=== PATIENT | female | born 2000 | race Caucasian/White ===

== ENCOUNTER 2023-02-18 09:30 | Emergency (ER) | payer OTHER, SELFPAY ==
[2023-02-18 09:38] VITALS: BP 107/83; PULSE 109; RESP 18; TEMP 36.4; O2SAT 96; BMI 28.4
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
== END 2023-02-18 10:59 | disposition home or self-care (01) ==
PROVIDERS: Emergency Provider Emergency Medicine
DX: S09.90XA Unspecified injury of head, initial encounter (principal); S05.12XA Contusion of eyeball and orbital tissues, left eye, initial encounter; Y04.2XXA Assault by strike against or bumped into by another person, initial encounter; Z79.899 Other long term (current) drug therapy; Z79.890 Hormone replacement therapy
CPT/HCPCS: 70450; 70486; 99284

== ENCOUNTER 2023-07-14 16:55 | Emergency (ER) | payer OTHER, SELFPAY ==
[2023-07-14] VITALS (19 sets, daily range): BP systolic 105–117; BP diastolic 68–79; PULSE 73–91; RESP 12–24; TEMP 36.8; O2SAT 90–100; BMI 28.4
[2023-07-14 17:17] LABS: Glucometer 113 mg/dL (74-106)
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
--- NOTE | 2023-07-14 18:03 | XR_ITS ---
The [address] [address] Patient Name: INDIA MOLINA MRN: [id number] date: 2000 Sex: F Assigned Patient Location: ER Current Patient Location: ED.MAIN Accession/Order Number: [id number] Exam Date: 07/14/2023 18:45 Report Date: 07/14/2023 19:20 At the request of: NERIS JUNG Procedure: XR chest 1V EXAMINATION: XR chest 1V HISTORY: Dizziness COMPARISON: None. TECHNIQUE: Portable chest FINDINGS: The lung parenchyma is free of consolidation or infiltrate. Right mid hemithorax calcified pulmonary granuloma. No pneumothorax or pleural effusion. The cardiac, mediastinal and hilar contours are normal. The visualized osseous structures exhibit no gross abnormality. XR/XR chest 1V IMPRESSION: No acute cardiopulmonary abnormality. Electronically authenticated by: SARTHAK COOK Date: 07/14/2023 19:20
--- NOTE | 2023-07-14 18:03 | ECG_ITS ---
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
[2023-07-14 18:09] LABS: Basophils Absolute Auto 0.1 10^3/uL (0.0-0.1); Basophils Percent Auto 0.8 % (0.2-2.0); Eosinophils Absolute Auto 0.1 10^3/uL (0.0-0.7); Eosinophils Percent Auto 1.2 % (0.9-7.0); Hematocrit 38.7 % (36.0-48.0); Hemoglobin 11.9 g/dL (12.0-16.0); Immature Granulocytes Abs Auto 0.01 10^3/uL (0.00-0.03); Immature Granulocytes Pct Auto 0.2 % (0.0-0.5); Lymphocytes Absolute Auto 2.4 10^3/uL (1.2-3.8); Lymphocytes Percent Auto 37.4 % (20.5-60.0); Mean Corpuscular HGB Conc 30.7 g/dL (29.9-35.2); Mean Corpuscular Hemoglobin 25.9 pg (26.7-34.0); Mean Corpuscular Volume 84.1 fL (81.0-99.0); Mean Platelet Volume 12.8 fL (9.5-13.5); Monocytes Absolute Auto 0.4 10^3/uL (0.3-0.8); Monocytes Percent Auto 5.9 % (1.7-12.0); Neutrophils Absolute Auto 3.5 10^3/uL (1.4-6.5); Neutrophils Percent Auto 54.5 % (43.0-75.0); Platelet Count 207 10^3/uL (150-450); Red Cell Distribution Width 14.6 % (11.0-15.0); White Blood Count 6.4 10^3/uL (4.0-11.0)
[2023-07-14 18:11] LABS: Bilirubin Urine NEGATIVE (NEGATIVE); Blood Urine LARGE (NEGATIVE); Clarity Urine CLEAR (CLEAR); Color Urine LT. YELLOW (YELLOW); Glucose Urine UA NEGATIVE (NEGATIVE); Ketones Urine NEGATIVE (NEGATIVE); Leukocyte Esterase Urine NEGATIVE (NEGATIVE); Nitrite Urine NEGATIVE (NEGATIVE); Protein Urine NEGATIVE (NEG/TRACE); Specific Gravity Urine 1.025 (1.005-1.025); Urobilinogen Urine 0.2 EU/dL (0.2-1.0)
[2023-07-14 18:12] LABS: Urine Microscopic Indicated YES
[2023-07-14 18:18] LABS: Alanine Aminotransferase 16 U/L (14-59); Albumin Globulin Ratio 1.1; Albumin Level 3.9 g/dL (3.4-5.0); Alkaline Phosphatase 68 U/L (46-116); Anion Gap 11.8; Aspartate Amino Transferase 13 U/L (15-37); BUN Creatinine Ratio 10.3; Bilirubin Total 0.2 mg/dL (0.2-1.0); Calcium 8.9 mg/dL (8.5-10.1); Carbon Dioxide 26.6 mmol/L (21.0-32.0); Chloride 104 mmol/L (98-107); Estimated GFR (African America >60 (>=60); Estimated GFR (Non-African Ame >60 (>=60); Globulin 3.7 g/dL; Glucose 114 mg/dL (74-106); Potassium 3.4 mmol/L (3.5-5.1); Sodium 139 mmol/L (136-145); Total Protein 7.6 g/dL (6.4-8.2)
[2023-07-14 18:20] LABS: Amphetamine Screen Urine NEGATIVE (NEGATIVE); Barbiturates Screen Urine NEGATIVE (NEGATIVE); Benzodiazepines Screen Urine NEGATIVE (NEGATIVE); Buprenorphine Screen Urine NEGATIVE (NEGATIVE); Cannabinoid Screen Urine NEGATIVE (NEGATIVE); Cocaine Screen Urine NEGATIVE (NEGATIVE); Methadone Screen Urine NEGATIVE (NEGATIVE); Methamphetamines Screen Urine NEGATIVE (NEGATIVE); Opiate Screen Urine NEGATIVE (NEGATIVE); Oxycodone Screen Urine NEGATIVE (NEGATIVE); Phencyclidine Screen Urine NEGATIVE (NEGATIVE); Tricyclic Antidepressant Urine NEGATIVE (NEGATIVE)
[2023-07-14 18:21] LABS: Lactate/Lactic Acid 0.9 mmol/L (0.4-2.0)
[2023-07-14 18:29] LABS: PCO2 VBG 21.6 mmHg (40.0-52.0); pH VBG 7.568 (7.330-7.430)
[2023-07-14 18:31] LABS: Bacteria Urine TRACE #/HPF (NONE SEEN); Crystals Seen? None Seen #/HPF (None Seen); Mucus Urine NONE SEEN (NONE SEEN); Squamous Epithelial Cell Urine FEW #/LPF (NONE/RARE); WBC Urine 0-2 #/HPF (NONE SEEN)
[2023-07-14 18:32] LABS: Cast Seen? NONE SEEN #/LPF (NONE SEEN); Urine Culture Indicated NO
[2023-07-14] MEDS: 0.9 % SODIUM CHLORIDE 1,000 ML 999 ML IV (18:49)
== END 2023-07-14 19:43 | disposition home or self-care (01) ==
PROVIDERS: Emergency Provider Emergency Medicine Emergency Medical Services; PCP Family Medicine
DX: R41.82 Altered mental status, unspecified (principal); Z79.890 Hormone replacement therapy; Z79.899 Other long term (current) drug therapy
CPT/HCPCS: 36415; 71045; 80053; 80307; 81001; 82800; 83605; 85025; 87040; 93005; 99285

== ENCOUNTER 2024-01-31 11:52 | Emergency (ER) | payer OTHER, SELFPAY ==
[2024-01-31 12:04] VITALS: BP 120/71; PULSE 80; TEMP 36.9; O2SAT 97; BMI 26.6
--- OUTSIDE RECORDS SUMMARY | 2024-01-31 12:17 | XMS_ITS | CCD ---
Author Organization [facility] Care Team Providers Care [employer] Supervisor Name Role Phone Mable García Primary Care Provi skyler FLORO ., JACOBO Admitting Unavailable FLORO ., JACOBO Attending Unavailable REQUEST, DR NONE LISTED Primary Care Unavaila ble ABHAY ., DR THORPE Consulting Unavailable GABRIEL SUERO Consulting Unavailable FLORENCIO II, GABRIELLA Consulting Unavailable OPAL PERRY Consulting Unavailable FLORO ., JACOBO Consulting Unavailable KARINE SAVAGE Admitting Unavailable KARINE SAVAGE Attending Unavailable KARINE SAVAGE Consulting Unavailable KARASIK ., DR DIAZ Admitting Unavailabl e KARASIK ., DR DIAZ Attending Unavailabl e KARASIK ., DR DIAZ Consulting Unavailabl e ABHAY ., DR THORPE Admitting Unavailable ABHAY ., DR THORPE Attending Unavailable ABHAY ., DR THORPE Consulting Unavailable ZIEBER, DR SHIN Schrader Consulting Unavailable KARASIK ., DR DIAZ Admitting Unavailabl e KARASIK ., DR DIAZ Attending Unavailabl e KARASIK ., DR DIAZ Consulting Unavailabl e ZIEBER, DR SHIN Schrader Consulting Unavailable FLORO, LATANYA Consulting Unavailable MABLE GARCÍA Primary Care Un available MABLE GARCÍA Primary Care Un available OG LARIOS Admitting UnavailOG Roman Attending Unavailabl e FLOROLATANYA Admitting Unavailable FLORLATANYA Madison Attending Unavailable MABLE GARCÍA Primary Care Un available MABLE GARCÍA Primary Care Un available COY BILLS Attending Unavailable LATANYA MAX Attending Unavailable MABLE JOE Attending Unavailable Medications Current Medications Medication Drug Class(es) Dates Sig (Normalized) Sig (Original) acetaminophen 325 mg / HYDROcodone bitartrate 5 mg oral tablet (5 sources) Opioid Agonist Start: 03-06-2015 End: 01-08-2020 take 1-2 tablets by mouth every four to six hours as needed for pain HYDROcodone-aceta minophen (NORCO) 5-325 MG TABS 1-2 tabs po every 4-6 hours as needed for pain 60 tablet 0 03/06/2015 Active amoxicillin 500 mg oral capsule (2 sources) Penicillin-class Antibacterial Start: 01-08-2020 End: 01-18-2020 take 1 capsule by mouth three times daily amoxicillin (AMOXIL) 500 MG capsule Take 1 capsule by mouth 3 times daily for 10 days 30 capsule 0 01/08/2020 01/18/2020 Active azelastine hydrochloride 0.137 mg/actuat metered dose nasal spray (3 sources) Histamine-1 Receptor Antagonist Start: 05-23-2021 take 2 spray(s) nasal route twice daily azelastine (ASTELIN) 0.1 % nasal spray 2 sprays by Nasal route 2 times daily Use in each nostril as directed 60 mL 0 05/23/2021 Active benzocaine 200 mg/ml / menthol 5 mg/ml topical spray (1 source) Standardized Chemical Allergen Start: 09-25-2019 benzocaine-mentho l (DERMOPLAST) 20-0.5 % spray benzonatate 200 mg oral capsule (1 source) Non-narcotic Antitussive Start: 05-23-2021 End: 06-02-2021 take 1 capsule by mouth three times daily as needed for cough benzonatate (TESSALON) 200 MG capsule Take 1 capsule by mouth 3 times daily as needed for Cough 30 capsule 0 05/23/2021 06/02/2021 Active 2 ml butorphanol tartrate 2 mg/ml injection (1 source) Opioid Agonist/Antagonist Start: 09-25-2019 butorphanol (STADOL) injection 1 mg calcium chloride 0.0014 meq/ml / potassium chloride 0.004 meq/ml / sodium chloride 0.103 meq/ml / sodium lactate 0.028 meq/ml injectable solution (3 sources) Start: 11-07-2022 End: 11-07-2022 lactated ringers IV soln infusion Start: 09-25-2019 lactated ringe rs infusion 1 ml carboprost 0.25 mg/ml injection (1 source) Prostaglandin Analog Start: 09-25-2019 carbopros t (HEMABATE) injection 250 mcg citalopram 10 mg oral tablet (1 source) Serotonin Reuptake Inhibitor take 1 tablet by mouth once daily citalopram (CELEXA) 10 MG tablet Take 10 mg by mouth daily 0 Active ketorolac tromethamine 10 mg oral tablet (15 sources) Nonsteroidal Anti-inflammatory Drug, Cyclooxygenase Inhibitor Start: 01-13-2020 take 1 tablet by mouth every eight hours as needed for pain ketorolac (TORADOL) 10 MG tablet Take 1 tablet by mouth every 8 hours as needed for Pain 15 tablet 0 01/13/2020 Active Start: 01-08-2020 ketorolac (TOR ADOL) injection 30 mg Start: 03-06-2015 take 1 tablet by kenton th three times daily, then take 1 tablet by mouth three times daily ketorolac (TORADOL) 10 MG tablet Take 1 tablet by mouth 3 times daily for 5 days 1 tab by mouth 3 times daily 15 tablet 0 03/06/2015 Active levothyroxine sodium 0.025 m g oral tablet (6 sources) l-Thyroxine levothyroxine (S YNTHROID) 25 MCG tablet Take 80 mcg by mouth Daily 0 Active take 1 tablet by mouth once jaycee y levothyroxine (SYNTHROID) 25 MCG tablet Take 25 mcg by mouth Daily. 0 Active 10 ml lidocaine hydrochloride 10 mg/ml injection (1 source) Antiarrhythmic, Amide Local Anesthetic Start: 09-25-2019 lidocaine PF 1 % injection 30 mL Magic Mouthwash (MIRACLE MOUTHWASH) (1 source) Start: 01-13-2020 Magic Mouthwash (MIRACLE MOUTHWASH) Swish and spit 5 mLs 4 times daily as needed for Irritation 240 mL 0 01/13/2020 Active 1 ml methylergonovine maleate 0.2 mg/ml injection (1 source) Ergot Derivative Start: 09-25-2019 methylergonovine (METHERGINE) injection 200 mcg Misc. Devices (ADULT PUSH BUTTON ALUM CRUTCH) MISC (3 sources) Start: 07-24-2013 Misc. Devices (ADULT PUSH BUTTON ALUM CRUTCH) MISC by Does not apply route. Please dispense one pair and adjust for height. 1 each 0 07/24/2013 Active miSOPROStol 0.1 mg oral tablet (1 source) Prostaglandin E1 Analog Start: 09-25-2019 misoprostol (CYTOTEC) tablet 900 mcg 2 ml ondansetron 2 mg/ml injection (1 source) Serotonin-3 Receptor Antagonist Start: 09-25-2019 ondansetron (ZOFRAN) injection 4 mg oxytocin (PITOCIN) 30 Units in sodium chloride 0.9 % 500 mL infusion (1 source) Start: 09-26-2019 oxytocin (PITOCIN) 30 Units in sodium chloride 0.9 % 500 mL infusion predniSONE 20 mg oral tablet (1 source) Start: 05-23-2021 End: 05-30-2021 take 2 tablets by mouth once daily predniSONE (DELTASONE) 20 MG tablet Take 2 tablets by mouth daily for 7 days 14 tablet 0 05/23/2021 05/30/2021 Active Vit-DSS-Fe Cbn-FA ( AD PO) (1 source) Vit-DSS -Fe Cbn-FA ( AD PO) Take by mouth 0 Active Vit-Fe Fumarate-FA ( COMPLETE PO) (2 sources) Vit-Fe Fumarate-FA ( COMPLETE PO) Take by mouth 0 Active witch radha 500 mg/ml medicated pad (1 source) Start: 09-25-2019 witch radha-glycerin (TUCKS) pad Completed/Discontinued Medications Medication Drug Class(es) Dates Sig (Normalized) Sig (Original) acetaminophen 500 mg oral tablet (2 sources) Start: 11-04-2022 End: 11-04-2022 acetaminophen (TYLENOL) tablet 1,000 mg Start: 09-25-2019 acetaminophen (TYLENOL) tablet 650 mg dinoprostone 10 mg drug implant (1 source) Prostaglandin Analog Start: 09-25-2019 End: 09-25-2019 dinoprostone (CERVIDIL) vaginal insert 10 mg NIFEdipine 10 mg oral capsule (1 source) Dihydropyridine Calcium Channel Jared Start: 11-07-2022 End: 11-07-2022 NIFEdipine (PROCARDIA) capsule 10 mg Start: 11-07-2022 End: 11-07-2022 NIFEdipine (PROCARDIA) capsu le 10 mg 50 ml sodium chloride 9 mg/m l injection (3 sources) Start: 01-08-2020 End: 01-08-2020 0.9 % sodium chloride bolus Start: 09-25-2019 sodium chlorid e flush 0.9 % injection 10 mL zolpidem tartrate 5 mg oral tablet (1 source) gamma-Aminobutyric Acid-ergic Agonist Start: 09-25-2019 End: 09-25-2019 zolpidem (AMBIEN) tablet 5 mg Problems Active Problems Problem Classification Problem Date Documented Date Episodic/Chronic Hemorrhage during ; abruptio placenta; placenta previa (8 sources) Low lying placenta NOS or without hemorrhage, third trimester; Translations: [Antepartum hemorrhage, unspecified, second trimester] Onset: 05-28-2022 Episodic Menopausal disorders (1 source) Hormone replacement therapy; Translations: [HORMONE REPLACEMENT THERAPY] Onset: 10-19-2022 Episodic Other complications of (1 source) Endocrine, nutritional and metabolic diseases complicating , third trimester; Translations: [ENDOCRN NUTR MET DZ COMP PG 3RD TRI] Onset: 11-02-2022 Episodic Other complications of (4 sources) Other specified related conditions, third trimester; Translations: [OTH SPEC PREG RELATED COND 3RD TRI] Onset: 10-17-2022 Episodic Other complications of (1 source) Other infections with a predominantly sexual mode of transmission complicating , third trimester; Translations: [OTH INF SEXL TRNSMS COMP PG 3RD TRI] Onset: 10-19-2022 Episodic Other infections; including parasitic (1 source) Trichomoniasis, unspecified; Translations: [TRICHOMONIASIS UNSPECIFIED] Onset: 10-19-2022 Episodic Other upper respiratory infections (3 sources) Acute pharyngitis; Translations: [Streptococcal pharyngitis] Onset: 07-27-2023 Episodic Otitis media and related conditions (1 source) Otitis media of left ear; Translations: [Left otitis media, unspecified otitis media type] Residual codes; unclassified (1 source) 36 weeks gestation of ; Translations: [36 WEEKS GESTATION OF ] Onset: 11-02-2022 Episodic Residual codes; unclassified (1 source) 34 weeks gestation of ; Translations: [34 WEEKS GESTATION OF ] Onset: 10-19-2022 Episodic Thyroid disorders (1 source) Hypothyroidism, unspecified; Translations: [HYPOTHYROIDISM UNSPECIFIED] Onset: 07-25-2022 Chronic Thyroid disorders (1 source) Disorder of thyroid, unspecified; Translations: [DISORDER OF THYROID UNSPECIFIED] Onset: 11-02-2022 Episodic Urinary tract infections (1 source) Acute cystitis with hematuria; Translations: [Acute cystitis with hematuria] Onset: 07-03-2023 Episodic Viral infection (1 source) Viral disease; Translations: [Viral infection, unspecified] Episodic Past or Other Problems Problem Classification Problem Date Documented Da te Episodic/Chronic Abdominal pain (3 sources) Right lower quadrant pain; Translations: [Abdominal pain] Onset: 10-19-2022 Episodic Early or threatened labor (10 sources) Uterine contractions present; Translations: [False labor, unspecified] Onset: 10-29-2022 Episodic Other aftercare (1 source) Other mcc (current) drug therapy; Translations: [OTH SENIOR CARE CURRENT DRUG THERAPY] Onset: 07-25-2022 Episodic Other complications of (1 source) Other placental disorders, second trimester; Translations: [OTH PLACENTAL DISORDER SECOND TRI] Onset: 07-25-2022 Episodic Other complications of (1 source) Endocrine, nutritional and metabolic diseases complicating , second trimester; Translations: [ENDOCRN NUTR MET DZ COMP PG 2ND TRI] Onset: 07-25-2022 Episodic Other and delivery including normal (7 sources) Term ; Translations: [Encounter for supervision of normal , unspecified, unspecified trimester] Onset: 09-26-2019 09-26-2019 Episodic Residual codes; unclassified (1 source) 23 weeks gestation of ; Translations: [23 WEEKS GESTATION OF ] Onset: 07-25-2022 Episodic Residual codes; unclassified (1 source) 13 weeks gestation of ; Translations: [13 WEEKS GESTATION OF ] Onset: 05-30-2022 Episodic Results Test Name Value Interpretation Reference Range Facility Flu A/B Ag Detectionon 07-27 Flu A Ag Detection Negative Normal NEG [facility] Comment on above: Result Comment: for Influenza A Antigen Performed By: #### F ROSANNE #### [facility] [address] [place] [address] K 12 Principal: Phil Keller MD Flu B Ag Detection Negative Normal NEG [facility] Comment on above: Result Comment: for Influenza B Antigen. Performed By: #### F ROSANNE #### [facility] [address] [place] [address] K 12 Principal: Phil Keller MD [id number] 07-27-2023 SARS-CoV-2 (COVID-19) RNA AMY+probe Ql (Unsp spec) Not detected Normal NOTDET [facility] Comment on above: Result Comment: Rapid NAAT: The specimen is NEGATIVE for SARS-CoV-2, the novel coronavirus associated with COVID-19. The ID NOW COVID-19 assay is designed to detect the virus that causes COVID-19 in patients with signs and symptoms of infection who are suspected of COVID-19. An individual without symptoms of COVID-19 and who is not shedding SARS-CoV-2 virus would expect to have a negative (not detected) result in this assay. Negative results should be treated as presumptive and, if inconsistent with clinical signs and symptoms or necessary for patient management, should be tested with an alternative molecular assay. Negative results do not preclude SARS-CoV-2 infection and should not be used as the sole basis for patient management decisions. Fact sheet for Healthcare Providers: https://www.fda.gov/media/573819/download Fact sheet for Patients: https://www.fda.gov/media/981782/download Methodology: Isothermal Nucleic Acid Amplification Performed By: #### C OVRB #### [address] [place] [address] K 12 Principal: Phil Keller MD Strep Group A, Rapidon 07-27 Strep A, Molecular Positive Abnormal NEG [facility] Comment on above: Performed By: #### R SAB #### [facility] [address] [place] [address] K 12 Principal: Phil Keller MD Source .THROAT SWAB Normal [facility] Comment on above: Performed By: #### R SAB #### [facility] [address] [place] [address] K 12 Principal: Phil Keller MD HCG, ,Urineon 07-03 Beta HCG ( test) Ql (U) Negative Normal NEG [facility] Comment on above: Result Comment: Spec imens with hCG levels near the threshold of the test (25 mIU/mL) may give a negative or indeterminate result. In such cases, another test should be performed with a new specimen in 48-72 hours. If early is suspected clinically in this setting, correlation with quantitative serum b-hCG level is suggested. [facility] has confirmed the use of plasma for this test. This has not been cleared or approved by the U.S. Food and Drug Administration. The FDA has determined that such clearance is not necessary. Performed By: #### U HCG, UAMIC #### [facility] [address] [place] [address] K 12 Principal: Phil Keller MD Urinalysis w/ Microon Bacteria 2+ Abnormal NONE [facility] Comment on above: Performed By: #### U HCG, UAMIC #### [facility] [address] [place] [address] K 12 Principal: Phil Keller MD Bilirubin, SemiQt,Ur Negative Normal NEG [facility] Comment on above: Performed By: #### U HCG, UAMIC #### [facility] [address] [place] [address] K 12 Principal: Phil Keller MD Blood, Urine 3+ Abnormal NEG [facility] Comment on above: Performed By: #### U HCG, UAMIC #### [facility] [address] [place] [address] K 12 Principal: Phil Keller MD Clarity (U) Turbid Abnormal CLEAR [facility] Comment on above: Performed By: #### U HCG, UAMIC #### [facility] [address] [place] [address] K 12 Principal: Phil Keller MD Color (U) Dark Yellow Abnormal YEL [facility] Comment on above: Performed By: #### U HCG, UAMIC #### [facility] [address] [place] [address] Dr. [place], [place] [id number] K 12 Principal: Phil Keller MD Epithelial cells LM Ql (Urine sed) 5 TO 10 Normal 0-25 [facility] Comment on above: Performed By: #### U HCG, UAMIC #### [facility] [address] [place], [place] [id number] K 12 Principal: Phil Keller MD Glucose Ql (U) Negative Normal [facility]G [facility] Comment on above: Performed By: #### U HCG, UAMIC #### [address] [place], [place] [id number] K 12 Principal: Phil Keller MD Ketones Ql (U) Negative Normal NEG [facility] in Hospital Comment on above: Performed By: #### U HCG, UAMIC #### [facility] [address] [place] [address] Dr. [place], [place] [id number] K 12 Principal: Phil Keller MD Leukocyte esterase Test strip Ql (U) MODERATE Abnormal NEG [facility] Comment on above: Performed By: #### U HCG, UAMIC #### [address] [place], [place] [id number] K 12 Principal: Phil Keller MD Nitrite,Ur Positive Abnormal NEG [facility] Comment on above: Performed By: #### U HCG, UAMIC #### [facility] [address] [place] [address] Dr. [place], [place] [id number] K 12 Principal: Phil Keller MD PH,Ur 6.5 Normal 5.0-9.0 [facility] Comment on above: Performed By: #### U HCG, UAMIC #### [facility] [address] [place] [address] Dr. [place], [place] [id number] K 12 Principal: Phil Keller MD Protein Ql (U) 2+ mg/dL Abnormal NEG [facility] Comment on above: Performed By: #### U HCG, UAMIC #### [facility] [address] [place] [address] K 12 Principal: Phil Keller MD Spec. [place],Ur 1.025 High 1.010-1.020 [facility] Comment on above: Performed By: #### U HCG, UAMIC #### [facility] [address] [place], [place] [id number] K 12 Principal: Phil Keller MD Urine RBC's 10 TO 20 Normal 0-2 [facility] Comment on above: Performed By: #### U HCG, UAMIC #### [facility] [address] [place], [place] [id number] K 12 Principal: Phil Keller MD Urine WBC's 20 TO 50 Normal 0-5 [facility] Comment on above: Performed By: #### U HCG, UAMIC #### [facility] [address] [place], [place] [id number] K 12 Principal: Phil Keller MD Urobilinogen,Ur Normal Normal 0.0-1.0 [facility] Comment on above: Performed By: #### U HCG, UAMIC #### [facility] [address] [place] [address] K 12 Principal: Phil Keller MD PRBC LEUKOREDUCEDon 11-27-19 23 ABO and Rh group Nom (Bld) Cross Match Result Compatible Unit Blood Type O Neg Unit Number [id number] Status Information Transfused Product ID Red Blood Cells Product Code [id number] Cross Match Result Compatible Unit Blood Type O Neg Unit Number [id number] Status Information Released Specimen Exp Date [id number] Product ID Red Blood Cells Product Code [id number] Normal [facility] Comment on above: Performed By: #### CELY FENTON #### [facility] [address] [place] [address] Dr. Nilo Gibbons CBC AUTO DIFFon 11-24-2022 BASO # 0.0 103/ul Normal 0.0-0.1 [facility] Comment on above: Performed By: #### Jose WALDRON UMICRO #### [facility] [address] [place] [address] Dr. Nilo Gibbons Basophils/100 WBC (Bld) 0.2 % Normal 0.2-2.0 [facility] Comment on above: Performed By: #### Jose WALDRON, UMICRO #### [facility] [address] [place] [address] Dr. Nilo Gibbons EO # 0.0 103/ul Normal 0.0-0.7 [facility] Comment on above: Performed By: #### Jose WALDRON UMICRO #### [facility] [address] [place] [address] Dr. Nilo Gibbons Eosinophils/100 WBC (Bld) 0.2 % Critically low 0.9-7.0 [facility] Comment on above: Performed By: #### Jose WALDRON UMICRO #### [facility] [address] [place] [address] Dr. Nilo Gibbons Erythrocyte distribution width (RBC) [Ratio] 15.1 % Critically high 11.0-15.0 [facility] Comment on above: Performed By: #### Jose WALDRON, UMICRO #### [facility] [address] [place] [address] Dr. Nilo Gibbons Hematocrit (Bld) [Volume fraction] 23.1 % Critically low 36.0-48.0 [facility] Comment on above: Performed By: #### Jose WALDRON, UMICRO #### [facility] [address] [place] [address] Dr. Nilo Gibbons Hemoglobin (Bld) [Mass/Vol] 7.4 g/dL Critically low 12.0-16.0 [facility] Comment on above: Performed By: #### Jose WALDRON, UMICRO #### [facility] [address] [place] [address] Dr. Nilo Gibbons IG # 0.05 10e3/ul Critically high 0.00-0.03 [facility] Comment on above: Performed By: #### LISSETH FENTONRO #### [facility] [address] [place] [address] Dr. Nilo Gibbons IG % 0.4 % Normal 0.0-0.5 [facility] Comment on above: Performed By: #### LISSETH FENTONRO #### [facility] [address] [place] [address] Dr. Nilo Gibbons LYMPH # 1.6 103/ul Normal 1.2-3.8 [facility] Comment on above: Performed By: #### LISSETH FENTONRO #### [facility] [address] [place] [address] Dr. Nilo Gibbons Lymphocytes/100 WBC (Bld) 12.6 % Critically low 20.5-60.0 [facility] Comment on above: Performed By: #### LISSETH FENTONRO #### [facility] [address] [place] [address] Dr. Nilo Gibbons MANUAL DIFF REQ NO Normal [facility] Comment on above: Performed By: #### LISSETH FENTONRO #### [facility] [address] [place] [address] Dr. Nilo Gibbons MCH (RBC) [Entitic mass] 26.8 pg Normal 26.7-34.0 [facility] Comment on above: Performed By: #### LISSETH FENTONRO #### [facility] [address] [place] [address] Dr. Nilo Gibbons MCHC (RBC) [Mass/Vol] 32.0 g/dL Normal 29.9-35.2 [facility] Comment on above: Performed By: #### LISSETH FENTONRO #### [facility] [address] [place] [address] Dr. Nilo Gibbons MCV (RBC) [Entitic vol] 83.7 fL Normal 81.0-99.0 [facility] Comment on above: Performed By: #### LISSETH FENTONRO #### [facility] [address] [address] [address] Nilo Gibbons MONO # 0.7 103/ul Normal 0.3-0.8 [facility] Comment on above: Performed By: #### BRENDA FENTONICRO #### [facility] [address] [place] [address] Dr. Nilo Gibbons Monocytes/100 WBC (Bld) 5.8 % Normal 1.7-12.0 [facility] Comment on above: Performed By: #### Jose WALDRON UMICRO #### [facility] [address] [place] [address] Dr. Nilo Gibbons NEUT # 10.0 103/ul Critically high 1.4-6.5 [facility] Comment on above: Performed By: #### Jose WALDRON UMICRO #### [facility] [address] [place] [address] Dr. Nilo Gibbons Neutrophils/100 WBC (Bld) 80.8 % Critically high 43.0-75.0 [facility] Comment on above: Performed By: #### Jose WALDRON UMICRO #### [facility] [address] [place] [address] Dr. Nilo Gibbons Platelet mean volume (Bld) [Entitic vol] 12.4 fL Normal 9.5-13.5 [facility] Comment on above: Performed By: #### Jose WALDRON UMICRO #### [facility] [address] [place] [address] Dr. Nilo Gibbons PLT 126 103/ul Critically low 150-[address] [facility] Comment on above: Performed By: #### Jose WALDRON UMICRO #### [facility] [address] [place] [address] Dr. Nilo Gibbons RBC 2.76 106/ul Critically low 4.20-5.40 [facility] Comment on above: Performed By: #### Jose WALDRON UMICRO #### [facility] [address] [place] [address] Dr. Nilo Gibbons WBC 12.3 103/ul Critically high 4.0-11.0 [facility] Comment on above: Performed By: #### E RUMacrina ICRO #### [facility] [address] [place] [address] Dr. Nilo Gibbons CBC AUTO DIFFon 11-23-2022 BASO # 0.0 103/ul Normal 0.0-0.1 [facility] Comment on above: Performed By: #### U SAIRA UMICRO #### [facility] [address] [place] [address] Dr. Nilo Gibbons Basophils/100 WBC (Bld) 0.2 % Normal 0.2-2.0 [facility] Comment on above: Performed By: #### U SAIRA ICRO #### [facility] [address] [place] [address] Dr. Nilo Gibbons EO # 0.0 103/ul Normal 0.0-0.7 [facility] Comment on above: Performed By: #### Ekaterina CHÁVEZ ICRO #### [facility] [address] [place] [address] Dr. Nilo Gibbons Eosinophils/100 WBC (Bld) 0.2 % Critically low 0.9-7.0 [facility] Comment on above: Performed By: #### CELY CARROLL #### [facility] [address] [place] [address] Dr. Nilo Gibbons Erythrocyte distribution width (RBC) [Ratio] 15.6 % Critically high 11.0-15.0 [facility] Comment on above: Performed By: #### LISSETH CARROLLRO #### [facility] [address] [place] [address] Dr. Nilo Gibbons Hematocrit (Bld) [Volume fraction] 29.5 % Critically low 36.0-48.0 [facility] Comment on above: Performed By: #### U LISSETH CHÁVEZRO #### [facility] [address] [place] [address] Dr. Nilo Gibbons Hemoglobin (Bld) [Mass/Vol] 9.2 g/dL Critically low 12.0-16.0 [facility] Comment on above: Performed By: #### LISSETH CARROLLRO #### [facility] [address] [address] [address] Nilo Gibbons IG # 0.05 10e3/ul Critically high 0.00-0.03 [facility] Comment on above: Performed By: #### U ACSIND, UMICRO #### [facility] [address] [address] [address] Nilo Gibbons IG % 0.3 % Normal 0.0-0.5 [facility] Comment on above: Performed By: #### U ACSIND, UMICRO #### [facility] [address] [address] [address] Nilo Gibbons LYMPH # 2.8 103/ul Normal 1.2-3.8 [facility] Comment on above: Performed By: #### U ACSIND, UMICRO #### [facility] [address] [address] [address] Nilo Gibbons Lymphocytes/100 WBC (Bld) 18.4 % Critically low 20.5-60.0 [facility] Comment on above: Performed By: #### U ACSIND, UMICRO #### [facility] [address] [address] [address] Nilo Gibbons MANUAL DIFF REQ NO Normal [facility] Comment on above: Performed By: #### U ACSIND, UMICRO #### [facility] [address] [address] [address] Nilo Gibbons MCH (RBC) [Entitic mass] 26.4 pg Critically low 26.7-34.0 [facility] Comment on above: Performed By: #### U ACSIND, UMICRO #### [facility] [address] [address] [address] Nilo Gibbons MCHC (RBC) [Mass/Vol] 31.2 g/dL Normal 29.9-35.2 [facility] Comment on above: Performed By: #### U ACSIND, UMICRO #### [facility] [address] [address] [address] Nilo Gibbons MCV (RBC) [Entitic vol] 84.8 fL Normal 81.0-99.0 [facility] Comment on above: Performed By: #### U BRENDA CHÁVEZICRO #### [facility] [address] [place] [address] Dr. Nilo Gibbons MONO # 1.2 103/ul Critically high 0.3-0.8 [facility] Comment on above: Performed By: #### Ekaterina CHÁVEZ UMICRO #### [facility] [address] [place] [address] Dr. Nilo Gibbons Monocytes/100 WBC (Bld) 7.7 % Normal 1.7-12.0 [facility] Comment on above: Performed By: #### Ekaterina CHÁVEZ UMICRO #### [facility] [address] [place] [address] Dr. Nilo Gibbons NEUT # 11.1 103/ul Critically high 1.4-6.5 [facility] Comment on above: Performed By: #### Ekaterina CHÁVEZ ICRO #### [facility] [address] [place] [address] Dr. Nilo Gibbons Neutrophils/100 WBC (Bld) 73.2 % Normal 43.0-75.0 [facility] Comment on above: Performed By: #### Ekaterina CHÁVEZ ICRO #### [facility] [address] [place] [address] Dr. Nilo Gibbons Platelet mean volume (Bld) [Entitic vol] 11.8 fL Normal 9.5-13.5 [facility] Comment on above: Performed By: #### Ekaterina CHÁVEZ ICRO #### [facility] [address] [place] [address] Dr. Nilo Gibbons PLT 100 103/ul Critically low 150-[address] [facility] Comment on above: Performed By: #### U SAIRA UMICRO #### [facility] [address] [place] [address] Dr. Nilo Gibbons RBC 3.48 106/ul Critically low 4.20-5.40 [facility] Comment on above: Performed By: #### Ekaterina CHÁVEZ UMICRO #### [facility] [address] [place] [address] Dr. Nilo Gibbons WBC 15.1 103/ul Critically high 4.0-11.0 [facility] Comment on above: Performed By: #### U ACSIND, UMICRO #### [facility] [address] [place] [address] Dr. Nilo Gibbons BASO # 0.0 103/ul Normal 0.0-0.1 [facility] Comment on above: Performed By: #### E RUR, UMICRO #### [facility] [address] [place] [address] Dr. Nilo Gibbons Basophils/100 WBC (Bld) 0.3 % Normal 0.2-2.0 [facility] Comment on above: Performed By: #### E RUR, UMICRO #### [facility] [address] [place] [address] Dr. Nilo Gibbons EO # 0.0 103/ul Normal 0.0-0.7 [facility] Comment on above: Performed By: #### E RUR, UMICRO #### [facility] [address] [place] [address] Dr. Nilo Gibbons Eosinophils/100 WBC (Bld) 0.5 % Critically low 0.9-7.0 [facility] Comment on above: Performed By: #### E RUMacrina, UMICRO #### [facility] [address] [place] [address] Dr. Nilo Gibbons Erythrocyte distribution width (RBC) [Ratio] 15.7 % Critically high 11.0-15.0 [facility] Comment on above: Performed By: #### E RUR, UMICRO #### [facility] [address] [place] [address] Dr. Nilo Gibbons Hematocrit (Bld) [Volume fraction] 31.5 % Critically low 36.0-48.0 [facility] Comment on above: Performed By: #### E RUR, UMICRO #### [facility] [address] [place] [address] Dr. Nilo Gibbons Hemoglobin (Bld) [Mass/Vol] 10.2 g/dL Critically low 12.0-16.0 [facility] Comment on above: Performed By: #### CELY FENTON #### [facility] [address] [place] [address] Dr. Nilo Gibbons IG # 0.03 10e3/ul Normal 0.00-0.03 [facility] Comment on above: Performed By: #### CELY FENTON #### [facility] [address] [place] [address] Dr. Nilo Gibbons IG % 0.4 % Normal 0.0-0.5 [facility] Comment on above: Performed By: #### CELY FENTON #### [facility] [address] [place] [address] Dr. Nilo Gibbons LYMPH # 2.1 103/ul Normal 1.2-3.8 [facility] Comment on above: Performed By: #### CELY FENTON #### [facility] [address] [place] [address] Dr. Nilo Gibbons Lymphocytes/100 WBC (Bld) 26.9 % Normal 20.5-60.0 [facility] Comment on above: Performed By: #### CELY FENTON #### [facility] [address] [place] [address] Dr. Nilo Gibbons MANUAL DIFF REQ NO Normal [facility] Comment on above: Performed By: #### CELY FENTON #### [facility] [address] [place] [address] Dr. Nilo Gibbons MCH (RBC) [Entitic mass] 26.5 pg Critically low 26.7-34.0 [facility] Comment on above: Performed By: #### LISSETH FENTONRO #### [facility] [address] [place] [address] Dr. Nilo Gibbons MCHC (RBC) [Mass/Vol] 32.4 g/dL Normal 29.9-35.2 [facility] Comment on above: Performed By: #### LISSETH FENTONRO #### [facility] [address] [place] [address] Dr. Nilo Gibbons MCV (RBC) [Entitic vol] 81.8 fL Normal 81.0-99.0 [facility] Comment on above: Performed By: #### Jose WALDRON UMICRO #### [facility] [address] [place] [address] Dr. Nilo Gibbons MONO # 0.6 103/ul Normal 0.3-0.8 [facility] Comment on above: Performed By: #### Jose WALDRON, UMICRO #### [facility] [address] [place] [address] Dr. Nilo Gibbnos Monocytes/100 WBC (Bld) 7.3 % Normal 1.7-12.0 [facility] Comment on above: Performed By: #### Jose WALDRON UMICRO #### [facility] [address] [place] [address] Dr. Nilo Gibbons NEUT # 4.9 103/ul Normal 1.4-6.5 [facility] Comment on above: Performed By: #### Jose WALDRON UMICRO #### [facility] [address] [place] [address] Dr. Nilo Gibbons Neutrophils/100 WBC (Bld) 64.6 % Normal 43.0-75.0 [facility] Comment on above: Performed By: #### Jose WALDRON, UMICRO #### [facility] [address] [place] [address] Dr. Nilo Gibbons Platelet mean volume (Bld) [Entitic vol] 12.0 fL Normal 9.5-13.5 [facility] Comment on above: Performed By: #### Jose WALDRON UMICRO #### [facility] [address] [place] [address] Dr. Nilo Gibbons PLT 180 103/ul Normal 150-450 [facility] Comment on above: Performed By: #### Jose WALDRON, UMICRO #### [facility] [address] [place] [address] Dr. Nilo Gibbons RBC 3.85 106/ul Critically low 4.20-5.40 [facility] Comment on above: Performed By: #### E RUR, UMICRO #### [facility] [address] [address] [address] Nilo Gibbons WBC 7.6 103/ul Normal 4.0-11.0 [facility] Comment on above: Performed By: #### E RUR, UMICRO #### [facility] [address] [address] [address] Nilo Gibbons DRUG SCREEN RAPID (URINE)on 11-23-2022 AMP Negative Normal NEGATIVE [facility] Comment on above: Performed By: #### U ACSIND, UMICRO #### [facility] [address] [address] [address] Nilo Gibbons BAR Negative Normal NEGATIVE [facility] Comment on above: Performed By: #### U ACSIND, UMICRO #### [facility] [address] [place] [address] Dr. Nilo Gibbons BUP Negative Normal NEGATIVE [facility] Comment on above: Performed By: #### U ACSIND, UMICRO #### [facility] [address] [address] [address] Nilo Gibbons BZO Negative Normal NEGATIVE [facility] Comment on above: Performed By: #### U ACSIND, UMICRO #### [facility] [address] [place] [address] Dr. Nilo Gibbons SARAH Negative Normal NEGATIVE [facility] Comment on above: Performed By: #### U ACSIND, UMICRO #### [facility] [address] [place] [address] Dr. Nilo Gibbons CUT-OFFS SEE BELOW Normal [facility] Comment on above: Result Comment: AMP (Amphetamine): 500ng/mL, BAR (Barbituates): 200 ng/mL, BZO (Benzodiazepines): 150 ng/mL, BUP (Buprenorphine): 10 ng/mL, SARAH (Cocaine): 150 ng/mL, mAMP (Methamphetamine): 500 ng/mL, MTD (Methadone): 200 ng/mL, OPI (Opiates): 100 ng/mL, OXY (Oxycodone): 100 ng/mL, PCP (Phencyclidine): 25 ng/mL, PPX (Propoxyphene): 300 ng/mL, THC (Cannabinoids): 50 ng/mL, TCA (Trycyclic Antidepressants): 300 ng/mL Performed By: #### U ACSIND, UMICRO #### [facility] [address] [address] [address] Nilo Gibbons DRUG CUT HEADER DRUG CLASS TEST SYSTEM CUT-OFF CONCENTRATIONS ARE FOLLOWS: Normal [facility] Comment on above: Performed By: #### U ACSIND, UMICRO #### [facility] [address] [address] [address] Nilo Gibbons mAMP Negative Normal NEGATIVE [facility] Comment on above: Performed By: #### U ACSIND, UMICRO #### [facility] [address] [address] [address] Nilo Gibbons MTD Negative Normal NEGATIVE [facility] Comment on above: Performed By: #### U ACSIND, UMICRO #### [facility] [address] [address] [address] Nilo Gibbons OPI Negative Normal NEGATIVE [facility] Comment on above: Performed By: #### U ACSNAOMI, UMICRO #### [facility] [address] [address] [address] Nilo Gibbons OXY Negative Normal NEGATIVE [facility] Comment on above: Performed By: #### U ACSNAOMI, UMICRO #### [facility] [address] [address] [address] Nilo Gibbons PCP Negative Normal NEGATIVE [facility] Comment on above: Performed By: #### U ACSIND, UMICRO #### [facility] [address] [address] [address] Nilo Gibbons PPX Negative Normal NEGATIVE [facility] Comment on above: Performed By: #### U ACSIND, UMICRO #### [facility] [address] [address] [address] Nilo Gibbons TCA Negative Normal NEGATIVE [facility] Comment on above: Performed By: #### U ACSIND, UMICRO #### [facility] [address] [place], [place] [address] Dr. Nilo Gibbons THC Negative Normal NEGATIVE [facility] Comment on above: Performed By: #### U CELY CHÁVEZ #### [facility] [address] [place], [place] [address] Dr. Nilo Gibbons TYPE AND SCREENon 11-23-2022 TYPE AND SCREEN Negative Normal [facility] Comment on above: Performed By: #### E RURLISSETHRO #### [facility] [address] [place], [place] [address] Dr. Nilo Gibbons Urinalysison 11-07-2022 Bilirubin Urine Negative NEGATIVE [facility] Color, UA Yellow Yellow [facility] Glucose Auto test strip (U) [Mass/Vol] Negative NEGATIVE [facility] Ketones (U) [Mass/Vol] Negative NEGATIVE [facility] Leukocyte esterase Auto test strip Ql (U) Negative NEGATIVE [facility] Nitrite Auto test strip Ql (U) Negative NEGATIVE [facility] Protein (U) [Mass/Vol] 7.0 mg/dL 5.0 - 9.0 [facility] Protein (U) [Mass/Vol] Negative NEGATIVE [facility] Specific [place], UA 1.020 1.010 - 1.020 B ON [facility] Turbidity UA Clear Clear [facility] Urine Hgb Negative NEGATIVE [facility] Urobilinogen, Urine Normal Normal [facility] Urinalysis, Routineon 2022 Bilirubin, SemiQt,Ur Negative Normal NEG [facility] Comment on above: Performed By: #### U A #### [facility] [address] [place] [address] K 12 Principal: Phil Keller MD Blood, Urine Negative Normal NEG [facility] Comment on above: Performed By: #### U A #### [facility] [address] [place] [address] K 12 Principal: Phil Keller MD Clarity (U) Clear Normal CLEAR [facility] Comment on above: Performed By: #### U A #### [facility] [address] [place] [address] K 12 Principal: Phil Keller MD Color (U) Yellow Normal YEL [facility] Comment on above: Performed By: #### U A #### [facility] [address] [place] [address] K 12 Principal: Phil Keller MD Glucose Ql (U) Negative Normal NEG [facility] Comment on above: Performed By: #### U A #### [facility] [address] [place] [address] Dr. [place], [place] [id number] K 12 Principal: Phil Keller MD Ketones Ql (U) Negative Normal NEG [facility] Comment on above: Performed By: #### U A #### [facility] [address] [place] [address] Dr. [place], [place] [id number] K 12 Principal: Phil Keller MD Leukocyte esterase Test strip Ql (U) Negative Normal NEG [facility] Comment on above: Performed By: #### U A #### [facility] [address] [place] [address] [place] [address] K 12 Principal: Phil Keller MD Nitrite,Ur Negative Normal NEG [facility] Comment on above: Performed By: #### U A #### [facility] [address] [place] [address] Dr. [place], [place] [id number] K 12 Principal: Phil Keller MD PH,Ur 7.0 Normal 5.0-9.0 [facility] Comment on above: Performed By: #### U A #### [facility] [address] [place] [address] [place] [address] K 12 Principal: Phil Keller MD Protein Ql (U) Negative Normal NEG [facility] Comment on above: Performed By: #### U A #### [facility] [address] [place] [address] K 12 Principal: Phil Keller MD Spec. [place],Ur 1.020 Normal 1.010-1.020 [facility] Comment on above: Performed By: #### U A #### [facility] [address] [place] [address] K 12 Principal: Phil Keller MD Urobilinogen,Ur Normal Normal NORM [facility] Comment on above: Performed By: #### U A #### [facility] [address] [place] [address] K 12 Principal: Phil Keller MD Cult,Urineon 11-05-2022 Cult,Urine Specimen Description .CLEAN CATCH URINE Culture NO SIGNIFICANT GROWTH Report Status FINAL 11/05/2022 Normal [facility] Comment on above: Performed By: #### U RC #### [facility] [address] [place] [address] K 12 Principal: Axel Mahoney MD [facility] [address] [place] [address] K 12 Principal: Phil Keller MD Microscopic Urinalysison Bacteria, UA 2+ Abnormal None [facility] Epithelial Cells UA 5 TO 10 [facility] Interpretation and review of laboratory results Abnormal [facility] Mucus, UA TRACE Abnormal None [facility] RBC clumps Auto (Urine sed) [#/Area] 5 TO 10 [facility] WBC, UA 2 TO 5 [facility] Urinalysison 11-04-2022 Bilirubin Urine Negative NEGATIVE [facility] Color, UA Yellow Yellow [facility] Glucose Auto test strip (U) [Mass/Vol] Negative NEGATIVE [facility] Interpretation and review of laboratory results Abnormal [facility] Ketones (U) [Mass/Vol] Negative NEGATIVE [facility] Leukocyte esterase Auto test strip Ql (U) TRACE Abnormal NEGATIVE [facility] Nitrite Auto test strip Ql (U) Negative NEGATIVE [facility] Protein (U) [Mass/Vol] 6.5 mg/dL 5.0 - 9.0 [facility] Protein (U) [Mass/Vol] Negative NEGATIVE [facility] Specific [place], UA 1.020 1.010 - 1.020 B ON [facility] Turbidity UA SLIGHTLY CLOUDY Abnormal Clear [facility] Urine Hgb TRACE Abnormal NEGATIVE [facility] Urobilinogen, Urine Normal Normal [facility] Urinalysis, Routineon 2022 Bilirubin, SemiQt,Ur Negative Normal NEG [facility] Comment on above: Performed By: #### U MICAO, UA #### [facility] [address] [place] [address] [place] [address] K 12 Principal: Phil Keller MD Blood, Urine TRACE Abnormal NEG [facility] Comment on above: Performed By: #### U MICAO, UA #### [facility] [address] [place] [address] Dr. [place], [facility]83 K 12 Principal: Phil Keller MD Clarity (U) SLIGHTLY CLOUDY Abnormal CLEAR [facility] Comment on above: Performed By: #### U MICAO, UA #### [address] [place], [facility]83 K 12 Principal: Phil Keller MD Color (U) Yellow Normal YEL [facility] Comment on above: Performed By: #### U MICAO, UA #### [facility] [address] [place] [address] Dr. [place], [facility]83 K 12 Principal: Phil Keller MD Glucose Ql (U) Negative Normal NEG [facility] Comment on above: Performed By: #### U MICAO, UA #### [facility] [address] [place] [address] [place] [address] K 12 Principal: Phil Keller MD Ketones Ql (U) Negative Normal NEG [facility] Comment on above: Performed By: #### U MICAO, UA #### [facility] [address] [place], [place] [id number] K 12 Principal: Phil Keller MD Leukocyte esterase Test strip Ql (U) TRACE Abnormal NEG [facility] Comment on above: Performed By: #### U MICAO, UA #### [facility] [address] [place], [place] [id number] K 12 Principal: Phil Keller MD Nitrite,Ur Negative Normal NEG [facility] Comment on above: Performed By: #### U MICAO, UA #### [facility] [address] [place], [place] [id number] K 12 Principal: Phil Keller MD PH,Ur 6.5 Normal 5.0-9.0 [facility] Comment on above: Performed By: #### U MICAO, UA #### [facility] [address] [place] [address] [place] [address] K 12 Principal: Phil Keller MD Protein Ql (U) Negative Normal NEG [facility] Comment on above: Performed By: #### U MICAO, UA #### [address] [place], [place] [id number] K 12 Principal: Phil Kleler MD Spec. [place],Ur 1.020 Normal 1.010-1.020 [facility] Comment on above: Performed By: #### U MICAO, UA #### [facility] [address] [place], [facility]83 K 12 Principal: Phil Keller MD Urobilinogen,Ur Normal Normal NORM [facility] Comment on above: Performed By: #### U MICAO, UA #### [facility] [address] [place], [place] [id number] K 12 Principal: Phil Keller MD Urinalysis,Microon 3 Bacteria 2+ Abnormal NONE [facility] Comment on above: Performed By: #### U MICAO, UA #### [facility] [address] [place], [place] [id number] K 12 Principal: Phil Keller MD Epithelial cells LM Ql (Urine sed) 5 TO 10 Normal 0-25 [facility] Comment on above: Performed By: #### U MICAO, UA #### [facility] [address] [place], [place] [id number] K 12 Principal: Phil Keller MD Mucus Strands TRACE Abnormal NONE [facility] Comment on above: Performed By: #### U ESEQUIELO, UA #### [facility] [address] [place], [facility]83 K 12 Principal: Phil eKller MD Urine RBC's 5 TO 10 Normal 0-2 [facility] Comment on above: Performed By: #### U ESEQUIELO, UA #### [facility] [address] [place], [facility]83 K 12 Principal: Phil Keller MD Urine WBC's 2 TO 5 Normal 0-5 [facility] Comment on above: Performed By: #### U TUSHAR UA #### [facility] [address] 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 Nilo Gibbons Clarity (U) CLEAR Normal CLEAR [facility] Comment on above: Performed By: #### U ACSNAOMI UMICRO #### [facility] [address] [place] [address] Dr. Nilo Gibbons Color (U) LT. YELLOW Normal YELLOW [facility] Comment on above: Performed By: #### U ACSNAOMI UMICRO #### [facility] [address] [place] [address] Dr. Nilo Gibbons Glucose Ql (U) Negative Normal NEGATIVE [facility] Comment on above: Performed By: #### U ACSIND, UMICRO #### [facility] [address] [address] [address] Nilo Gibbons Hemoglobin Ql (U) TRACE-INTACT Abnormal NEGATIVE [facility] Comment on above: Performed By: #### U ACSIND, UMICRO #### [facility] [address] [address] [address] Nilo Gibbons Ketones Ql (U) Negative Normal NEGATIVE [facility] Comment on above: Performed By: #### U ACSIND, UMICRO #### [facility] [address] [address] [address] Nilo Gibbons LEUKOCYTES Negative Normal NEGATIVE [facility] Comment on above: Performed By: #### U ACSIND, UMICRO #### [facility] [address] [address] [address] Nilo Gibbons Nitrite Ql (U) Negative Normal NEGATIVE [facility] Comment on above: Performed By: #### U ACSIND, UMICRO #### [facility] [address] [address] [address] Nilo Gibbons pH (U) 6.5 [pH] Normal 5-9 [facility] Comment on above: Performed By: #### U ACSIND, UMICRO #### [facility] [address] [address] [address] Nilo Gibbons SPEC GRAVITY 1.015 Normal 1.005-<=1.025 [facility] Comment on above: Performed By: #### U ACSIND, UMICRO #### [facility] [address] [address] [address] Nilo Gibbons UA PROTEIN Negative Normal NEGATIVE/ TRACE [facility] Comment on above: Performed By: #### U ACSIND, UMICRO #### [facility] [address] [address] [address] Nilo Gibbons UR MICRO IND INDICATED Normal [facility] Comment on above: Performed By: #### U ACSIND, UMICRO #### [facility] [address] [address] [address] Nilo Gibbons Urobilinogen Qn (U) 0.2 {You'U}/dL Normal 0.2 - 1. 0 [facility] Comment on above: Performed By: #### U ACSIND, UMICRO #### [facility] [address] [address] [address] Nilo Gibbons URINE MICROSCOPIC ONLYon BACTERIA TRACE Abnormal NONE SEEN [facility] Comment on above: Performed By: #### U ACSIND, UMICRO #### [facility] [address] [address] [address] Nilo Gibbons Bacteria identified Cx Nom (U) NOT INDICATED Normal [facility] Comment on above: Performed By: #### U ACSIND, UMICRO #### [facility] [address] [place] [address] Dr. Nilo Gibbons CAST NONE SEEN Normal NONE SEEN [facility] Comment on above: Performed By: #### U ACSIND, UMICRO #### [facility] [address] [place] [address] Dr. Nilo Gibbons Crystals LM Nom (Urine sed) NONE SEEN Normal NONE SEEN [facility] Comment on above: Performed By: #### U ACSIND, UMICRO #### [facility] [address] [place] [address] Dr. Nilo Gibbons Epithelial cells LM Ql (Urine sed) FEW Abnormal NONE SEEN /RARE [facility] Comment on above: Performed By: #### U ACSIND, UMICRO #### [facility] [address] [place] [address] Dr. Nilo Gibbons MUCOUS NONE SEEN Normal NONE SEEN [facility] Comment on above: Performed By: #### U ACSIND, UMICRO #### [facility] [address] [place] [address] Dr. Nilo Gibbons RBC 0-2 Normal 0-2 [facility] Comment on above: Performed By: #### U ACSIND, UMICRO #### [facility] [address] [place] [address] Dr. Nilo Gibbons WBC 0-2 Abnormal NONE SEEN [facility] Comment on above: Performed By: #### U BRENDA CHÁVEZICRO #### [facility] [address] [address] [address] Nilo Gibbons GBS, External Resulton 10-27 GBS, External Result Negative [employer] Work Phone: [employer] Phone: AMYLASEon 10-17-2022 Amylase [Catalytic activity/Vol] 32 U/L Normal 25-115 [facility] Comment on above: Performed By: #### U BRENDA CHÁVEZICRO #### [facility] [address] [place] [address] Dr. Nilo Gibbons BUNon 10-17-2022 Urea nitrogen [Mass/Vol] 4.0 mg/dL Critically low 7.0-18.0 [facility] Comment on above: Performed By: #### U BRENDA CHÁVEZICRO #### [facility] [address] [place] [address] Dr. Nilo Gibbons CBC AUTO DIFFon 10-17-2022 BASO # 0.0 103/ul Normal 0.0-0.1 [facility] Comment on above: Performed By: #### U SAIRA UMICRO #### [facility] [address] [address] [address] Nilo Gibbons Basophils/100 WBC (Bld) 0.3 % Normal 0.2-2.0 [facility] Comment on above: Performed By: #### U ACSNAOMI UMICRO #### [facility] [address] [place] [address] Dr. Nilo Gibbons EO # 0.0 103/ul Normal 0.0-0.7 [facility] Comment on above: Performed By: #### U SAIRA UMICRO #### [facility] [address] [place] [address] Dr. Nilo Gibbons Eosinophils/100 WBC (Bld) 0.3 % Critically low 0.9-7.0 [facility] Comment on above: Performed By: #### LISSETH CARROLLRO #### [facility] [address] [place] [address] Dr. Nilo Gibbons Erythrocyte distribution width (RBC) [Ratio] 13.6 % Normal 11.0-15.0 [facility] Comment on above: Performed By: #### LISSETH CARROLLRO #### [facility] [address] [place] [address] Dr. Nilo Gibbons Hematocrit (Bld) [Volume fraction] 30.7 % Critically low 36.0-48.0 [facility] Comment on above: Performed By: #### LISSETH CARROLLRO #### [facility] [address] [place] [address] Dr. Nilo Gibbons Hemoglobin (Bld) [Mass/Vol] 10.1 g/dL Critically low 12.0-16.0 [facility] Comment on above: Performed By: #### LISSETH CARROLLRO #### [facility] [address] [place] [address] Dr. Nilo Gibbons IG # 0.04 10e3/ul Critically high 0.00-0.03 [facility] Comment on above: Performed By: #### LISSETH CARROLLRO #### [facility] [address] [place] [address] Dr. Nilo Gibbons IG % 0.4 % Normal 0.0-0.5 [facility] Comment on above: Performed By: #### LISSETH CARROLLRO #### [facility] [address] [place] [address] Dr. Nilo Gibbons LYMPH # 2.4 103/ul Normal 1.2-3.8 [facility] Comment on above: Performed By: #### LISSETH CARROLLRO #### [facility] [address] [place] [address] Dr. Nilo Gibbons Lymphocytes/100 WBC (Bld) 25.3 % Normal 20.5-60.0 [facility] Comment on above: Performed By: #### LISSETH CARROLLRO #### [facility] [address] [address] [address] Nilo Gibbons MANUAL DIFF REQ NO Normal [facility] Comment on above: Performed By: #### U ACSNAOMI UMICRO #### [facility] [address] [address] [address] Nilo Gibbons MCH (RBC) [Entitic mass] 27.3 pg Normal 26.7-34.0 [facility] Comment on above: Performed By: #### U ACSNAOMI, UMICRO #### [facility] [address] [place] [address] Dr. Nilo Gibbons MCHC (RBC) [Mass/Vol] 32.9 g/dL Normal 29.9-35.2 [facility] Comment on above: Performed By: #### U ACSNAOMI UMICRO #### [facility] [address] [place] [address] Dr. Nilo Gibbons MCV (RBC) [Entitic vol] 83.0 fL Normal 81.0-99.0 [facility] Comment on above: Performed By: #### U ACSNAOMI ICRO #### [facility] [address] [place] [address] Dr. Nilo Gibbons MONO # 0.7 103/ul Normal 0.3-0.8 [facility] Comment on above: Performed By: #### U ACSNAOMI, UMICRO #### [facility] [address] [place] [address] Dr. Nilo Gibbons Monocytes/100 WBC (Bld) 7.3 % Normal 1.7-12.0 [facility] Comment on above: Performed By: #### U ACSNAOMI, UMICRO #### [facility] [address] [place] [address] Dr. Nilo Gibbons NEUT # 6.3 103/ul Normal 1.4-6.5 [facility] Comment on above: Performed By: #### U ACSNAOMI, UMICRO #### [facility] [address] [place] [address] Dr. Nilo Gibbons Neutrophils/100 WBC (Bld) 66.4 % Normal 43.0-75.0 [facility] Comment on above: Performed By: #### U SAIRA UMICRO #### [facility] [address] [address] [address] Nilo Gibbons Platelet mean volume (Bld) [Entitic vol] 11.5 fL Normal 9.5-13.5 [facility] Comment on above: Performed By: #### U SAIRA UMICRO #### [facility] [address] [place] [address] Dr. Nilo Gibbons PLT 174 103/ul Normal 150-450 [facility] Comment on above: Performed By: #### U SAIRA UMICRO #### [facility] [address] [place] [address] Dr. Nilo Gibbons RBC 3.70 106/ul Critically low 4.20-5.40 [facility] Comment on above: Performed By: #### LISSETH CARROLLRO #### [facility] [address] [place] [address] Dr. Nilo Gibbons WBC 9.4 103/ul Normal 4.0-11.0 [facility] Comment on above: Performed By: #### BRENDA CARROLLICRO #### [facility] [address] [place] [address] Dr. Nilo Gibbons CREATININEon 10-17-2022 Creatinine [Mass/Vol] 0.45 mg/dL Critically low 0.55-1.02 [facility] Comment on above: Performed By: #### LISSETH FENTONRO #### [facility] [address] [place] [address] Dr. Nilo Gibbons EGFR-AF COLOMBIAN >60 Normal >=60 [facility] Comment on above: Result Comment: Prev iously reported as: (blank) On 10/17/2022 03:10 By JAW Performed By: #### LISSETH FENTONRO #### [facility] [address] [place] [address] Dr. Nilo Gibbons EGFR-NON AF COLOMBIAN >60 Normal >=60 [facility] Comment on above: Result Comment: Prev iously reported as: (blank) On 10/17/2022 03:10 By JAW Performed By: #### Jose WALDRON UMICRO #### [facility] [address] [place] [address] Dr. Nilo Gibbons CULTURE URINEon 10-17-2022 CULTURE URINE Culture Observations: HEAVY GROWTH OF MIXED GENITAL LESLIE. NO POTENTIAL PATHOGENS SEEN. Normal [facility] Comment on above: Performed By: #### U RCX #### [facility] [address] [place] [address] Dr. Nilo Gibbons LIPASEon 10-17-2022 Lipase [Catalytic activity/Vol] 66.0 U/L Critically low 73.0-393.0 [facility] Comment on above: Performed By: #### LISSETH FENTONRO #### [facility] [address] [place] [address] Dr. Nilo Gibbons SGOTon 10-17-2022 AST [Catalytic activity/Vol] 24 U/L Normal 15-37 [facility] Comment on above: Performed By: #### LISSETH FENTONRO #### [facility] [address] [place] [address] Dr. Nilo Gibbons SGPTon 10-17-2022 ALT [Catalytic activity/Vol] 15 U/L Normal 14-59 [facility] Comment on above: Performed By: #### Jose WALDRON UMICRO #### [facility] [address] [place] [address] Dr. 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 Nilo Gibbons Clarity (U) CLEAR Normal CLEAR [facility] Comment on above: Performed By: #### Jose WALDRON UMICRO #### [facility] [address] [place] [address] Dr. Nilo Gibbons Color (U) LT. YELLOW Normal YELLOW [facility] Comment on above: Performed By: #### E RUR, UMICRO #### [facility] [address] [place] [address] Dr. Nilo Gibbons Glucose Ql (U) Negative Normal NEGATIVE [facility] Comment on above: Performed By: #### LISSETH FENTONRO #### [facility] [address] [place] [address] Dr. Nilo Gibbons Hemoglobin Ql (U) TRACE-INTACT Abnormal NEGATIVE [facility] Comment on above: Performed By: #### LISSETH FENTONRO #### [facility] [address] [place] [address] Dr. Nilo Gibbons Ketones Ql (U) Negative Normal NEGATIVE [facility] Comment on above: Performed By: #### LISSETH FENTONRO #### [facility] [address] [place] [address] Dr. Nilo Gibbons LEUKOCYTES LARGE Abnormal NEGATIVE [facility] Comment on above: Performed By: #### LISSETH FENTONRO #### [facility] [address] [place] [address] Dr. Nilo Gibbons Nitrite Ql (U) Negative Normal NEGATIVE [facility] Comment on above: Performed By: #### LISSETH FENTONRO #### [facility] [address] [place] [address] Dr. Nilo Gibbons pH (U) 6.5 [pH] Normal 5-9 [facility] Comment on above: Performed By: #### LISSETH FENTONRO #### [facility] [address] [place] [address] Dr. Nilo Gibbons SPEC GRAVITY 1.015 Normal 1.005-<=1.025 [facility] Comment on above: Performed By: #### LISSETH FENTONRO #### [facility] [address] [place] [address] Dr. Nilo Gibbons UA PROTEIN Negative Normal NEGATIVE/ TRACE [facility] Comment on above: Performed By: #### LISSETH FENTONRO #### [facility] [address] [place] [address] Dr. Niol Gibbons UR MICRO IND INDICATED Normal [facility] Comment on above: Performed By: #### E DIONTER UMICRO #### [facility] [address] [place] [address] Dr. Nilo Gibbons Urobilinogen Qn (U) 0.2 {You'U}/dL Normal 0.2 - 1. 0 [facility] Comment on above: Performed By: #### E RUMacrina UMICRO #### [facility] [address] [place] [address] Dr. Nilo Gibbons URINE MICROSCOPIC ONLYon BACTERIA SMALL Abnormal NONE SEEN [facility] Comment on above: Performed By: #### E VANITA UMICRO #### [facility] [address] [place] [address] Dr. Nilo Gibbons Bacteria identified Cx Nom (U) INDICATED Normal [facility] Comment on above: Performed By: #### Jose WALDRON UMICRO #### [facility] [address] [place] [address] Dr. Nilo Gibbons CAST NONE SEEN Normal NONE SEEN [facility] Comment on above: Performed By: #### Jose WALDRON UMICRO #### [facility] [address] [place] [address] Dr. Nilo Gibbons Crystals LM Nom (Urine sed) NONE SEEN Normal NONE SEEN [facility] Comment on above: Performed By: #### Jose WALDRON UMICRO #### [facility] [address] [place] [address] Dr. Nilo Gibbons Epithelial cells LM Ql (Urine sed) MANY Abnormal NONE SEEN /RARE [facility] Comment on above: Performed By: #### Jose RUR UMICRO #### [facility] [address] [place] [address] Dr. Nilo Gibbons MUCOUS NONE SEEN Normal NONE SEEN [facility] Comment on above: Performed By: #### E RUR, UMICRO #### [facility] [address] [place] [address] Dr. Nilo Gibbons RBC 5-10 Abnormal 0-2 [facility] Comment on above: Performed By: #### E RUR, UMICRO #### [facility] [address] [address] [address] Nilo Gibbons WBC 50-75 Abnormal NONE SEEN [facility] Comment on above: Performed By: #### CELY FENTON #### [facility] [address] [id number] Nilo Gibbons US APPENDIXon 10-17-2022 US APPENDIX EXAM: US APPENDIX HISTORY: Right flank pain COMPARISON: None. TECHNIQUE: Transabdominal ultrasound of right lower quadrant FINDINGS: No identifiable appendix. No free fluid or enlarged lymph nodes. IMPRESSION: 1. The appendix could not be identified. No secondary findings to suggest appendicitis. Electronically authenticated by: SHIN MEYER Date: 2022-10-17 08:05 Normal [facility] US KIDNEYSon 10-17-2022 US KIDNEYS EXAMINATION: US KIDNEYS HISTORY: Backache ; lower back pain for one day; 33 weeks COMPARISON: No relevant comparison available. TECHNIQUE: Ultrasound examination was performed of the kidneys and urinary bladder. FINDINGS: RIGHT KIDNEY: No evidence of pelvocaliectasis, mass, or calculi. Normal renal cortical parenchymal echogenicity. Color Doppler demonstrates blood flow within the kidney. Kidney: 10.4 x 5.7 x 5.6 cm LEFT KIDNEY: No evidence of pelvocaliectasis, mass, or calculi. Normal renal cortical parenchymal echogenicity. Color Doppler demonstrates blood flow within the kidney. Kidney: 10.9 x 5.4 x 5.1 cm BLADDER: No visible wall thickening, mass, or calculi. URETERAL JETS: Seen on left. IMPRESSION: 1. Unremarkable kidneys. 2. A right ureteral jet was not seen during the time course of the study; incidental versus ureteral obstruction. No dilation of the upper renal collecting system to correspond to ureteral obstruction. Electronically authenticated by: SHIN MEYER Date: 2022-10-17 08:12 Normal [facility] US PREG PLACENTAon US PREG PLACENTA EXAMINATION: US PREG PLACENTA HISTORY: pain COMPARISON: Ultrasound anatomy 07/20/2022 FINDINGS: PLACENTA: Posterior with lower margin 2.8 cm from os. CERVIX LENGTH: 5.5 cm, closed. HEART RATE: 139 bpm OTHER: None. GA: 33 weeks 3 days : 12/02/2022 IMPRESSION: 1. Single live intrauterine . 2. Posterior low-lying placenta with distal margin 2.8 cm from os. 3. Limited evaluation of the posterior placenta due to advanced gestational age and posterior position; no appreciable abnormality. Electronically authenticated by: SHIN MEYER Date: 2022-10-17 10:37 Normal [facility] US OB Limitedon 07-26-2022 US OB Limited FINDINGS: Comparison made with prior examination of July 18, 2022 delivery at that time was A single, viable intrauterine , normal cardiac (134 beats per minute) and activity and amniotic fluid volume. Decreased size fluid collection neighboring the inferior margin of the posterior placenta inferior extent closely neighboring, possibly overlying the closed internal cervical os (4.2 cm cervical length). No fluid is seen within the endocervical canal. IMPRESSION: 1. Single, viable intrauterine . 2. Decreased hematoma inferior margin of the posterior placenta neighboring possibly overlying the closed internal cervical os. This can serve as a baseline for follow up examinations. Report reported and signed by Jono Wiggins on 07/26/2022 1051 Normal [facility] [employer] CBC AUTO DIFFon 07-19-2022 BASO # 0.0 103/ul Normal 0.0-0.1 [facility] Comment on above: Performed By: #### C BC #### [facility] [address] [place] [address] Dr. Nilo Gibbons Basophils/100 WBC (Bld) 0.4 % Normal 0.2-2.0 [facility] Comment on above: Performed By: #### C BC #### [facility] [address] [place] [address] Dr. Nilo Gibbons EO # 0.0 103/ul Normal 0.0-0.7 [facility] Comment on above: Performed By: #### C BC #### [facility] [address] [address] [address] Nilo Gibbons Eosinophils/100 WBC (Bld) 0.5 % Critically low 0.9-7.0 [facility] Comment on above: Performed By: #### C BC #### [facility] [address] [place] [address] Dr. Nilo Gibbons Erythrocyte distribution width (RBC) [Ratio] 13.7 % Normal 11.0-15.0 [facility] Comment on above: Performed By: #### C BC #### [facility] [address] [place] [address] Dr. Nilo Gibbons Hematocrit (Bld) [Volume fraction] 34.0 % Critically low 36.0-48.0 [facility] Comment on above: Performed By: #### C BC #### [facility] [address] [place] [address] Dr. Nilo Gibbons Hemoglobin (Bld) [Mass/Vol] 11.5 g/dL Critically low 12.0-16.0 [facility] Comment on above: Performed By: #### C BC #### [facility] [address] [place] [address] Dr. Nilo Gibbons IG # 0.03 10e3/ul Normal 0.00-0.03 [facility] Comment on above: Performed By: #### C BC #### [facility] [address] [place] [address] Dr. Nilo Gibbons IG % 0.4 % Normal 0.0-0.5 [facility] Comment on above: Performed By: #### C BC #### [facility] [address] [place] [address] Dr. Nilo Gibbons LYMPH # 1.7 103/ul Normal 1.2-3.8 [facility] Comment on above: Performed By: #### C BC #### [facility] [address] [place] [address] Dr. Nilo Gibbons Lymphocytes/100 WBC (Bld) 20.6 % Normal 20.5-60.0 [facility] Comment on above: Performed By: #### C BC #### [facility] [address] [place] [address] Dr. Nilo Gibbons MANUAL DIFF REQ NO Normal [facility] Comment on above: Performed By: #### C BC #### [facility] [address] [place] [address] Dr. Nilo Gibbons MCH (RBC) [Entitic mass] 29.3 pg Normal 26.7-34.0 [facility] Comment on above: Performed By: #### C BC #### [facility] [address] [address] [address] Nilo Gibbons MCHC (RBC) [Mass/Vol] 33.8 g/dL Normal 29.9-35.2 [facility] Comment on above: Performed By: #### C BC #### [facility] [address] [address] [address] Nilo Gibbons MCV (RBC) [Entitic vol] 86.5 fL Normal 81.0-99.0 [facility] Comment on above: Performed By: #### C BC #### [facility] [address] [place] [address] Dr. Nilo Gibbons MONO # 0.5 103/ul Normal 0.3-0.8 [facility] Comment on above: Performed By: #### C BC #### [facility] [address] [place] [address] Dr. Nilo Gibbons Monocytes/100 WBC (Bld) 6.0 % Normal 1.7-12.0 [facility] Comment on above: Performed By: #### C BC #### [facility] [address] [place] [address] Dr. Nilo Gibbons NEUT # 6.0 103/ul Normal 1.4-6.5 [facility] Comment on above: Performed By: #### C BC #### [facility] [address] [place] [address] Dr. Nilo Gibbons Neutrophils/100 WBC (Bld) 72.1 % Normal 43.0-75.0 [facility] Comment on above: Performed By: #### C BC #### [facility] [address] [place] [address] Dr. Nilo Gibbons Platelet mean volume (Bld) [Entitic vol] 11.2 fL Normal 9.5-13.5 [facility] Comment on above: Performed By: #### C BC #### [facility] [address] [address] [address] Nilo Gibbons PLT 215 103/ul Normal 150-450 [facility] Comment on above: Performed By: #### C BC #### [facility] [address] [place] [address] Dr. Nilo Gibbons RBC 3.93 106/ul Critically low 4.20-5.40 [facility] Comment on above: Performed By: #### C BC #### [facility] [address] [place] [address] Dr. Nilo Gibbons WBC 8.3 103/ul Normal 4.0-11.0 [facility] Comment on above: Performed By: #### C BC #### [facility] [address] [place] [address] Dr. Nilo Gibbons CULTURE URINEon 07-19-2022 CULTURE URINE Culture Observations: LIGHT GROWTH OF MIXED GENITAL LESLIE. NO POTENTIAL PATHOGENS SEEN. Normal [facility] Comment on above: Performed By: #### E RUMacrina UMICRO #### [facility] [address] [place] [address] Dr. Nilo Gibbons TYPE AND SCREENon 07-19-2022 TYPE AND SCREEN Negative Normal [facility] Comment on above: Performed By: #### E RUMacrina UMICRO #### [facility] [address] [place] [address] Dr. 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 Nilo Gibbons Clarity (U) SL CLOUDY Abnormal CLEAR [facility] Comment on above: Performed By: #### U ACSNAOMI UMICRO #### [facility] [address] [place] [address] Dr. Nilo Gibbons Color (U) LT. YELLOW Normal YELLOW [facility] Comment on above: Performed By: #### U ACSNAOMI, UMICRO #### [facility] [address] [place] [address] Dr. Nilo Gibbons Glucose Ql (U) Negative Normal NEGATIVE [facility] Comment on above: Performed By: #### U ACSIND, UMICRO #### [facility] [address] [address] [address] Nilo Gibbons Hemoglobin Ql (U) Negative Normal NEGATIVE [facility] Comment on above: Performed By: #### U ACSIND, UMICRO #### [facility] [address] [address] [address] Nilo Gibbons Ketones Ql (U) Negative Normal NEGATIVE [facility] Comment on above: Performed By: #### U ACSIND, UMICRO #### [facility] [address] [address] [address] Nilo Gibbons LEUKOCYTES TRACE Abnormal NEGATIVE [facility] Comment on above: Performed By: #### U ACSIND, UMICRO #### [facility] [address] [place] [address] Dr. Nilo Gibbons Nitrite Ql (U) Negative Normal NEGATIVE [facility] Comment on above: Performed By: #### U ACSIND, ICRO #### [facility] [address] [place] [address] Dr. Nilo Gibbons pH (U) 8.0 [pH] Normal 5-9 [facility] Comment on above: Performed By: #### U ACSNAOMI, ICRO #### [facility] [address] [place] [address] Dr. Nilo Gibbons SPEC GRAVITY 1.015 Normal 1.005-<=1.025 [facility] Comment on above: Performed By: #### U ACSIND, ICRO #### [facility] [address] [place] [address] Dr. Nilo Gibbons UA PROTEIN Negative Normal NEGATIVE/ TRACE [facility] Comment on above: Performed By: #### U ACSIND, UMICRO #### [facility] [address] [place] [address] Dr. Nilo Gibbons UR MICRO IND INDICATED Normal [facility] Comment on above: Performed By: #### U ACSIND, UMICRO #### [facility] [address] [address] [address] Nilo Gibbons Urobilinogen Qn (U) 1.0 {You'U}/dL Normal 0.2 - 1. 0 [facility] Comment on above: Performed By: #### U ACSIND, UMICRO #### [facility] [address] [address] [address] Nilo Gibbons URINE MICROSCOPIC ONLYon AMORPHOUS CRYSTALS MODERATE Normal [facility] Comment on above: Performed By: #### U ACSIND, UMICRO #### [facility] [address] [address] [address] Nilo Gibbons BACTERIA SMALL Abnormal NONE SEEN [facility] Comment on above: Performed By: #### U ACSIND, UMICRO #### [facility] [address] [address] [address] Nilo Gibbons Bacteria identified Cx Nom (U) INDICATED Normal [facility] Comment on above: Performed By: #### U ACSIND, UMICRO #### [facility] [address] [address] [address] Nilo Gibbons CAST NONE SEEN Normal NONE SEEN [facility] Comment on above: Performed By: #### U ACSIND, UMICRO #### [facility] [address] [place] [address] Dr. Nilo Gibbons Crystals LM Nom (Urine sed) SEEN Abnormal NONE SEEN [facility] Comment on above: Performed By: #### U ACSIND, UMICRO #### [facility] [address] [address] [address] Nilo Gibbons Epithelial cells LM Ql (Urine sed) FEW Abnormal NONE SEEN /RARE [facility] Comment on above: Performed By: #### U ACSIND, UMICRO #### [facility] [address] [address] [address] Nilo Gibbons MUCOUS NONE SEEN Normal NONE SEEN [facility] Comment on above: Performed By: #### U ACSIND, UMICRO #### [facility] [address] [address] [address] Nilo Gibbons RBC NONE SEEN Abnormal 0-2 [facility] Comment on above: Performed By: #### U ACSIND, UMICRO #### [facility] [address] [place], [place] [address] Dr. Nilo Gibbons WBC 2-5 Abnormal NONE SEEN [facility] Comment on above: Performed By: #### U CELY CHÁVEZ #### [facility] [address] [place], [place] [address] Dr. Nilo Gibbons US PREG CERVICAL LENGTHon US PREG CERVICAL LENGTH EXAMINATION: US PREG CERVICAL LENGTH HISTORY: Abnormal vaginal bleeding COMPARISON: Ultrasound placenta 07/19/2022 TECHNIQUE: Transabdominal and transvaginal sonographic examination for cervical length. FINDINGS: CERVIX LENGTH: 4.6 cm in length, closed. HEART RATE: Not recorded. OTHER: Lower margin of posterior placenta is 1.1 cm from os. Heterogeneous, hypoechoic 5.5 x 1.4 x 5.3 cm area inferior to the placenta adjacent to and overlying the cervix with color Doppler demonstrating small amount of internal blood flow. Age by EDC: 20 weeks, 3 days by EDC: 12/03/2022 IMPRESSION: 1. Endovaginal imaging better defines a heterogeneous fluid collection at inferior margin of placenta overlying the cervix consistent with a subchorionic hematoma. Color Doppler and grayscale movement within this area suggests continued slow but active bleeding. 2. Findings are being called to ordering provider. Electronically authenticated by: SHIN MEYER Date: 2022-07-19 13:55 Normal [facility] US PREG PLACENTAon 2 US PREG PLACENTA EXAMINATION: US PREG PLACENTA HISTORY: Abnormal vaginal bleeding COMPARISON: No relevant comparison available. FINDINGS: PLACENTA: Posterior low-lying placenta with 4.5 x 3.8 x 1.4 cm hypoechoic area at distal margin which demonstrates slow, slightly pulsatile flow. Similar-appearing 3.4 x 2.8 x 2.1 cm hypoechoic area within the placenta near the cord insertion demonstrating slow, slightly pulsatile flow. Both areas are suspected represent venous lakes. CERVIX LENGTH: 3.6 cm in length; closed. HEART RATE: 155 bpm OTHER: None. GA: 20 weeks 3 days : 12/03/2022 IMPRESSION: 1. Single live intrauterine . 2. Evaluation of lower placenta is slightly limited due to its posterior location position of uterus. 3. Large venous michelle versus subchorionic hematoma at distal margin of placenta; venous michelle is favored. Close follow-up recommended. Electronically authenticated by: SHIN MEYER Date: 2022-07-19 12:41 Normal [facility] US OB Limitedon 07-18-2022 US OB Limited FINDINGS: Single viable intrauterine with adequate cardiac (139 beats per minute) and activity. Normal amniotic fluid volume, approximately 11 cm. Posterior placenta remains with a new fluid collection (approximately 2 x 2 cm) along the inferior margin of the placenta, closely neighboring, contiguous with the internal cervical os. No fluid identified within the endocervical canal. Closed cervix, normal length. IMPRESSION: 1. Viable intrauterine 2. New fluid collection inferior margin of the posterior placenta, inferior extent closely neighboring, possibly involving, the internal cervical os, venous michelle vs hematoma Report reported and signed by Jono Wiggins on 07/18/2022 1248 Normal [facility] US Renal/Bladderon US Renal/Bladder HISTORY: Back pain FINDINGS: Right Yhluvt71.8 x 5.0 x 6.2 cm Left Dibfrq90.0 x 4.7 x 4.9 cm Normal renal size, cortical volume and echotexture is present for this age. No collecting system dilatation or echogenic foci with posterior shadowing are noted. No bladder stones. Both ureteral jets visualized. IMPRESSION: Normal renal and bladder ultrasound evaluation. Report reported and signed by Jono Wiggins on 07/18/2022 1248 Normal [facility] US OB 2nd/3rd Trimesteron US OB 2nd/3rd Trimester FINDINGS: Comparison made with prior examination of April 19, 2022 delivery at that time was December 02, 2022. A single, live intrauterine is present with normal cardiac rate of 141 beats per minute. Normal activity and amniotic fluid volume. Amniotic fluid index is 9.0 cm. Morphology is grossly normal. The cervix is long and closed, 4.5 cm. The placenta is posterior Grade 1, not associated with the cervical os. The current sonographic age is 19 weeks and 3 days, based on the following measurements: BPD 4.4 cm (19 weeks, 3 days) Head Circumference 17.0 cm (19 weeks, 4 days) Abdominal Circumference 14.1 cm ( 19 weeks, 3 days) Femur Length 3.1cm (19 weeks, 3 days) Presentation Breech Placenta Posterior /Grade 1 Weight by percentile 11.7% These measurements result in an estimated date of delivery of December 02, 2022 The current estimated weight is 295 grams +/- grams ( pound, 10 ounces). IMPRESSION: Single, live intrauterine , current sonographic age of 19 weeks and 3 days, with an estimated date of delivery of December 02, 2022. Report reported and signed by Jono Wiggins on 07/11/2022 1249 Normal [facility] CBC AUTO DIFFon 05-28-2022 BASO # 0.0 103/ul Normal 0.0-0.1 [facility] Comment on above: Performed By: #### C BC #### [facility] [address] [address] [address] Nilo Gibbons Basophils/100 WBC (Bld) 0.2 % Normal 0.2-2.0 [facility] Comment on above: Performed By: #### C BC #### [facility] [address] [address] [address] Nilo Gibbons EO # 0.0 103/ul Normal 0.0-0.7 [facility] Comment on above: Performed By: #### C BC #### [facility] [address] [address] [address] Nilo Gibbons Eosinophils/100 WBC (Bld) 0.4 % Critically low 0.9-7.0 [facility] Comment on above: Performed By: #### C BC #### [facility] [address] [address] [address] Nilo Gibbons Erythrocyte distribution width (RBC) [Ratio] 12.7 % Normal 11.0-15.0 [facility] Comment on above: Performed By: #### C BC #### [facility] [address] [address] [address] Nilo Gibbons Hematocrit (Bld) [Volume fraction] 34.6 % Critically low 36.0-48.0 [facility] Comment on above: Performed By: #### C BC #### [facility] [address] [address] [address] Nilo Gibbons Hemoglobin (Bld) [Mass/Vol] 11.8 g/dL Critically low 12.0-16.0 [facility] Comment on above: Performed By: #### C BC #### [facility] [address] [place] [address] Dr. Nilo Gibbons IG # 0.02 10e3/ul Normal 0.00-0.03 [facility] Comment on above: Performed By: #### C BC #### [facility] [address] [place] [address] Dr. Nilo Gibbons IG % 0.2 % Normal 0.0-0.5 [facility] Comment on above: Performed By: #### C BC #### [facility] [address] [place] [address] Dr. Nilo Gibbons LYMPH # 2.0 103/ul Normal 1.2-3.8 [facility] Comment on above: Performed By: #### C BC #### [facility] [address] [place] [address] Dr. Nilo Gibbons Lymphocytes/100 WBC (Bld) 24.1 % Normal 20.5-60.0 [facility] Comment on above: Performed By: #### C BC #### [facility] [address] [place] [address] Dr. Nilo Gibbons MANUAL DIFF REQ NO Normal [facility] Comment on above: Performed By: #### C BC #### [facility] [address] [place] [address] Dr. Nilo Gibbons MCH (RBC) [Entitic mass] 29.7 pg Normal 26.7-34.0 [facility] Comment on above: Performed By: #### C BC #### [facility] [address] [place] [address] Dr. Nilo Gibbons MCHC (RBC) [Mass/Vol] 34.1 g/dL Normal 29.9-35.2 [facility] Comment on above: Performed By: #### C BC #### [facility] [address] [place] [address] Dr. Niol Gibbons MCV (RBC) [Entitic vol] 87.2 fL Normal 81.0-99.0 [facility] Comment on above: Performed By: #### C BC #### [facility] [address] [address] [address] Nilo Gibbons MONO # 0.5 103/ul Normal 0.3-0.8 [facility] Comment on above: Performed By: #### C BC #### [facility] [address] [address] [address] Nilo Gibbons Monocytes/100 WBC (Bld) 6.4 % Normal 1.7-12.0 [facility] Comment on above: Performed By: #### C BC #### [facility] [address] [address] [address] Nilo Gibbons NEUT # 5.7 103/ul Normal 1.4-6.5 [facility] Comment on above: Performed By: #### C BC #### [facility] [address] [place] [address] Dr. Nilo Gibbons Neutrophils/100 WBC (Bld) 68.7 % Normal 43.0-75.0 [facility] Comment on above: Performed By: #### C BC #### [facility] [address] [address] [address] Nilo Gibbons Platelet mean volume (Bld) [Entitic vol] 11.4 fL Normal 9.5-13.5 [facility] Comment on above: Performed By: #### C BC #### [facility] [address] [place] [address] Dr. Nilo Gibbons PLT 193 103/ul Normal 150-450 [facility] Comment on above: Performed By: #### C BC #### [facility] [address] [address] [address] Nilo Gibbons RBC 3.97 106/ul Critically low 4.20-5.40 [facility] Comment on above: Performed By: #### C BC #### [facility] [address] [address] [address] Nilo Gibbons WBC 8.3 103/ul Normal 4.0-11.0 [facility] Comment on above: Performed By: #### C BC #### [facility] [address] [place] [address] Dr. Nilo Gibbons ER URINE PROFILEon 2 Bilirubin Ql (U) Negative Normal NEGATIVE [facility] Comment on above: Performed By: #### Jose WALDRON UMICRO #### [facility] [address] [place] [address] Dr. Nilo Gibbons Clarity (U) CLEAR Normal CLEAR [facility] Comment on above: Performed By: #### Jose WALDRON UMICRO #### [facility] [address] [place] [address] Dr. Nilo Gibbons Color (U) LT. YELLOW Normal YELLOW [facility] Comment on above: Performed By: #### BRENDA FENTONICRO #### [facility] [address] [place] [address] Dr. Nilo KUMARI A micrscopic examination will be performed if indicated. Normal [facility] Comment on above: Performed By: #### BRENDA FENTONICRO #### [facility] [address] [place] [address] Dr. Nilo Gibbons Glucose Ql (U) Negative Normal NEGATIVE [facility] Comment on above: Performed By: #### Jose WALDRON UMICRO #### [facility] [address] [place] [address] Dr. Nilo Gibbons Hemoglobin Ql (U) Negative Normal NEGATIVE [facility] Comment on above: Performed By: #### Jose WALDRON UMICRO #### [facility] [address] [place] [address] Dr. Nilo Gibbons Ketones Ql (U) Negative Normal NEGATIVE [facility] Comment on above: Performed By: #### Jose WALDRON UMICRO #### [facility] [address] [place] [address] Dr. Nilo Gibbons LEUKOCYTES TRACE Abnormal NEGATIVE [facility] Comment on above: Performed By: #### Jose WALDRON UMICRO #### [facility] [address] [place] [address] Dr. Nilo Gibbons Nitrite Ql (U) Negative Normal NEGATIVE [facility] Comment on above: Performed By: #### Jose WALDRON, UMICRO #### [facility] [address] [address] [address] Nilo Gibbons pH (U) 6.0 [pH] Normal 5-9 [facility] Comment on above: Performed By: #### Jose WALDRON, UMICRO #### [facility] [address] [address] [address] Nilo Gibbons SPEC GRAVITY 1.015 Normal 1.005-<=1.025 [facility] Comment on above: Performed By: #### Jose WALDRON, UMICRO #### [facility] [address] [address] [address] Nilo Gibbons UA PROTEIN Negative Normal NEGATIVE/ TRACE [facility] Comment on above: Performed By: #### Jose WALDRON UMICRO #### [facility] [address] [place] [address] Dr. Nilo Gibbons UR MICRO IND INDICATED Normal [facility] Comment on above: Performed By: #### Jose WALDRON ICRO #### [facility] [address] [address] [address] Nilo Gibbons Urobilinogen Qn (U) 0.2 {You'U}/dL Normal 0.2 - 1. 0 [facility] Comment on above: Performed By: #### Jose WALDRON, UMICRO #### [facility] [address] [place] [address] Dr. Nilo Gibbons PREG QUANT HCGon 05-28-2022 HCG QUANT 68721 mIU/mL Normal [facility] Comment on above: Performed By: #### P REGQNT #### [facility] [address] [place] [address] Dr. Nilo Gibbons HCG RANGE SEE BELOW Normal [facility] Comment on above: Result Comment: 5-50 0.2-1 WEEK 50-500 1-2 WEEKS 100-5,000 2-3 WEEKS 500-10,000 3-4 WEEKS 1,000-50,000 4-5 WEEKS 10,000-100,000 5-6 WEEKS 15,000-200,000 6-8 WEEKS 10,000-100,000 2-3 MONTHS Performed By: #### P REGQNT #### [facility] [address] [place] [address] Dr. Nilo Gibbons PROF CHEM 8 (BAS METB)on Anion gap [Moles/Vol] 10.6 mmol/L Normal [facility] Comment on above: Performed By: #### CELY FENTON #### [facility] [address] [place] [address] Dr. Nilo Gibbons Calcium [Mass/Vol] 8.8 mg/dL Normal 8.5-10.1 [facility] Comment on above: Performed By: #### CELY FENTON #### [facility] [address] [place] [address] Dr. Nilo Gibbons Chloride [Moles/Vol] 102 mmol/L Normal 98-107 [facility] Comment on above: Performed By: #### CELY FENTON #### [facility] [address] [place] [address] Dr. Nilo Gibbons CO2 [Moles/Vol] 24.2 mmol/L Normal 21.0-32.0 [facility] Comment on above: Performed By: #### CELY FENTON #### [facility] [address] [place] [address] Dr. Nilo Gibbons Creatinine [Mass/Vol] 0.55 mg/dL Normal 0.55-1.02 [facility] Comment on above: Performed By: #### CELY FENTON #### [facility] [address] [place] [address] Dr. Nilo Gibbons EGFR-AF COLOMBIAN >60 Normal >=60 [facility] Comment on above: Performed By: #### CELY FENTON #### [facility] [address] [place] [address] Dr. Nilo Gibbons EGFR-NON AF COLOMBIAN >60 Normal >=60 [facility] Comment on above: Performed By: #### CELY FENTON #### [facility] [address] [place] [address] Dr. Nilo Gibbons Glucose [Mass/Vol] 101 mg/dL Normal 74-106 [facility] Comment on above: Performed By: #### LISSETH FENTONRO #### [facility] [address] [place] [address] Dr. Nilo Gibbons Potassium [Moles/Vol] 3.8 mmol/L Normal 3.5-5.1 [facility] Comment on above: Performed By: #### LISSETH FENTONRO #### [facility] [address] [place] [address] Dr. Nilo Gibbons Sodium [Moles/Vol] 133 mmol/L Critically low 136-145 [facility] Comment on above: Performed By: #### LISSETH FENTONRO #### [facility] [address] [place] [address] Dr. Nilo Gibbons Urea nitrogen [Mass/Vol] 10.0 mg/dL Normal 7.0-18.0 [facility] Comment on above: Performed By: #### LISSETH FENTONRO #### [facility] [address] [place] [address] Dr. Nilo Gibbons Urea nitrogen/Creatinine [Mass ratio] 18.2 mg/mg Normal [facility] Comment on above: Performed By: #### BRENDA FENTONICRO #### [facility] [address] [place] [address] Dr. Nilo Gibbons URINE MICROSCOPIC ONLYon BACTERIA TRACE Abnormal NONE SEEN [facility] Comment on above: Performed By: #### LISSETH FENTONRO #### [facility] [address] [place] [address] Dr. Nilo Gibbons Bacteria identified Cx Nom (U) NOT INDICATED Normal [facility] Comment on above: Performed By: #### BRENDA FENTONICRO #### [facility] [address] [place] [address] Dr. Nilo Gibbons CAST NONE SEEN Normal NONE SEEN [facility] Comment on above: Performed By: #### LISSETH FENTONRO #### [facility] [address] [address] [address] Nilo Gibbons Crystals LM Nom (Urine sed) NONE SEEN Normal NONE SEEN [facility] Comment on above: Performed By: #### E RUR, UMICRO #### [facility] [address] [place] [address] Dr. Nilo Gibbons Epithelial cells LM Ql (Urine sed) FEW Abnormal NONE SEEN /RARE [facility] Comment on above: Performed By: #### E RUR, UMICRO #### [facility] [address] [place] [address] Dr. Nilo Gibbons MUCOUS NONE SEEN Normal NONE SEEN [facility] Comment on above: Performed By: #### E RUR, UMICRO #### [facility] [address] [place] [address] Dr. Nilo Gibbons RBC NONE SEEN Abnormal 0-2 [facility] Comment on above: Performed By: #### E RUR, UMICRO #### [facility] [address] [place] [address] Dr. Nilo Gibbons WBC 0-2 Abnormal NONE SEEN [facility] Comment on above: Performed By: #### E RUR, UMICRO #### [facility] [address] [place] [address] Dr. Nilo Gibbons ABO, External Resulton 05-16 ABO, External Result [employer] Work Phone: C. Trachomatis, External Res [facility] 05-16-2022 C. Trachomatis, External Result Negative [employer] Work Phone: HIV, External Resulton 05-16 HIV, External Result Non-Reactive JAQUI N [employer] Work Phone: Hepatitis B, External Result on 05-16-2022 Hep B, External Result Non-Reactive [employer] Work Phone: N. Gonorrhoeae, External Res [facility] 05-16-2022 N. Gonorrhoeae, External Result Negative [employer] Work Phone: No Panel Informationon 05-16 [employer] Phone: [employer] Work Phone: RPR, External Labon 05-16-20 22 RPR, External Result Non-Reactive JAQUI [employer] Phone: Rh Factor, External Resulton 05-16-2022 Rh Factor, External Result Positive [employer] Phone: Rubella Titer, External Resu lton 05-16-2022 [employer], External Result IMMUNE [employer] Phone: US OB 1ST Trimesteron 2021 US OB 1ST Trimester FINDINGS: A single intrauterine gestational sac is present. No subchorionic hemorrhage. A single pole is present. Normal heart rate at 151 beats per minute. Yolk sac also is seen. Current sonographic age is 7 weeks and 4 days based on the crown-rump length measurement of 1.3 cm. Based on this age, current estimated date of delivery is December 02, 2022. No pelvic fluid or adnexal mass present. Cervical length is 3.2 cm. IMPRESSION: Findings consistent with a live intrauterine gestation, current sonographic age of 7 weeks and 4 days resulting in an estimated date of delivery of December 02, 2022 Report reported and signed by Jono Wiggins on 04/19/2022 1009 Normal [facility] XR Abdomen 2 Viewson 022 XR Abdomen 2 Views CLINICAL HISTORY: Upper abdominal pain for one week, fatigue, dizziness, nausea, and diarrhea. COMPARISON: None available. TECHNIQUE: Upright and recumbent radiographs of the abdomen and pelvis were obtained. FINDINGS: There is no evidence of obstruction, significant constipation, abnormal bowel dilatation, pneumoperitoneum, or pathologic calcifications identified. The visualized lung bases are clear. IMPRESSION: UNREMARKABLE ABDOMEN SERIES. Report reported and signed by Shin Hopson on 01/17/2022 0856 Normal [facility] Q - CULTURE,URINE,ROUTINEon 01-10-2022 CULTURE, URINE, ROUTINE SEE NOTE Normal [facility] Comment on above: Order Comment: Oony Testing performed at: [facility], [address], [address] [place] [address], [phone], Senior Java Developer: Diaz Florian MD [facility] Collection Date/Time: [id number] [facility] Results Received Date/Time: [id number] [facility] Reported Date/Time: [id number] Result Comment: CULT URE, URINE, ROUTINE Micro Number: [id number] Test Status: Final Specimen Source: Urine Specimen Quality: Adequate Result: Mixed genital leslie isolated. These superficial bacteria are not indicative of a urinary tract infection. No further organism identification is warranted on this specimen. If clinically indicated, recollect clean-catch, mid-stream urine and transfer immediately to Urine Culture Transport Tube. Performed By: #### 6 [id number] #### [facility] [address] [place] [address] Q - HCG TOTAL QNon 2 HCG, TOTAL, QN <3 Normal [facility] Comment on above: Order Comment: [facility] Testing performed at: [facility], [address] , [address] [place] [address], [address] [place] [address], Senior Java Developer: Diaz Florian MD [facility] Collection Date/Time: [id number] [facility] Results Received Date/Time: [facility] Reported Date/Time: FASTING: NO Result Comment: Refe rence Range Non or premenopausal <5 Postmenopausal <10 Values from different assay methods may vary. The use of this assay to monitor or to diagnose patients with cancer or any condition unrelated to has not been cleared or approved by the FDA or the retail assistant store manager of the assay. Performed By: #### 2 [id number] #### [facility] [address] [place] [address] TSHon 10-12-2021 TSH 4.300 uIU/mL Normal 0.400-4.500 [facility] Comment on above: Performed By: #### T SH #### [facility] [address] [place], [place] [id number] Dipstick and Microscopicon 0 02-15-2021 Appearance (U) Clear Normal Clear [facility] Comment on above: Order Comment: Name Collection Type:: Clean-Voided Midstream Performed By: #### A DDONUAPLUS, CUU, UHCG #### [facility] [address] [place] [address] [place] Bacteria,Urine 1+ High None Seen [facility] Comment on above: Order Comment: Name Collection Type:: Clean-Voided Midstream Performed By: #### A DDONUAPLUS, CUU, UHCG #### [facility] [address] [place] [address] [place] Bilirubin,Urine Negative Normal Negative [facility] Comment on above: Order Comment: Name Collection Type:: Clean-Voided Midstream Performed By: #### A DDONUAPLUS, CUU, UHCG #### [facility] [address] [place] [address] [place] Color (U) Yellow Normal Yellow [facility] Comment on above: Order Comment: Name Collection Type:: Clean-Voided Midstream Performed By: #### A DDONUAPLUS, CUU, UHCG #### [facility] [address] [place] [address] Glucose Ql (U) Normal Normal Normal [facility] Comment on above: Order Comment: Name Collection Type:: Clean-Voided Midstream Performed By: #### A DDONUAPLUS, CUU, UHCG #### [facility] [address] [place] [address] [place] Hyaline Casts,Urine 0-8 Normal 0-8 [facility] Comment on above: Order Comment: Name Collection Type:: Clean-Voided Midstream Performed By: #### A DDONUAPLUS, CUU, UHCG #### [facility] [address] [place] [address] [place] Ketones Ql (U) Negative Normal Negative [facility] Comment on above: Order Comment: Name Collection Type:: Clean-Voided Midstream Performed By: #### A DDONUAPLUS, CUU, UHCG #### [facility] [address] [place] [address] [place] Leukocyte esterase Test strip Ql (U) 2+ High Negative [facility] Comment on above: Order Comment: Name Collection Type:: Clean-Voided Midstream Performed By: #### A DDONUAPLUS, CUU, UHCG #### [facility] [address] [place] [address] [place] Nitrite,Urine Negative Normal Negative [facility] Comment on above: Order Comment: Name Collection Type:: Clean-Voided Midstream Performed By: #### A DDONUAPLUS, CUU, UHCG #### [place] [address] [place] Occult Blood,Urine Negative Normal Negative [facility] Comment on above: Order Comment: Name Collection Type:: Clean-Voided Midstream Performed By: #### A DDONUAPLUS, CUU, UHCG #### [address] pH (U) 6.5 [pH] Normal 5.0-9.0 [facility] Comment on above: Order Comment: Name Collection Type:: Clean-Voided Midstream Performed By: #### A DDONUAPLUS, CUU, UHCG #### [place] [address] [place] Protein,Urine Negative Normal Negative [facility] Comment on above: Order Comment: Name Collection Type:: Clean-Voided Midstream Performed By: #### A DDONUAPLUS, CUU, UHCG #### [address] RBC,Urine 1-2 Normal 0-4 [facility] Comment on above: Order Comment: Name Collection Type:: Clean-Voided Midstream Performed By: #### A DDONUAPLUS, CUU, UHCG #### [facility] [address] [place] [address] [place] Specificy [place],Urine 1.026 Normal 1.001-1.030 [facility] Comment on above: Order Comment: Name Collection Type:: Clean-Voided Midstream Performed By: #### A DDONUAPLUS, CUU, UHCG #### [place] [address] [place] Squamous Epithelial Cell,Urine 5-9 High 0-2 [facility] Comment on above: Order Comment: Name Collection Type:: Clean-Voided Midstream Performed By: #### A DDONUAPLUS, CUU, UHCG #### [address] Urobilinogen,Urine Normal Normal Normal [facility] Comment on above: Order Comment: Name Collection Type:: Clean-Voided Midstream Performed By: #### A DDONUAPLUS, CUU, UHCG #### [address] WBC,Urine 5-9 High 0-4 [facility] Comment on above: Order Comment: Name Collection Type:: Clean-Voided Midstream Performed By: #### A DDONUAPLUS, CUU, UHCG #### [address] HCG,Urineon 02-15-2021 Beta HCG ( test) Ql (U) Negative Normal [facility] Comment on above: Order Comment: Name Collection Type:: Clean-Voided Midstream Result Comment: PERF ORMED BY: [place] [address] PATHOLOGIST MEAL TEMPERER ANA PAULA GILMORE M.D. Performed By: #### A DDONUAPLUS, CUU, UHCG #### [address] US transvaginalon 02-15-2021 US transvaginal [facility] [address] Ultrasound Report Signed Patient: Tho Molina MR#: [id number] : 2000 Acct:[id number] Age/Sex: 20 / F ADM Date: 02/15/21 Loc: ER Room: Type: [facility] ER Attending Dr: Ordering Provider: ROSALIA Hunter Date of Service: 02/15/21 US/US pelvic complete: r/o ovarian cyst, check IUD ([id number]) US/US transvaginal: CHECK IUD Copies to: ROSALIA Hunter PELVIC ULTRASOUND (transabdominal and transvaginal) CLINICAL DATA: Pelvic pressure. History of IUD. COMPARISON: None Real-time ultrasound evaluation pelvis was performed utilizing both a transabdominal and transvaginal approach. TRANSABDOMINAL: Estimated uterine size is approximately 8.8 x 2.2 x 5.4 cm. No focal myometrial abnormalities are seen. The endometrial lining is not thickened measuring 4 mm. There is an echogenic structure within the endometrial canal compatible with patient's IUD. Both ovaries are identified and there are small follicles. Cursory evaluation of the kidneys shows minor pelviectasis on the right. TRANSVAGINAL: Transvaginal scans were performed to better evaluate the uterus and adnexa. By this approach, no focal myometrial abnormalities are seen. The endometrial lining is not thickened and the IUD is in appropriate position. The right ovary measures 3.9 x 1.7 x 2.9 cm. The left ovary measures 3.5 x 1.3 x 2.8 cm. There are multiple small follicles measuring up to 13 mm in size. There are no dominant adnexal cysts. There is documentation of ovarian blood flow. There is a trace amount free fluid at the posterior cul-de-sac that is probably physiologic. US/US pelvic complete IMPRESSION: APPROPRIATE POSITION OF IUD. NO DOMINANT ADNEXAL CYSTS. MINOR RIGHT RENAL PELVIECTASIS OF UNCERTAIN SIGNIFICANCE. Impression dictated by: Hetal Chris M.D.02/15/2021 3:45 PM Dictation Location: [place] [address] Tech: Tova Fisher Transcribed By: SHANELL 02/15/21 1545 Dictated By: Hetal Chris MD 02/15/21 1539 Signed By: 02/15/21 1545 [facility] Urine Cultureon 02-15-2021 Bacteria identified Cx Nom (U) >100,000 colonies/ml mixed bacterial skin contaminants 2 Days PERFORMED BY: [facility] [address] [place] [address] PATHOLOGIST MEAL TEMPERER ANA PAULA GILMORE M.D. [facility] Comment on above: Performed By: #### A SEJAL HARVEY UHCG #### [facility] [address] [place] [id number] [facility] C Strep Screenon 07-22-2020 Strep Screen Microbiology PROCEDURE: Strep Screen Culture [R1] SOURCE: Swab BODY SITE: COLLECTED DATE/TIME: 07/20/2020 08:43 EST RECEIVED DATE/TIME: 07/20/2020 11:21 EST START DATE/TIME: 07/20/2020 11:21 EST FREE TEXT SOURCE: Caleb Jensen PA-C, PA-C, Caleb FINAL REPORTS Final Report [] Verified Date/Time: 07/22/2020 12:08 EST No Pathogenic Streptococcus Isolated Performing Locations R1: This test was performed at: [facility], [address] [place] [address], [facility]- , , [facility] Comment on above: Performed By: #### 2 [id number], [id number], [id number] #### [facility] [place] [facility] [address] [place] [address] Coding Summary.on 07-21-2020 Coding Summary. CODING DATE: 07/21/2020 FINAL [facility] DSC STATUS: Home (Routine DC) PAYOR: Government ADMIT DX: REASON FOR VISIT DX: J02.9 Acute pharyngitis, unspecified R09.81 Nasal congestion H92.03 Otalgia, bilateral FINAL DX: PRINCIPAL: J02.9 Acute pharyngitis, unspecified SECONDARY: Z20.828 Contact with and (suspected) exposure to other viral communicable diseases PYMT PROC APC STAT DESCRIPTION DOCTOR NAME DATE NOTE: The code number assigned matches the documented diagnosis and / or procedure in the patient's chart. However, the narrative phrase printed from the coding software may appear abbreviated, or result in slightly different terminology. Coded By: Asha Ceron Date Saved: 07/21/2020 08:[address] [facility] Consent for Treatmenton 06-23 Consent for Treatment [id number] #1.00CD:[address] [facility] Discharge Instructionson Discharge Instructions [id number]#1.00CD:127 Normal [facility] [place] [facility] ED Clinical Summaryon 2019 ED Clinical Summary [address] [address] ED Clinical Summary Person Information Name: THO MOLINA/New_Albert Age: 20 Years : 2000 Sex: Female Language: Zimbabwean PCP: MABLE JOE MD Marital Status: Single Phone: [phone] Visit Id: Visit Reason: Ear pain; Throat pain - Adult; SORE THROAT-EAR PAIN Speciality: Acuity: 4 Enc Type: Emergency Med Service: Emergency Arrival: 07/20/2020 08:25:28 Discharge: 07/20/2020 10:30:02 LOS: 000 02:05 Checkin: 07/20/2020 08:25:28 Checkout: 07/20/2020 10:30:02 Dispo Type: Home (Routine DC) EVENTS: Event Name Event Status Request Date/Time Start Date/Time Complete Date/Time Arrive Complete 07/20/2020 08:25:28 07/20/2020 08:25:28 07/20/2020 08:25:28 Document Home Meds Request 07/20/2020 08:25:28 Triage Complete 07/20/2020 08:25:28 07/20/2020 08:48:16 07/20/2020 08:48:16 Bed Assign Complete 07/20/2020 08:34:19 07/20/2020 08:34:19 07/20/2020 08:34:19 Dr Exam Complete 07/20/2020 08:34:19 07/20/2020 08:37:01 07/20/2020 08:37:01 RN Exam Complete 07/20/2020 08:34:19 07/20/2020 08:49:32 07/20/2020 08:49:32 Registration Complete 07/20/2020 08:37:01 07/20/2020 08:54:46 07/20/2020 08:54:46 Dr Exam Complete 07/20/2020 08:37:42 07/20/2020 08:37:42 07/20/2020 08:37:42 Pending Labs Complete 07/20/2020 08:41:40 07/20/2020 09:50:58 Lab Complete 07/20/2020 08:41:40 07/20/2020 09:50:58 Reg Complete Request 07/20/2020 08:54:46 Reg Bed Request Complete 07/20/2020 08:54:47 07/20/2020 08:54:47 07/20/2020 08:54:47 Pending Labs Collected 07/20/2020 09:19:05 07/20/2020 09:19:05 Lab Collected 07/20/2020 09:19:05 07/20/2020 09:19:05 Meds Admin Complete 07/20/2020 09:43:17 07/20/2020 10:06:49 Meds Admin Complete 07/20/2020 09:56:50 07/20/2020 10:06:49 Discharge Complete 07/20/2020 09:58:39 07/20/2020 10:30:10 07/20/2020 10:30:10 Transfer Complete 07/20/2020 10:30:10 07/20/2020 10:30:10 07/20/2020 10:30:10 ADDRESS: [address] [place] [id number] PHYS DOC NOTES: MEDICAL INFORMATION: Prescriptions Given: New Medications Printed Prescriptions naproxen (Naprosyn 500 mg Tab) 1 Tablets By Mouth 2 times a day as needed for pain. Refills: 0. Medications to Continue with No Changes Other Medications budesonide-formotero l (Symbicort) Inhalation 2 times a day. dicyclomine (dicyclomine 20 mg Tab) 1 Tablets By Mouth 4 times a day. Refills: 0. ibuprofen (ibuprofen 200 mg oral capsule) 2 Capsules By Mouth every 4 hours as needed as needed for pain. ibuprofen (ibuprofen 400 mg Tab) 1 Tablets By Mouth every 8 hours. Refills: 0. levothyroxine (Synthroid) By Mouth every day. multivitamin, ( Multivitamins) 1 Tablets By Mouth every day. ondansetron (Zofran ODT 4 mg Tab-Dis) 1 Tablets By Mouth every 8 hours. Refills: 0. PATIENT EDUCATION INFORMATION: Instructions: Pharyngitis Follow up: With: Address: When: MABLE JOE [address] [place] [phone] Business (1) In 3 days 07/23/2020 DIAGNOSIS: Pharyngitis Normal [facility] [place] [facility] ED Note-Physicianon 07-20-20 ED Note-Physician Basic Information Time Seen: Mikey NEALCaleb 07/20/2020 08:37 Chief Complaint Patient presents with complaints of sore throa and lsoe of voive for three days and bialteral ear pain History of Present Illness 20-year-old female comes into the ED for evaluation of a sore throat. She presents with 3-day history of sore throat. Pain is significant with talking and swallowing. She has had associated sinus congestion ear pain. No fever, chills, nausea, vomiting. No chest pain or shortness of breath. Mild cough. No concern for . No prior treatments. No known sick contacts. Review of Systems A 10 point review of systems is negative except as noted above. Medical and Surgical History: Reviewed and noted Social history: Lives at home Tobacco: Denies Physical Exam Vitals & Measurements T: 36.8 ?C (Oral) HR: 106(Peripheral) RR: 18 BP: 108/73 SpO2: 97% HT: 160.0 cm HT: 160 cm WT: 73.0 kg WT: 73 kg BMI: 28.52 Nurses notes and vital signs reviewed and patient is not hypoxic. General: The patient appears well, resting comfortably. Skin: Warm, dry. Head: Atraumatic. Neck: No JVD. Eye: Normal conjunctiva. Ears, Nose, Mouth, and Throat: Moist mucous membranes. Mild pharyngeal erythema. No tonsillar hypertrophy or exudate. Uvula is midline. No stridor, trismus or drooling. Anterior cervical lymphadenopathy. Loss of voice. Cardiovascular: Strong distal pulses. Chest wall: Respiratory: Respirations are nonlabored. Back: Normal range of motion. Musculoskeletal: Normal ROM with no gross deformity. Gastrointestinal: Urological: Neurological: Awake and alert. No focal deficits. Follows commands. Psychiatric: Cooperative. Medical Decision Making Patient is overall nontoxic examination. Her rapid strep and Covid testing is negative. Strep culture is obtained. She is treated with Decadron and anti-inflammatories. She is discharged with PCP follow-up. Patient was encouraged to return to the ED if symptoms worsen or change. Assessment/Plan Pharyngitis (J02.9: Acute pharyngitis, unspecified) Orders: acetaminophen-hydroc odone, 10 mL, Soln-Oral, Oral, Once, Stop date 07/20/20 9:42:00 EST, STAT, Start date 07/20/20 9:42:00 EST dexamethasone, 10 mg = 2.5 mL, Injection, Oral, Once, Stop date 07/20/20 9:55:00 EST, STAT, Start date 07/20/20 9:55:00 EST naproxen, 500 mg = 1 tab(s), Oral, BID, PRN for pain, # 20 tab(s), Refills(s) 0 Rapid COVID Antigen ([facility]) Rapid Strep w/rfx Strep Screen Culture Medications Administered Given acetaminophen-hydroc odone 325 mg-7.5 mg/15 mL oral solution, 10 mL, Oral dexamethasone 4 mg/mL Inj 1 mL, 10 mg, Oral Disposition Plan Patient Discharge Condition Disposition: Discharged home Condition: Improved and stable Counseled: Patient and/or family were counseled to workup, results, treatment plan and follow-up recommendations Discharge Prescription List Prescriptions Naprosyn 500 mg Tab, 500 mg= 1 tab(s), Oral, BID, PRN Follow-up With When Contact Information MABLE JOE In 3 days 07/23/[address] [address] Business (1) Additional Instructions: Patient Education Pharyngitis Attestation Patient seen and evaluated by the physician promotional advertising assistant. Attending physician was present in the emergency department and supervised care. This report was transcribed using voice recognition software. Every effort was made to ensure accuracy, however, inadvertently computerized mining professionals mistakes may be present. Appropriate healthcare PPE was used in evaluating this patient. The patient was placed in a mask. The healthcare provider was wearing mask, gloves, googles and utilizing proper hand hygiene. All equipment was properly cleansed. Problem List/Past Medical History Ongoing Historical No qualifying data Medications Inpatient No active inpatient medications Home dicyclomine 20 mg Tab, 20 mg= 1 tab(s), Oral, QID, Not taking ibuprofen 200 mg oral capsule, 400 mg= 2 cap(s), Oral, q4hr, PRN, Not taking ibuprofen 400 mg Tab, 400 mg= 1 tab(s), Oral, q8hr Naprosyn 500 mg Tab, 500 mg= 1 tab(s), Oral, BID, PRN Multivitamins, 1 tab(s), Oral, Daily Symbicort, Inhalation, BID, Not taking Synthroid, Oral, Daily Zofran ODT 4 mg Tab-Dis, 4 mg= 1 tab(s), Oral, q8hr, Not taking Allergies No Known Allergies Social History Alcohol - Denies Alcohol Use, 05/04/2019 Employment/School - Medium Risk, 05/04/2019 full time, Student, Work/School description: 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 Activity level: Occasional physical work., 05/04/2019 Home/Environment - Low Risk, 05/04/2019 Lives with Father. Living situation: Home/Independent. Family/Friends available for support: Yes., 05/04/2019 Nutrition/Health - No Risk, 05/04/2019 Regular, 05/04/2019 Substance Abuse - Denies Substance Abuse, 05/04/2019 Tobacco - Denies Tobacco Use, 05/04/2019 Lab Results Rapid Strep: NEGATIVE1 (07/20/20 08:43:00) Rapid COVID Ag: Not Detected (07/20/20 08:43:00) Rapid COV Int NEG Ctl: Pass (07/20/20 08:43:00) Rapid COV Int POS Ctl: Pass (07/20/20 08:43:00) First Test: Unknown (07/20/20 08:43:00) Employed in Healthcare: NO (07/20/20 08:43:00) Symptomatic as defined by CDC: YES (07/20/20 08:43:00) Hospitalized?: NO (07/20/20 08:43:00) ICU: NO (07/20/20 08:43:00) Resides in a Congregate Care Setting: NO (07/20/20 08:43:00) ?: NO (07/20/20 08:43:00) Diagnostic Results No qualifying data available. [facility] Comment on above: Result Comment: Elec tronically Signed By: Mikey NEAL, Caleb\.br\Date and Time Signed: 07/20/20 10:34 EST\.br\Electronically Co-Signed By: Alec Roman DO\.betzaida\Date and Time Co-Signed: 07/20/20 17:30 EST ED Patient Education Noteon 07-20-2020 ED Patient Education Note Family Medicine Pharyngitis Pharyngitis is redness, pain, and swelling (inflammation) of your pharynx. CAUSES Pharyngitis is usually caused by infection. Most of the time, these infections are from viruses (viral) and are part of a cold. However, sometimes pharyngitis is caused by bacteria (bacterial). Pharyngitis can also be caused by allergies. Viral pharyngitis may be spread from person to person by coughing, sneezing, and personal items or utensils (cups, forks, spoons, toothbrushes). Bacterial pharyngitis may be spread from person to person by more intimate contact, such as kissing. SIGNS AND SYMPTOMS Symptoms of pharyngitis include: ? ? Sore throat. ? ? Tiredness (fatigue). ? ? Low-grade fever. ? ? Headache. ? Joint pain and muscle aches. ? Skin rashes. ? Swollen lymph nodes. ? Plaque-like film on throat or tonsils (often seen with bacterial pharyngitis). DIAGNOSIS Your health care provider will ask you questions about your illness and your symptoms. Your medical history, along with a physical exam, is often all that is needed to diagnose pharyngitis. Sometimes, a rapid strep test is done. Other lab tests may also be done, depending on the suspected cause. TREATMENT Viral pharyngitis will usually get better in 3?4 days without the use of medicine. Bacterial pharyngitis is treated with medicines that kill germs (antibiotics). HOME CARE INSTRUCTIONS ? Drink enough water and fluids to keep your urine clear or pale yellow. ? ? Only take mzvp-ntk-mquyknh or prescription medicines as directed by your health care provider: ? ? If you are prescribed antibiotics, make sure you finish them even if you start to feel better. ? ? Do not take aspirin. ? ? Get lots of rest. ? ? Gargle with 8 oz of salt water (? tsp of salt per 1 qt of water) as often as every 1?2 hours to soothe your throat. ? ? Throat lozenges (if you are not at risk for choking) or sprays may be used to soothe your throat. SEEK MEDICAL CARE IF: ? You have large, tender lumps in your neck. ? You have a rash. ? You cough up green, yellow-brown, or bloody spit. SEEK IMMEDIATE MEDICAL CARE IF: ? Your neck becomes stiff. ? You drool or are unable to swallow liquids. ? You vomit or are unable to keep medicines or liquids down. ? You have severe pain that does not go away with the use of recommended medicines. ? You have trouble breathing (not caused by a stuffy nose). MAKE SURE YOU: ? Understand these instructions. ? Will watch your condition. ? Will get help right away if you are not doing well or get worse. Document Released: 08/07/2006 Document Revised: 05/28/2014 Document Reviewed: 04/14/2014 ExitCare? Patient Information ?2015 [email or web address]. This information is not intended to replace advice given to you by your health care provider. Make sure you discuss any questions you have with your health care provider. Normal [facility] ED Patient Summaryon 020 ED Patient Summary [place] [id number] Patient Discharge Instructions Person Information Name: THO MOLINA Age: 20 Years Arrival Date: 07/20/2020 08:25:28 Discharge Diagnosis: Pharyngitis Primary Care Physician: MABLE JOE MD Provider Information Primary Provider: Alec Roman DO Advanced Practice Director:Caleb Jensen PA-C The exam and treatment you received in the Emergency Department were for an urgent problem and are not intended as complete care. It is important that you follow up with a doctor, nurse practitioner, or physician?s promotional advertising assistant for ongoing care. If your symptoms become worse or you do not improve as expected and you are unable to reach your usual health care provider, you should return to the Emergency Department. We are available 24 hours a day. THO MOLINA has been given the following list of patient education materials, prescriptions and follow-up instructions: Follow-up Instructions: With: Address: When: MABLE JOE [address] [place] [address] [phone] Business (1) In 3 days 07/23/2020 In the event that this physician does not participate in your insurance network, please consult with your insurance company to find a nearby participating provider. Patient Education Materials: Pharyngitis A MESSAGE TO ALL PATIENTS REGARDING OPIOIDS PRESCRIPTION OPIOIDS: WHAT YOU NEED TO KNOW Prescription opioids can be used to help relieve bsayhexu-oh-pmcjdg pain and are often prescribed following a surgery or injury, or for certain health conditions. These medications can be an important part of the treatment but also come with serious risks. It is important to work with your healthcare provider to make sure you are getting the safest, most effective care. WHAT ARE THE RISKS AND SIDE EFFECTS OF OPIOID USE? Prescription opioids carry serious risks of addiction and overdose, especially with prolonged use. An opioid overdose, often marked by slowed breathing, can cause sudden . The use of prescription opioids can have a number of side effects as well, even when taken as directed: ? Tolerance?meaning you might need to take more of the medication for the same pain relief ? Physical dependence?meaning you have symptoms of withdrawal when a medication is stopped ? Increased sensitivity to pain ? Constipation ? Nausea, vomiting, and dry mouth ? Sleepiness and dizziness ? Confusion ? Depression ? Low levels of testosterone that can result in lower sex drive, energy, and strength ? Itching and sweating RISKS ARE GREATER WITH: ? History of drug misuse, substance use disorder, or overdose ? Mental health conditions (such as depression or anxiety) ? Sleep apnea ? Older age (65 years and older) ? Avoid alcohol while taking prescription opioids. Also, unless specifically advised by your health care provider, medications to avoid include: ? Benzodiazepines (such as Xanax or Valium) ? Muscle relaxants (such as Soma or Flexeril) ? Hypnotics (such as Ambien or Lunesta) ? Other prescription opioids KNOW YOUR OPTIONS Talk to your health care provider about ways to manage your pain that don?t involve prescription opioids. Some of these options may actually work better and have fewer risks and side effects. Options may include: ? Pain relievers such as acetaminophen, ibuprofen, and naproxen ? Some medication that are also used for depression or seizures ? Physical therapy and exercise ? Cognitive behavioral therapy, a psychological, goal-directed approach, in which patients learn how to modify physical, behavioral, and emotional triggers of pain and stress. IF YOU ARE PRESCRIBED OPIOIDS FOR PAIN: ? Never take opioids in greater amounts or more often than prescribed. ? Follow up with your primary health care provider. o Work together to create a plan on how to manage your pain. o Talk about ways to help manage your pain that don?t involve prescription opioids. o Talk about any and all concerns and side effects. ? Help prevent misuse and abuse o Never sell or share prescription opioids. o Never use another person?s prescription opioids. ? Store prescription opioids in a secure place and out of reach of others (this may include visitors, children, friends, and family). ? Safely dispose of unused prescription opioids: Find your community drug take-back program or your pharmacy mail-back program, or flush them down the toilet, following guidance from the Food and Drug Administration (www.fda.gov/Drugs/R esourcesForYou). ? Visit www.cdc.gov/drugover dose to learn about the risks of opioids abuse and overdose. ? If you believe you may be struggling with addiction, tell your health workforce investment act career manager and ask for guidance or call [facility]S National Helpline at 3-777-725-LALA. z Source: US Department of Health and Human Services/Center for Disease Control & Prevention [facility] Medications Given: Medication Dose Route acetaminophen-hydroc odone 10.00 mL Oral dexamethasone 10.00 mg Oral Medication Information: New Medications Printed Prescriptions naproxen (Naprosyn 500 mg Tab) 1 Tablets By Mouth 2 times a day as needed for pain. Refills: 0. Medications to Continue with No Changes Other Medications budesonide-formotero l (Symbicort) Inhalation 2 times a day. dicyclomine (dicyclomine 20 mg Tab) 1 Tablets By Mouth 4 times a day. Refills: 0. ibuprofen (ibuprofen 200 mg oral capsule) 2 Capsules By Mouth every 4 hours as needed as needed for pain. ibuprofen (ibuprofen 400 mg Tab) 1 Tablets By Mouth every 8 hours. Refills: 0. levothyroxine (Synthroid) By Mouth every day. multivitamin, ( Multivitamins) 1 Tablets By Mouth every day. ondansetron (Zofran ODT 4 mg Tab-Dis) 1 Tablets By Mouth every 8 hours. Refills: 0. Comment: Pharmacy Information: Thank you for choosing [facility] Patient Education Materials: Pharyngitis Pharyngitis is redness, pain, and swelling (inflammation) of your pharynx. CAUSES Pharyngitis is usually caused by infection. Most of the time, these infections are from viruses (viral) and are part of a cold. However, sometimes pharyngitis is caused by bacteria (bacterial). Pharyngitis can also be caused by allergies. Viral pharyngitis may be spread from person to person by coughing, sneezing, and personal items or utensils (cups, forks, spoons, toothbrushes). Bacterial pharyngitis may be spread from person to person by more intimate contact, such as kissing. SIGNS AND SYMPTOMS Symptoms of pharyngitis include: ? ? Sore throat. ? ? Tiredness (fatigue). ? ? Low-grade fever. ? ? Headache. ? Joint pain and muscle aches. ? Skin rashes. ? Swollen lymph nodes. ? Plaque-like film on throat or tonsils (often seen with bacterial pharyngitis). DIAGNOSIS Your health care provider will ask you questions about your illness and your symptoms. Your medical history, along with a physical exam, is often all that is needed to diagnose pharyngitis. Sometimes, a rapid strep test is done. Other lab tests may also be done, depending on the suspected cause. TREATMENT Viral pharyngitis will usually get better in 3?4 days without the use of medicine. Bacterial pharyngitis is treated with medicines that kill germs (antibiotics). HOME CARE INSTRUCTIONS ? Drink enough water and fluids to keep your urine clear or pale yellow. ? ? Only take aqqs-mgm-tujrzrq or prescription medicines as directed by your health care provider: ? ? If you are prescribed antibiotics, make sure you finish them even if you start to feel better. ? ? Do not take aspirin. ? ? Get lots of rest. ? ? Gargle with 8 oz of salt water (? tsp of salt per 1 qt of water) as often as every 1?2 hours to soothe your throat. ? ? Throat lozenges (if you are not at risk for choking) or sprays may be used to soothe your throat. SEEK MEDICAL CARE IF: ? You have large, tender lumps in your neck. ? You have a rash. ? You cough up green, yellow-brown, or bloody spit. SEEK IMMEDIATE MEDICAL CARE IF: ? Your neck becomes stiff. ? You drool or are unable to swallow liquids. ? You vomit or are unable to keep medicines or liquids down. ? You have severe pain that does not go away with the use of recommended medicines. ? You have trouble breathing (not caused by a stuffy nose). MAKE SURE YOU: ? Understand these instructions. ? Will watch your condition. ? Will get help right away if you are not doing well or get worse. Document Released: 08/07/2006 Document Revised: 05/28/2014 Document Reviewed: 04/14/2014 ExitCare? Patient Information ?2015 [email or web address]. This information is not intended to replace advice given to you by your health care provider. Make sure you discuss any questions you have with your health care provider. JESSE Urbina JESSE , have received the following patient education materials/instructio ns and have verbalized understanding: Patient Education Materials: Pharyngitis Follow-up Instructions: With: Address: When: MABLE JOE [address] [place] [address] [phone] Business (1) In 3 days 07/23/2020 Patient Signature Date Clinician/Nurse Signature Date 07/20/2020 10:30:13 Normal [facility] Prescriptions/Work Noteson 1 09-19-2019 Prescriptions/Work Notes [id number] [id number]:127 Normal [facility] Rapid COVID Antigen (MC)on 07-20-2020 Rapid COV Int NEG Ctl Pass Normal [facility] Comment on above: Performed By: #### 2 [id number] #### [facility] [address] [place] [address] Rapid COV Int POS Ctl Pass Normal [facility] Comment on above: Performed By: #### 2 [id number] #### [facility] [address] [place] [address] Rapid COVID Ag Not Detected Normal Not Detected [facility] Comment on above: Result Comment: The built.io System for Rapid Detection of SARS-CoV-2 is a chromatographic digital immunoassay intended for the direct and qualitative detection of SARS-CoV-2 nucleocapsid antigens in nasal swabs from individuals who are suspected of COVID-19 by their healthcare provider within the first five days of the onset of symptoms. Negative results should be treated as presumptive, do not rule out SARS-CoV-2 infection and should not be used as the sole basis for treatment or patient management decisions, including infection control decisions. Negative results should be considered in the context of a patient?s recent exposures, history and the presence of clinical signs and symptoms consistent with COVID-19, and confirmed with a molecular assay, if necessary, for patient management. For in vitro diagnostic use. In the [place], only for use under an Emergency Use Authorization. In the [place], this test has not been FDA cleared or approved; this test has been authorized by FDA under an EUA for use by authorized laboratories; use by laboratories certified under the CLIA, 42 U.S.C. ?263a, that meet requirements to perform moderate, high, or waived complexity tests and at the Point of Care (POC), i.e., in patient care settings operating under a CLIA Certificate of Waiver, Certificate of Compliance, or Certificate of Accreditation. This test has been authorized only for the detection of proteins from SARS-CoV-2, not for any other viruses or pathogens; and, in the [place], this test is only authorized for the duration of the declaration that circumstances exist justifying the authorization of emergency use of in vitro diagnostics for detection and/or diagnosis of the virus that causes COVID-19 under Section 564(b)(1) of the Act, 21 U.S.C. ? 360bbb-3(b)(1), unless the authorization is terminated or revoked sooner. Performed By: #### 2 [id number], [id number] #### [facility] [address] [place] [address] Employed in Healthcare NO [facility] Comment on above: Performed By: #### 2 [id number], [id number], [id number] #### [facility] [address] [place] [address] First Test Unknown [facility] Comment on above: Performed By: #### 2 [id number], [id number], [id number] #### [facility] [address] [place] [address] Hospitalized? NO Normal [facility] Comment on above: Performed By: #### 2 [id number], [id number], [id number] #### [facility] [address] [place] [address] [facility] Comment on above: Performed By: #### 2 [id number], [id number], [id number] #### [facility] [address] [place] [address] ? NO Normal [facility] Comment on above: Performed By: #### 2 [id number], [id number], [id number] #### [facility] [address] [place] [address] Resides in a Congregate Care Setting NO [facility] Comment on above: Performed By: #### 2 [id number], [id number], [id number] #### [facility] [address] [place] [address] Symptomatic as defined by CDC YES Normal [facility] Comment on above: Performed By: #### 2 [id number], [id number], [id number] #### [facility] [address] [place] [address] Rapid Strep w/rfxon 07-20-20 20 S. pyogenes Ag IA Ql (Unsp spec) Negative Normal Negative [facility] Comment on above: Performed By: #### 2 [id number], [id number], [id number] #### [facility] [address] [place] [address] [place]enton 04-17-2020 Consent [id number] 3#1.00CD:127 Normal [facility] Registrationon 04-17-2020 Registration [id number] 0#1.00CD:127 Normal [facility] Basic Metabolic Panel w/ Ref shawn to MGon 01-08-2020 Anion gap [Moles/Vol] 14 mmol/L 9 - 17 mmol/L [place] Bun/Cre Ratio 16 [place] Calcium [Mass/Vol] 9.0 mg/dL 8.6 - 10. 4 mg/dL [place] Chloride [Moles/Vol] 100 mmol/L 98 - 10 7 mmol/L [place] CO2 [Moles/Vol] 24 mmol/L 20 - 31 mmol/L [place] Creatinine [Mass/Vol] 0.62 mg/dL 0.5 - 0.9 mg/dL [place] GFR NOT REPORTED >60 mL/min [place] GFR Non- Pediatric GFR requires additional information. Refer to NKDEP website for calculator. >60 mL/min [place] Glucose [Mass/Vol] 112 mg/dL High 70 - 99 mg/dL [place] Interpretation and review of laboratory results Abnormal [place] Potassium [Moles/Vol] 3.5 mmol/L Low 3.7 - 5.3 mmol/L [place] Sodium [Moles/Vol] 138 mmol/L 135 - 144 mmol/L [place] Urea nitrogen [Mass/Vol] 10 mg/dL 6 - 20 mg/dL [place] CBC Auto Differentialon 05-2 0-2020 Basophils (Bld) [#/Vol] 0.03 10*3/uL [place] Basophils/100 WBC (Bld) 0 % 0 - 2 % [place] Differential Type NOT REPORTED [place] Eosinophils (Bld) [#/Vol] 10*3/uL [place] Eosinophils/100 WBC (Bld) 0 % Low 1 - 4 % [place] Erythrocyte distribution width (RBC) [Ratio] 12.7 % 11.8 - 14.4 % [place] Hematocrit (Bld) [Volume fraction] 41.9 % 36.3 - 47.1 % [place] Hemoglobin (Bld) [Mass/Vol] 13.5 g/dL 11.9 - 15.1 g/dL [place] Immature granulocytes (Bld) [#/Vol] 0 % 0 [place] Immature granulocytes (Bld) [#/Vol] 0.04 10*3/uL [place] Interpretation and review of laboratory results Abnormal [place] Lymphocytes (Bld) [#/Vol] 0.85 10*3/uL Low [place] Lymphocytes/100 WBC (Bld) 7 % Low 25 - 45 % [place] MCH (RBC) [Entitic mass] 28.0 pg 25.2 - 33.5 pg [place] MCHC (RBC) [Mass/Vol] 32.2 g/dL 28.4 - 34.8 g/dL [place] MCV (RBC) [Entitic vol] 86.9 fL 82.6 - 102.9 fL [place] Monocytes (Bld) [#/Vol] 1.15 10*3/uL [place] Monocytes/100 WBC (Bld) 9 % High 2 - 8 % [place] Platelet mean volume (Bld) [Entitic vol] 11.9 fL 8.1 - 13.5 fL [place] Platelets (Bld) [#/Vol] NOT REPORTED [place] Platelets (Bld) [#/Vol] 164 10*3/uL [place] RBC (Bld) [#/Vol] 4.82 10*6/uL 3.95 - 5.1 1 m/uL [place] RBC morphology finding Nom (Bld) NOT REPORTED [place] Segmented neutrophils/100 WBC (Bld) 84 % High 34 - 64 % [place] Segs Absolute 10.62 [place] WBC (Bld) [#/Vol] 12.7 10*3/uL [place] WBC (Bld) [#/Vol] 0.0 10*3/uL 0.0 per 10 0 WBC [place] WBC Morphology NOT REPORTED [place] D-Dimer, Quantitativeon 12-20 0-2019 D-Dimer, Quant <0.27 [place], [place] Comment on above: When combined with a low clinical probability, a D dimer value of <0.50 mg/L FEU is considered negative for DVT and PE (negative predictive value of 98%, sensitivity of 97%). If this test is not being used to help rule out DVT and PE, then the following reference range should be utilized: 0.00 - 0.59 mg/L FEU. The D-Dimer assay is intended for use as an aid in the diagnosis of venous thromboembolism (DVT and PE) and the results should be interpreted in conjunction with the patient's medical history, clinical presentation, and other findings. The [employer] D-Dimer assay is intended for use as an aid in the diagnosis of venous thromboembolism (DVT and PE) and the results should be interpreted in conjunction with the patient's medical history, clinical presentation, and other findings. Elevated levels of D-dimer activity can be seen in any state of coagulation activation and is not recommended in patients with therapeutic dose anticoagulant therapy for >24 hours, fibrinolytic therapy within the previous 7 days, trauma or surgery within the previous 4 weeks, disseminated malignancies, aortic aneurysm, sepsis, severe infections, pneumonia, severe skin infections, liver cirrhosis, advanced age, coronary disease, diabetes, and . A very low percentage of patients with DVT may yield D-dimer results below the cutoff of 0.5 mg/L FEU. This is known to be more prevalent in patients with distal DVT. HCG Qualitative, Serumon hCG Qual Negative NEGATIVE [place] Comment on above: Specimens with hCG l evels near the threshold of the test (25 mIU/mL) may give a negative or indeterminate result. In such cases, another test should be performed with a new specimen in 48-72 hours. If early is suspected clinically in this setting, correlation with quantitative serum b-hCG level is suggested. [facility] has confirmed the use of plasma for this test. This has not been cleared or approved by the U.S. Food and Drug Administration. The FDA has determined that such clearance is not necessary. Magnesiumon 01-08-2020 Magnesium [Mass/Vol] 2.0 mg/dL 1.7 - 2 .2 mg/dL [place] Metabolic Panelon 01-08-2020 GFR/1.73 sq M predicted among non-blacks MDRD (S/P/Bld) [Vol rate/Area] [place] Comment on above: Stage 1: Some kidney damage normal GFR Stage 2: Mild kidney damage GFR 60-89 Stage 3: Moderate kidney damage GFR 30-59 Stage 4: Severe kidney damage GFR 15-29 Stage 5: Severe kidney damage GFR <15 ESRD - chronic treatment by dialysis or transplant Average GFR for <20 years old not available. Chronic Kidney Disease: <60 mL/min/1.73sq m Kidney failure: <15 mL/min/1.73sq m eGFR calculated using average adult body mass. Additional eGFR calculator available at: http://www.Flocasts.PreisAnalytics/multiple_crcl_2012.htm Mononucleosis Screenon 01-07 Mononucleosis Screen Negative NEGATIVE [place] XR CHEST STANDARD (2 VW)on 0 01-08-2020 EXAMINATION: TWO XRAY VIEWS OF THE CHEST 01/08/2020 1:21 pm COMPARISON: 04/29/2013. HISTORY: ORDERING SYSTEM PROVIDED HISTORY: chest pain TECHNOLOGIST PROVIDED HISTORY: chest pain FINDINGS: Lungs are clear. Cardiac and mediastinal silhouettes are within normal limits. No pneumothoraces. Bony structures appear intact. [place], [place] Jose Angel, Mhpn Incoming Radiant Results From [facility] - 01/08/2020 2:01 PM EDT EXAMINATION: TWO XRAY VIEWS OF THE CHEST 01/08/2020 1:21 pm COMPARISON: 04/29/2013. HISTORY: ORDERING SYSTEM PROVIDED HISTORY: chest pain TECHNOLOGIST PROVIDED HISTORY: chest pain FINDINGS: Lungs are clear. Cardiac and mediastinal silhouettes are within normal limits. No pneumothoraces. Bony structures appear intact. IMPRESSION: No evidence for acute cardiopulmonary process. [facility] [place] No evidence for acute cardiopulmonary process. [facility] [place] CBC auto differentialon 02-0 Basophils (Bld) [#/Vol] 10*3/uL [employer] Phone: Basophils/100 WBC (Bld) 0 % 0 - 2 % [employer] Phone: Differential Type NOT REPORTED [employer] Phone: Eosinophils (Bld) [#/Vol] 0.06 10*3/uL [employer] Phone: Eosinophils/100 WBC (Bld) 1 % 1 - 4 % [employer] Phone: Erythrocyte distribution width (RBC) [Ratio] 14.2 % 11.8 - 14.4 % [employer] Phone: Hematocrit (Bld) [Volume fraction] 35.4 % Low 36.3 - 47.1 % [employer] Phone: Hemoglobin (Bld) [Mass/Vol] 11.4 g/dL Low 11.9 - 15.1 g/dL [employer] Phone: Immature granulocytes (Bld) [#/Vol] 0.06 10*3/uL [employer] Phone: Immature granulocytes (Bld) [#/Vol] 1 % High 0 [employer] Phone: Interpretation and review of laboratory results Abnormal [employer] Phone: Lymphocytes (Bld) [#/Vol] 1.69 10*3/uL [employer] Phone: Lymphocytes/100 WBC (Bld) 16 % Low 25 - 45 % [employer] Work Phone: MCH (RBC) [Entitic mass] 30.2 pg 25.2 - 33.5 pg [employer] Phone: MCHC (RBC) [Mass/Vol] 32.2 g/dL 28.4 - 34.8 g/dL [employer] Work Phone: MCV (RBC) [Entitic vol] 93.9 fL 82.6 - 102.9 fL [employer] Phone: Monocytes (Bld) [#/Vol] 0.86 10*3/uL [employer] Phone: Monocytes/100 WBC (Bld) 8 % 2 - 8 % [employer] Work Phone: Platelet mean volume (Bld) [Entitic vol] 11.6 fL 8.1 - 13.5 fL [employer] Phone: Platelets (Bld) [#/Vol] NOT REPORTED [employer] Phone: Platelets (Bld) [#/Vol] 151 10*3/uL [employer] Phone: RBC (Bld) [#/Vol] 3.77 10*6/uL Low 3.95 - 5.1 1 m/uL [employer] Work Phone: RBC morphology finding Nom (Bld) NOT REPORTED [employer] Phone: Segmented neutrophils/100 WBC (Bld) 74 % High 34 - 64 % [employer] Work Phone: Segs Absolute 8.05 High [employer] Work Phone: WBC (Bld) [#/Vol] 10.7 10*3/uL [employer] Work Phone: WBC (Bld) [#/Vol] 0.0 10*3/uL 0.0 per 10 0 WBC [facility] Work Phone: WBC Morphology NOT REPORTED [facility] Work Phone: DRUG SCREEN MULTI URINEon Amphetamine Screen, Ur Negative NEGATIVE [facility] Work Phone: Barbiturate Screen, Ur Negative NEGATIVE [facility] Work Phone: Benzodiazepine Screen, Urine Negative NEGATIVE [facility] Work Phone: Buprenorphine Urine Negative NEGATIVE [facility] Work Phone: Cannabinoid Scrn, Ur Negative NEGATIVE [facility] Work Phone: Cocaine Metabolite, Urine Negative NEGATIVE [facility] Work Phone: MDMA, Urine NOT REPORTED NEGATIVE [facility] Work Phone: Methadone Screen, Urine Negative NEGATIVE [facility] Work Phone: Methamphetamine, Urine Negative NEGATIVE [facility] Work Phone: Opiates, Urine Negative NEGATIVE [facility] Work Phone: Oxycodone Screen, Ur Negative NEGATIVE [facility] Work Phone: Phencyclidine, Urine Negative NEGATIVE [facility] Work Phone: Propoxyphene, Urine Negative NEGATIVE [facility] Work Phone: Test Information NOT REPORTED [facility] Work Phone: Tricyclic Antidepressants, Urine Negative NEGATIVE [facility] Work Phone: Comment on above: Drug screen results are to be used for medical purposes only. All positive results are unconfirmed. Testing for employment or legal uses should be sent to a reference laboratory for confirmation. GBS, External Resulton 09-12 GBS, External Result Negative [facility] Work Phone: Comment on above: bs/ es ABO, External Resulton 02-18 ABO, External Result O [facility] [employer] Work Phone: Comment on above: bs/ es C. Trachomatis, External Res ulton 02-18-2019 C. Trachomatis, External Result Negative [facility]: Comment on above: bs/es HIV, External Resulton 02-18 HIV, External Result non reactive [facility] [employer] Work Phone: Comment on above: bs/es Hepatitis B, External Result on 02-18-2019 Hep B, External Result non reactive [facility]: Comment on above: bs/ es N. Gonorrhoeae, External Res ulton 02-18-2019 N. Gonorrhoeae, External Result Negative [facility]: Comment on above: bs/ es RPR, External Labon 02-19-20 19 RPR, External Result non reactive Me [facility] [employer] Work Phone: Comment on above: bs/es Rh Factor, External Resulton 02-18-2019 Rh Factor, External Result Positive [facility] Phone: Comment on above: bs/ es Rubella Titer, External Resu lton 02-18-2019 Rubella Titer, External Result immune [facility] Work Phone: Comment on above: bs/es Vital Signs Date Time Vital Sign Value Performing Clinician Faci lity 11-07-2022 02:25-0400 Body temperature 98.01 [degF] Latanya Chandracarmenza [facility] Work Phone: [employer] 11-07-2022 02:25-0400 Diastolic blood pressure 69 mm[Hg] Latanyaloretta Max APRN - CN Work Phone: [facility] [employer] 11-07-2022 02:25-0400 Heart rate 105 /min Latanyaloretta Max APRN - CN Work Phone: [facility] [employer] 11-07-2022 02:25-0400 Respiratory rate 16 /min Latanya Floro DIRECT CARE COUNSELOR - CNM Work Phone: [employer] 11-07-2022 02:25-0400 Systolic blood pressure 113 mm[Hg] Latanya Max APRN - CNM Work Phone: [facility] [employer] 11-04-2022 11:10-0400 Body temperature 98.1 [degF] Og Larios APRN - CNM Work Phone: [employer] 11-04-2022 11:10-0400 Diastolic blood pressure 59 mm[Hg] Og Larios APRN - CNM Work Phone: [employer] 11-04-2022 11:10-0400 Heart rate 134 /min Og Larios APRN - CNM Work Phone: [employer] 11-04-2022 11:10-0400 Respiratory rate 16 /min Og Larios APRN - CNM Work Phone: [employer] 11-04-2022 11:10-0400 Systolic blood pressure 104 mm[Hg] Og Larios APRN - CNM Work Phone: [facility] [employer] 05-23-2021 07:22-0400 Body height 160 cm Claudy [employer] DO Work Phone: [employer] Work Phone: 05-23-2021 07:22-0400 Body mass index (BMI) [Ratio] 27.46 kg/m2 Claudy Andes DO Work Phone: [employer] Work Phone: 05-23-2021 07:22-0400 Body temperature 98.1 [degF] Claudy Andes DO Work Phone: [employer] Work Phone: 05-23-2021 07:22-0400 Body weight 70.31 kg Claudy Andes [employer] Work Phone: [employer] Work Phone: 05-23-2021 07:22-0400 Diastolic blood pressure 76 mm[Hg] Claudy Andes DO Work Phone: [employer] Work Phone: 05-23-2021 07:22-0400 Heart rate 77 /min Claudy Andes DO Work Phone: [employer] Work Phone: 05-23-2021 07:22-0400 Respiratory rate 14 /min Claudy Andes DO Work Phone: [employer] Work Phone: 05-23-2021 07:22-0400 SaO2% (BldA) [Mass fraction] 96 % Claudy Andes DO Work Phone: [employer] Work Phone: 05-23-2021 07:22-0400 Systolic blood pressure 129 mm[Hg] Claudy Andes DO Work Phone: [employer] Work Phone: 01-13-2020 20:47-0400 Body Temperature 98.2 [degF] Paco [facility] 01-13-2020 20:47-0400 BP Diastolic 76 mm[Hg] [facility] [place] 01-13-2020 20:47-0400 BP Systolic 102 mm[Hg] [facility] [place] 01-13-2020 20:47-0400 Pulse (Heart Rate) 66 /min [facility] 01-13-2020 20:47-0400 Respiratory Rate 16 /min Paco [facility] [employer] 01-08-2020 15:03-0400 Body Temperature 98.49 [degF] Jared Lipscomb [facility] [place] 01-08-2020 14:47-0400 BP Diastolic 70 mm[Hg] Jared Lipscomb [facility] [place] 01-08-2020 14:47-0400 BP Systolic 114 mm[Hg] Jared Lipscomb [facility] [place] 01-08-2020 14:47-0400 Pulse (Heart Rate) 91 /min Jared Lipscomb [facility], [place] 01-08-2020 14:47-0400 Pulse Oximetry 97 % Jared Lipscomb [facility] , [place] 01-08-2020 14:47-0400 Respiratory Rate 18 /min Jared Lipscomb [facility] 01-08-2020 12:40-0400 BMI (Body Mass Index) 25.69 kg/m2 Jared Lipscomb [facility], [place] 01-08-2020 12:40-0400 Body weight 65.77 kg Jared [facility] , [place] 01-08-2020 12:40-0400 Height 160 cm Jared [facility] , [place] 09-26-2019 07:50-0500 Body Temperature 97.5 [degF] [facility] [employer] Phone: 09-26-2019 07:50-0500 BP Diastolic 61 mm[Hg] Latanya [facility] [employer] Phone: 09-26-2019 07:50-0500 BP Systolic 104 mm[Hg] Latanya [facility] [employer] [facility] Phone: 09-26-2019 07:50-0500 Pulse (Heart Rate) 108 /min Latanya [facility] [employer] [facility] Phone: 09-26-2019 07:50-0500 Respiratory Rate 16 /min Latanya [facility] [employer] Phone: Encounters Encounter Date Encounter Type Care Provider Facility Start: 12-22-2023 End: 12-22-2023 ambulatory MABLE JOE Not Available Start: 12-13-2023 End: 12-14-2023 ambulatory LATANYA MAX Not Available Start: 11-23-2023 End: 11-23-2023 ambulatory COY BILLS Not Available Start: 07-27-2023 End: 07-27-2023 Emergency department patient visit MABLE Bianchi [facility] Start: 07-03-2023 End: 07-03-2023 Emergency department patient visit MABLE Bianchi [facility] Start: 11-23-2022 End: 11-25-2022 Evaluation and management of inpatient JACOBO MAX . Facility:[facility]1 Start: 11-07-2022 End: 11-07-[address] [facility] Start: 11-07-2022 End: 11-07-2022 Subsequent hospital visit by physician Latanya Chandracarmenza DIRECT CARE COUNSELOR - CNM Work Phone: [facility] Labor and Delivery Start: 11-04-2022 End: 11-04-2022 ambulatory [facility] Start: 11-04-2022 End: 11-04-2022 Subsequent hospital visit by physician Og Larios DIRECT CARE COUNSELOR - CNM Work Phone: [facility] Labor and Delivery Start: 10-29-2022 End: 10-29-[address] EMILY MCNEIL . Facility:[facility]1 Start: 10-17-2022 End: 10-17-[address] JARAD RAMON . Facility:[facility] Start: 07-19-2022 End: 07-20-[address] EMILY MCNEIL . Facility:[facility] Start: 05-28-2022 End: 05-28-2022 ambulatory KARINE SAVAGE Facility:[facility]1 Start: 05-23-2021 End: 05-23-2021 Emergency department patient visit Claudy Zavala DO Work Phone: [facility] ED Comment on above: Viral illness (Prima ry Dx) Start: 01-13-2020 End: 01-13-2020 Emergency department patient visit Paco Olivares Work Phone: [facility] ED Comment on above: Acute pharyngitis, u nspecified etiology (Primary Dx) Start: 01-08-2020 End: 01-08-2020 Emergency department patient visit Jared Lipscomb Work Phone: [facility] ED Comment on above: Left otitis media, u nspecified otitis media type (Primary Dx); Acute pharyngitis, unspecified etiology Start: 09-25-2019 End: 09-26-2019 Evaluation and management of inpatient Latanya Max Work Phone: [facility] Labor and Delivery Procedures Date Procedure Procedure Detail Performing Clinician Start: 11-07-2022 Urnls dip stick/tabl et rgnt auto w/o microscopy Latanya Max DIRECT CARE COUNSELOR - CNM Work Phone: Start: 11-04-2022 Urinalysis microscop ic only Og Larios DIRECT CARE COUNSELOR - CNM Work Phone: Start: 11-04-2022 Urnls dip stick/tabl et rgnt auto w/o microscopy Og Larios DIRECT CARE COUNSELOR - CNM Work Phone: Start: 10-27-2022 GBS, EXTERNAL RESULT Hi storical Provider Start: 05-16-2022 ABO, EXTERNAL RESULT Hi storical Provider Start: 05-16-2022 C. TRACHOMATIS, EXTE RNAL RESULT Historical Provider MD Start: 05-16-2022 HEPATITIS B, EXTERNA L RESULT Historical Provider MD Start: 05-16-2022 HIV, EXTERNAL RESULT Hi storical Provider Start: 05-16-2022 N. GONORRHOEAE, EXTE RNAL RESULT Historical Provider MD Start: 05-16-2022 RH FACTOR, EXTERNAL RESULT Historical Provider MD Start: 05-16-2022 RPR, EXTERNAL RESULT Hi storical Provider Start: 05-16-2022 RUBELLA TITER, EXTER NAL RESULT Historical Provider MD Start: 05-23-2021 Ecg routine ecg w/le ast 12 lds w/i&r Claudy Sally DO Work Phone: Start: 01-08-2020 Radiologic exam ches t 2 views Jared Lipscomb Work Phone: Start: 01-08-2020 Assay of magnesium Will mandi Lipscomb Work Phone: Start: 01-08-2020 BASIC METABOLIC PANE L W/ REFLEX TO MG FOR LOW K Jared Lipscomb Work Phone: Start: 01-08-2020 Blood count complete auto&auto difrntl wbc Jared Lipscomb Work Phone: Start: 01-08-2020 Fibrin dgradj produc ts d-dimer quantitative Jared Lipscomb Work Phone: Start: 01-08-2020 Gonadotropin chorion ic qualitative Jared Lipscomb Work Phone: Start: 01-08-2020 Heterophile antibodi es screen Jared Lipscomb Work Phone: Start: 01-08-2020 Ecg routine ecg w/le ast 12 lds w/i&r Javid L Quiñones Start: 09-25-2019 Blood count complete auto&auto difrntl wbc Latanya Max Work Phone: Start: 09-25-2019 Drug screen class list a Latanya Max Work Phone: Start: 09-12-2019 [facility]BS, [facility]NAL RESULT [facility] Start: 02-18-2019 ABO, EXTERNAL RESULT [facility] Provider Start: 02-18-2019 C. TRACHOMATIS, EXTE RNAL RESULT Historical Provider Start: 02-18-2019 HEPATITIS B, EXTERNA L RESULT Historical Provider Start: 02-18-2019 HIV, EXTERNAL RESULT [facility] Start: 02-18-2019 N. GONORRHOEAE, EXTE RNAL RESULT Historical Provider Start: 02-18-2019 RH FACTOR, EXTERNAL RESULT Historical Provider Start: 02-18-2019 RPR, EXTERNAL RESULT [facility] Start: 02-18-2019 RUBELLA TITER, EXTER NAL RESULT Historical Provider Plan of Treatment Date Care Activity Detail Author Start: 08-29-2029 DTaP/Tdap/Td vaccine (8 - Td or Tdap) DTaP/Tdap/Td vaccine (8 - Td or Tdap) [facility] Start: 08-29-2029 DTaP/Tdap/Td vaccine (8 - Td) DTaP/Tdap/Td vaccine (8 - Td) [facility] [place] Start: 05-16-2023 Screening for Chlamy collette trachomatis Chlamydia/[facility] Start: 03-21-2022 Influenza vaccination Flu vaccine (# 1) [facility] [email or web address] [facility] Start: 04-21-2021 Influenza vaccination Flu vaccine (# 1) [employer] Work Phone: Start: 2021 Screening for malign ant neoplasm of cervix Pap smear [facility] Start: 09-01-2019 Influenza vaccination Flu vaccine (# 1) [facility] Phone: Start: 2018 Hepatitis C screening Hepatitis C sc reen [facility] [employer] Start: 2016 Chlamydia screen Chlamydia screen [facility] [employer] Phone: Start: 2016 Screening for Chlamy collette trachomatis Chlamydia screen [place], [place] Start: 2015 HIV screen HIV screen [facility] Work Phone: Start: 2015 HIV screening HIV screen [facility] [place] [place] Start: 2012 COVID-19 Vaccine (1) COVID-19 Vaccin e (1) [facility] [employer] Phone: Start: 2012 Depression Screen Depression Screen [facility] [employer] Start: 2011 DTaP/Tdap/Td vaccine (1 - Tdap) DTaP/Tdap/Td vaccine (1 - Tdap) [facility] Phone: Start: 2011 HPV vaccine (1 - Fem jeremy 2-dose series) HPV vaccine (1 - Female 2-dose series) [facility] Phone: Start: 2001 Varicella vaccine (1 of 2 - 2-dose childhood series) Varicella vaccine (1 of 2 - 2-dose childhood series) [facility] Phone: Start: 2000 COVID-19 Vaccine (#1) COVID-19 Vacci ne (#1) [facility] [employer] Start: 2000 Hepatitis C screening Hepatitis C sc reen [facility] Phone: End: 11-04-2022 Bacteria identified in Urine by Culture [employer] [facility] [facility] Phone: Comment on above: One Time for 1 Occur rences starting 11/04/2022 until 11/04/2022 End: 11-07-2022 Bacteria identified in Urine by Culture Urine culture Microbiology Routine One Time for 1 Occurrences starting 11/07/2022 until 11/07/2022 [employer] Phone: Comment on above: One Time for 1 Occur rences starting 11/07/2022 until 11/07/2022 EKG 12 Lead [employer]- [place] nonstress test nonst ress test OB Routine Daily until discontinued starting 11/05/2022 [employer] Phone: Comment on above: Daily until disconti nued starting 11/05/2022 nonstress test nonst ress test OB Routine Daily until discontinued starting 11/07/2022 [employer] Phone: Comment on above: Daily until disconti nued starting 11/07/2022 Nonrebreather mask oxygen Nonreb reather mask oxygen Respiratory Care Routine As directed - RT (PRN) until discontinued starting 11/04/2022 [employer] Phone: Comment on above: As directed - RT (FL N) until discontinued starting 11/04/2022 Nonrebreather mask oxygen Nonreb reather mask oxygen Respiratory Care Routine As directed - RT (PRN) until discontinued starting 11/07/2022 [employer] Phone: Comment on above: As directed - RT (FL N) until discontinued starting 11/07/2022 End: 09-25-2019 Sample possible blood bank testing Sample possible blood bank testing Lab STAT One Time for 1 Occurrences starting 09/25/2019 until 09/25/2019 [employer] Phone: Comment on above: One Time for 1 Occur rences starting 09/25/2019 until 09/25/2019 End: 11-04-2022 SVE SVE Point of Care Testing Routine One Time for 1 Occurrences starting 11/04/2022 until 11/04/2022 [employer] Phone: Comment on above: One Time for 1 Occur rences starting 11/04/2022 until 11/04/2022 End: 11-07-2022 SVE SVE Point of Care Testing Routine One Time for 1 Occurrences starting 11/07/2022 until 11/07/2022 DARLYN AURA [employer] Phone: Comment on above: One Time for 1 Occur rences starting 11/07/2022 until 11/07/2022 End: 05-23-2021 XR CHEST PORTABLE XR CHEST PORTABLE Imaging STAT Once for 1 Occurrences starting 05/23/2021 until 05/23/2021 [employer] Phone: Comment on above: Once for 1 Occurrenc es starting 05/23/2021 until 05/23/2021 XR CHEST PORTABLE XR CHEST JOSH BLE Imaging STAT 05/23/2021 7:35 AM EDT [employer] Phone: Payers Date Payer Category Payer Unknown [facility] xxxxxxxxxxxx 2019-Present [phone] [address] [place] [address] xxxxxxxxxxxx [id number] 2000 Unknown [id number] 2000 Unknown [id number] 2000 Unknown [id number] 2000 Unknown [id number] 2000 Unknown [id number] 2000 Unknown [id number] 2000 Unknown [id number] 2000 Unknown [id number] 2000 Unknown [id number] 2000 Unknown [id number] 9 2000 Unknown [id number] 9 2000 Unknown [id number] 9 1959 Unknown [id number] Social History Date Type Detail Facility Start: 01-08-2020 End: 11-04-2022 Tobacco smoking status [facility] Never smoker [facility] [employer] Start: 01-08-2020 End: 11-07-2022 Alcohol intake Current non-drinker of alcohol (finding) [employer] Work Phone: Start: 2000 Sex Assigned At Not on file [facility] Phone: Exposure to SARS-CoV -2 (event) Unable to assess [employer]- [place], [place] Start: 01-06-2019 Gro [facility] Work Phone: Start: 05-23-2021 End: 11-04-2022 Tobacco use and exposure Never used [employer] Exposure to SARS-CoV -2 (event) Not sure [employer] Clinical Note 11-23-2022 Note Date & Type Note Facility 11-23-2022 Note OPERATIVE NOTE PROCEDURE: Exploratory exam status post vaginal delivery. PREOPERATIVE DIAGNOSIS: hemorrhage. POSTOPERATIVE DIAGNOSIS: hemorrhage. ANESTHESIA: Epidural. SURGEON: Jarad Ramon D.O. HARNESS FITTER: Jacobo Max CNM (certified nurse manufacturing technician) BLOOD LOSS IN THE VAC: 20 mL. FINDINGS: Small piece of retained placenta, otherwise no cervical laceration or vaginal lacerations could be appreciated. BRIEF HISTORY: This is a 22-year-old, G2, P1 with a prior history with last vaginal delivery of delayed hemorrhage. Patient physically went under a normal vaginal delivery today under the care of Jacobo Max. Jacobo Max described approximately 1000 cc of blood loss. I was called, arrived to the unit. At that time, Jacobo Max appeared to have the bleeding under control. I did explore the uterus, was able to remove additional blood clot. Subsequently, the bleeding did stop. However, due to Jacobo Max's suspicion of possible cervical laceration, it was decided to take the patient to the OR for a pelvic exam for better visualization. PROCEDURE: The patient was prepped and draped in the normal sterile fashion, after being placed in the dorsolithotomy position. Patient's epidural was topped off. Patient was given Versed per the certified nurse forging press lever tender. The cervix was explored in great detail. No cervical laceration could be seen. The patient's uterus was gently explored. Any additional blood clots were removed and possibly a small portion of retained placenta. Once excellent hemostasis was assured, patient was taken out of dorsolithotomy position and taken back to Labor and Delivery for recovery. [facility] Discharge instructions 11-07-2022 Discharge Instructions Note Date & Type Note Facility 11-07-2022 Hospital Discharg e instructions Brittany So RN - 11/07/2022 7:52 AM EDT OUTPATIENT DISCHARGE Dr. Carola Melo [facility] Dr. Sammy Larios [facility] [address] [facility] [address] [place] Jacobo Max, MSN, DIRECT CARE COUNSELOR, CNM [address] [address] ACTIVITY LIMITATIONS: ( X )Up and about as desired and tolerated ( )Up to bathroom only ( X )Lay on either side ( )Avoid heavy lifting or exercise ( )No sex ( )No nipple stimulation ( )Complet bedrest ( )Avoid using stairs (X )Increase fluids DRINK AT LEAST eight-8oz. Glasses of water daily. Call your Doctor if: ( )Contractions are every 5 minutes apart (from start of one to the start of the next contraction) lasting 60 seconds for at least 1 hour, strong enough you can not walk or talk through the contraction and regular. ( X )Bag of water breaks ( X )Vaginal bleeding ( X )Unusual pain occurs ( X)Decreased movement ( X) labor: If you have 4 contractions in an hour Keep your scheduled follow up appointment. IN CASE OF EMERGENCY CONTACT LABOR AND DELIVERY . documented in this encounter [employer] Phone: Hospital Discharge instructions 11-04-2022 Discharge Instructions Note Date & Type Note Facility 11-04-2022 Hospital Discharg e instructions Diamond Bronson RN - 11/04/2022 1:02 PM EDT OUTPATIENT DISCHARGE Jacobo Max, MSN, DIRECT CARE COUNSELOR, CNM [address] [address] ACTIVITY LIMITATIONS: ( x )Up and about as desired and tolerated ( )Up to bathroom only ( )Lay on either side ( )Avoid heavy lifting or exercise ( )No sex ( )No nipple stimulation ( )Complet bedrest ( )Avoid using stairs ( x )Increase fluids DRINK AT LEAST eight-8oz. Glasses of water daily. Call your Doctor if: ( )Contractions are every 5 minutes apart (from start of one to the start of the next contraction) lasting 60 seconds for at least 1 hour, strong enough you can not walk or talk through the contraction and regular. ( x )Bag of water breaks ( x )Vaginal bleeding ( x )Unusual pain occurs ( x )Decreased movement ( x ) labor: If you have 4 contractions in an hour Keep your scheduled follow up appointment. Or call for a follow up on . IN CASE OF EMERGENCY CONTACT LABOR AND DELIVERY . documented in this encounter [employer] Phone: Clinical Note 08-10-2022 Note Date & Type Note Facility 08-10-2022 Note FINDINGS: Comparison made with prior ultrasound evaluation July 26, 2022. Single viable intrauterine is present with normal cardiac activity, 139 beats per minute. Breech presentation. Subchorionic hematoma remains near the closed cervix, slight decrease in overall volume, contiguous with the inferior aspect of the low-lying posterior placenta. Closed cervix, 4.4 cm length. IMPRESSION: 1. Viable 2. Closed cervix, resolving hematoma closely neighboring the closed internal cervical os Report reported and signed by Jono Wiggins on 08/11/2022 0731 [facility] Specialist Clinical Note 07-20-2022 Note Date & Type Note Facility 07-20-2022 Note EXAMINATION: US PREG ANATOMY SINGLE HISTORY: Patient currently ; anatomy evaluation COMPARISON: Ultrasound cervical length 07/19/2022, ultrasound placenta 07/19/2022 TECHNIQUE: Transabdominal sonographic examination was performed for obstetrical and evaluation. FINDINGS: Number: 1 Heart Rate: 150.8 bpm H.B. /min Amniotic Fluid Volume: Subjectively normal Placental Location: Posterior, grade 0, with lower margin 1.0 cm from os. Prominent venous michelle within the mid placenta, 5.3 x 4.7 x 1.9 cm. Second venous michelle at lower margin of placenta, 6.4 x 2.4 x 2.0 cm. Decrease in size of hematoma seen at the inferior margin of placenta overlying internal os, now 2.8 x 1.0 x 0.8 cm. Cervix Length: 5.0 cm; closed. ANATOMY: Normal Structures -cerebellum, choroid plexus, cisterna magna, lateral cerebral ventricles, orbits, midline falx, hard palate, four-chamber heart, RVOT, LVOT, stomach, kidneys, bladder, umbilical cord insertion into abdomen, three-vessel cord, cervical spine, thoracic spine, lumbar spine, sacral spine, right upper extremity, left upper extremity, right lower extremity, left lower extremity. SUBOPTIMALLY SEEN: None ABNORMALITIES: None BIOMETRY: BPD: 4.7 cm 20 weeks 3 days HC: 18.1 cm 20 weeks 3 days AC: 15.0 cm 20 weeks 2 days FL: 3.6 cm 21 weeks 2 days EFW:371.7 grams; 56% FL/AC: 23.8 FL/BPD: 75.2 HC/AC: 1.2 GESTATIONAL AGE: Age by EDC: 20 weeks 4 days by EDC: 12/03/2022 Age by current US: 20 weeks 4 days by current US: 12/03/2022 IMPRESSION: 1. Single live intrauterine with growth detailed above. 2. Episodes of cardiac arrhythmia despite normal heart rate. 3. Significant decrease in size of previously seen hematoma at lower margin of placenta. 4. Low-lying posterior placenta; margin is 1.0 cm from internal os. Electronically authenticated by: SHIN MEYER Date: 2022-07-20 10:58 [facility] Evaluation note Note Date & Type Note Facility Evaluation note Diagnosis Viral illness- Primary Unspecified viral infection, in conditions classified elsewhere and of unspecified site documented in this encounter [employer] Phone: Evaluation note Note Date & Type Note Facility Evaluation note Diagnosis Uterine contractions- Primary documented in this encounter DARLYN AURA [employer] Phone: Hospital Discharge instructions Attachments Note Date & Type Note Facility Hospital Discharge instructions The following attachments cannot be sent through Care Everywhere.URI (Upper Respiratory Infection): Viral (Zimbabwean)documented in this encounter [employer] Phone: Discharge Instructions * Instructions* Jared Lipscomb Jr., MD - 01/08/2020 Off work and quarantine yourself until the results of your COVID testing returns. Use Tylenol or Advil for pain and fever. Return if you get short of breath, develop a high fever, or get worse in other ways. * Attachments The following attachments cannot be sent through Care Everywhere. * Otitis Media (Zimbabwean) * Sore Throat (Zimbabwean) documented in this encounter* Attachments The following attachments cannot be sent through Care Everywhere. * Sore Throat (Zimbabwean) documented in this encounter* Instructions* Lexi Griffiths RN - 09/26/2019 OUTPATIENT DISCHARGE Jacobo Winter [facility] ACTIVITY LIMITATIONS: ( X )Up and about as desired and tolerated ( )Up to bathroom only ( )Lay on either side ( )Avoid heavy lifting or exercise ( )No sex ( )No nipple stimulation ( )Complet bedrest ( )Avoid using stairs ( X )Increase fluids DRINK AT LEAST eight-8oz. Glasses of water daily. Call your Doctor if: ( X )Contractions are every 5 minutes apart (from start of one to the start of the next contraction) lasting 60 seconds for at least 1 hour, strong enough you can not walk or talk through the contraction and regular. ( x )Bag of water breaks ( X )Vaginal bleeding ( X )Unusual pain occurs ( X )Decreased movement ( ) labor: If you have 4 contractions in an hour follow up on MondaySeptember AT 11:00AM IN CASE OF EMERGENCY CONTACT LABOR AND DELIVERY . documented in this encounter Assessments Diagnosis Left otitis media, unspecified otitis media type Acute pharyngitis, unspecified etiology Diagnosis Acute pharyngitis, unspecified etiology Diagnosis Term Advance Directives No Advanced Directives Records FoundDocuments on File Type Date Recorded Patient Food Service Technician Expl anation Advance Directives and Living Will Power of Route Delivery Manager Latest Code Status on File Code Status Date Activated Date Inactivated Comments Full Code 09/25/2019 7:30 PM 09/26/2019 12:09 PM Full Code 09/25/2019 5:37 PM 09/25/2019 5:53 PM Full Code 04/30/2013 2:46 AM 04/30/2013 4:44 PM Latest Code Status on File Code Status Date Activated Date Inactivated Comments Full Code 09/25/2019 7:30 PM Documents on File Type Date Recorded Patient Food Service Technician Expl anation ACP-Advance Directive ACP-Power of Route Delivery Manager Healthcare Agents on File Name Relationship Healthcare Agent Relationshi p Communication Wally Molina Parent Primary Decision Maker Latest Code Status on File Code Status Date Activated Date Inactivated Comments Full Code 11/04/2022 10:56 AM Full Code 09/25/2019 7:30 PM 09/26/2019 12:09 PM Healthcare Agents on File Name Relationship Healthcare Agent Relationshi p Communication Wally Molina Parent Primary Decision Maker Latest Code Status on File Code Status Date Activated Date Inactivated Comments Full Code 11/07/2022 2:43 AM Full Code 11/04/2022 10:56 AM 11/04/2022 3:16 PM Healthcare Agents on File Name Relationship Healthcare Agent Relationshi p Communication Wally () Jesse Parent Primary Decisio n Maker Summary Purpose Family History No Family History Records FoundNo Family History Records FoundNo Family History Records FoundNo Family History Records FoundNo Family History Records FoundNo Family History Records Found History of Present Illness * Tessa Reis, RN - 09/25/2019 9:22 PM EST Flory Max CNM updated on SVE, contraction pattern, vital signs, pain level and cervidil insertion time. New order received for Tylenol and Ambien. * Merly Albarado RN - 09/25/2019 6:59 PM EST RN received cervidil orders from Flory Max CNM at this time. * Merly Albarado RN - 09/25/2019 6:20 PM EST Pt returned from restroom. Monitors placed and admission questions asked. RN oriented pt to room atthis time. * Merly Albarado RN - 09/25/2019 6:00 PM EST Pt arrived to the unit for cervidil induction. Pt instructed to provide a urine sample and put on gown at this time. Sister of patient at bedside. 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 Pt tearful during triage Reason Comments Otalgia Bilateral ear pain x 1 month Pharyngitis x 1 week Reason Comments Scheduled Induction Reason Comments Pharyngitis Onset today Chest Pain Mid, near neck, onse t this AM Nausea Cough Onset today, non-pro ductive Reason Comments Contractions Reason Comments Abdominal Pain INFORMATION SOURCE (unrecogn ized section and content) DATE CREATED AUTHOR 09/03/2020 [facility] DATE CREATED AUTHOR AUTHOR'S ORGANIZ ATION 09/12/2021 [facility] DATE CREATED AUTHOR AUTHOR'S ORGANIZ ATION 08/13/2022 [facility] dical Specialist DATE CREATED AUTHOR AUTHOR'S ORGANIZ ATION 11/26/2022 [facility] DATE CREATED AUTHOR AUTHOR'S ORGANIZ ATION 08/01/2023 [facility] DATE CREATED AUTHOR AUTHOR'S ORGANIZ ATION 12/24/2023 [facility] dical Specialists EPIC Ordered Prescriptions (unrec ognized section and content) Prescription Sig Dispensed Refills Start Date End Da te benzonatate (TESSALON) 200 MG capsule Take 1 capsule by mouth 3 times daily as needed for Cough 30 capsule 0 05/23/2021 06/02/2021 azelastine (ASTELIN) 0.1 % nasal spray 2 sprays by Nasal route 2 times daily Use in each nostril as directed 60 mL 0 05/23/2021 predniSONE (DELTASONE) 20 MG tablet Take 2 tablets by mouth daily for 7 days 14 tablet 0 05/23/2021 05/30/2021 Scheduled Active and Recently Administ ered Medications (unrecognized section and content) Medication Order 11/02/2022 11/03/2022 11/04/2022 acetaminophen (TYLENOL) tablet 1,000 mg (COMPLETED) 1,000 mg, Oral, ONCE, 1 dose, On Mon11/04/22 at 1215, Maximum dose of acetaminophen is 4000 mg from all sources in 24 hours. 1204 (Given - Provid er: Diamond Bronson RN) Scheduled Medication Order 11/05/2022 11/06/2022 11/07/2022 lactated ringers bolus (COMPLETED) 500 mL, IntraVENous, at 491.8 mL/hr, Administer over 61 Minutes, ONCE, On Mon11/07/22 at 0315, For 1 dose 0311 (New Bag - Prov ider: Sandy Leblanc, RN)0416 (Stopped - Provider: Sandy Leblanc RN) NIFEdipine (PROCARDIA) capsule 10 mg (COMPLETED) 10 mg, Oral, ONCE, 1 dose, On Mon11/07/22 at 0800 0745 (Given - Provid er: Brittany So RN) Continuous Medication Order 11/05/2022 11/06/2022 11/07/2022 lactated ringers IV soln infusion IntraVENous, at 100 mL/hr, CONTINUOUS, Starting on Mon11/07/22 at 0315, START AFTER BOLUS 0417 (Bolus from Bag - Provider: Sandy Leblanc, SHANA)0748 (Stopped - Provider: Brittany So, SHANA) Care Teams (unrecognized sec tion and content) Marina Sales And Service Supervisor Relationship Specialty Start Date End Date Mable García MD [address] [place] [id number] PCP - General Family Medicine 09/25/19 Marina Sales And Service Supervisor Relationship Specialty Start Date End Date Mable García MD [address] [place] [address] [id number] PCP - General Family Medicine 09/25/19 FOR RECORDS PERTAINING TO PATIENTS WHO ARE OR HAVE BEEN ENROLLED IN A CHEMICAL DEPENDENCY/SUBSTANCEABUSE PROGRAM, SOME INFORMATION MAY BE OMITTED. This clinical summary was aggregated from multiple sources. Caution should be exercised in using it in the provision of clinical care. This summary normalizes information from multiple sources, and as a consequence, information in this document may materially change the coding, format and clinical context of patient data. In addition, data may be omitted in some cases. CLINICAL DECISIONS SHOULD BE BASED ON THE PRIMARY CLINICAL RECORDS. [employer] provides no warranty or guarantee of the accuracy or completeness of information in this document.
[2024-01-31 13:12] LABS: Bilirubin Urine NEGATIVE (NEGATIVE); Blood Urine LARGE (NEGATIVE); Clarity Urine CLEAR (CLEAR); Color Urine LT. YELLOW (YELLOW); Glucose Urine UA NEGATIVE (NEGATIVE); Ketones Urine NEGATIVE (NEGATIVE); Leukocyte Esterase Urine NEGATIVE (NEGATIVE); Nitrite Urine NEGATIVE (NEGATIVE); Protein Urine NEGATIVE (NEG/TRACE); Urobilinogen Urine 0.2 EU/dL (0.2-1.0)
[2024-01-31 13:13] LABS: Urine Microscopic Indicated YES
[2024-01-31] MEDS: 0.9 % SODIUM CHLORIDE 1,000 ML 1000 ML IV (13:24)
--- NOTE | 2024-01-31 13:29 | ED_ITS ---
HPI HPI - General Adult General Chief complaint: Vaginal Bleeding Stated complaint: VAGINAL BLEEDING, BACK PAIN Time Seen by Provider: 01/31/24 12:52 History of Present Illness HPI narrative: Patient presents ED complaining of vaginal bleeding. She reports that she has had a longer and heavier period than normal and she started to feel lightheaded and near syncopal. Patient said after her delivery is that she had hemorrhaging and had to get blood transfusions. She states she is starting to feel similar to that. She said she is going through more tampons and pads than normal. She is alert and oriented. She does complain of some lower abdominal pain and cramping in her back as well. Related Data Allergies Allergy/AdvReac Type Severity Reaction Status Date / Time No Known Drug Allergies Allergy Verified 02/18/23 09:37 Opioid HPI Opioid Management Most Recent Opioid Data: Last Pain Scale 6 02/18/23 09:46 Ur Phencyclidine Scrn Negative (NEGATIVE) 07/14/23 17:21 Review of Systems ROS Status of ROS 10 or more systems reviewed and unremark able except as noted in history and below Exam Narrative Exam Narrative: Time Seen: [] Vital Signs: [Per nurse's notes.] General: [Alert] Skin: [Warm, dry, no rash. Pale Head: [Normocephalic, atraumatic.] Neck: [Supple, trachea midline.] Eye: [Pupils are equal, round and reactive to light, extraocular movements are intact, normal conjunctiva.] Ears, nose, mouth and throat: oral mucosa moist. Cardiovascular: [Regular rate and rhythm, no murmur.] Respiratory: [Lungs are clear to auscultation, respirations are non-labored, breath sounds are equal.] Chest wall: [No tenderness, no deformity.] Gastrointestinal: [Soft, Mild lower abdominal pain, non distended, normal bowel sounds.] MSK: 5 out of 5 muscle strength x 4 extremities no calf pain or edema Lymphatics: [No lymphadenopathy.] Psychiatric: [Cooperative, appropriate mood & affect.] Neurological: [Alert and oriented to person, place, time, and situation, no focal neurological deficit observed.] Constitutional Vital Signs, click to edit/add: Last Vital Signs Temp 98.4 F 01/31/24 12:04 Pulse 71 01/31/24 15:05 Resp 16 01/31/24 15:05 BP 102/66 01/31/24 15:05 Pulse Ox 100 01/31/24 15:05 O2 Del Method Room Air 01/31/24 12:04 Course Vital Signs Vital signs: Vital Signs Temperature 98.4 F 01/31/24 12:04 Pulse Rate 80 01/31/24 12:04 Respiratory Rate 18 01/31/24 12:04 Blood Pressure 120/71 01/31/24 12:04 Pulse Oximetry 97 01/31/24 12:04 Oxygen Delivery Method Room Air 01/31/24 12:04 Temperature 98.4 F 01/31/24 12:04 Pulse Rate 71 01/31/24 15:05 Respiratory Rate 16 01/31/24 15:05 Blood Pressure 102/66 01/31/24 15:05 Pulse Oximetry 100 01/31/24 15:05 Oxygen Delivery Method Room Air 01/31/24 12:04 Medical Decision Making MDM Narrative Medical decision making narrative: Patient's labs including hemoglobin are nonacute. Most likely just an abnormal heavy period for patient. No need for Blood transfusion or admission at this time. Vital signs stable. 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 Differential Diagnosis Differential Diagnosis: Dysfunctional uterine bleeding, , anemia Medical Records Medical records reviewed: Yes I reviewed the patient's medical records Lab Data Lab results reviewed: Yes I reviewed the patient's lab results Labs: Lab Results 01/31/24 01/31/24 Range/Units 12:28 13:20 WBC 5.0 (4.0-11.0) 10^3/uL RBC 4.40 (4.20-5.40) 10^6/uL Hgb 11.6 L (12.0-16.0) g/dL Hct 36.9 (36.0-48.0) % MCV 83.9 (81.0-99.0) fL MCH 26.4 L (26.7-34.0) pg MCHC 31.4 (29.9-35.2) g/dL RDW 14.4 (11.0-15.0) % Plt Count 199 (150-450) 10^3/uL MPV 11.6 (9.5-13.5) fL Neut % (Auto) 58.2 (43.0-75.0) % Lymph % (Auto) 33.3 (20.5-60.0) % [place] % (Auto) 7.1 (1.7-12.0) % Eos % (Auto) 0.4 L (0.9-7.0) % Baso % (Auto) 0.8 (0.2-2.0) % Neut # (Auto) 2.9 (1.4-6.5) 10^3/uL Lymph # (Auto) 1.7 (1.2-3.8) 10^3/uL [place] # (Auto) 0.4 (0.3-0.8) 10^3/uL Eos # (Auto) 0.0 (0.0-0.7) 10^3/uL Baso # (Auto) 0.0 (0.0-0.1) 10^3/uL Abs Immat Gran (auto) 0.01 (0.00-0.03) 10^3/uL Imm/Tot Granulo (auto) 0.2 (0.0-0.5) % Sodium 138 (136-145) mmol/L Potassium 3.4 L (3.5-5.1) mmol/L Chloride 105 (98-107) mmol/L Carbon Dioxide 26.1 (21.0-32.0) mmol/L Anion Gap 10.3 BUN 8.0 (7.0-18.0) mg/dL Creatinine 0.71 (0.55-1.02) mg/dL Est GFR ( Amer) >60 (>=60) Est GFR (Non-Af Amer) >60 (>=60) BUN/Creatinine Ratio 11.3 Glucose 96 (74-106) mg/dL Calcium 8.8 (8.5-10.1) mg/dL Total Bilirubin 0.3 (0.2-1.0) mg/dL AST 19 (15-37) U/L ALT 21 (14-59) U/L Alkaline Phosphatase 50 (46-116) U/L Total Protein 7.2 (6.4-8.2) g/dL Albumin 3.7 (3.4-5.0) g/dL Globulin 3.5 g/dL Albumin/Globulin Ratio 1.1 Urine Color Lt. yellow (YELLOW) Urine Clarity Clear (CLEAR) Urine pH 7.0 (5.0-9.0) Ur Specific [place] 1.020 (1.005-1.025) Urine Protein Negative (NEG/TRACE) mg/dL Urine Glucose (UA) Negative (NEGATIVE) mg/dL Urine Ketones Negative (NEGATIVE) mg/dL Urine Occult Blood Large A (NEGATIVE) Urine Nitrite Negative (NEGATIVE) Urine Bilirubin Negative (NEGATIVE) Urine Urobilinogen 0.2 (0.2-1.0) EU/dL Ur Leukocyte Esterase Negative (NEGATIVE) Urine RBC 2-5 A (0-2) #/HPF Urine WBC 2-5 A (NONE SEEN) #/HPF Ur Squamous Epith Cells Few A (NONE/RARE) #/LPF Urine Crystals None seen (None Seen) #/HPF Urine Bacteria Trace A (NONE SEEN) #/HPF Urine Casts None seen (NONE SEEN) #/LPF Urine Mucus None seen (NONE SEEN) Ur Culture Indicated? No Urine HCG, Qual Negative (NEGATIVE) Blood Type O Positive Antibody Screen Negative Discharge Plan Discharge Stand Alone Forms: Portal Instructions Chief Complaint: Vaginal Bleeding Clinical Impression: Menometrorrhagia Patient Disposition: Home, Self-Care Time of Disposition Decision: 14:54 Condition: Good Mode of Transportation: Private Vehicle Print Language: Hungarian Instructions: Abnormal (Dysfunctional) Uterine Bleeding (ED) Referrals: Jarad Ramon DO [Physician] - 1 week KAREN JOE [Primary Care Provider] - 1 week Discharge Date/Time: 01/31/24 15:06
--- NOTE | 2024-01-31 13:29 | PC.NURSE ---
patient reports she started her period on and it's normally short but its still going. patient reports there is only blood when she wipes and is not wearing pads. patient states she has felt dizzy today and is concerned of a blood clotting issue. patient is pink, warm, and dry with no distress noted
[2024-01-31 13:31] LABS: Bacteria Urine TRACE #/HPF (NONE SEEN); Cast Seen? NONE SEEN #/LPF (NONE SEEN); Crystals Seen? None Seen #/HPF (None Seen); Mucus Urine NONE SEEN (NONE SEEN); Squamous Epithelial Cell Urine FEW #/LPF (NONE/RARE); Urine Culture Indicated NO
[2024-01-31 13:38] LABS: Basophils Percent Auto 0.8 % (0.2-2.0); Eosinophils Percent Auto 0.4 % (0.9-7.0); Hematocrit 36.9 % (36.0-48.0); Hemoglobin 11.6 g/dL (12.0-16.0); Immature Granulocytes Abs Auto 0.01 10^3/uL (0.00-0.03); Immature Granulocytes Pct Auto 0.2 % (0.0-0.5); Lymphocytes Absolute Auto 1.7 10^3/uL (1.2-3.8); Lymphocytes Percent Auto 33.3 % (20.5-60.0); Mean Corpuscular HGB Conc 31.4 g/dL (29.9-35.2); Mean Corpuscular Hemoglobin 26.4 pg (26.7-34.0); Mean Corpuscular Volume 83.9 fL (81.0-99.0); Mean Platelet Volume 11.6 fL (9.5-13.5); Monocytes Absolute Auto 0.4 10^3/uL (0.3-0.8); Monocytes Percent Auto 7.1 % (1.7-12.0); Neutrophils Absolute Auto 2.9 10^3/uL (1.4-6.5); Neutrophils Percent Auto 58.2 % (43.0-75.0); Platelet Count 199 10^3/uL (150-450); Red Cell Distribution Width 14.4 % (11.0-15.0)
[2024-01-31 14:32] LABS: Alanine Aminotransferase 21 U/L (14-59); Albumin Globulin Ratio 1.1; Albumin Level 3.7 g/dL (3.4-5.0); Alkaline Phosphatase 50 U/L (46-116); Anion Gap 10.3; Aspartate Amino Transferase 19 U/L (15-37); BUN Creatinine Ratio 11.3; Bilirubin Total 0.3 mg/dL (0.2-1.0); Calcium 8.8 mg/dL (8.5-10.1); Carbon Dioxide 26.1 mmol/L (21.0-32.0); Chloride 105 mmol/L (98-107); Estimated GFR (African America >60 (>=60); Estimated GFR (Non-African Ame >60 (>=60); Globulin 3.5 g/dL; Glucose 96 mg/dL (74-106); Potassium 3.4 mmol/L (3.5-5.1); Sodium 138 mmol/L (136-145); Total Protein 7.2 g/dL (6.4-8.2)
[2024-01-31 15:04] LABS: HCG Qualitative Urine* NEGATIVE (NEGATIVE); Internal Control Within Normal Limits
[2024-01-31 15:05] VITALS: BP 102/66; PULSE 71; O2SAT 100
== END 2024-01-31 15:06 | disposition home or self-care (01) ==
PROVIDERS: Emergency Provider Emergency Medicine; PCP Family Medicine
DX: N92.1 Excessive and frequent menstruation with irregular cycle (principal)
CPT/HCPCS: 36415; 80053; 81001; 84703; 85025; 86850; 86900; 86901; 96360; 99284

== ENCOUNTER 2024-02-25 21:15 | Emergency (ER) | payer SELFPAY ==
[2024-02-25 21:19] VITALS: BP 124/74; PULSE 95; TEMP 36.9; O2SAT 97; BMI 26.6
--- OUTSIDE RECORDS SUMMARY | 2024-02-25 21:21 | XMS_ITS | CCD ---
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 [address] Flaring Machine Operator: Phil Keller MD Flu B Ag Detection Negative Normal NEG [facility] Comment on above: Result Comment: for Influenza B Antigen. Performed By: #### F ROSANNE #### [facility] [address] [place] [address] Flaring Machine Operator: Phil Keller MD [id number] 07-27-2023 SARS-CoV-2 (COVID-19) RNA AMY+probe Ql (Unsp spec) Not detected Normal NOTDET [facility] Comment on above: Result Comment: Rapid NAAT: [...] management decisions. Fact sheet for Healthcare Providers: https://www.fda.gov/media/387981/download Fact sheet for Patients: https://www.fda.gov/media/481615/download Methodology: Isothermal Nucleic Acid Amplification Performed By: #### C OVRB #### [facility] [address] [place] [address] [place] [address] Flaring Machine Operator: Phil Keller MD Strep Group A, Rapidon 07-27 Strep A, Molecular Positive Abnormal NEG [facility] Comment on above: Performed By: #### R SAB #### [facility] [address] [place] [address] Flaring Machine Operator: Phil Keller MD Source .THROAT SWAB Normal [facility] Comment on above: Performed By: #### R SAB #### [facility] [address] [place] [address] Flaring Machine Operator: Phil Keller MD HCG, ,Urineon 07-03 Beta HCG ( test) Ql (U) Negative Normal NEG [facility] Comment on above: Result Comment: Spec imens with hCG levels near the threshold of the test (25 mIU/mL) may give a negative or indeterminate result. In such cases, another test should be performed with a new specimen in 48-72 hours. If early is suspected clinically in this setting, correlation with quantitative serum b-hCG level is suggested. [facility] has confirmed the use of plasma for this test. This has not been cleared or approved by the U.[place]. Food and Drug Administration. The FDA has determined that such clearance is not necessary. Performed By: #### U HCG, UAMIC #### [facility] [address] [place] [address] Flaring Machine Operator: Phil Keller MD Urinalysis w/ Microon 6 Bacteria 2+ Abnormal NONE [facility] Comment on above: Performed By: #### U HCG, UAMIC #### [facility] [address] [place] [address] Flaring Machine Operator: Phil Keller MD Bilirubin, SemiQt,Ur Negative Normal NEG [facility] Comment on above: Performed By: #### U HCG, UAMIC #### [facility] [address] [place] [address] Flaring Machine Operator: Phil Keller MD Blood, Urine 3+ Abnormal NEG [facility] Comment on above: Performed By: #### U HCG, UAMIC #### [facility] [address] [place] [address] Flaring Machine Operator: Phil Keller MD Clarity (U) Turbid Abnormal CLEAR [facility] Comment on above: Performed By: #### U HCG, UAMIC #### [facility] [address] [place] [address] Flaring Machine Operator: Phil Keller MD Color (U) Dark Yellow Abnormal YEL [facility] Comment on above: Performed By: #### U HCG, UAMIC #### [facility] [address] [place], [place] [id number] Flaring Machine Operator: Phil Keller MD Epithelial cells LM Ql (Urine sed) 5 TO 10 Normal 0-25 [facility] Comment on above: Performed By: #### U HCG, UAMIC #### [facility] [address] [place], [place] [id number] Flaring Machine Operator: Phil Keller MD Glucose Ql (U) Negative Normal NEG [facility] Comment on above: Performed By: #### U HCG, UAMIC #### [facility] [address] [place], [place] [id number] Flaring Machine Operator: Phil Keller MD Ketones Ql (U) Negative Normal NEG [facility] Comment on above: Performed By: #### U HCG, UAMIC #### [facility] [address] [place], [place] [id number] Flaring Machine Operator: Phil Keller MD Leukocyte esterase Test strip Ql (U) MODERATE Abnormal NEG [facility] Comment on above: Performed By: #### U HCG, UAMIC #### [facility] [address] [place], [place] [address] Flaring Machine Operator: Phil Keller MD Nitrite,Ur Positive Abnormal NEG [facility] Comment on above: Performed By: #### U HCG, UAMIC #### [facility] [address] [place], [place] [id number] Flaring Machine Operator: Phil Keller MD PH,Ur 6.5 Normal 5.0-9.0 [facility] Comment on above: Performed By: #### U HCG, UAMIC #### [facility] [address] [place] [address] Flaring Machine Operator: Phil Keller MD Protein Ql (U) 2+ mg/dL Abnormal NEG [facility] Comment on above: Performed By: #### U HCG, UAMIC #### [facility] [address] [place] [address] Flaring Machine Operator: Phil Keller MD Spec. [place],Ur 1.025 High 1.010-1.020 [facility] Comment on above: Performed By: #### U HCG, UAMIC #### [facility] [address] [place] [id number] Flaring Machine Operator: Phil Keller MD Urine RBC's 10 TO 20 Normal 0-2 [facility] Comment on above: Performed By: #### U HCG, UAMIC #### [facility] [address] [place], [place] [address] Flaring Machine Operator: Phil Keller MD Urine WBC's 20 TO 50 Normal 0-5 [facility] Comment on above: Performed By: #### U HCG, UAMIC #### [facility] [address] [place], [place] [id number] Flaring Machine Operator: Phil Keller MD Urobilinogen,Ur Normal Normal 0.0-1.0 [facility] Comment on above: Performed By: #### U HCG, UAMIC #### [facility] [address] [place] [id number] Flaring Machine Operator: Phil Keller MD PRBC LEUKOREDUCEDon 11-27-19 23 ABO and Rh group Nom (Bld) Cross Match Result Compatible Unit Blood Type O Neg Unit Number [id number] Status Information Transfused Product ID Red Blood Cells Product Code [id number] Cross Match Result Compatible Unit Blood Type O Neg Unit Number [id number] Status Information Released Specimen Exp Date [id number] Product ID Red Blood Cells Product Code [id number] Normal [facility] Comment on above: Performed By: #### CELY FENTON #### [facility] [address] [place] [address] Dr. Nilo Gibbons CBC AUTO DIFFon 11-24-2022 BASO # 0.0 103/ul Normal 0.0-0.1 [facility] Comment on above: Performed By: #### E VANITA UMICRO #### [facility] [address] [place] [address] Dr. Nilo Gibbons Basophils/100 WBC (Bld) 0.2 % Normal 0.2-2.0 [facility] Comment on above: Performed By: #### E VANITA, UMICRO #### [facility] [address] [place] [address] Dr. Nilo Gibbons EO # 0.0 103/ul Normal 0.0-0.7 [facility] Comment on above: Performed By: #### Jose WALDRON UMICRO #### [facility] [address] [place] [address] Dr. Nilo Gibbons Eosinophils/100 WBC (Bld) 0.2 % Critically low 0.9-7.0 [facility] Comment on above: Performed By: #### Jose WALDRON UMICRO #### [facility] [address] [place] [address] Dr. Nlio Gibbons Erythrocyte distribution width (RBC) [Ratio] 15.1 % Critically high 11.0-15.0 [facility] Comment on above: Performed By: #### Jose WALDRON, UMICRO #### [facility] [address] [place] [address] Dr. Nilo Gibbons Hematocrit (Bld) [Volume fraction] 23.1 % Critically low 36.0-48.0 [facility] Comment on above: Performed By: #### Jose WALDRON, UMICRO #### [facility] [address] [place] [address] Dr. Nilo Gibbons Hemoglobin (Bld) [Mass/Vol] 7.4 g/dL Critically low 12.0-16.0 [facility] Comment on above: Performed By: #### Jose WALDRON, UMICRO #### [facility] [address] [place] [address] Dr. Nilo Gibbons IG # 0.05 10e3/ul Critically high 0.00-0.03 [facility] Comment on above: Performed By: #### CELY FENTON #### [facility] [address] [place] [address] Dr. Nilo Gibbons IG % 0.4 % Normal 0.0-0.5 [facility] Comment on above: Performed By: #### LISSETH FENTONRO #### [facility] [address] [place] [address] Dr. Nilo Gibbons LYMPH # 1.6 103/ul Normal 1.2-3.8 [facility] Comment on above: Performed By: #### CELY FENTON #### [facility] [address] [place] [address] Dr. Nilo Gibbons Lymphocytes/100 WBC (Bld) 12.6 % Critically low 20.5-60.0 [facility] Comment on above: Performed By: #### LISSETH FENTONRO #### [facility] [address] [place] [address] Dr. Nilo Gibbons MANUAL DIFF REQ NO Normal [facility] Comment on above: Performed By: #### CELY FENTON #### [facility] [address] [place] [address] Dr. Nilo Gibbons MCH (RBC) [Entitic mass] 26.8 pg Normal 26.7-34.0 [facility] Comment on above: Performed By: #### LISSETH FENTONRO #### [facility] [address] [place] [address] Dr. Nilo Gibbons MCHC (RBC) [Mass/Vol] 32.0 g/dL Normal 29.9-35.2 [facility] Comment on above: Performed By: #### LISSETH FENTONRO #### [facility] [address] [place] [address] Dr. Nilo Gibbons MCV (RBC) [Entitic vol] 83.7 fL Normal 81.0-99.0 [facility] Comment on above: Performed By: #### LISSETH FENTONRO #### [facility] [address] [address] [address] Nilo Gibbons MONO # 0.7 103/ul Normal 0.3-0.8 [facility] Comment on above: Performed By: #### Jose WALDRON UMICRO #### [facility] [address] [address] [address] Nilo Gibbons Monocytes/100 WBC (Bld) 5.8 % Normal 1.7-12.0 [facility] Comment on above: Performed By: #### Jose WALDRON, UMICRO #### [facility] [address] [place] [address] Dr. Nilo Gibbons NEUT # 10.0 103/ul Critically high 1.4-6.5 [facility] Comment on above: Performed By: #### Jose WALDRON UMICRO #### [facility] [address] [place] [address] Dr. Nilo Gibbons Neutrophils/100 WBC (Bld) 80.8 % Critically high 43.0-75.0 [facility] Comment on above: Performed By: #### Jose WALDRON UMICRO #### [facility] [address] [address] [address] Nilo Gibbons Platelet mean volume (Bld) [Entitic vol] 12.4 fL Normal 9.5-13.5 [facility] Comment on above: Performed By: #### Jose WALDRON ICRO #### [facility] [address] [place] [address] Dr. Nilo Gibbons PLT 126 103/ul Critically low 150-450 [facility] Comment on above: Performed By: #### Jose WALDRON UMICRO #### [facility] [address] [place] [address] Dr. Nilo Gibbons RBC 2.76 106/ul Critically low 4.20-5.40 [facility] Comment on above: Performed By: #### Jose WALDRON, UMICRO #### [facility] [address] [place] [address] Dr. Nilo Gibbons WBC 12.3 103/ul Critically high 4.0-11.0 [facility] Comment on above: Performed By: #### E RUMacrina ICRO #### [facility] [address] [place] [address] Dr. Nilo Gibbons CBC AUTO DIFFon 11-23-2022 BASO # 0.0 103/ul Normal 0.0-0.1 [facility] Comment on above: Performed By: #### U SAIRA UMICRO #### [facility] [address] [place] [address] Dr. Nilo Gibbons Basophils/100 WBC (Bld) 0.2 % Normal 0.2-2.0 [facility] Comment on above: Performed By: #### U SAIRA UMICRO #### [facility] [address] [place] [address] Dr. Nilo Gibbons EO # 0.0 103/ul Normal 0.0-0.7 [facility] Comment on above: Performed By: #### Ekaterina CHÁVEZ ICRO #### [facility] [address] [place] [address] Dr. Nilo Gibbons Eosinophils/100 WBC (Bld) 0.2 % Critically low 0.9-7.0 [facility] Comment on above: Performed By: #### Ekaterina CHÁVEZ ICRO #### [facility] [address] [place] [address] Dr. Nilo Gibbons Erythrocyte distribution width (RBC) [Ratio] 15.6 % Critically high 11.0-15.0 [facility] Comment on above: Performed By: #### Ekaterina CHÁVEZ ICRO #### [facility] [address] [place] [address] Dr. Nilo Gibbons Hematocrit (Bld) [Volume fraction] 29.5 % Critically low 36.0-48.0 [facility] Comment on above: Performed By: #### Ekaterina CHÁVEZ UMICRO #### [facility] [address] [place] [address] Dr. Nilo Gibbons Hemoglobin (Bld) [Mass/Vol] 9.2 g/dL Critically low 12.0-16.0 [facility] Comment on above: Performed By: #### U ACSIND, UMICRO #### [facility] [address] [address] [address] Nilo Gibbons IG # 0.05 10e3/ul Critically high 0.00-0.03 [facility] Comment on above: Performed By: #### U ACSIND, UMICRO #### [facility] [address] [address] [address] Nilo Gibbons IG % 0.3 % Normal 0.0-0.5 [facility] Comment on above: Performed By: #### U ACSIND, UMICRO #### [facility] [address] [address] [address] Nilo Gibbons LYMPH # 2.8 103/ul Normal 1.2-3.8 [facility] Comment on above: Performed By: #### U ACSIND, UMICRO #### [facility] [address] [address] [address] Nilo Gibbons Lymphocytes/100 WBC (Bld) 18.4 % Critically low 20.5-60.0 [facility] Comment on above: Performed By: #### U ACSNAOMI, ICRO #### [facility] [address] [address] [address] Nilo Gibbons MANUAL DIFF REQ NO Normal [facility] Comment on above: Performed By: #### U ACSIND, UMICRO #### [facility] [address] [address] [address] Nilo Gibbons MCH (RBC) [Entitic mass] 26.4 pg Critically low 26.7-34.0 [facility] Comment on above: Performed By: #### U ACSIND, UMICRO #### [facility] [address] [address] [address] Nilo Gibbons MCHC (RBC) [Mass/Vol] 31.2 g/dL Normal 29.9-35.2 [facility] Comment on above: Performed By: #### U ACSIND, UMICRO #### [facility] [address] [address] [address] Nilo Gibbons MCV (RBC) [Entitic vol] 84.8 fL Normal 81.0-99.0 [facility] Comment on above: Performed By: #### U BRENDA CHÁVEZICRO #### [facility] [address] [address] [address] Nilo Gibbons MONO # 1.2 103/ul Critically high 0.3-0.8 [facility] Comment on above: Performed By: #### Ekaterina CHÁVEZ UMICRO #### [facility] [address] [address] [address] Nilo Gibbons Monocytes/100 WBC (Bld) 7.7 % Normal 1.7-12.0 [facility] Comment on above: Performed By: #### Ekaterina CHÁVEZ ICRO #### [facility] [address] [place] [address] Dr. Nilo Gibbons NEUT # 11.1 103/ul Critically high 1.4-6.5 [facility] Comment on above: Performed By: #### Ekaterina CHÁVEZ ICRO #### [facility] [address] [place] [address] Dr. Nilo Gibbons Neutrophils/100 WBC (Bld) 73.2 % Normal 43.0-75.0 [facility] Comment on above: Performed By: #### Ekaterina CHÁVEZ ICRO #### [facility] [address] [place] [address] Dr. Nilo Gibbons Platelet mean volume (Bld) [Entitic vol] 11.8 fL Normal 9.5-13.5 [facility] Comment on above: Performed By: #### Ekaterina CHÁVEZ ICRO #### [facility] [address] [place] [address] Dr. Nilo Gibbons PLT 100 103/ul Critically low 150-450 [facility] Comment on above: Performed By: #### U SAIRA UMICRO #### [facility] [address] [place] [address] Dr. Nilo Gibbons RBC 3.48 106/ul Critically low 4.20-5.40 [facility] Comment on above: Performed By: #### U SAIRA UMICRO #### [facility] [address] [place] [address] Dr. Nilo Gibbons WBC 15.1 103/ul Critically high 4.0-11.0 [facility] Comment on above: Performed By: #### U ACSNAOMI, UMICRO #### [facility] [address] [place] [address] Dr. Nilo Gibbons BASO # 0.0 103/ul Normal 0.0-0.1 [facility] Comment on above: Performed By: #### E RUR UMICRO #### [facility] [address] [place] [address] Dr. Nilo Gibbons Basophils/100 WBC (Bld) 0.3 % Normal 0.2-2.0 [facility] Comment on above: Performed By: #### E RUMacrina UMICRO #### [facility] [address] [place] [address] Dr. Nilo Gibbons EO # 0.0 103/ul Normal 0.0-0.7 [facility] Comment on above: Performed By: #### E RUMacrina UMICRO #### [facility] [address] [place] [address] Dr. Nilo Gibbons Eosinophils/100 WBC (Bld) 0.5 % Critically low 0.9-7.0 [facility] Comment on above: Performed By: #### E RUMacrina UMICRO #### [facility] [address] [place] [address] Dr. Nilo Gibbons Erythrocyte distribution width (RBC) [Ratio] 15.7 % Critically high 11.0-15.0 [facility] Comment on above: Performed By: #### E RUR UMICRO #### [facility] [address] [place] [address] Dr. Nilo Gibbons Hematocrit (Bld) [Volume fraction] 31.5 % Critically low 36.0-48.0 [facility] Comment on above: Performed By: #### E RUR UMICRO #### [facility] [address] [place] [address] Dr. Nilo Gibbons Hemoglobin (Bld) [Mass/Vol] 10.2 g/dL Critically low 12.0-16.0 [facility] Comment on above: Performed By: #### LISSETH FENTONRO #### [facility] [address] [place] [address] Dr. Nilo Gibbons IG # 0.03 10e3/ul Normal 0.00-0.03 [facility] Comment on above: Performed By: #### LISSETH FENTONRO #### [facility] [address] [place] [address] Dr. Nilo Gibbons IG % 0.4 % Normal 0.0-0.5 [facility] Comment on above: Performed By: #### LISSETH FENTONRO #### [facility] [address] [place] [address] Dr. Nilo Gibbons LYMPH # 2.1 103/ul Normal 1.2-3.8 [facility] Comment on above: Performed By: #### LISSETH FENTONRO #### [facility] [address] [place] [address] Dr. Nilo Gibbons Lymphocytes/100 WBC (Bld) 26.9 % Normal 20.5-60.0 [facility] Comment on above: Performed By: #### LISSETH FENTONRO #### [facility] [address] [place] [address] Dr. Nilo Gibbons MANUAL DIFF REQ NO Normal [facility] Comment on above: Performed By: #### LISSETH FENTONRO #### [facility] [address] [place] [address] Dr. Nilo Gibbons MCH (RBC) [Entitic mass] 26.5 pg Critically low 26.7-34.0 [facility] Comment on above: Performed By: #### LISSETH FENTONRO #### [facility] [address] [place] [address] Dr. Nilo Gibbons MCHC (RBC) [Mass/Vol] 32.4 g/dL Normal 29.9-35.2 [facility] Comment on above: Performed By: #### E RUR, UMICRO #### [facility] [address] [place] [address] Dr. Nilo Gibbons MCV (RBC) [Entitic vol] 81.8 fL Normal 81.0-99.0 [facility] Comment on above: Performed By: #### E VANITA, UMICRO #### [facility] [address] [place] [address] Dr. Nilo Gibbons MONO # 0.6 103/ul Normal 0.3-0.8 [facility] Comment on above: Performed By: #### Jose WALDRON, UMICRO #### [facility] [address] [place] [address] Dr. Nilo Gibbons Monocytes/100 WBC (Bld) 7.3 % Normal 1.7-12.0 [facility] Comment on above: Performed By: #### Jose WALDRON UMICRO #### [facility] [address] [place] [address] Dr. Nilo Gibbons NEUT # 4.9 103/ul Normal 1.4-6.5 [facility] Comment on above: Performed By: #### Jose WALDRON ICRO #### [facility] [address] [place] [address] Dr. Nilo Gibbons Neutrophils/100 WBC (Bld) 64.6 % Normal 43.0-75.0 [facility] Comment on above: Performed By: #### Jose WALDRON UMICRO #### [facility] [address] [place] [address] Dr. Nilo Gibbons Platelet mean volume (Bld) [Entitic vol] 12.0 fL Normal 9.5-13.5 [facility] Comment on above: Performed By: #### Jose WALDRON UMICRO #### [facility] [address] [place] [address] Dr. Nilo Gibbons PLT 180 103/ul Normal 150-450 [facility] Comment on above: Performed By: #### Jose WALDRON, UMICRO #### [facility] [address] [place] [address] Dr. Nilo Gibbons RBC 3.85 106/ul Critically low 4.20-5.40 [facility] Comment on above: Performed By: #### E RUR, UMICRO #### [facility] [address] [place] [address] Dr. Nilo Gibbons WBC 7.6 103/ul Normal 4.0-11.0 [facility] Comment on above: Performed By: #### E RUR, UMICRO #### [facility] [address] [place] [address] Dr. Nilo Gibbons DRUG SCREEN RAPID (URINE)on 11-23-2022 AMP Negative Normal NEGATIVE [facility] Comment on above: Performed By: #### U ACSIND, UMICRO #### [facility] [address] [place] [address] Dr. Nilo Gibbons BAR Negative Normal NEGATIVE [facility] Comment on above: Performed By: #### U ACSIND, UMICRO #### [facility] [address] [place] [address] Dr. Nilo Gibbons BUP Negative Normal NEGATIVE [facility] Comment on above: Performed By: #### U ACSIND, UMICRO #### [facility] [address] [place] [address] Dr. Nilo Gibbons BZO Negative Normal NEGATIVE [facility] Comment on above: Performed By: #### U ACSIND, UMICRO #### [facility] [address] [place] [address] Dr. Nilo Gibbons SARAH Negative Normal NEGATIVE [facility] Comment on above: Performed By: #### U ACSIND, UMICRO #### [facility] [address] [place] [address] Dr. Nilo Gibbons CUT-OFFS SEE BELOW Normal [facility] Comment on above: Result Comment: [...] Performed By: #### U ACSIND, UMICRO #### [facility] [address] [place] [address] Dr. Nilo Gibbons DRUG CUT HEADER DRUG CLASS TEST SYSTEM CUT-OFF CONCENTRATIONS ARE FOLLOWS: Normal [facility] Comment on above: Performed By: #### U ACSIND, UMICRO #### [facility] [address] [address] [address] Nilo Gibbons mAMP Negative Normal NEGATIVE [facility] Comment on above: Performed By: #### U ACSIND, UMICRO #### [facility] [address] [place] [address] Dr. Nilo Gibbons MTD Negative Normal NEGATIVE [facility] Comment on above: Performed By: #### U ACSIND, UMICRO #### [facility] [address] [place] [address] Dr. Nilo Gibbons OPI Negative Normal NEGATIVE [facility] Comment on above: Performed By: #### U ACSIND, UMICRO #### [facility] [address] [place] [address] Dr. Nilo Gibbons OXY Negative Normal NEGATIVE [facility] Comment on above: Performed By: #### U ACSIND, UMICRO #### [facility] [address] [address] [address] Nilo Gibbons PCP Negative Normal NEGATIVE [facility] Comment on above: Performed By: #### U ACSIND, UMICRO #### [facility] [address] [address] [address] Nilo Gibbons PPX Negative Normal NEGATIVE [facility] Comment on above: Performed By: #### U ACSIND, UMICRO #### [facility] [address] [place] [address] Dr. Nilo Gibbons TCA Negative Normal NEGATIVE [facility] Comment on above: Performed By: #### U ACSIND, UMICRO #### [facility] [address] [place], [place] [address] Dr. Nilo Gibbons THC Negative Normal NEGATIVE [facility] Comment on above: Performed By: #### U SAIRA [facility] #### [facility] [address] [place], [place] [address] Dr. Nilo Gibbons TYPE AND SCREENon 11-23-2022 TYPE AND SCREEN Negative Normal [facility] Comment on above: Performed By: #### E RUR [facility] #### [facility] [address] [place], [place] [address] Dr. Nilo Gibbons Urinalysison 11-07-2022 Bilirubin Urine Negative NEGATIVE [facility] Color, UA Yellow Yellow [facility] Glucose Auto test strip (U) [Mass/Vol] Negative NEGATIVE [facility] Ketones (U) [Mass/Vol] Negative NEGATIVE [facility] Leukocyte esterase Auto test strip Ql (U) Negative NEGATIVE [facility] Nitrite Auto test strip Ql (U) Negative NEGATIVE [facility] Protein (U) [Mass/Vol] 7.0 mg/dL 5.0 - 9.0 [facility] Protein (U) [Mass/Vol] Negative NEGATIVE [facility] Specific [place], UA 1.020 1.010 - 1.020 B ON [facility] Turbidity UA Clear Clear [facility] Urine Hgb Negative NEGATIVE [facility] Urobilinogen, Urine Normal Normal [facility] Urinalysis, Routineon 2022 Bilirubin, SemiQt,Ur Negative Normal NEG [facility] Comment on above: Performed By: #### U A #### [facility] [address] [place] [address] Flaring Machine Operator: Phil Keller MD Blood, Urine Negative Normal NEG [facility] Comment on above: Performed By: #### U A #### [facility] [address] [place] [address] [employer]aring Machine Operator: Phil Keller MD Clarity (U) Clear Normal CLEAR [facility] Comment on above: Performed By: #### U A #### [facility] [address] [place] [address] Dr. [place], [id number] Flaring Machine Operator: Phil Keller MD Color (U) Yellow Normal YEL [facility] Comment on above: Performed By: #### U A #### [facility] [address] [place] [address] Dr. [place], [id number] Flaring Machine Operator: Phil Keller MD Glucose Ql (U) Negative Normal NEG [facility] Comment on above: Performed By: #### U A #### [address] [place] [id number] Flaring Machine Operator: Phil Keller MD Ketones Ql (U) Negative Normal NEG [facility] Comment on above: Performed By: #### U A #### [address] [place], [id number] Fl[employer] Machine Operator: Phil Keller MD Leukocyte esterase Test strip Ql (U) Negative Normal NEG [facility] Comment on above: Performed By: #### U A #### [address] [place] [id number] Flaring Machine Operator: Phil Keller MD Nitrite,Ur Negative Normal NEG [facility] Comment on above: Performed By: #### U A #### [address] [place], [id number] Flaring Machine Operator: Phil Keller MD PH,Ur 7.0 Normal 5.0-9.0 [facility] Comment on above: Performed By: #### U A #### [address] [place] [address] Flaring Machine Operator: Phil Keller MD Protein Ql (U) Negative Normal NEG [facility] Comment on above: Performed By: #### U A #### [address] [place] [address] Flaring Machine Operator: Phil Keller MD Spec. [place],Ur 1.020 Normal 1.010-1.020 [facility] Comment on above: Performed By: #### U A #### [facility] [address] [place] [address] [place] [address] Flaring Machine Operator: Phil Keller MD Urobilinogen,Ur Normal Normal NORM [facility] Comment on above: Performed By: #### U A #### [facility] [address] [place] [address] Flaring Machine Operator: Phil Keller MD Cult,Urineon 11-05-2022 Cult,Urine Specimen Description .CLEAN CATCH URINE Culture NO SIGNIFICANT GROWTH Report Status FINAL 11/05/2022 Normal [facility] Comment on above: Performed By: #### U RC #### [facility] [address] [place] [address] Flaring Machine Operator: Axel Mahoney MD [facility] [address] [place] [address] [place] [address] Flaring Machine Operator: Phil Keller MD Microscopic Urinalysison Bacteria, UA 2+ Abnormal None [facility] Epithelial Cells UA 5 TO 10 [facility] Interpretation and review of laboratory results Abnormal [facility] Mucus, UA TRACE Abnormal None [facility] RBC clumps Auto (Urine sed) [#/Area] 5 TO 10 [facility] WBC, UA 2 TO 5 [facility] Urinalysison 11-04-2022 Bilirubin Urine Negative NEGATIVE [facility] Color, UA Yellow Yellow [facility] Glucose Auto test strip (U) [Mass/Vol] Negative NEGATIVE [facility] Interpretation and review of laboratory results Abnormal [facility] Ketones (U) [Mass/Vol] Negative NEGATIVE [facility] Leukocyte esterase Auto test strip Ql (U) TRACE Abnormal NEGATIVE [facility] Nitrite Auto test strip Ql (U) Negative NEGATIVE [facility] Protein (U) [Mass/Vol] 6.5 mg/dL 5.0 - 9.0 [facility] Protein (U) [Mass/Vol] Negative NEGATIVE [facility] Specific [place], UA 1.020 1.010 - 1.020 B [facility] Turbidity UA SLIGHTLY CLOUDY Abnormal Clear [facility] Urine Hgb TRACE Abnormal NEGATIVE [facility] Urobilinogen, Urine Normal Normal [facility] Urinalysis, Routineon 2022 Bilirubin, SemiQt,Ur Negative Normal NEG [facility] Comment on above: Performed By: #### U ESEQUIELO, UA #### [facility] [address] [place] [address] [place] [address] Flaring Machine Operator: Phil Keller MD Blood, Urine TRACE Abnormal NEG [facility] Comment on above: Performed By: #### U MICAO, UA #### [facility] [address] [place] [address] Dr. [place], [id number] Flaring Machine Operator: Phil Keller MD Clarity (U) SLIGHTLY CLOUDY Abnormal CLEAR [facility] Comment on above: Performed By: #### U MICAO, UA #### [address] [place] [address] Flaring Machine Operator: Phil Keller MD Color (U) Yellow Normal YEL [facility] Comment on above: Performed By: #### U MICAO, UA #### [facility] [address] [place] [address] Dr. [place], [place] [id number] Flaring Machine Operator: Phil Keller MD Glucose Ql (U) Negative Normal NEG [facility] Comment on above: Performed By: #### U MICAO, UA #### [facility] [address] [place] [address] [place] [address] Flaring Machine Operator: Phil Keller MD Ketones Ql (U) Negative Normal NEG [facility] Comment on above: Performed By: #### U MICAO, UA #### [facility] [address] [place] [address] Flaring Machine Operator: Phil Keller MD Leukocyte esterase Test strip Ql (U) TRACE Abnormal NEG [facility] Comment on above: Performed By: #### U MICAO, UA #### [facility] [address] [place], [place] [id number] Flaring Machine Operator: Phil Keller MD Nitrite,Ur Negative Normal NEG [facility] Comment on above: Performed By: #### U MICAO, UA #### [facility] [address] [place], [place] [id number] Flaring Machine Operator: Phil Keller MD PH,Ur 6.5 Normal 5.0-9.0 [facility] Comment on above: Performed By: #### U MICAO, UA #### [facility] [address] [place] [address] Dr. [place], [place] [id number] Flaring Machine Operator: Phil Keller MD Protein Ql (U) Negative Normal NEG [facility] Comment on above: Performed By: #### U MICAO, UA #### [address] [place], [place] [address]683 Flaring Machine Operator: Phil Keller MD Spec. [place],Ur 1.020 Normal 1.010-1.020 [facility] Comment on above: Performed By: #### U MICAO, UA #### [facility] [address] [place], [place] [id number] Flaring Machine Operator: Phil Keller MD Urobilinogen,Ur Normal Normal NORM [facility] Comment on above: Performed By: #### U MICAO, UA #### [facility] [address] [place], [place] [id number] Flaring Machine Operator: Phil Keller MD Urinalysis,Microon 3 Bacteria 2+ Abnormal NONE [facility] Comment on above: Performed By: #### U MICAO, UA #### [facility] [address] [place], [place] [id number] Flaring Machine Operator: Phil Keller MD Epithelial cells LM Ql (Urine sed) 5 TO 10 Normal 0-25 [facility] Comment on above: Performed By: #### U MICAO, UA #### [facility] [address] [place], [id number] Flaring Machine Operator: Phil Keller MD Mucus Strands TRACE Abnormal NONE [facility] Comment on above: Performed By: #### U ESEQUIELO, UA #### [facility] [address] [place], [id number] Flaring Machine Operator: Phil Keller MD Urine RBC's 5 TO 10 Normal 0-2 [facility] Comment on above: Performed By: #### U TUSHAR, UA #### [facility] [address] [place], [id number] Flaring Machine Operator: Phil Keller MD Urine WBC's 2 TO 5 Normal 0-5 [facility] Comment on above: Performed By: #### U TUSHAR, UA #### [facility] [address] [place] [id number] Flaring Machine Operator: Phil Keller MD UA (CLEAN/CATCH) BEHAVIOR THERAPIST/MICRO I F IND.on 10-29-2022 Bilirubin Ql (U) Negative Normal NEGATIVE [facility] Comment on above: Performed By: #### U ACSNAOMI UMICRO #### [facility] [address] [address] [address] Nilo Gibbons Clarity (U) CLEAR Normal CLEAR [facility] Comment on above: Performed By: #### U ACSNAOMI UMICRO #### [facility] [address] [address] [address] Nilo Gibbons Color (U) LT. YELLOW Normal YELLOW [facility] Comment on above: Performed By: #### U ACSNAOMI UMICRO #### [facility] [address] [address] [address] Nilo Gibbons Glucose Ql (U) Negative Normal NEGATIVE [facility] Comment on above: Performed By: #### U ACSIND, UMICRO #### [facility] [address] [address] [address] Nilo Gibbons Hemoglobin Ql (U) TRACE-INTACT Abnormal NEGATIVE [facility] Comment on above: Performed By: #### U ACSIND, UMICRO #### [facility] [address] [address] [address] Nilo Gibbons Ketones Ql (U) Negative Normal NEGATIVE [facility] Comment on above: Performed By: #### U ACSIND, UMICRO #### [facility] [address] [place] [address] Dr. Nilo Gibbons LEUKOCYTES Negative Normal NEGATIVE [facility] Comment on above: Performed By: #### U ACSIND, UMICRO #### [facility] [address] [place] [address] Dr. Nilo Gibbons Nitrite Ql (U) Negative Normal NEGATIVE [facility] Comment on above: Performed By: #### U ACSIND, UMICRO #### [facility] [address] [place] [address] Dr. Nilo Gibbons pH (U) 6.5 [pH] Normal 5-9 [facility] Comment on above: Performed By: #### U ACSIND, UMICRO #### [facility] [address] [place] [address] Dr. Nilo Gibbons SPEC GRAVITY 1.015 Normal 1.005-<=1.025 [facility] Comment on above: Performed By: #### U ACSIND, UMICRO #### [facility] [address] [address] [address] Nilo Gibbons UA PROTEIN Negative Normal NEGATIVE/ TRACE [facility] Comment on above: Performed By: #### U ACSIND, UMICRO #### [facility] [address] [place] [address] Dr. Nilo Gibbons UR MICRO IND INDICATED Normal [facility] Comment on above: Performed By: #### U ACSIND, UMICRO #### [facility] [address] [address] [address] Nilo Gibbons Urobilinogen Qn (U) 0.2 {You'U}/dL Normal 0.2 - 1. 0 [facility] Comment on above: Performed By: #### U ACSIND, UMICRO #### [facility] [address] [address] [address] Nlio Gibbons URINE MICROSCOPIC ONLYon BACTERIA TRACE Abnormal NONE SEEN [facility] Comment on above: Performed By: #### U ACSIND, UMICRO #### [facility] [address] [address] [address] Nilo Gibbons Bacteria identified Cx Nom (U) NOT INDICATED Normal [facility] Comment on above: Performed By: #### U ACSIND, UMICRO #### [facility] [address] [place] [address] Dr. Nilo Gibbons CAST NONE SEEN Normal NONE SEEN [facility] Comment on above: Performed By: #### U ACSIND, UMICRO #### [facility] [address] [address] [address] Nilo Gibbons Crystals LM Nom (Urine sed) NONE SEEN Normal NONE SEEN [facility] Comment on above: Performed By: #### U ACSIND, UMICRO #### [facility] [address] [address] [address] Nilo Gibbons Epithelial cells LM Ql (Urine sed) FEW Abnormal NONE SEEN /RARE [facility] Comment on above: Performed By: #### U ACSIND, UMICRO #### [facility] [address] [address] [address] Nilo Gibbons MUCOUS NONE SEEN Normal NONE SEEN [facility] Comment on above: Performed By: #### U ACSIND, UMICRO #### [facility] [address] [address] [address] Nilo Gibbons RBC 0-2 Normal 0-2 [facility] Comment on above: Performed By: #### U ACSIND, UMICRO #### [facility] [address] [place] [address] Dr. Nilo Gibbons WBC 0-2 Abnormal NONE SEEN [facility] Comment on above: Performed By: #### U BRENDA CHÁVEZICRO #### [facility] [address] [place] [address] Dr. Nilo Gibbons GBS, External Resulton 10-27 GBS, External Result Negative B[facility] Ab[facility].eePR[facility] EVERETTdoxIQ Work Phone: [facility] Work Phone: AMYLASEon 10-17-2022 Amylase [Catalytic activity/Vol] 32 U/L Normal 25-115 [facility] Comment on above: Performed By: #### U BRENDA CHÁVEZICRO #### [facility] [address] [place] [address] Dr. Niol Gibbons BUNon 10-17-2022 Urea nitrogen [Mass/Vol] 4.0 mg/dL Critically low 7.0-18.0 [facility] Comment on above: Performed By: #### U BRENDA CHÁVEZICRO #### [facility] [address] [place] [address] Dr. Nilo Gibbons CBC AUTO DIFFon 10-17-2022 BASO # 0.0 103/ul Normal 0.0-0.1 [facility] Comment on above: Performed By: #### U SAIRA UMICRO #### [facility] [address] [place] [address] Dr. Nilo Gibbons Basophils/100 WBC (Bld) 0.3 % Normal 0.2-2.0 [facility] Comment on above: Performed By: #### U ACSNAOMI UMICRO #### [facility] [address] [place] [address] Dr. Nilo Gibbons EO # 0.0 103/ul Normal 0.0-0.7 [facility] Comment on above: Performed By: #### U SAIRA UMICRO #### [facility] [address] [place] [address] Dr. Nilo Gibbons Eosinophils/100 WBC (Bld) 0.3 % Critically low 0.9-7.0 [facility] Comment on above: Performed By: #### LISSETH CARROLLRO #### [facility] [address] [place] [address] Dr. Nilo Gibbons Erythrocyte distribution width (RBC) [Ratio] 13.6 % Normal 11.0-15.0 [facility] Comment on above: Performed By: #### CELY CARROLL #### [facility] [address] [place] [address] Dr. Nilo Gibbons Hematocrit (Bld) [Volume fraction] 30.7 % Critically low 36.0-48.0 [facility] Comment on above: Performed By: #### LISSETH CARROLLRO #### [facility] [address] [place] [address] Dr. Nilo Gibbons Hemoglobin (Bld) [Mass/Vol] 10.1 g/dL Critically low 12.0-16.0 [facility] Comment on above: Performed By: #### LISSETH CARROLLRO #### [facility] [address] [place] [address] Dr. Nilo Gibbons IG # 0.04 10e3/ul Critically high 0.00-0.03 [facility] Comment on above: Performed By: #### LISSETH CARROLLRO #### [facility] [address] [place] [address] Dr. Nilo Gibbons IG % 0.4 % Normal 0.0-0.5 [facility] Comment on above: Performed By: #### LISSETH CARROLLRO #### [facility] [address] [place] [address] Dr. Nilo Gibbons LYMPH # 2.4 103/ul Normal 1.2-3.8 [facility] Comment on above: Performed By: #### LISSETH CARROLLRO #### [facility] [address] [place] [address] Dr. Nilo Gibbons Lymphocytes/100 WBC (Bld) 25.3 % Normal 20.5-60.0 [facility] Comment on above: Performed By: #### LISSETH CARROLLRO #### [facility] [address] [address] [address] Nilo Gibbons MANUAL DIFF REQ NO Normal [facility] Comment on above: Performed By: #### U ACSNAOMI, UMICRO #### [facility] [address] [address] [address] Nilo Gibbons MCH (RBC) [Entitic mass] 27.3 pg Normal 26.7-34.0 [facility] Comment on above: Performed By: #### U ACSNAOMI, UMICRO #### [facility] [address] [address] [address] Nilo Gibbons MCHC (RBC) [Mass/Vol] 32.9 g/dL Normal 29.9-35.2 [facility] Comment on above: Performed By: #### U ACSNAOMI ICRO #### [facility] [address] [place] [address] Dr. Nilo Gibbons MCV (RBC) [Entitic vol] 83.0 fL Normal 81.0-99.0 [facility] Comment on above: Performed By: #### U ACSNAOMI ICRO #### [facility] [address] [address] [address] Nilo Gibbons MONO # 0.7 103/ul Normal 0.3-0.8 [facility] Comment on above: Performed By: #### U ACSNAOMI, ICRO #### [facility] [address] [address] [address] Nilo Gibbons Monocytes/100 WBC (Bld) 7.3 % Normal 1.7-12.0 [facility] Comment on above: Performed By: #### U ACSNAOMI, ICRO #### [facility] [address] [address] [address] Nilo Gibbons NEUT # 6.3 103/ul Normal 1.4-6.5 [facility] Comment on above: Performed By: #### U ACSNAOMI, UMICRO #### [facility] [address] [address] [address] Nilo Gibbons Neutrophils/100 WBC (Bld) 66.4 % Normal 43.0-75.0 [facility] Comment on above: Performed By: #### U LISSETH CHÁVEZRO #### [facility] [address] [place] [address] Dr. Nilo Gibbons Platelet mean volume (Bld) [Entitic vol] 11.5 fL Normal 9.5-13.5 [facility] Comment on above: Performed By: #### LISSETH CARROLLRO #### [facility] [address] [place] [address] Dr. Nilo Gibbons PLT 174 103/ul Normal 150-450 [facility] Comment on above: Performed By: #### LISSETH CARROLLRO #### [facility] [address] [place] [address] Dr. Nilo Gibbons RBC 3.70 106/ul Critically low 4.20-5.40 [facility] Comment on above: Performed By: #### LISSETH CARROLLRO #### [facility] [address] [place] [address] Dr. Nilo Gibbons WBC 9.4 103/ul Normal 4.0-11.0 [facility] Comment on above: Performed By: #### LISSETH CARROLLRO #### [facility] [address] [place] [address] Dr. Nilo Gibbons CREATININEon 10-17-2022 Creatinine [Mass/Vol] 0.45 mg/dL Critically low 0.55-1.02 [facility] Comment on above: Performed By: #### CELY FENTON #### [facility] [address] [place] [address] Dr. Nilo Gibbons EGFR-AF NIGERIAN >60 Normal >=60 [facility] Comment on above: Result Comment: Prev iously reported as: (blank) On 10/17/2022 03:10 By JAW Performed By: #### LISSETH FENTONRO #### [facility] [address] [place] [address] Dr. Nilo Gibbons EGFR-NON AF NIGERIAN >60 Normal >=60 [facility] Comment on above: Result Comment: Prev iously reported as: (blank) On 10/17/2022 03:10 By JAW Performed By: #### Jose WALDRON UMICRO #### [facility] [address] [place] [address] Dr. Nilo Gibbons CULTURE URINEon 10-17-2022 CULTURE URINE Culture Observations: HEAVY GROWTH OF MIXED GENITAL LESLIE. NO POTENTIAL PATHOGENS SEEN. Normal [facility] Comment on above: Performed By: #### U RCX #### [facility] [address] [place] [address] Dr. Nilo Gibbons LIPASEon 10-17-2022 Lipase [Catalytic activity/Vol] 66.0 U/L Critically low 73.0-393.0 [facility] Comment on above: Performed By: #### Jose WALDRON UMICRO #### [facility] [address] [place] [address] Dr. Nilo Gibbons SGOTon 10-17-2022 AST [Catalytic activity/Vol] 24 U/L Normal 15-37 [facility] Comment on above: Performed By: #### Jose WALDRON UMICRO #### [facility] [address] [place] [address] Dr. Nilo Gibbons SGPTon 10-17-2022 ALT [Catalytic activity/Vol] 15 U/L Normal 14-59 [facility] Comment on above: Performed By: #### Jose WALDRON UMICRO #### [facility] [address] [place] [address] Dr. Nilo Gibbons UA (CLEAN/CATCH) BEHAVIOR THERAPIST/MICRO I F IND.on 10-17-2022 Bilirubin Ql (U) Negative Normal NEGATIVE [facility] Comment on above: Performed By: #### Jose WALDRON UMICRO #### [facility] [address] [place] [address] Dr. Nilo Gibbons Clarity (U) CLEAR Normal CLEAR [facility] Comment on above: Performed By: #### Jose WALDRON UMICRO #### [facility] [address] [place] [address] Dr. Nilo Gibbons Color (U) LT. YELLOW Normal YELLOW [facility] Comment on above: Performed By: #### E DIONTER, UMICRO #### [facility] [address] [place] [address] Dr. Nilo Gibbons Glucose Ql (U) Negative Normal NEGATIVE [facility] Comment on above: Performed By: #### Jose WALDRON UMICRO #### [facility] [address] [place] [address] Dr. Nilo Gibbons Hemoglobin Ql (U) TRACE-INTACT Abnormal NEGATIVE [facility] Comment on above: Performed By: #### Jose WALDRON UMICRO #### [facility] [address] [place] [address] Dr. Nilo Gibbons Ketones Ql (U) Negative Normal NEGATIVE [facility] Comment on above: Performed By: #### Jose WALDRON UMICRO #### [facility] [address] [place] [address] Dr. Nilo Gibbons LEUKOCYTES LARGE Abnormal NEGATIVE [facility] Comment on above: Performed By: #### BRENDA FENTONICRO #### [facility] [address] [place] [address] Dr. Nilo Gibbons Nitrite Ql (U) Negative Normal NEGATIVE [facility] Comment on above: Performed By: #### BRENDA FENTONICRO #### [facility] [address] [place] [address] Dr. Nilo Gibbons pH (U) 6.5 [pH] Normal 5-9 [facility] Comment on above: Performed By: #### BRENDA FENTONICRO #### [facility] [address] [place] [address] Dr. Nilo Gibbons SPEC GRAVITY 1.015 Normal 1.005-<=1.025 [facility] Comment on above: Performed By: #### Jose WALDRON UMICRO #### [facility] [address] [place] [address] Dr. Nilo Gibbons UA PROTEIN Negative Normal NEGATIVE/ TRACE [facility] Comment on above: Performed By: #### Jose WALDRON UMICRO #### [facility] [address] [place] [address] Dr. Nilo Gibbons UR MICRO IND INDICATED Normal [facility] Comment on above: Performed By: #### E RUR, UMICRO #### [facility] [address] [place] [address] Dr. Nilo Gibbons Urobilinogen Qn (U) 0.2 {You'U}/dL Normal 0.2 - 1. 0 [facility] Comment on above: Performed By: #### E RUR, UMICRO #### [facility] [address] [place] [address] Dr. Nilo Gibbons URINE MICROSCOPIC ONLYon BACTERIA SMALL Abnormal NONE SEEN [facility] Comment on above: Performed By: #### E RUR, UMICRO #### [facility] [address] [place] [address] Dr. Nilo Gibbons Bacteria identified Cx Nom (U) INDICATED Normal [facility] Comment on above: Performed By: #### E RUR, UMICRO #### [facility] [address] [place] [address] Dr. Nilo Gibbons CAST NONE SEEN Normal NONE SEEN [facility] Comment on above: Performed By: #### E RUR, UMICRO #### [facility] [address] [place] [address] Dr. Nilo Gibbons Crystals LM Nom (Urine sed) NONE SEEN Normal NONE SEEN [facility] Comment on above: Performed By: #### E RUR, UMICRO #### [facility] [address] [place] [address] Dr. Nilo Gibbons Epithelial cells LM Ql (Urine sed) MANY Abnormal NONE SEEN /RARE [facility] Comment on above: Performed By: #### E RUR, UMICRO #### [facility] [address] [place] [address] Dr. Nilo Gibbons MUCOUS NONE SEEN Normal NONE SEEN [facility] Comment on above: Performed By: #### E RUR, UMICRO #### [facility] [address] [place] [address] Dr. Nilo Gibbons RBC 5-10 Abnormal 0-2 [facility] Comment on above: Performed By: #### E RUR, UMICRO #### [facility] [address], [place] [address] Dr. Nilo Gibbons WBC 50-75 Abnormal NONE SEEN [facility] Comment on above: Performed By: #### CELY FENTON #### [facility] [address] [id number] Nilo Gibbons US APPENDIXon 10-17-2022 US APPENDIX EXAM: US APPENDIX HISTORY: Right flank pain COMPARISON: None. TECHNIQUE: Transabdominal ultrasound of right lower quadrant FINDINGS: No identifiable appendix. No free fluid or enlarged lymph nodes. IMPRESSION: 1. The appendix could not be identified. No secondary findings to suggest appendicitis. Electronically authenticated by: SHIN MEYER Date: 2022-10-17 08:05 Normal [facility] US KIDNEYSon 10-17-2022 US KIDNEYS EXAMINATION: [...] by: SHIN MEYER Date: 2022-10-17 08:12 Normal [facility] US PREG PLACENTAon US PREG PLACENTA [...] SHIN MEYER Date: 2022-10-17 10:37 Normal [facility] US OB Limitedon 07-26-2022 US [...] by Jono Wiggins on 07/26/2022 1051 Normal [facility] Psychology Associate CBC AUTO DIFFon 07-19-2022 BASO # 0.0 103/ul Normal 0.0-0.1 [facility] Comment on above: Performed By: #### C BC #### [facility] [address] [place] [address] Dr. Nilo Gibbons Basophils/100 WBC (Bld) 0.4 % Normal 0.2-2.0 [facility] Comment on above: Performed By: #### C BC #### [facility] [address] [place] [address] Dr. Nilo Gibbons EO # 0.0 103/ul Normal 0.0-0.7 [facility] Comment on above: Performed By: #### C BC #### [facility] [address] [place] [address] Dr. Nilo Gibbons Eosinophils/100 WBC (Bld) 0.5 % Critically low 0.9-7.0 [facility] Comment on above: Performed By: #### C BC #### [facility] [address] [place] [address] Dr. Nilo Gibbons Erythrocyte distribution width (RBC) [Ratio] 13.7 % Normal 11.0-15.0 [facility] Comment on above: Performed By: #### C BC #### [facility] [address] [place] [address] Dr. Nilo Gibbons Hematocrit (Bld) [Volume fraction] 34.0 % Critically low 36.0-48.0 [facility] Comment on above: Performed By: #### C BC #### [facility] [address] [place] [address] Dr. Nilo Gibbons Hemoglobin (Bld) [Mass/Vol] 11.5 g/dL Critically low 12.0-16.0 [facility] Comment on above: Performed By: #### C BC #### [facility] [address] [place] [address] Dr. Nilo Gibbons IG # 0.03 10e3/ul Normal 0.00-0.03 [facility] Comment on above: Performed By: #### C BC #### [facility] [address] [place] [address] Dr. Nilo Gibbons IG % 0.4 % Normal 0.0-0.5 [facility] Comment on above: Performed By: #### C BC #### [facility] [address] [place] [address] Dr. Nilo Gibbons LYMPH # 1.7 103/ul Normal 1.2-3.8 [facility] Comment on above: Performed By: #### C BC #### [facility] [address] [place] [address] Dr. Nilo Gibbons Lymphocytes/100 WBC (Bld) 20.6 % Normal 20.5-60.0 [facility] Comment on above: Performed By: #### C BC #### [facility] [address] [place] [address] Dr. Nilo Gibbons MANUAL DIFF REQ NO Normal [facility] Comment on above: Performed By: #### C BC #### [facility] [address] [place] [address] Dr. Nilo Gibbons MCH (RBC) [Entitic mass] 29.3 pg Normal 26.7-34.0 [facility] Comment on above: Performed By: #### C BC #### [facility] [address] [place] [address] Dr. Nilo Gibbons MCHC (RBC) [Mass/Vol] 33.8 g/dL Normal 29.9-35.2 [facility] Comment on above: Performed By: #### C BC #### [facility] [address] [place] [address] Dr. Nilo Gibbons MCV (RBC) [Entitic vol] 86.5 fL Normal 81.0-99.0 [facility] Comment on above: Performed By: #### C BC #### [facility] [address] [place] [address] Dr. Nilo Gibbons MONO # 0.5 103/ul Normal 0.3-0.8 [facility] Comment on above: Performed By: #### C BC #### [facility] [address] [place] [address] Dr. Nilo Gibbons Monocytes/100 WBC (Bld) 6.0 % Normal 1.7-12.0 [facility] Comment on above: Performed By: #### C BC #### [facility] [address] [place] [address] Dr. Nilo Gibbons NEUT # 6.0 103/ul Normal 1.4-6.5 [facility] Comment on above: Performed By: #### C BC #### [facility] [address] [place] [address] Dr. Nilo Gibbons Neutrophils/100 WBC (Bld) 72.1 % Normal 43.0-75.0 [facility] Comment on above: Performed By: #### C BC #### [facility] [address] [place] [address] Dr. Nilo Gibbons Platelet mean volume (Bld) [Entitic vol] 11.2 fL Normal 9.5-13.5 [facility] Comment on above: Performed By: #### C BC #### [facility] [address] [place] [address] Dr. Nilo Gibbons PLT 215 103/ul Normal 150-450 [facility] Comment on above: Performed By: #### C BC #### [facility] [address] [place] [address] Dr. Nilo Gibbons RBC 3.93 106/ul Critically low 4.20-5.40 [facility] Comment on above: Performed By: #### C BC #### [facility] [address] [place] [address] Dr. Nilo Gibbons WBC 8.3 103/ul Normal 4.0-11.0 [facility] Comment on above: Performed By: #### C BC #### [facility] [address] [place] [address] Dr. Nilo Gibbons CULTURE URINEon 07-19-2022 CULTURE URINE Culture Observations: LIGHT GROWTH OF MIXED GENITAL LESLIE. NO POTENTIAL PATHOGENS SEEN. Normal [facility] Comment on above: Performed By: #### E VANITA UMICRO #### [facility] [address] [place] [address] Dr. Nilo Gibbons TYPE AND SCREENon 07-19-2022 TYPE AND SCREEN Negative Normal [facility] Comment on above: Performed By: #### E VANITA UMICRO #### [facility] [address] [place] [address] Dr. Nilo Gibbons UA (CLEAN/CATCH) BEHAVIOR THERAPIST/MICRO I F IND.on 07-19-2022 Bilirubin Ql (U) Negative Normal NEGATIVE [facility] Comment on above: Performed By: #### U SAIRA UMICRO #### [facility] [address] [place] [address] Dr. Nilo Gibbons Clarity (U) SL CLOUDY Abnormal CLEAR [facility] Comment on above: Performed By: #### U SAIRA UMICRO #### [facility] [address] [place] [address] Dr. Nilo Gibbons Color (U) LT. YELLOW Normal YELLOW [facility] Comment on above: Performed By: #### U SAIRA UMICRO #### [facility] [address] [place] [address] Dr. Nilo Gibbons Glucose Ql (U) Negative Normal NEGATIVE [facility] Comment on above: Performed By: #### U ACSIND, UMICRO #### [facility] [address] [address] [address] Nilo Gibbons Hemoglobin Ql (U) Negative Normal NEGATIVE [facility] Comment on above: Performed By: #### U ACSIND, UMICRO #### [facility] [address] [address] [address] Nilo Gibbons Ketones Ql (U) Negative Normal NEGATIVE [facility] Comment on above: Performed By: #### U ACSIND, UMICRO #### [facility] [address] [address] [address] Nilo Gibbons LEUKOCYTES TRACE Abnormal NEGATIVE [facility] Comment on above: Performed By: #### U ACSIND, UMICRO #### [facility] [address] [address] [address] Nilo Gibbons Nitrite Ql (U) Negative Normal NEGATIVE [facility] Comment on above: Performed By: #### U ACSIND, ICRO #### [facility] [address] [address] [address] Nilo Gibbons pH (U) 8.0 [pH] Normal 5-9 [facility] Comment on above: Performed By: #### U ACSIND, UMICRO #### [facility] [address] [address] [address] Nilo Gibbons SPEC GRAVITY 1.015 Normal 1.005-<=1.025 [facility] Comment on above: Performed By: #### U ACSIND, UMICRO #### [facility] [address] [address] [address] Nilo Gibbons UA PROTEIN Negative Normal NEGATIVE/ TRACE [facility] Comment on above: Performed By: #### U ACSIND, UMICRO #### [facility] [address] [address] [address] Nilo Gibbons UR MICRO IND INDICATED Normal [facility] Comment on above: Performed By: #### U ACSIND, UMICRO #### [facility] [address] [address] [address] Nilo Gibbons Urobilinogen Qn (U) 1.0 {You'U}/dL Normal 0.2 - 1. 0 [facility] Comment on above: Performed By: #### U ACSIND, UMICRO #### [facility] [address] [address] [address] Nilo Gibbons URINE MICROSCOPIC ONLYon AMORPHOUS CRYSTALS MODERATE Normal [facility] Comment on above: Performed By: #### U ACSIND, UMICRO #### [facility] [address] [place] [address] Dr. Nilo Gibbons BACTERIA SMALL Abnormal NONE SEEN [facility] Comment on above: Performed By: #### U ACSIND, UMICRO #### [facility] [address] [place] [address] Dr. Nilo Gibbons Bacteria identified Cx Nom (U) INDICATED Normal [facility] Comment on above: Performed By: #### U ACSIND, UMICRO #### [facility] [address] [place] [address] Dr. Nilo Gibbons CAST NONE SEEN Normal NONE SEEN [facility] Comment on above: Performed By: #### U ACSIND, UMICRO #### [facility] [address] [place] [address] Dr. Nilo Gibbons Crystals LM Nom (Urine sed) SEEN Abnormal NONE SEEN [facility] Comment on above: Performed By: #### U ACSIND, UMICRO #### [facility] [address] [place] [address] Dr. Nilo Gibbons Epithelial cells LM Ql (Urine sed) FEW Abnormal NONE SEEN /RARE [facility] Comment on above: Performed By: #### U ACSIND, UMICRO #### [facility] [address] [place] [address] Dr. Nilo Gibbons MUCOUS NONE SEEN Normal NONE SEEN [facility] Comment on above: Performed By: #### U ACSIND, UMICRO #### [facility] [address] [place] [address] Dr. Nilo Gibbons RBC NONE SEEN Abnormal 0-2 [facility] Comment on above: Performed By: #### U ACSNAOMI UMICRO #### [facility] [address] [place], [place] [address] Dr. Nilo Gibbons WBC 2-5 Abnormal NONE SEEN [facility] Comment on above: Performed By: #### U ACSNAOMI, UMICRO #### [facility] [address] [place], [place] [address] Dr. Nilo Gibbons US PREG CERVICAL LENGTHon [...] SHIN MEYER Date: 2022-07-19 13:55 Normal [facility] US PREG PLACENTAon US PREG PLACENTA [...] SHIN MEYER Date: 2022-07-19 12:41 Normal [facility] US OB Limitedon 07-18-2022 US [...] by Jono Wiggins on 07/18/[address] [facility] US Renal/Bladderon US Renal/Bladder HISTORY: Back pain FINDINGS: Right Aaekuv00.8 x 5.0 x 6.2 cm Left Vhblmv32.0 x 4.7 x 4.9 cm Normal renal size, cortical volume and echotexture is present for this age. No collecting system dilatation or echogenic foci with posterior shadowing are noted. No bladder stones. Both ureteral jets visualized. IMPRESSION: Normal renal and bladder ultrasound evaluation. Report reported and signed by Jono Wiggins on 07/18/2022 1248 Normal [facility] OB 2nd/3rd Trimesteron US OB 2nd/3rd Trimester [...] by Jono Wiggins on 07/11/2022 1249 Normal [facility] Psychology Associate CBC AUTO DIFFon 05-28-2022 BASO # 0.0 103/ul Normal 0.0-0.1 [facility] Comment on above: Performed By: #### C BC #### [facility] [address] [place] [address] Dr. Nilo Gibbons Basophils/100 WBC (Bld) 0.2 % Normal 0.2-2.0 [facility] Comment on above: Performed By: #### C BC #### [facility] [address] [place] [address] Dr. Nilo Gibbons EO # 0.0 103/ul Normal 0.0-0.7 [facility] Comment on above: Performed By: #### C BC #### [facility] [address] [place] [address] Dr. Nilo Gibbons Eosinophils/100 WBC (Bld) 0.4 % Critically low 0.9-7.0 [facility] Comment on above: Performed By: #### C BC #### [facility] [address] [place] [address] Dr. Nilo Gibbons Erythrocyte distribution width (RBC) [Ratio] 12.7 % Normal 11.0-15.0 [facility] Comment on above: Performed By: #### C BC #### [facility] [address] [place] [address] Dr. Nilo Gibbons Hematocrit (Bld) [Volume fraction] 34.6 % Critically low 36.0-48.0 [facility] Comment on above: Performed By: #### C BC #### [facility] [address] [place] [address] Dr. Nilo Gibbons Hemoglobin (Bld) [Mass/Vol] 11.8 g/dL Critically low 12.0-16.0 [facility] Comment on above: Performed By: #### C BC #### [facility] [address] [place] [address] Dr. Nilo Gibbons IG # 0.02 10e3/ul Normal 0.00-0.03 [facility] Comment on above: Performed By: #### C BC #### [facility] [address] [place] [address] Dr. Nilo Gibbons IG % 0.2 % Normal 0.0-0.5 [facility] Comment on above: Performed By: #### C BC #### [facility] [address] [place] [address] Dr. Nilo Gibbons LYMPH # 2.0 103/ul Normal 1.2-3.8 [facility] Comment on above: Performed By: #### C BC #### [facility] [address] [place] [address] Dr. Nilo Gibbons Lymphocytes/100 WBC (Bld) 24.1 % Normal 20.5-60.0 [facility] Comment on above: Performed By: #### C BC #### [facility] [address] [place] [address] Dr. Nilo Gibbons MANUAL DIFF REQ NO Normal [facility] Comment on above: Performed By: #### C BC #### [facility] [address] [place] [address] Dr. Nilo Gibbons MCH (RBC) [Entitic mass] 29.7 pg Normal 26.7-34.0 [facility] Comment on above: Performed By: #### C BC #### [facility] [address] [place] [address] Dr. Nilo Gibbons MCHC (RBC) [Mass/Vol] 34.1 g/dL Normal 29.9-35.2 [facility] Comment on above: Performed By: #### C BC #### [facility] [address] [place] [address] Dr. Nilo Gibbons MCV (RBC) [Entitic vol] 87.2 fL Normal 81.0-99.0 [facility] Comment on above: Performed By: #### C BC #### [facility] [address] [address] [address] Nilo Gibbons MONO # 0.5 103/ul Normal 0.3-0.8 [facility] Comment on above: Performed By: #### C BC #### [facility] [address] [address] [address] Nilo Gibbons Monocytes/100 WBC (Bld) 6.4 % Normal 1.7-12.0 [facility] Comment on above: Performed By: #### C BC #### [facility] [address] [address] [address] Nilo Gibbons NEUT # 5.7 103/ul Normal 1.4-6.5 [facility] Comment on above: Performed By: #### C BC #### [facility] [address] [place] [address] Dr. Nilo Gibbons Neutrophils/100 WBC (Bld) 68.7 % Normal 43.0-75.0 [facility] Comment on above: Performed By: #### C BC #### [facility] [address] [place] [address] Dr. Nilo Gibbons Platelet mean volume (Bld) [Entitic vol] 11.4 fL Normal 9.5-13.5 [facility] Comment on above: Performed By: #### C BC #### [facility] [address] [place] [address] Dr. Nilo Gibbons PLT 193 103/ul Normal 150-450 [facility] Comment on above: Performed By: #### C BC #### [facility] [address] [place] [address] Dr. Nilo Gibbons RBC 3.97 106/ul Critically low 4.20-5.40 [facility] Comment on above: Performed By: #### C BC #### [facility] [address] [address] [address] Nilo Gibbons WBC 8.3 103/ul Normal 4.0-11.0 [facility] Comment on above: Performed By: #### C BC #### [facility] [address] [address] [address] Nilo Gibbons ER URINE PROFILEon 2 Bilirubin Ql (U) Negative Normal NEGATIVE [facility] Comment on above: Performed By: #### Jose WALDRON UMICRO #### [facility] [address] [place] [address] Dr. Nilo Gibbons Clarity (U) CLEAR Normal CLEAR [facility] Comment on above: Performed By: #### Jose WALDRON UMICRO #### [facility] [address] [place] [address] Dr. Nilo Gibbons Color (U) LT. YELLOW Normal YELLOW [facility] Comment on above: Performed By: #### BRENDA FENTNOICRO #### [facility] [address] [place] [address] Dr. Nilo KUMARI A micrscopic examination will be performed if indicated. Normal [facility] Comment on above: Performed By: #### Jose WALDRON UMICRO #### [facility] [address] [place] [address] Dr. Nilo Gibbons Glucose Ql (U) Negative Normal NEGATIVE [facility] Comment on above: Performed By: #### BRENDA FENTONICRO #### [facility] [address] [place] [address] Dr. Nilo Gibbons Hemoglobin Ql (U) Negative Normal NEGATIVE [facility] Comment on above: Performed By: #### Jose WALDRON UMICRO #### [facility] [address] [place] [address] Dr. Nilo Gibbons Ketones Ql (U) Negative Normal NEGATIVE [facility] Comment on above: Performed By: #### BRENDA FENTONICRO #### [facility] [address] [place] [address] Dr. Nilo Gibbons LEUKOCYTES TRACE Abnormal NEGATIVE [facility] Comment on above: Performed By: #### Jose WALDRON UMICRO #### [facility] [address] [place] [address] Dr. Nilo Gibbons Nitrite Ql (U) Negative Normal NEGATIVE [facility] Comment on above: Performed By: #### Jose WALDRON, UMICRO #### [facility] [address] [address] [address] Nilo Gibbons pH (U) 6.0 [pH] Normal 5-9 [facility] Comment on above: Performed By: #### Jose WALDRON, UMICRO #### [facility] [address] [address] [address] Nilo Gbibons SPEC GRAVITY 1.015 Normal 1.005-<=1.025 [facility] Comment on above: Performed By: #### Jose WALDRON, UMICRO #### [facility] [address] [place] [address] Dr. Nilo Gibbons UA PROTEIN Negative Normal NEGATIVE/ TRACE [facility] Comment on above: Performed By: #### Jose WALDRON UMICRO #### [facility] [address] [place] [address] Dr. Nilo Gibbons UR MICRO IND INDICATED Normal [facility] Comment on above: Performed By: #### Jose WALDRON UMICRO #### [facility] [address] [place] [address] Dr. Nilo Gibbons Urobilinogen Qn (U) 0.2 {You'U}/dL Normal 0.2 - 1. 0 [facility] Comment on above: Performed By: #### Jose WALDRON, UMICRO #### [facility] [address] [place] [address] Dr. Nilo Gibbons PREG QUANT HCGon 05-28-2022 HCG QUANT 92081 mIU/mL Normal [facility] Comment on above: Performed By: #### P REGQNT #### [facility] [address] [place] [address] Dr. Nilo Gibbons HCG RANGE SEE BELOW Normal [facility] Comment on above: Result Comment: 5-50 0.2-1 WEEK 50-500 1-2 WEEKS 100-5,000 2-3 WEEKS 500-10,000 3-4 WEEKS 1,000-50,000 4-5 WEEKS 10,000-100,000 5-6 WEEKS 15,000-200,000 6-8 WEEKS 10,000-100,000 2-3 MONTHS Performed By: #### P REGQNT #### [facility] [address] [place] [address] Dr. Nilo Gibbons PROF CHEM 8 (BAS METB)on Anion gap [Moles/Vol] 10.6 mmol/L Normal [facility] Comment on above: Performed By: #### CELY FENTON #### [facility] [address] [place] [address] Dr. Nilo Gibbons Calcium [Mass/Vol] 8.8 mg/dL Normal 8.5-10.1 [facility] Comment on above: Performed By: #### CELY FENTON #### [facility] [address] [place] [address] Dr. Nilo Gibbons Chloride [Moles/Vol] 102 mmol/L Normal 98-107 [facility] Comment on above: Performed By: #### CELY FENTON #### [facility] [address] [place] [address] Dr. Nilo Gibbons CO2 [Moles/Vol] 24.2 mmol/L Normal 21.0-32.0 [facility] Comment on above: Performed By: #### CELY FENTON #### [facility] [address] [place] [address] Dr. Nilo Gibbons Creatinine [Mass/Vol] 0.55 mg/dL Normal 0.55-1.02 [facility] Comment on above: Performed By: #### LISSETH FENTONRO #### [facility] [address] [place] [address] Dr. Nilo Gibbons EGFR-AF NIGERIAN >60 Normal >=60 [facility] Comment on above: Performed By: #### CELY FENTON #### [facility] [address] [place] [address] Dr. Nilo Gibbons EGFR-NON AF NIGERIAN >60 Normal >=60 [facility] Comment on above: Performed By: #### CELY FENTON #### [facility] [address] [address] [address] Nilo Gibbons Glucose [Mass/Vol] 101 mg/dL Normal 74-106 [facility] Comment on above: Performed By: #### LISSETH FENTONRO #### [facility] [address] [address] [address] Nilo Gibbons Potassium [Moles/Vol] 3.8 mmol/L Normal 3.5-5.1 [facility] Comment on above: Performed By: #### Jose WALDRON UMICRO #### [facility] [address] [place] [address] Dr. Nilo Gibbons Sodium [Moles/Vol] 133 mmol/L Critically low 136-145 [facility] Comment on above: Performed By: #### Jose WALDRON UMICRO #### [facility] [address] [place] [address] Dr. Nilo Gibbons Urea nitrogen [Mass/Vol] 10.0 mg/dL Normal 7.0-18.0 [facility] Comment on above: Performed By: #### BRENDA FENTONICRO #### [facility] [address] [place] [address] Dr. Nilo Gibbons Urea nitrogen/Creatinine [Mass ratio] 18.2 mg/mg Normal [facility] Comment on above: Performed By: #### Jose WALDRON UMICRO #### [facility] [address] [place] [address] Dr. Nilo Gibbons URINE MICROSCOPIC ONLYon BACTERIA TRACE Abnormal NONE SEEN [facility] Comment on above: Performed By: #### Jose WALDRON UMICRO #### [facility] [address] [place] [address] Dr. Nilo Gibbons Bacteria identified Cx Nom (U) NOT INDICATED Normal [facility] Comment on above: Performed By: #### Jose WALDRON UMICRO #### [facility] [address] [place] [address] Dr. Nilo Gibbons CAST NONE SEEN Normal NONE SEEN [facility] Comment on above: Performed By: #### LISSETH FENTONRO #### [facility] [address] [address] [address] Nilo Gibbons Crystals LM Nom (Urine sed) NONE SEEN Normal NONE SEEN [facility] Comment on above: Performed By: #### E RUR, UMICRO #### [facility] [address] [address] [address] Nilo Gibbons Epithelial cells LM Ql (Urine sed) FEW Abnormal NONE SEEN /RARE [facility] Comment on above: Performed By: #### E RUR, UMICRO #### [facility] [address] [address] [address] Nilo Gibbons MUCOUS NONE SEEN Normal NONE SEEN [facility] Comment on above: Performed By: #### E RUR, UMICRO #### [facility] [address] [place] [address] Dr. Nilo Gibbons RBC NONE SEEN Abnormal 0-2 [facility] Comment on above: Performed By: #### E DIONTER, UMICRO #### [facility] [address] [address] [address] Nilo Gibbons WBC 0-2 Abnormal NONE SEEN [facility] Comment on above: Performed By: #### E RUR, UMICRO #### [facility] [address] [place] [address] Dr. Nilo Gibbons ABO, External Resulton 05-16 ABO, External Result O [employer] Work Phone: C. Trachomatis, External Res [facility] 05-16-2022 C. Trachomatis, External Result Negative [employer] Work Phone: HIV, External Resulton 05-16 HIV, External Result Non-Reactive JAQUI N [employer] Work Phone: Hepatitis B, External Result on 05-16-2022 Hep B, External Result Non-Reactive BON [employer] Work Phone: N. Gonorrhoeae, External Res [facility] 05-16-2022 N. Gonorrhoeae, External Result Negative [employer] Work Phone: No Panel Informationon 05-16 DARLYN [employer] Phone: DARLYN [employer] Phone: RPR, External Labon 05-16-20 22 RPR, External Result Non-Reactive JAQUI N [employer] Phone: Rh Factor, External Resulton 05-16-2022 Rh Factor, External Result Positive BON [employer] Phone: Rubella Titer, External Resu lton 05-16-2022 Rubella Titer, External Result IMMUNE DARLYN [employer] Phone: US OB 1ST Trimesteron 2021 US [...] by Jono Wiggins on 04/19/2022 1009 Normal [facility] Psychology Associate XR Abdomen 2 Viewson 022 XR Abdomen [...] by Shin Hopson on 01/17/2022 0856 Normal [facility] Psychology Associate Q - CULTURE,URINE,ROUTINEon 01-10-2022 CULTURE, URINE, ROUTINE SEE NOTE Normal [facility] Associate Comment on above: Order Comment: [facility] performed at: [facility], [employer] [facility], [address], [address] [place] [address], [id number], Personnel Analyst: Diaz Florain MD [facility] Collection Date/Time: [id number] [facility] Results Received Date/Time: [id number] [facility] Reported Date/Time: [id number] Result Comment: CULT URE, URINE, ROUTINE Micro Number: [id number] Test Status: Final Specimen Source: Urine Specimen Quality: Adequate Result: Mixed genital leslie isolated. These superficial bacteria are not indicative of a urinary tract infection. No further organism identification is warranted on this specimen. If clinically indicated, recollect clean-catch, mid-stream urine and transfer immediately to Urine Culture Transport Tube. Performed By: #### 6 [id number] #### [facility] [address] [place] [address] Q - HCG TOTAL QNon 2 HCG, TOTAL, QN <3 Normal [facility] Psychology Associate Comment on above: Order Comment: [facility] performed at: [employer] [facility], [address], [address] [place] [address], [id number], Personnel Analyst: Diaz Florian MD [facility] Collection Date/Time: [facility] Results Received Date/Time: [facility] Reported Date/Time: FASTING: NO Result Comment: Refe rence Range Non or premenopausal <5 Postmenopausal <10 Values from different assay methods may vary. The use of this assay to monitor or to diagnose patients with cancer or any condition unrelated to has not been cleared or approved by the FDA or the hazardous material technician of the assay. Performed By: #### 2 [id number] #### [facility] [address] [place] [address] TSHon 10-12-2021 TSH 4.300 uIU/mL Normal 0.400-4.500 [facility] Psychology Associate Comment on above: Performed By: #### T SH #### [facility] [address] [place], [place] [id number] Dipstick and Microscopicon 0 02-15-2021 Appearance (U) Clear Normal Clear [facility] Comment on above: Order Comment: Name Collection Type:: Clean-Voided Midstream Performed By: #### A DDONUAPLUS, CUU, UHCG #### [facility] [address] [place] [address] [place] Bacteria,Urine 1+ High None Seen [facility] Comment on above: Order Comment: Name Collection Type:: Clean-Voided Midstream Performed By: #### A DDONUAPLUS, CUU, UHCG #### [facility] [address] [place] [address] [place] Bilirubin,Urine Negative Normal Negative [facility] Comment on above: Order Comment: Name Collection Type:: Clean-Voided Midstream Performed By: #### A DDONUAPLUS, CUU, UHCG #### [facility] [address] [place] [address] Color (U) Yellow Normal Yellow [facility] Comment on above: Order Comment: Name Collection Type:: Clean-Voided Midstream Performed By: #### A DDONUAPLUS, CUU, UHCG #### [facility] [address] [place] [address] Glucose Ql (U) Normal Normal Normal [facility] Comment on above: Order Comment: Name Collection Type:: Clean-Voided Midstream Performed By: #### A DDONUAPLUS, CUU, UHCG #### [facility] [address] [place] [address] [place] Hyaline Casts,Urine 0-8 Normal 0-8 [facility] Comment on above: Order Comment: Name Collection Type:: Clean-Voided Midstream Performed By: #### A DDONUAPLUS, CUU, UHCG #### [facility] [address] [place] [address] [place] Ketones Ql (U) Negative Normal Negative [facility] Comment on above: Order Comment: Name Collection Type:: Clean-Voided Midstream Performed By: #### A DDONUAPLUS, CUU, UHCG #### [facility] [address] [place] [address] [place] Leukocyte esterase Test strip Ql (U) 2+ High Negative [facility] Comment on above: Order Comment: Name Collection Type:: Clean-Voided Midstream Performed By: #### A DDONUAPLUS, CUU, UHCG #### [facility] [address] [place] [address] [place] Nitrite,Urine Negative Normal Negative [facility] Comment on above: Order Comment: Name Collection Type:: Clean-Voided Midstream Performed By: #### A DDONUAPLUS, CUU, UHCG #### [place] [address] [place] Occult Blood,Urine Negative Normal Negative [facility] Comment on above: Order Comment: Name Collection Type:: Clean-Voided Midstream Performed By: #### A DDONUAPLUS, CUU, UHCG #### [address] pH (U) 6.5 [pH] Normal 5.0-9.0 [facility] Comment on above: Order Comment: Name Collection Type:: Clean-Voided Midstream Performed By: #### A DDONUAPLUS, CUU, UHCG #### [address] Protein,Urine Negative Normal Negative [facility] Comment on above: Order Comment: Name Collection Type:: Clean-Voided Midstream Performed By: #### A DDONUAPLUS, CUU, UHCG #### [facility] [address] [place] [address] [place] RBC,Urine 1-2 Normal 0-4 [facility] Comment on above: Order Comment: Name Collection Type:: Clean-Voided Midstream Performed By: #### A DDONUAPLUS, CUU, UHCG #### [place] [address] [place] Specificy [place],Urine 1.026 Normal 1.001-1.030 [facility] Comment on above: Order Comment: Name Collection Type:: Clean-Voided Midstream Performed By: #### A DDONUAPLUS, CUU, UHCG #### [place] [address] [place] Squamous Epithelial Cell,Urine 5-9 High 0-2 [facility] Comment on above: Order Comment: Name Collection Type:: Clean-Voided Midstream Performed By: #### A DDONUAPLUS, CUU, UHCG #### [address] Urobilinogen,Urine Normal Normal Normal [facility] Comment on above: Order Comment: Name Collection Type:: Clean-Voided Midstream Performed By: #### A DDONUAPLUS, CUU, UHCG #### [facility] [address] [place], [place] [id number] [facility] WBC,Urine 5-9 High 0-4 [facility] Comment on above: Order Comment: Name Collection Type:: Clean-Voided Midstream Performed By: #### A DDONUAPLUS, CUU, UHCG #### [address] HCG,Urineon 02-15-2021 Beta HCG ( test) Ql (U) Negative Normal [facility] Comment on above: Order Comment: Name Collection Type:: Clean-Voided Midstream Result Comment: PERF ORMED BY: [place] [address] PATHOLOGIST SUPERVISOR/PORT DIRECTOR ANA PAULA GILMORE M.D. Performed By: #### A DDONUAPLUS, CUU, UHCG #### [address] US transvaginalon 02-15-2021 US transvaginal [place] [address] Ultrasound Report Signed Patient: Tho Molina MR#: [id number] : 2000 Acct:[id number] Age/Sex: 20 / F ADM Date: 02/15/21 Loc: ER Room: Type: [facility] ER Attending Dr: Ordering Provider: ROSALIA Hunter Date of Service: 02/15/21 US/US pelvic complete: r/o ovarian cyst, check IUD ([id number]) US/US transvaginal: CHECK IUD Copies to: ROSALIA [...] Hetal Chris M.D.02/15/2021 3:45 PM Dictation Location: [place] [address] Tech: Tova Fisher Transcribed By: [facility] 02/15/21 1545 Dictated By: Hetal Chris MD 02/15/21 1539 Signed By: 02/15/21 1545 [facility] Urine Cultureon 02-15-2021 Bacteria identified Cx Nom (U) >100,000 colonies/ml mixed bacterial skin contaminants 2 Days PERFORMED BY: [facility] [place] [address] PATHOLOGIST SUPERVISOR/PORT DIRECTOR ANA PAULA GILMORE M.D. [facility] Comment on above: Performed By: #### A DDONUAPLUS, SEJAL, [facility] #### [facility] [address] [id number] [facility] C Strep Screenon 07-22-2020 Strep Screen Microbiology PROCEDURE: Strep Screen Culture [R1] SOURCE: Swab BODY SITE: COLLECTED DATE/TIME: 07/20/2020 08:43 EST RECEIVED DATE/TIME: 07/20/2020 11:21 EST START DATE/TIME: 07/20/2020 11:21 EST FREE TEXT SOURCE: Caleb Jensen PA-C, PA-C, Caleb FINAL REPORTS Final Report [] Verified Date/Time: 07/22/2020 12:08 EST No Pathogenic Streptococcus Isolated Performing Locations R1: This test was performed at: [facility], [address] [place] [address], [facility] , , [facility] Comment on above: Performed By: #### 2 [id number], [id number], [id number] #### [facility] [address] [place] [address] Coding Summary.on 07-21-2020 Coding Summary. CODING DATE: 07/21/2020 FINAL [facility] STATUS: Home (Routine DC) PAYOR: Government ADMIT [...] Asha Ceron Date Saved: 07/21/2020 08:15 am [facility] Consent for Treatmenton 06-23 Consent for Treatment [id number] #1.00CD:127 Normal [facility] Discharge Instructionson Discharge Instructions [id number] 3#1.00CD:127 Normal [facility] ED Clinical Summaryon 2019 ED Clinical Summary [place] [id number] ED Clinical Summary Person Information Name: THO MOLINA/NewCara Age: 20 Years : 2000 Sex: Female Language: Gambian PCP: MABLE JOE MD Marital Status: Single Phone: [phone] Visit Id: Visit Reason: Ear pain; Throat [...] 07/20/2020 10:30:10 07/20/2020 10:30:10 07/20/2020 10:30:10 ADDRESS: [address] [place] [phone] [facility] DOC NOTES: MEDICAL INFORMATION: Prescriptions Given: New [...] Follow up: With: Address: When: MABLE JOE [address] [place], [place] [phone] Business (1) In 3 days 07/23/2020 DIAGNOSIS: Pharyngitis Normal [facility] ED Note-Physicianon 07-20-20 ED Note-Physician Basic Information [...] 20 tab(s), Refills(s) 0 Rapid COVID Antigen ([facility]) Rapid Strep w/rfx Strep Screen Culture Medications [...] Information MABLE JOE In 3 days 07/23/[address] [address] Business (1) Additional Instructions: Patient Education Pharyngitis Attestation Patient seen and evaluated by the physician pathologist assistant. Attending physician was present in the emergency department and supervised care. This report was transcribed using voice recognition software. Every effort was made to ensure accuracy, however, inadvertently computerized travel cota mistakes may be present. 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 Activity level: Occasional physical work., 05/04/2019 Home/Environment [...] 08:43:00) Diagnostic Results No qualifying data available. [facility] Comment on above: Result Comment: Elec [...] or pale yellow. ? ? Only take powa-qds-koiudgf or prescription medicines as directed by your [...] Document Reviewed: 04/14/2014 ExitCare? Patient Information ?2015 [employer]. This information is not intended to replace advice given to you by your health care provider. Make sure you discuss any questions you have with your health care provider. Normal [facility] ED Patient Summaryon 020 ED Patient Summary [place] [address] Patient Discharge Instructions Person Information Name: THO MOLINA Age: 20 Years Arrival Date: 07/20/2020 08:25:28 Discharge Diagnosis: Pharyngitis Primary Care Physician: MABLE JOE MD Provider Information Primary Provider: Alec Roman DO Advanced Manager Stylist:Caleb Jensen PA-C The exam and treatment you received in the Emergency Department were for an urgent problem and are not intended as complete care. It is important that you follow up with a doctor, nurse practitioner, or physician?s pathologist assistant for ongoing care. If your symptoms [...] Follow-up Instructions: With: Address: When: MABLE JOE [address] [place], [place] [phone] Business (1) In 3 days 07/23/2020 In the event that this physician does not participate in your insurance network, please consult with your insurance company to find a nearby participating provider. Patient Education Materials: Pharyngitis A MESSAGE TO ALL PATIENTS REGARDING OPIOIDS PRESCRIPTION OPIOIDS: WHAT YOU NEED TO KNOW Prescription opioids can be used to help relieve nzyqmfvh-xz-fhsrds pain and are often prescribed following a [...] be struggling with addiction, tell your health care giver and ask for guidance or call [facility]?S National Helpline at 0-283-924-PYFU. a Source: [place] Department of Health and Human Services/Center for Disease Control & Prevention [facility] Medications Given: Medication Dose Route [...] Comment: Pharmacy Information: Thank you for choosing [facility] Patient Education Materials: Pharyngitis Pharyngitis is [...] or pale yellow. ? ? Only take jvjy-ayp-nlmzcya or prescription medicines as directed by your [...] Document Reviewed: 04/14/2014 ExitCare? Patient Information ?2015 [employer]. This information is not intended to replace advice given to you by your health care provider. Make sure you discuss any questions you have with your health care provider. JESSE Urbina JESSE , have received the following patient education materials/instructio ns and have verbalized understanding: Patient Education Materials: Pharyngitis Follow-up Instructions: With: Address: When: MABLE ARROYOHMAN [address] [place] [phone] Business (1) In 3 days 07/23/2020 Patient Signature Date Clinician/Nurse Signature Date 07/20/2020 10:30:13 [facility] Prescriptions/Work Noteson 1 09-19-2019 Prescriptions/Work Notes [id number] 6#1.00CD:127 Normal [facility] Rapid COVID Antigen ([facility])on 07-20-2020 Rapid COV Int NEG Ctl Pass Normal [facility] Comment on above: Performed By: #### 2 [id number], [id number], [id number] #### [facility] [address] [place] [address] Rapid COV Int POS Ctl Pass Normal [facility] Comment on above: Performed By: #### 2 [id number], [id number], [id number] #### [facility] [address] [place] [address] Rapid COVID Ag Not Detected Normal Not Detected [facility] Comment on above: Result Comment: The SignNow System for Rapid Detection of SARS-CoV-2 is [...] or revoked sooner. Performed By: #### 2 [id number], [id number], [id number] #### [facility] [address] [place], [place] [id number] Employed in Healthcare NO Normal [facility] Comment on above: Performed By: #### 2 [id number], [id number], [id number] #### [facility] [address] [place] [address] First Test Unknown Normal [facility] Comment on above: Performed By: #### 2 [id number], [id number], [id number] #### [facility] [address] [place] [address] Hospitalized? NO Normal [facility] Comment on above: Performed By: #### 2 [id number], [id number], [id number] #### [facility] [address] [place] [address] ICU NO Normal [facility] Comment on above: Performed By: #### 2 [id number], [id number], [id number] #### [facility] [address] [place] [address] ? NO Normal [facility] Comment on above: Performed By: #### 2 [id number], [id number], [id number] #### [facility] [address] [place] [address] Resides in a Congregate Care Setting NO Normal [facility] Comment on above: Performed By: #### 2 [id number], [id number], [id number] #### [facility] [address] [place] [address] Symptomatic as defined by CDC YES Normal [facility] Comment on above: Performed By: #### 2 [id number], [id number], [id number] #### [facility] [address] [place] [address] Rapid Strep w/rfxon 07-20-20 20 S. pyogenes Ag IA Ql (Unsp spec) Negative Normal Negative [facility] Comment on above: Performed By: #### 2 [id number], [id number], [id number] #### [facility] [address] [place] [address] Consenton 04-17-2020 Consent [id number] 3#1.00CD:127 Normal [facility] Registrationon 04-17-2020 Registration [id number] 0#1.00CD:127 Normal [facility] Basic Metabolic Panel w/ Ref shawn to MGon 01-08-2020 Anion gap [Moles/Vol] 14 mmol/L 9 - 17 mmol/L [place], [place] Bun/Cre Ratio [address] [place], [place] Calcium [Mass/Vol] 9.0 mg/dL 8.6 - 10. 4 mg/dL [place], [place] Chloride [Moles/Vol] 100 mmol/L 98 - 10 7 mmol/L [place] CO2 [Moles/Vol] 24 mmol/L 20 - 31 mmol/L [place] Creatinine [Mass/Vol] 0.62 mg/dL 0.5 - 0.9 mg/dL [place] GFR NOT REPORTED >60 mL/min [place], [place] GFR Non- Pediatric GFR requires additional information. Refer to [facility] website for calculator. >60 mL/min [place], [place] Glucose [Mass/Vol] 112 mg/dL High 70 - 99 mg/dL [place], [place] Interpretation and review of laboratory results Abnormal [place] Potassium [Moles/Vol] 3.5 mmol/L Low 3.7 - 5.3 mmol/L [place] Sodium [Moles/Vol] 138 mmol/L 135 - 144 mmol/L [place] Urea nitrogen [Mass/Vol] 10 mg/dL 6 - 20 mg/dL [place] CBC Auto Differentialon 05-2 0-2020 Basophils (Bld) [#/Vol] 0.03 10*3/uL [place] Basophils/100 WBC (Bld) 0 % 0 - 2 % [place] Differential Type NOT REPORTED [place] Eosinophils (Bld) [#/Vol] 10*3/uL [place] Eosinophils/100 WBC (Bld) 0 % Low 1 - 4 % [place] Erythrocyte distribution width (RBC) [Ratio] 12.7 % 11.8 - 14.4 % [place] Hematocrit (Bld) [Volume fraction] 41.9 % 36.3 - 47.1 % [place] Hemoglobin (Bld) [Mass/Vol] 13.5 g/dL 11.9 - 15.1 g/dL [place] Immature granulocytes (Bld) [#/Vol] 0 % 0 [place] Immature granulocytes (Bld) [#/Vol] 0.04 10*3/uL [place] Interpretation and review of laboratory results Abnormal [place] Lymphocytes (Bld) [#/Vol] 0.85 10*3/uL [place] Lymphocytes/100 WBC (Bld) 7 % Low 25 - 45 % [place] MCH (RBC) [Entitic mass] 28.0 pg 25.2 - 33.5 pg [place] MCHC (RBC) [Mass/Vol] 32.2 g/dL 28.4 - 34.8 g/dL [place] MCV (RBC) [Entitic vol] 86.9 fL 82.6 - 102.9 fL [place] Monocytes (Bld) [#/Vol] 1.15 10*3/uL [place] Monocytes/100 WBC (Bld) 9 % High 2 - 8 % [place] Platelet mean volume (Bld) [Entitic vol] 11.9 fL 8.1 - 13.5 fL [place] Platelets (Bld) [#/Vol] NOT REPORTED [place] Platelets (Bld) [#/Vol] 164 10*3/uL [place] RBC (Bld) [#/Vol] 4.82 10*6/uL 3.95 - 5.1 1 m/uL [place] RBC morphology finding Nom (Bld) NOT REPORTED [place] Segmented neutrophils/100 WBC (Bld) 84 % High 34 - 64 % [place] Segs Absolute 10.62 [place] WBC (Bld) [#/Vol] 12.7 10*3/uL [place] WBC (Bld) [#/Vol] 0.0 10*3/uL 0.0 per 10 0 WBC [place] WBC Morphology NOT REPORTED [place] D-Dimer, Quantitativeon 12-20 0-2019 D-Dimer, Quant <0.27 [place] Comment on above: When combined with [...] HCG Qualitative, Serumon hCG Qual Negative NEGATIVE [place] Comment on above: Specimens with hCG l evels near the threshold of the test (25 mIU/mL) may give a negative or indeterminate result. In such cases, another test should be performed with a new specimen in 48-72 hours. If early is suspected clinically in this setting, correlation with quantitative serum b-hCG level is suggested. [employer] has confirmed the use of plasma for this test. This has not been cleared or approved by the U.S. Food and Drug Administration. The FDA has determined that such clearance is not necessary. Magnesiumon 01-08-2020 Magnesium [Mass/Vol] 2.0 mg/dL 1.7 - 2 .2 mg/dL [place] Metabolic Panelon 01-08-2020 GFR/1.73 sq M predicted among non-blacks MDRD (S/P/Bld) [Vol rate/Area] [place] Comment on above: Stage 1: Some [...] body mass. Additional eGFR calculator available at: http://www.[employer]LEAFER/multiple_crcl_2012.htm Mononucleosis Screenon 01-07 Mononucleosis Screen Negative NEGATIVE [place] XR CHEST STANDARD (2 VW)on 0 01-08-2020 EXAMINATION: TWO XRAY VIEWS OF THE CHEST 01/08/2020 1:21 pm COMPARISON: 04/29/2013. HISTORY: ORDERING SYSTEM PROVIDED HISTORY: chest pain TECHNOLOGIST PROVIDED HISTORY: chest pain FINDINGS: Lungs are clear. Cardiac and mediastinal silhouettes are within normal limits. No pneumothoraces. Bony structures appear intact. [employer] Jose Angel, Mhpn Incoming Radiant Results From [facility] - 01/08/2020 2:01 PM EDT EXAMINATION: TWO XRAY VIEWS OF THE CHEST 01/08/2020 1:21 pm COMPARISON: 04/29/2013. HISTORY: ORDERING SYSTEM PROVIDED HISTORY: chest pain TECHNOLOGIST PROVIDED HISTORY: chest pain FINDINGS: Lungs are clear. Cardiac and mediastinal silhouettes are within normal limits. No pneumothoraces. Bony structures appear intact. IMPRESSION: No evidence for acute cardiopulmonary process. [employer] No evidence for acute cardiopulmonary process. [employer] CBC auto differentialon 02-0 Basophils (Bld) [#/Vol] 10*3/uL [employer] Phone: Basophils/100 WBC (Bld) 0 % 0 - 2 % [employer] Phone: Differential Type NOT REPORTED [employer] Phone: Eosinophils (Bld) [#/Vol] 0.06 10*3/uL [employer] Phone: Eosinophils/100 WBC (Bld) 1 % 1 - 4 % [employer] Phone: Erythrocyte distribution width (RBC) [Ratio] 14.2 % 11.8 - 14.4 % [employer] Phone: Hematocrit (Bld) [Volume fraction] 35.4 % Low 36.3 - 47.1 % [employer] Phone: Hemoglobin (Bld) [Mass/Vol] 11.4 g/dL Low 11.9 - 15.1 g/dL [employer] Phone: Immature granulocytes (Bld) [#/Vol] 0.06 10*3/uL [employer] Phone: Immature granulocytes (Bld) [#/Vol] 1 % High 0 [employer] Phone: Interpretation and review of laboratory results Abnormal [employer] Phone: Lymphocytes (Bld) [#/Vol] 1.69 10*3/uL [employer] Work Phone: Lymphocytes/100 WBC (Bld) 16 % Low 25 - 45 % [employer] Work Phone: MCH (RBC) [Entitic mass] 30.2 pg 25.2 - 33.5 pg [employer] Phone: MCHC (RBC) [Mass/Vol] 32.2 g/dL 28.4 - 34.8 g/dL [employer] Work Phone: MCV (RBC) [Entitic vol] 93.9 fL 82.6 - 102.9 fL [employer] Phone: Monocytes (Bld) [#/Vol] 0.86 10*3/uL [employer] Phone: Monocytes/100 WBC (Bld) 8 % 2 - 8 % [employer] Work Phone: Platelet mean volume (Bld) [Entitic vol] 11.6 fL 8.1 - 13.5 fL [employer] Phone: Platelets (Bld) [#/Vol] NOT REPORTED [employer] Phone: Platelets (Bld) [#/Vol] 151 10*3/uL [employer] Work Phone: RBC (Bld) [#/Vol] 3.77 10*6/uL Low 3.95 - 5.1 1 m/uL [employer] Work Phone: RBC morphology finding Nom (Bld) NOT REPORTED [employer] Phone: Segmented neutrophils/100 WBC (Bld) 74 % High 34 - 64 % [employer] Work Phone: Segs Absolute 8.05 High [employer] Work Phone: WBC (Bld) [#/Vol] 10.7 10*3/uL [facility] Work Phone: WBC (Bld) [#/Vol] 0.0 10*3/uL 0.0 per 10 0 WBC [facility] Work Phone: WBC Morphology NOT REPORTED [facility] Work Phone: DRUG SCREEN MULTI URINEon Amphetamine [...] Work Phone: MDMA, Urine NOT REPORTED [facility]GATIVE [facility] Work Phone: Methadone Screen, Urine Negative NEGATIVE [facility] Work Phone: Methamphetamine, Urine Negative NEGATIVE [facility] Work Phone: Opiates, Urine Negative NEGATIVE [facility] Work Phone: Oxycodone Screen, Ur Negative NEGATIVE [...] External Resulton 02-18 ABO, External Result [employer] Work Phone: Comment on above: bs/ es C. Trachomatis, External Res ulton 02-18-2019 C. Trachomatis, External Result [facility] Work Phone: Comment on above: bs/es HIV, External Resulton 02-18 HIV, External Result non reactive Me [employer] Work Phone: Comment on above: bs/es Hepatitis B, External Result on 02-18-2019 Hep B, External Result non reactive [employer] Work Phone: Comment on above: bs/ es N. Gonorrhoeae, External Res ulton 02-18-2019 N. Gonorrhoeae, External Result Negative [facility] Work Phone: Comment on above: bs/ es RPR, External Labon 02-19-20 19 RPR, External Result non reactive Me [employer] Work Phone: Comment on above: bs/es Rh Factor, External Resulton 02-18-2019 Rh Factor, External Result Positive [employer] Work Phone: Comment on above: bs/ es Rubella Titer, External Resu lton 02-18-2019 Rubella Titer, External Result immune [employer] Phone: Comment on above: bs/es Vital Signs Date Time Vital Sign Value Performing Clinician Alycei litana maría 11-07-2022 02:25-0400 Body temperature 98.01 [degF] Latanya Max COMMUNITY HEALTH COORDINATOR [employer] [facility] Work Phone: [facility] [employer] 11-07-2022 02:25-0400 Diastolic blood pressure 69 mm[Hg] Latanya Max COMMUNITY HEALTH COORDINATOR [employer] [facility] Work Phone: [facility] [employer] 11-07-2022 02:25-0400 Heart rate 105 /min Latanya Max COMMUNITY HEALTH COORDINATOR [employer] [facility] Work Phone: [facility] [employer] 11-07-2022 02:25-0400 Respiratory rate 16 /min Latanya Max COMMUNITY HEALTH COORDINATOR - CNM Work Phone: [employer] 11-07-2022 02:25-0400 Systolic blood pressure 113 mm[Hg] Latanya Max COMMUNITY HEALTH COORDINATOR - CNM Work Phone: [employer] 11-04-2022 11:10-0400 Body temperature 98.1 [degF] Og Larios APRN - CNM Work Phone: [employer] 11-04-2022 11:10-0400 Diastolic blood pressure 59 mm[Hg] Og Larios COMMUNITY HEALTH COORDINATOR - CNM Work Phone: [employer] 11-04-2022 11:10-0400 Heart rate 134 /min Og Larios COMMUNITY HEALTH COORDINATOR - CNM Work Phone: [employer] 11-04-2022 11:10-0400 Respiratory rate 16 /min Og Larios APRN - CNM Work Phone: [employer] 11-04-2022 11:10-0400 Systolic blood pressure 104 mm[Hg] Og Larios APRN - CNM Work Phone: [employer] 05-23-2021 07:22-0400 Body height 160 cm Claudy [employer]Unmetric DO Work Phone: [employer] Work Phone: 05-23-2021 07:22-0400 Body mass index (BMI) [Ratio] 27.46 kg/m2 Claudy Andes DO Work Phone: [employer] Work Phone: 05-23-2021 07:22-0400 Body temperature 98.1 [degF] Claudy Andes DO Work Phone: [employer] Work Phone: 05-23-2021 07:22-0400 Body weight 70.31 kg Claudy Andes DO Work Phone: [employer] Work Phone: 05-23-2021 07:22-0400 Diastolic blood pressure 76 mm[Hg] Claudy Andes DO Work Phone: [employer] Work Phone: 05-23-2021 07:22-0400 Heart rate 77 /min Claudy Andes DO Work Phone: [employer] Work Phone: 05-23-2021 07:22-0400 Respiratory rate 14 /min Claudy Andes DO Work Phone: [employer] Work Phone: 05-23-2021 07:22-0400 SaO2% (BldA) [Mass fraction] 96 % Claudy Andes DO Work Phone: [employer] Work Phone: 05-23-2021 07:22-0400 Systolic blood pressure 129 mm[Hg] Claudy Andes DO Work Phone: [employer] Work Phone: 01-13-2020 20:47-0400 Body Temperature 98.2 [degF] [place] 01-13-2020 20:47-0400 BP Diastolic 76 mm[Hg] [facility] [place] 01-13-2020 20:47-0400 BP Systolic 102 mm[Hg] [place] , [place] 01-13-2020 20:47-0400 Pulse (Heart Rate) 66 /min [place] 01-13-2020 20:47-0400 Respiratory Rate 16 /min [place] [employer], [place] 01-08-2020 15:03-0400 Body Temperature 98.49 [degF] [facility] [place] 01-08-2020 14:47-0400 BP Diastolic 70 mm[Hg] [facility] [place] 01-08-2020 14:47-0400 BP Systolic 114 mm[Hg] Jared [facility] [place] 01-08-2020 14:47-0400 Pulse (Heart Rate) 91 /min Jared [facility], [place] 01-08-2020 14:47-0400 Pulse Oximetry 97 % Jared [facility] , [place] 01-08-2020 14:47-0400 Respiratory Rate 18 /min Jared [facility], [place] 01-08-2020 12:40-0400 BMI (Body Mass Index) 25.69 kg/m2 Jared Lipscomb [facility], [place] 01-08-2020 12:40-0400 Body weight 65.77 kg Jared [facility] , [place] 01-08-2020 12:40-0400 Height 160 cm [facility] , [place] 09-26-2019 07:50-0500 Body Temperature 97.5 [degF] [facility] [employer] Phone: 09-26-2019 07:50-0500 BP Diastolic 61 mm[Hg] [facility] [employer] Phone: 09-26-2019 07:50-0500 BP Systolic 104 mm[Hg] [facility] [employer] Phone: 09-26-2019 07:50-0500 Pulse (Heart Rate) 108 /min [facility] [employer] Phone: 09-26-2019 07:50-0500 Respiratory Rate 16 /min [facility] [employer] Phone: Encounters Encounter Date Encounter Type Care Provider Facility Start: 02-09-2024 End: 02-09-2024 ambulatory NETTE PHELPS Not Available Start: 12-22-2023 End: 12-22-2023 ambulatory MABLE JOE Not Available Start: 12-13-2023 End: 12-13-2023 ambulatory LATANYA MAX Not Available Start: 11-23-2023 End: 11-23-2023 ambulatory COY BILLS Not Available Start: 07-27-2023 End: 07-27-2023 Emergency department patient visit MABLE PEARLTATYANA [facility] Start: 07-03-2023 End: 07-03-2023 Emergency department patient visit MABLE Bianchi [facility] Start: 11-23-2022 End: 11-25-2022 Evaluation and management of inpatient JACOBO MAX . Facility:[facility] Start: 11-07-2022 End: 11-07-2022 ambulatory LATANYA MAX [facility] Start: 11-07-2022 End: 11-07-2022 Subsequent hospital visit by physician Latanya Max COMMUNITY HEALTH COORDINATOR - CNM Work Phone: [facility] Labor and Delivery Start: 11-04-2022 End: 11-04-2022 ambulatory MABLE Bianchi [facility] Start: 11-04-2022 End: 11-04-2022 Subsequent hospital visit by physician Og Larios COMMUNITY HEALTH COORDINATOR - CNM Work Phone: [facility] Labor and Delivery Start: 10-29-2022 End: 10-29-[address] EMILY MCNEIL . Facility:[facility] Start: 10-17-2022 End: 10-17-[address] JARAD RAOMN . Facility:[facility] Start: 07-19-2022 End: 07-20-[address] EMILY MCNEIL . Facility:[facility] Start: 05-28-2022 End: 05-28-2022 ambulatory KARINE SAVAGE Facility:[facility] Start: 05-23-2021 End: 05-23-2021 Emergency department patient visit Claudy Zavala DO Work Phone: [facility] Comment on above: Viral illness (Prima ry Dx) Start: 01-13-2020 End: 01-13-2020 Emergency department patient visit Paco Olivares Work Phone: [facility] Comment on above: Acute pharyngitis, u nspecified etiology (Primary Dx) Start: 01-08-2020 End: 01-08-2020 Emergency department patient visit Jared Lipscomb Work Phone: [facility] Comment on above: Left otitis media, u nspecified otitis media type (Primary Dx); Acute pharyngitis, unspecified etiology Start: 09-25-2019 End: 09-26-2019 Evaluation and management of inpatient Latanya Max Work Phone: [facility] Labor and Delivery Procedures Date Procedure Procedure Detail Performing Clinician Start: 11-07-2022 Urnls dip stick/tabl et rgnt auto w/o microscopy Latanya Max COMMUNITY HEALTH COORDINATOR - CNM Work Phone: Start: 11-04-2022 Urinalysis microscop ic only Og Christa Larios COMMUNITY HEALTH COORDINATOR - CNM Work Phone: Start: 11-04-2022 Urnls dip stick/tabl et rgnt auto w/o microscopy Og Goodwin Ric COMMUNITY HEALTH COORDINATOR - CNM Work Phone: Start: 10-27-2022 GBS, EXTERNAL RESULT Hi storical Provider Start: 05-16-2022 ABO, EXTERNAL RESULT Hi storical Provider Start: 05-16-2022 C. TRACHOMATIS, EXTE RNAL RESULT Historical Provider Start: 05-16-2022 HEPATITIS B, EXTERNA L RESULT Historical Provider MD Start: 05-16-2022 HIV, EXTERNAL RESULT Hi storical Provider Start: 05-16-2022 N. GONORRHOEAE, EXTE RNAL RESULT Historical Provider Start: 05-16-2022 RH FACTOR, EXTERNAL RESULT Historical Provider Start: 05-16-2022 RPR, EXTERNAL RESULT Mi storical Provider Start: 05-16-2022 RUBELLA TITER, EXTER NAL RESULT Historical Provider Start: 05-23-2021 Ecg routine ecg w/le ast 12 lds w/i&r Claudy Zavala DO Work Phone: Start: 01-08-2020 Radiologic exam [...] Work Phone: Start: 09-12-2019 GBS, EXTERNAL RESULT [facility] Provider Start: 02-18-2019 ABO, EXTERNAL RESULT [facility] Provider Start: 02-18-2019 C. TRACHOMATIS, EXTE RNAL RESULT Historical Provider Start: 02-18-2019 HEPATITIS B, EXTERNA L RESULT Historical Provider Start: 02-18-2019 [facility] Start: 02-18-2019 N. GONORRHOEAE, EXTE RNAL RESULT Historical Provider Start: 02-18-2019 RH FACTOR, EXTERNAL RESULT Historical Provider Start: 02-18-2019 RPR, EXTERNAL RESULT [facility] Provider Start: 02-18-2019 RUBELLA TITER, EXTER NAL RESULT Historical Provider Plan of Treatment Date Care Activity Detail Author Start: 08-29-2029 DTaP/Tdap/Td vaccine (8 - Td or Tdap) DTaP/Tdap/Td vaccine (8 - Td or Tdap) [facility] Start: 08-29-2029 DTaP/Tdap/Td vaccine (8 - Td) DTaP/Tdap/Td vaccine (8 - Td) [place] Start: 05-16-2023 Screening for Chlamy collette trachomatis Chlamydia/GC screen [facility] [employer] Start: 03-21-2022 Influenza vaccination Flu vaccine (# 1) [facility] Start: 04-21-2021 Influenza vaccination Flu vaccine (# 1) [facility] Work Phone: Start: 2021 Screening for malign ant neoplasm of cervix Pap smear [facility] Start: 04-21-2019 Influenza vaccination Flu vaccine (# 1) [facility] [employer] Phone: Start: 2018 Hepatitis C screening Hepatitis C sc reen [facility] Start: 2016 Chlamydia screen Chlamydia screen [facility] [employer] Phone: Start: 2016 Screening for Chlamy collette trachomatis Chlamydia screen [place] Start: 2015 HIV screen HIV screen [facility] [employer] Phone: Start: 2015 HIV screening HIV screen [place], [place] Start: 2012 COVID-19 Vaccine (1) COVID-19 Vaccin e (1) [facility] [employer] Phone: Start: 2012 Depression Screen Depression Screen [facility] Start: 2011 DTaP/Tdap/Td vaccine (1 - Tdap) DTaP/Tdap/Td vaccine (1 - Tdap) [facility] Phone: Start: 2011 HPV vaccine (1 - Fem jeremy 2-dose series) HPV vaccine (1 - Female 2-dose series) [facility] [employer] Phone: Start: 2001 Varicella vaccine (1 of 2 - 2-dose childhood series) Varicella vaccine (1 of 2 - 2-dose childhood series) [facility] Phone: Start: 2000 COVID-19 Vaccine (#1) COVID-19 Vacci ne (#1) [facility] Start: 2000 Hepatitis C screening [facility] [employer] Phone: End: 11-04-2022 Bacteria identified in Urine by Culture [facility] Phone: Comment on above: One Time for 1 Occur rences starting 11/04/2022 until 11/04/2022 End: 11-07-2022 Bacteria identified in Urine by Culture Urine culture Microbiology Routine One Time for 1 Occurrences starting 11/07/2022 until 11/07/2022 [employer] Phone: Comment on above: One Time for 1 Occur rences starting 11/07/2022 until 11/07/2022 EKG 12 Lead [employer] [place] nonstress test nonst ress test OB Routine Daily until discontinued starting 11/05/2022 [employer] Phone: Comment on above: Daily until disconti nued starting 11/05/2022 nonstress test nonst ress test OB Routine Daily until discontinued starting 11/07/2022 [employer] Phone: Comment on above: Daily until disconti nued starting 11/07/2022 Nonrebreather mask oxygen Nonreb reather mask oxygen Respiratory Care Routine As directed - RT (PRN) until discontinued starting 11/04/2022 [employer] Phone: Comment on above: As directed - RT (ME N) until discontinued starting 11/04/2022 Nonrebreather mask oxygen Nonreb reather mask oxygen Respiratory Care Routine As directed - RT (PRN) until discontinued starting 11/07/2022 [employer] Phone: Comment on above: As directed - RT (ME N) until discontinued starting 11/07/2022 End: 09-25-2019 Sample possible blood bank testing Sample possible blood bank testing Lab STAT One Time for 1 Occurrences starting 09/25/2019 until 09/25/2019 [employer] Phone: Comment on above: One Time for 1 Occur rences starting 09/25/2019 until 09/25/2019 End: 11-04-2022 SVE SVE Point of Care Testing Routine One Time for 1 Occurrences starting 11/04/2022 until 11/04/2022 [employer] Phone: Comment on above: One Time for 1 Occur rences starting 11/04/2022 until 11/04/2022 End: 11-07-2022 SVE SVE Point of Care Testing Routine One Time for 1 Occurrences starting 11/07/2022 until 11/07/2022 [employer] Phone: Comment on above: One Time for 1 Occur rences starting 11/07/2022 until 11/07/2022 End: 05-23-2021 XR CHEST PORTABLE XR CHEST PORTABLE Imaging STAT Once for 1 Occurrences starting 05/23/2021 until 05/23/2021 [employer] Phone: Comment on above: Once for 1 Occurrenc es starting 05/23/2021 until 05/23/2021 XR CHEST PORTABLE XR CHEST JOSH BLE Imaging STAT 05/23/2021 7:35 AM EDT [employer] Phone: Payers Date Payer Category Payer Unknown [facility] xxxxxxxxxxxx 2019-Present [phone] [address] [place] [address] xxxxxxxxxxxx [id number] 2000 Unknown [id number] 2000 Unknown [id number] 2000 Unknown [id number] 2000 Unknown [id number] 2000 Unknown [id number] 2000 Unknown [id number] 2000 Unknown [id number] 2000 Unknown [id number] 2000 Unknown [id number] 2000 Unknown [id number] 9 2000 Unknown [id number] 9 2000 Unknown [id number] 9 2000 Unknown [id number] 9 1959 Unknown [id number] Social History Date Type Detail Facility Start: 01-08-2020 End: 11-04-2022 Tobacco smoking status [facility] Never smoker [facility] [employer] Start: 01-08-2020 End: 11-07-2022 Alcohol intake Current non-drinker of alcohol (finding) [employer] Work Phone: Start: 2000 Sex Assigned At Not on file [facility] [employer] Work Phone: Exposure to SARS-CoV -2 (event) Unable to assess [employer] Start: 01-06-2019 [facility] Work Phone: Start: 05-23-2021 End: 11-04-2022 Tobacco use and exposure Never used [employer] Exposure to SARS-CoV -2 (event) Not sure [employer] Clinical Note 11-23-2022 Note Date & Type Note Facility 11-23-2022 Note OPERATIVE NOTE PROCEDURE: Exploratory exam status post vaginal delivery. PREOPERATIVE DIAGNOSIS: hemorrhage. POSTOPERATIVE DIAGNOSIS: hemorrhage. ANESTHESIA: Epidural. SURGEON: Jarad Ramon D.O. CRO: Jacobo Floro, CNM (certified nurse pinked edge sewing machine operator) BLOOD LOSS IN THE VAC: 20 mL. [...] arrived to the unit. At that time, Jacboo Chandracarmenza appeared to have the bleeding under control. [...] was given Versed per the certified nurse route sales specialist. The cervix was explored in great detail. No cervical laceration could be seen. The patient's uterus was gently explored. Any additional blood clots were removed and possibly a small portion of retained placenta. Once excellent hemostasis was assured, patient was taken out of dorsolithotomy position and taken back to Labor and Delivery for recovery. [facility] Discharge instructions 11-07-2022 Discharge Instructions Note Date & Type Note Facility 11-07-2022 Hospital Discharg e instructions Brittany So RN - 11/07/2022 7:52 AM EDT OUTPATIENT DISCHARGE Dr. Carola Larios [facility] [address] [facility] [address] [place]olai Jacobo Max, MSN, COMMUNITY HEALTH COORDINATOR, CNM [address] [address] ACTIVITY LIMITATIONS: ( X )Up [...] AND DELIVERY . documented in this encounter [employer] Phone: Hospital Discharge instructions 11-04-2022 Discharge Instructions Note Date & Type Note Facility 11-04-2022 Hospital Discharg e instructions Diamond Bronson RN - 11/04/2022 1:02 PM EDT OUTPATIENT DISCHARGE Jacobo Max, MSN, COMMUNITY HEALTH COORDINATOR, CNM [address] [id number] ACTIVITY LIMITATIONS: ( x )Up and about [...] AND DELIVERY . documented in this encounter [employer] Phone: Clinical Note 08-10-2022 Note Date & [...] signed by Jono Wiggins on 08/11/2022 0731 [facility] [facility] Psychology Associate Clinical Note 07-20-2022 Note Date & Type [...] by: SHIN MEYER Date: 2022-07-20 10:58 [facility] Evaluation note Note Date & Type Note Facility Evaluation note Diagnosis Viral illness- Primary Unspecified viral infection, in conditions classified elsewhere and of unspecified site documented in this encounter [employer] Phone: Evaluation note Note Date & Type Note Facility Evaluation note Diagnosis Uterine contractions- Primary documented in this encounter [facility] Phone: Hospital Discharge instructions Attachments Note Date & Type Note Facility Hospital Discharge instructions The following attachments cannot be sent through Care Everywhere.URI (Upper Respiratory Infection): Viral (Gambian)documented in this encounter [employer] Phone: Discharge Instructions * Instructions* Jared Lipscomb Jr., MD - 01/08/2020 Off work and quarantine yourself until the results of your COVID testing returns. Use Tylenol or Advil for pain and fever. Return if you get short of breath, develop a high fever, or get worse in other ways. * Attachments The following attachments cannot be sent through Care Everywhere. * Otitis Media (Gambian) * Sore Throat (Gambian) documented in this encounter* Attachments The following attachments cannot be sent through Care Everywhere. * Sore Throat (Gambian) documented in this encounter* Instructions* Lexi Griffiths RN - 09/26/2019 OUTPATIENT DISCHARGE [facility]o [facility] ACTIVITY LIMITATIONS: ( X )Up and about [...] FoundDocuments on File Type Date Recorded Patient Drug Discovery Informatics Specialist Expl anation Advance Directives and Living Will Power of Pulp Drier Firer Latest Code Status on File Code Status Date Activated Date Inactivated Comments Full Code 09/25/2019 7:30 PM 09/26/2019 12:09 PM Full Code 09/25/2019 5:37 PM 09/25/2019 5:53 PM Full Code 04/30/2013 2:46 AM 04/30/2013 4:44 PM Latest Code Status on File Code Status Date Activated Date Inactivated Comments Full Code 09/25/2019 7:30 PM Documents on File Type Date Recorded Patient Drug Discovery Informatics Specialist Expl anation ACP-Advance Directive ACP-Power of Pulp Drier Firer Healthcare Agents on File Name Relationship Healthcare [...] Healthcare Agent Relationshi p Communication Wally () Molina Parent Primary Decis n Maker Summary Purpose Family History No Family History Records FoundNo Family History Records FoundNo Family History Records FoundNo Family History Records FoundNo Family History Records FoundNo Family History Records Found History of Present Illness * Tessa Reis RN - 09/25/2019 9:22 PM EST Flory [...] 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 Pt tearful during triage Reason Comments Otalgia Bilateral ear pain x 1 month Pharyngitis x 1 week Reason Comments Scheduled Induction Reason Comments Pharyngitis Onset today Chest Pain Mid, near neck, onse t this AM Nausea Cough Onset today, non-pro ductive Reason Comments Contractions Reason Comments Abdominal Pain INFORMATION SOURCE (unrecogn ized section and content) DATE CREATED AUTHOR 09/03/2020 Wali Evans [facility] DATE CREATED AUTHOR AUTHOR'S ORGANIZ ATION 09/12/2021 [facility] DATE CREATED AUTHOR AUTHOR'S ORGANIZ ATION 08/13/2022 [facility] Me dical Specialist DATE CREATED AUTHOR AUTHOR'S ORGANIZ ATION 11/26/2022 [facility] DATE CREATED AUTHOR AUTHOR'S ORGANIZ ATION 08/01/2023 [facility] DATE CREATED AUTHOR AUTHOR'S ORGANIZ ATION 02/11/2024 [facility] dical Specialists EPIC Ordered Prescriptions (unrec [...] (New Bag - Prov ider: Sandy Leblanc, SHANA)0416 (Stopped - Provider: Sandy Leblanc RN) NIFEdipine (PROCARDIA) capsule 10 mg (COMPLETED) 10 mg, Oral, ONCE, 1 dose, On Mon11/07/22 at 0800 0745 (Given - Provid er: Brittany So, SHANA) Continuous Medication Order 11/05/2022 11/06/2022 11/07/2022 lactated ringers IV soln infusion IntraVENous, at 100 mL/hr, CONTINUOUS, Starting on 11/07/22 at 0315, START AFTER BOLUS 0417 (Bolus from Bag - Provider: Sandy Leblanc, RN)0748 (Stopped - Provider: Brittany So RN) Care Teams (unrecognized sec tion and content) Natural Sciences Manager Relationship Specialty Start Date End Date Mable García MD [address] [place] [address] PCP - General Family Medicine 09/25/19 Natural Sciences Manager Relationship Specialty Start Date End Date Mable García MD [address] [place] [id number] PCP - General Family Medicine 09/25/19 FOR [...] BE BASED ON THE PRIMARY CLINICAL RECORDS. [employer] provides no warranty or guarantee of the accuracy or completeness of information in this document.
--- NOTE | 2024-02-25 21:29 | ED_ITS ---
HPI - Eye Problem General Chief complaint: Eye Problems Stated complaint: EYE REDNESS/FEVER Time Seen by Provider: 02/25/24 21:23 Source: patient Mode of arrival: walk-in Limitations: no limitations History of Present Illness HPI Narrative: 23-year-old female presents for bilateral eye redness and slight drainage. She has had it for a few days. No history of foreign body or trauma. She believes she had a fever at home and one of her children has a scratchy throat. She has not had cough or vomiting or abdominal pain or shortness of breath. Related Data Allergies Allergy/AdvReac Type Severity Reaction Status Date / Time No Known Drug Allergies Allergy Verified 02/25/24 21:22 Review of Systems 2 ROS Narrative A ten point review of systems is negative except as noted above. Exam Narrative Exam Narrative: Nurses note and vital signs reviewed and patient is not hypoxic. General: The patient appears well and in no apparent distress. Patient is resting comfortably on cart. Skin: Warm, dry, no pallor noted. There is no rash noted. Head: Normocephalic, atraumatic Eye: Bilateral conjunctiva injection present. No foreign bodies are noted. No periorbital swelling or erythema. Ears, Nose, Mouth, and Throat: oral mucosa is moist. Nares patent. Cardiovascular: Regular Rate and Rhythm Respiratory: Patient is in no distress, no accessory muscle use, lungs are clear to auscultation, no wheezing, rales or rhonchi Back: non-tender GI: Soft and nontender Musculoskeletal: The patient has no evidence of calf tenderness, no pitting edema, symmetrical pulses noted bilaterally Neurological: Awake and alert Psychiatric: Cooperative Constitutional Vital Signs, click to edit/add: Last Vital Signs Temp 98.4 F 02/25/24 21:19 Pulse 95 H 02/25/24 21:19 Resp 16 02/25/24 21:19 BP 124/74 02/25/24 21:19 Pulse Ox 97 02/25/24 21:19 O2 Del Method Room Air 02/25/24 21:19 Course Vital Signs Vital signs: Vital Signs Temperature 98.4 F 02/25/24 21:19 Pulse Rate 95 H 02/25/24 21:19 Respiratory Rate 16 02/25/24 21:19 Blood Pressure 124/74 02/25/24 21:19 Pulse Oximetry 97 02/25/24 21:19 Oxygen Delivery Method Room Air 02/25/24 21:19 Temperature 98.4 F 02/25/24 21:19 Pulse Rate 95 H 02/25/24 21:19 Respiratory Rate 16 02/25/24 21:19 Blood Pressure 124/74 02/25/24 21:19 Pulse Oximetry 97 02/25/24 21:19 Oxygen Delivery Method Room Air 02/25/24 21:19 MDM - Eye Problem MDM Narrative Medical decision making narrative: My clinical impression is that she has conjunctivitis. She was dispensed a nabor le of Bleph-10. Treatment diagnosis and follow-up were discussed with the patient. Differential Diagnosis Differential diagnosis: Likely corneal abrasion, conjunctivitis, periorbital cellulitis and subconjunctival hemorrhage Discharge Plan Discharge Stand Alone Forms: Portal Instructions Chief Complaint: Eye Problems Clinical Impression: Acute conjunctivitis, bilateral Patient Disposition: Home, Self-Care Time of Disposition Decision: 21:27 Condition: Good Mode of Transportation: Private Vehicle Print Language: Turkmen Instructions: Conjunctivitis (ED) Referrals: KAREN JOE [Primary Care Provider] - 1 week
[2024-02-25] MEDS: SULFACETAMIDE SODIUM 10% OP 300 DROP/15 ML BOTTLE OP (21:36)
== END 2024-02-25 21:44 | disposition home or self-care (01) ==
PROVIDERS: Emergency Provider Emergency Medicine; PCP Family Medicine
DX: H10.33 Unspecified acute conjunctivitis, bilateral (principal)
CPT/HCPCS: 99284

== ENCOUNTER 2024-02-28 15:00 | Emergency (ER) | payer SELFPAY ==
[2024-02-28] VITALS (11 sets, daily range): BP systolic 107–124; BP diastolic 70–86; PULSE 61–89; TEMP 37.3; O2SAT 97–99; BMI 26.6
--- NOTE | 2024-02-28 15:20 | XR_ITS ---
The [address] [address] Patient Name: INDIA MOLINA MRN: [id number] date: 2000 Sex: F Assigned Patient Location: ER Current Patient Location: ER Accession/Order Number: [id number] Exam Date: 02/28/2024 15:55 Report Date: 02/28/2024 16:57 At the request of: FLEX AVALOS Procedure: XR chest 1V EXAM: CHEST 1 VIEW HISTORY: cough TECHNIQUE: Chest, one view. COMPARISON: 07/14/2023. FINDINGS: Lungs are clear. No focal consolidation, pleural effusion, or pneumothorax. Pulmonary vasculature is within normal limits. Cardiomediastinal silhouette is normal. XR/XR chest 1V IMPRESSION: 1. Clear lungs. No acute cardiopulmonary disease. Electronically authenticated by: KANDICE YANG Date: 02/28/2024 16:57
--- NOTE | 2024-02-28 15:26 | ED_ITS ---
HPI - URI/Sore Throat General Chief Complaint: Upper Respiratory Infection Stated Complaint: URTI COMPLAINTS Time Seen by Provider: 02/28/24 15:04 Source: patient Limitations: no limitations History of Present Illness HPI Narrative: Patient presents ED complaining of upper respiratory symptoms and not feeling well. She said she was here about a week ago and was diagnosed with pinkeye. She said her eyes are feeling much better but today she was feeling confused and had some chest tightness and she was concerned so she came in for further evaluation. Upon arrival she is alert and oriented in no acute distress no neurological deficits. She does have a low-grade temp of 99.1. Blood pressure is normal heart rate is normal and oxygen saturations 98. She denies pain with breathing and denies calf pain or swelling. No abdominal pain no vomiting. She reports that she is on her period right now Related Data Allergies Allergy/AdvReac Type Severity Reaction Status Date / Time No Known Drug Allergies Allergy Verified 02/25/24 21:22 Review of Systems ROS Status of ROS 10 or more systems reviewed and unremark able except as noted in history and below Exam Narrative Exam Narrative: Time Seen: [] Vital Signs: [Per nurse's notes.] General: [Alert] Skin: [Warm, dry, no rash.] Head: [Normocephalic, atraumatic.] Neck: [Supple, trachea midline.] Eye: [Pupils are equal, round and reactive to light, extraocular movements are intact, Sclera injected, mild conjunctivitis bilaterally Ears, nose, mouth and throat: oral mucosa moist. Cardiovascular: [Regular rate and rhythm, no murmur.] Respiratory: [Lungs are clear to auscultation, respirations are non-labored, breath sounds are equal.] Chest wall: [No tenderness, no deformity.] Gastrointestinal: [Soft, nontender, non distended, normal bowel sounds.] MSK: 5 out of 5 muscle strength x 4 extremities no calf pain or edema Lymphatics: [No lymphadenopathy.] Psychiatric: [Cooperative, appropriate mood & affect.] Neurological: [Alert and oriented to person, place, time, and situation, no focal neurological deficit observed.] Constitutional Vital Signs, click to edit/add: Last Vital Signs Temp 99.1 F 02/28/24 15:05 Pulse 89 02/28/24 15:50 Resp 21 H 02/28/24 15:50 BP 121/77 02/28/24 16:00 Pulse Ox 98 02/28/24 15:51 O2 Del Method Nasal Cannula 02/28/24 15:51 Course Vital Signs Vital signs: Vital Signs Temperature 99.1 F 02/28/24 15:05 Pulse Rate 75 02/28/24 15:05 Respiratory Rate 20 02/28/24 15:05 Blood Pressure 118/86 02/28/24 15:05 Pulse Oximetry 98 02/28/24 15:05 Temperature 99.1 F 02/28/24 15:05 Pulse Rate 89 02/28/24 15:50 Respiratory Rate 21 H 02/28/24 15:50 Blood Pressure 121/77 02/28/24 16:00 Pulse Oximetry 98 02/28/24 15:51 Oxygen Delivery Method Nasal Cannula 02/28/24 15:51 MDM - URI/Sore Throat MDM Narrative Medical decision making narrative: Patient's labs and imaging are nonacute. Most likely just a viral syndrome affecting her eyes and chest and causing her to feel unwell. She says she feels a lot better after IV Toradol and fluids. Patient instructed to take Tylenol Motrin at home for discomfort or fevers. Return to ER if worsening symptoms. Follow-up with family doctor, patient is comfortable with care plan for home Differential Diagnosis Differential diagnosis: Likely upper respiratory infection, viral infection, bronchitis and influenza Medical Records Attestation: I reviewed the patient's medical records. Lab Data Attestation: I reviewed the patient's lab results. Labs: Lab Results 02/28/24 02/28/24 Range/Units 15:37 15:38 WBC 5.1 (4.0-11.0) 10^3/uL RBC 4.41 (4.20-5.40) 10^6/uL Hgb 12.1 (12.0-16.0) g/dL Hct 37.4 (36.0-48.0) % MCV 84.8 (81.0-99.0) fL MCH 27.4 (26.7-34.0) pg MCHC 32.4 (29.9-35.2) g/dL RDW 13.7 (11.0-15.0) % Plt Count 188 (150-450) 10^3/uL MPV 11.7 (9.5-13.5) fL Neut % (Auto) 55.0 (43.0-75.0) % Lymph % (Auto) 37.5 (20.5-60.0) % Winston % (Auto) 6.1 (1.7-12.0) % Eos % (Auto) 0.4 L (0.9-7.0) % Baso % (Auto) 0.8 (0.2-2.0) % Neut # (Auto) 2.8 (1.4-6.5) 10^3/uL Lymph # (Auto) 1.9 (1.2-3.8) 10^3/uL Winston # (Auto) 0.3 (0.3-0.8) 10^3/uL Eos # (Auto) 0.0 (0.0-0.7) 10^3/uL Baso # (Auto) 0.0 (0.0-0.1) 10^3/uL Abs Immat Gran (auto) 0.01 (0.00-0.03) 10^3/uL Imm/Tot Granulo (auto) 0.2 (0.0-0.5) % Sodium 139 (136-145) mmol/L Potassium 3.5 (3.5-5.1) mmol/L Chloride 106 (98-107) mmol/L Carbon Dioxide 25.5 (21.0-32.0) mmol/L Anion Gap 11.0 BUN 8.0 (7.0-18.0) mg/dL Creatinine 0.66 (0.55-1.02) mg/dL Est GFR ( Amer) >60 (>=60) Est GFR (Non-Af Amer) >60 (>=60) BUN/Creatinine Ratio 12.1 Glucose 92 (74-106) mg/dL Calcium 8.7 (8.5-10.1) mg/dL Total Bilirubin 0.3 (0.2-1.0) mg/dL AST 13 L (15-37) U/L ALT 15 (14-59) U/L Alkaline Phosphatase 50 (46-116) U/L Total Protein 7.2 (6.4-8.2) g/dL Albumin 2.9 L (3.4-5.0) g/dL Globulin 4.3 g/dL Albumin/Globulin Ratio 0.7 Influenza Type A Ag Negative Influenza Type B Ag Negative SARS-CoV-2 Ag (CV2AG) Negative (NEGATIVE) Imaging Data Chest x-ray: Radiologist's impression: ITS Impressions Chest X-Ray 02/28/24 15:20 IMPRESSION: 1. Clear lungs. No acute cardiopulmonary disease. Electronically authenticated by: KANDICE YANG Date: 02/28/2024 16:57 Discharge Plan Discharge Stand Alone Forms: Portal Instructions Chief Complaint: Upper Respiratory Infection Clinical Impression: Upper respiratory infection Patient Disposition: Home, Self-Care Time of Disposition Decision: 17:02 Mode of Transportation: Private Vehicle Print Language: Yi Instructions: Viral Syndrome (ED) Referrals: KAREN JOE [Primary Care Provider] - 1 week
[2024-02-28] MEDS: 0.9 % SODIUM CHLORIDE 500 ML IV (15:46)
[2024-02-28] MEDS: KETOROLAC TROMETHAMINE 30 MG/ML VIAL 15 MG IVP (15:46)
[2024-02-28 15:48] LABS: Basophils Percent Auto 0.8 % (0.2-2.0); Eosinophils Percent Auto 0.4 % (0.9-7.0); Hematocrit 37.4 % (36.0-48.0); Hemoglobin 12.1 g/dL (12.0-16.0); Immature Granulocytes Abs Auto 0.01 10^3/uL (0.00-0.03); Immature Granulocytes Pct Auto 0.2 % (0.0-0.5); Lymphocytes Absolute Auto 1.9 10^3/uL (1.2-3.8); Lymphocytes Percent Auto 37.5 % (20.5-60.0); Mean Corpuscular HGB Conc 32.4 g/dL (29.9-35.2); Mean Corpuscular Hemoglobin 27.4 pg (26.7-34.0); Mean Corpuscular Volume 84.8 fL (81.0-99.0); Mean Platelet Volume 11.7 fL (9.5-13.5); Monocytes Absolute Auto 0.3 10^3/uL (0.3-0.8); Monocytes Percent Auto 6.1 % (1.7-12.0); Neutrophils Absolute Auto 2.8 10^3/uL (1.4-6.5); Platelet Count 188 10^3/uL (150-450); Red Blood Count 4.41 10^6/uL (4.20-5.40); Red Cell Distribution Width 13.7 % (11.0-15.0); White Blood Count 5.1 10^3/uL (4.0-11.0)
[2024-02-28 16:02] LABS: Influenza Virus A Antigen Negative; Internal Control Within Normal Limits; SARS-CoV-2 Ag NEGATIVE (NEGATIVE)
[2024-02-28 16:03] LABS: Alanine Aminotransferase 15 U/L (14-59); Albumin Globulin Ratio 0.7; Albumin Level 2.9 g/dL (3.4-5.0); Alkaline Phosphatase 50 U/L (46-116); Aspartate Amino Transferase 13 U/L (15-37); BUN Creatinine Ratio 12.1; Bilirubin Total 0.3 mg/dL (0.2-1.0); Calcium 8.7 mg/dL (8.5-10.1); Carbon Dioxide 25.5 mmol/L (21.0-32.0); Chloride 106 mmol/L (98-107); Estimated GFR (African America >60 (>=60); Estimated GFR (Non-African Ame >60 (>=60); Globulin 4.3 g/dL; Glucose 92 mg/dL (74-106); Potassium 3.5 mmol/L (3.5-5.1); Sodium 139 mmol/L (136-145); Total Protein 7.2 g/dL (6.4-8.2)
[2024-02-28 16:03] LABS: Influenza Virus B Antigen Negative; Internal Control Within Normal Limits
--- NOTE | 2024-02-28 17:33 | ECG_ITS ---
The [facility] Test Date: 2024-02-28 Pat Name: INDIA MOLINA Department: Room: - Gender: Female Director Of Employer Services: : 2000 Requested By: [id number] Order Number: [id number] Reading MD: LOU BELLO Measurements Intervals [place] Rate: 71 P: 60 OR: 172 QRS: 79 QRSD: 86 T: 63 QT: 374 QTc: 396 Interpretive Statements 1100 Sinus rhythm 2420 RSR (QR) in lead V1/V2, consistent with right ventricular conduction delay 9130 borderline ECG Compared to ECG 07/14/2023 17:10:12 No significant changes Electronically Signed On 02-28-2024 18:37:47 EDT by LOU BELLO
== END 2024-02-28 17:19 | disposition home or self-care (01) ==
PROVIDERS: Emergency Provider Emergency Medicine; PCP Family Medicine
DX: J06.9 Acute upper respiratory infection, unspecified (principal); Z20.822 Contact with and (suspected) exposure to COVID-19
CPT/HCPCS: 36415; 71045; 80053; 85025; 87804; 87811; 93005; 96374; 99285; J1885

== ENCOUNTER 2024-05-06 18:52 | Emergency (ER) | payer SELFPAY ==
--- OUTSIDE RECORDS SUMMARY | 2024-05-06 19:00 | XMS_ITS | CCD ---
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 [address] Tube Former Operator: Phil Kellre MD Flu B Ag Detection Negative Normal NEG [facility] Comment on above: Result Comment: for Influenza B Antigen. Performed By: #### F ROSANNE #### [facility] [address] [place] [address] Tube Former Operator: Phil Keller MD [id number] 07-27-2023 SARS-CoV-2 (COVID-19) RNA AMY+probe Ql (Unsp spec) Not detected Normal NOTDET [facility] Comment on above: Result Comment: Rapid [...] management decisions. Fact sheet for Healthcare Providers: https://www.fda.gov/media/958131/download Fact sheet for Patients: https://www.fda.gov/media/248133/download Methodology: Isothermal Nucleic Acid Amplification Performed By: #### C OVRB #### [facility] [address] [place] [address] [place] [address] Tube Former Operator: Phil Keller MD Strep Group A, Rapidon 07-27 Strep A, Molecular Positive Abnormal NEG [facility] Comment on above: Performed By: #### R SAB #### [facility] [address] [place] [address] Tube Former Operator: Phil Keller MD Source .THROAT SWAB Normal [facility] Comment on above: Performed By: #### R SAB #### [facility] [address] [place] [address] Tube Former Operator: Phil Keller MD HCG, ,Urineon 07-03 Beta HCG ( test) Ql (U) Negative Normal NEG [facility] Comment on above: Result Comment: Spec imens with hCG levels near the threshold of the test (25 mIU/mL) may give a negative or indeterminate result. In such cases, another test should be performed with a new specimen in 48-72 hours. If early is suspected clinically in this setting, correlation with quantitative serum b-hCG level is suggested. [facility] has confirmed the use of plasma for this test. This has not been cleared or approved by the U.[place]. Food and Drug Administration. The FDA has determined that such clearance is not necessary. Performed By: #### U HCG, UAMIC #### [facility] [address] [place] [address] Tube Former Operator: Phil Keller MD Urinalysis w/ Microon 9 Bacteria 2+ Abnormal NONE [facility] Comment on above: Performed By: #### U HCG, UAMIC #### [facility] [address] [place] [address] Tube Former Operator: Phil eKller MD Bilirubin, SemiQt,Ur Negative Normal NEG [facility] Comment on above: Performed By: #### U HCG, UAMIC #### [facility] [address] [place] [address] Tube Former Operator: Phil Keller MD Blood, Urine 3+ Abnormal NEG [facility] Comment on above: Performed By: #### U HCG, UAMIC #### [facility] [address] [place] [address] Tube Former Operator: Phil Keller MD Clarity (U) Turbid Abnormal CLEAR [facility] Comment on above: Performed By: #### U HCG, UAMIC #### [facility] [address] [place] [address] Tube Former Operator: Phil Keller MD Color (U) Dark Yellow Abnormal YEL [facility] Comment on above: Performed By: #### U HCG, UAMIC #### [facility] [address] [place], [place] [id number] Tube Former Operator: Phil Keller MD Epithelial cells LM Ql (Urine sed) 5 TO 10 Normal 0-25 [facility] Comment on above: Performed By: #### U HCG, UAMIC #### [facility] [address] [place], [place] [id number] Tube Former Operator: Phil Keller MD Glucose Ql (U) Negative [facility]G [facility] Comment on above: Performed By: #### U HCG, UAMIC #### [facility] [address] [place], [place] [id number] Tube Former Operator: Phil Keller MD Ketones Ql (U) Negative Normal NEG [facility] Comment on above: Performed By: #### U HCG, UAMIC #### [facility] [address] [place], [place] [id number] Tube Former Operator: Phil Keller MD Leukocyte esterase Test strip Ql (U) MODERATE Abnormal NEG [facility] Comment on above: Performed By: #### U HCG, UAMIC #### [facility] [address] [place], [place] [id number] Tube Former Operator: Phil Keller MD Nitrite,Ur Positive Abnormal NEG [facility] Comment on above: Performed By: #### U HCG, UAMIC #### [facility] [address] [place], [place] [id number] Tube Former Operator: Phil Keller MD PH,Ur 6.5 Normal 5.0-9.0 [facility] Comment on above: Performed By: #### U HCG, UAMIC #### [facility] [address] [place] [address] Tube Former Operator: Phil Keller MD Protein Ql (U) 2+ mg/dL Abnormal NEG [facility] Comment on above: Performed By: #### U HCG, UAMIC #### [facility] [address] [place] [address] Tube Former Operator: Phil Keller MD Spec. [place],Ur 1.025 High 1.010-1.020 [facility] Comment on above: Performed By: #### U HCG, UAMIC #### [facility] [address] [place] [id number] Tube Former Operator: Phil Keller MD Urine RBC's 10 TO 20 Normal 0-2 [facility] Comment on above: Performed By: #### U HCG, UAMIC #### [facility] [address] [place], [place] [id number] Tube Former Operator: Phil Keller MD Urine WBC's 20 TO 50 Normal 0-5 [facility] Comment on above: Performed By: #### U HCG, UAMIC #### [facility] [address] [place], [place] [id number] Tube Former Operator: Phil Kelelr MD Urobilinogen,Ur Normal Normal 0.0-1.0 [facility] Comment on above: Performed By: #### U HCG, UAMIC #### [facility] [address] [place] [id number] Tube Former Operator: Phil Keller MD PRBC LEUKOREDUCEDon 11-27-19 23 ABO and Rh group Nom (Bld) Cross Match Result Compatible Unit Blood Type O Neg Unit Number [id number] Status Information Transfused Product ID Red Blood Cells Product Code [id number] Cross Match Result Compatible Unit Blood Type O Neg Unit Number [id number] Status Information Released Specimen Exp Date [id number] Product ID Red Blood Cells Product Code [id number] Normal [facility] Comment on above: Performed By: #### CELY FENTON #### [facility] [address] [place] [address] Dr. Nilo Gibbons CBC AUTO DIFFon 11-24-2022 BASO # 0.0 103/ul Normal 0.0-0.1 [facility] Comment on above: Performed By: #### E VANITA UMICRO #### [facility] [address] [place] [address] Dr. Nilo Gibbons Basophils/100 WBC (Bld) 0.2 % Normal 0.2-2.0 [facility] Comment on above: Performed By: #### E VANITA, UMICRO #### [facility] [address] [place] [address] Dr. Nilo Gibbons EO # 0.0 103/ul Normal 0.0-0.7 [facility] Comment on above: Performed By: #### Jose WALDRON UMICRO #### [facility] [address] [place] [address] Dr. Nilo Gibbons Eosinophils/100 WBC (Bld) 0.2 % Critically low 0.9-7.0 [facility] Comment on above: Performed By: #### Jose WALDRON UMICRO #### [facility] [address] [place] [address] Dr. Nilo Gibbons Erythrocyte distribution width (RBC) [Ratio] 15.1 % Critically high 11.0-15.0 [facility] Comment on above: Performed By: #### Jose WALDRON, UMICRO #### [facility] [address] [place] [address] Dr. Nilo Gibbons Hematocrit (Bld) [Volume fraction] 23.1 % Critically low 36.0-48.0 [facility] Comment on above: Performed By: #### Jose WALDRON, UMICRO #### [facility] [address] [place] [address] Dr. Nilo Gibbons Hemoglobin (Bld) [Mass/Vol] 7.4 g/dL Critically low 12.0-16.0 [facility] Comment on above: Performed By: #### Jose WALDRON, UMICRO #### [facility] [address] [place] [address] Dr. Nilo Gibbons IG # 0.05 10e3/ul Critically high 0.00-0.03 [facility] Comment on above: Performed By: #### CELY FENTON #### [facility] [address] [place] [address] Dr. Nilo Gibbons IG % 0.4 % Normal 0.0-0.5 [facility] Comment on above: Performed By: #### LISSETH FENTONRO #### [facility] [address] [place] [address] Dr. Nilo Gibbons LYMPH # 1.6 103/ul Normal 1.2-3.8 [facility] Comment on above: Performed By: #### CELY FENTON #### [facility] [address] [place] [address] Dr. Nilo Gibbons Lymphocytes/100 WBC (Bld) 12.6 % Critically low 20.5-60.0 [facility] Comment on above: Performed By: #### LISSETH FENTONRO #### [facility] [address] [place] [address] Dr. Nilo Gibbons MANUAL DIFF REQ NO Normal [facility] Comment on above: Performed By: #### CELY FENTON #### [facility] [address] [place] [address] Dr. Nilo Gibbons MCH (RBC) [Entitic mass] 26.8 pg Normal 26.7-34.0 [facility] Comment on above: Performed By: #### LISSETH FENTONRO #### [facility] [address] [place] [address] Dr. Nilo Gibbons MCHC (RBC) [Mass/Vol] 32.0 g/dL Normal 29.9-35.2 [facility] Comment on above: Performed By: #### LISSETH FENTONRO #### [facility] [address] [place] [address] Dr. Nilo Gibbons MCV (RBC) [Entitic vol] 83.7 fL Normal 81.0-99.0 [facility] Comment on above: Performed By: #### LISSETH FENTONRO #### [facility] [address] [address] [address] Nilo Gibbons MONO # 0.7 103/ul Normal 0.3-0.8 [facility] Comment on above: Performed By: #### Jose WALDRON UMICRO #### [facility] [address] [address] [address] Nilo Gibobns Monocytes/100 WBC (Bld) 5.8 % Normal 1.7-12.0 [facility] Comment on above: Performed By: #### Jose WALDRON, UMICRO #### [facility] [address] [place] [address] Dr. Nilo Gibbons NEUT # 10.0 103/ul Critically high 1.4-6.5 [facility] Comment on above: Performed By: #### Jose WALDRON UMICRO #### [facility] [address] [place] [address] Dr. Nilo Gibbons Neutrophils/100 WBC (Bld) 80.8 % Critically high 43.0-75.0 [facility] Comment on above: Performed By: #### Jose WALDRON UMICRO #### [facility] [address] [address] [address] Nilo Gibbons Platelet mean volume (Bld) [Entitic vol] 12.4 fL Normal 9.5-13.5 [facility] Comment on above: Performed By: #### Jose WALDRON ICRO #### [facility] [address] [place] [address] Dr. Nilo Gibbons PLT 126 103/ul Critically low 150-450 [facility] Comment on above: Performed By: #### Jose WALDRON UMICRO #### [facility] [address] [place] [address] Dr. Nilo Gibbons RBC 2.76 106/ul Critically low 4.20-5.40 [facility] Comment on above: Performed By: #### Jose WALDRON, UMICRO #### [facility] [address] [place] [address] Dr. Nilo Gibbons WBC 12.3 103/ul Critically high 4.0-11.0 [facility] Comment on above: Performed By: #### E RUMacrina ICRO #### [facility] [address] [place] [address] Dr. Nilo Gibbons CBC AUTO DIFFon 11-23-2022 BASO # 0.0 103/ul Normal 0.0-0.1 [facility] Comment on above: Performed By: #### U SAIRA UMICRO #### [facility] [address] [place] [address] Dr. Nilo Gibbons Basophils/100 WBC (Bld) 0.2 % Normal 0.2-2.0 [facility] Comment on above: Performed By: #### U SAIRA UMICRO #### [facility] [address] [place] [address] Dr. Nilo Gibbons EO # 0.0 103/ul Normal 0.0-0.7 [facility] Comment on above: Performed By: #### Ekaterina CHÁVEZ ICRO #### [facility] [address] [place] [address] Dr. Nilo Gibbons Eosinophils/100 WBC (Bld) 0.2 % Critically low 0.9-7.0 [facility] Comment on above: Performed By: #### Ekaterina CHÁVEZ ICRO #### [facility] [address] [place] [address] Dr. Nilo Gibbons Erythrocyte distribution width (RBC) [Ratio] 15.6 % Critically high 11.0-15.0 [facility] Comment on above: Performed By: #### Ekaterina CHÁVEZ ICRO #### [facility] [address] [place] [address] Dr. Nilo Gibbons Hematocrit (Bld) [Volume fraction] 29.5 % Critically low 36.0-48.0 [facility] Comment on above: Performed By: #### Ekaterina CHÁVEZ UMICRO #### [facility] [address] [place] [address] Dr. Nilo Gibbons Hemoglobin (Bld) [Mass/Vol] 9.2 g/dL Critically low 12.0-16.0 [facility] Comment on above: Performed By: #### U ACSIND, UMICRO #### [facility] [address] [address] [address] Nilo Gibbons IG # 0.05 10e3/ul Critically high 0.00-0.03 [facility] Comment on above: Performed By: #### U ACSIND, UMICRO #### [facility] [address] [address] [address] Nilo Gibbons IG % 0.3 % Normal 0.0-0.5 [facility] Comment on above: Performed By: #### U ACSIND, UMICRO #### [facility] [address] [address] [address] Nilo Gibbons LYMPH # 2.8 103/ul Normal 1.2-3.8 [facility] Comment on above: Performed By: #### U ACSIND, UMICRO #### [facility] [address] [address] [address] Nilo Gibbons Lymphocytes/100 WBC (Bld) 18.4 % Critically low 20.5-60.0 [facility] Comment on above: Performed By: #### U ACSNAOMI, ICRO #### [facility] [address] [address] [address] Nilo Gibbons MANUAL DIFF REQ NO Normal [facility] Comment on above: Performed By: #### U ACSIND, UMICRO #### [facility] [address] [address] [address] Nilo Gibbons MCH (RBC) [Entitic mass] 26.4 pg Critically low 26.7-34.0 [facility] Comment on above: Performed By: #### U ACSIND, UMICRO #### [facility] [address] [address] [address] Nilo Gibbons MCHC (RBC) [Mass/Vol] 31.2 g/dL Normal 29.9-35.2 [facility] Comment on above: Performed By: #### U ACSIND, UMICRO #### [facility] [address] [address] [address] Nilo Gibbons MCV (RBC) [Entitic vol] 84.8 fL Normal 81.0-99.0 [facility] Comment on above: Performed By: #### U BRENDA CHÁVEZICRO #### [facility] [address] [address] [address] Nilo Gibbons MONO # 1.2 103/ul Critically high 0.3-0.8 [facility] Comment on above: Performed By: #### Ekaterina CHÁVEZ UMICRO #### [facility] [address] [address] [address] Nilo Gibbons Monocytes/100 WBC (Bld) 7.7 % Normal 1.7-12.0 [facility] Comment on above: Performed By: #### Ekaterina CHÁVEZ ICRO #### [facility] [address] [place] [address] Dr. Nilo Gibbons NEUT # 11.1 103/ul Critically high 1.4-6.5 [facility] Comment on above: Performed By: #### Ekaterina CHÁVEZ ICRO #### [facility] [address] [place] [address] Dr. Nilo Gibbons Neutrophils/100 WBC (Bld) 73.2 % Normal 43.0-75.0 [facility] Comment on above: Performed By: #### Ekaterina CHÁVEZ ICRO #### [facility] [address] [place] [address] Dr. Nilo Gibbons Platelet mean volume (Bld) [Entitic vol] 11.8 fL Normal 9.5-13.5 [facility] Comment on above: Performed By: #### Ekaterina CHÁVEZ ICRO #### [facility] [address] [place] [address] Dr. Nilo Gibbons PLT 100 103/ul Critically low 150-450 [facility] Comment on above: Performed By: #### U SAIRA UMICRO #### [facility] [address] [place] [address] Dr. Nilo Gibbons RBC 3.48 106/ul Critically low 4.20-5.40 [facility] Comment on above: Performed By: #### U SAIRA UMICRO #### [facility] [address] [place] [address] Dr. Nilo Gibbons WBC 15.1 103/ul Critically high 4.0-11.0 [facility] Comment on above: Performed By: #### U ACSNAOMI, UMICRO #### [facility] [address] [place] [address] Dr. Nilo Gibbons BASO # 0.0 103/ul Normal 0.0-0.1 [facility] Comment on above: Performed By: #### E RUR UMICRO #### [facility] [address] [place] [address] Dr. Nilo Gibbons Basophils/100 WBC (Bld) 0.3 % Normal 0.2-2.0 [facility] Comment on above: Performed By: #### E RUMacrina UMICRO #### [facility] [address] [place] [address] Dr. Nilo Gibbons EO # 0.0 103/ul Normal 0.0-0.7 [facility] Comment on above: Performed By: #### E RUMacrina UMICRO #### [facility] [address] [place] [address] Dr. Nilo Gibbons Eosinophils/100 WBC (Bld) 0.5 % Critically low 0.9-7.0 [facility] Comment on above: Performed By: #### E RUMacrina UMICRO #### [facility] [address] [place] [address] Dr. Nilo Gibbons Erythrocyte distribution width (RBC) [Ratio] 15.7 % Critically high 11.0-15.0 [facility] Comment on above: Performed By: #### E RUR UMICRO #### [facility] [address] [place] [address] Dr. Nilo Gibbons Hematocrit (Bld) [Volume fraction] 31.5 % Critically low 36.0-48.0 [facility] Comment on above: Performed By: #### E RUR UMICRO #### [facility] [address] [place] [address] Dr. Nilo Gibbons Hemoglobin (Bld) [Mass/Vol] 10.2 g/dL Critically low 12.0-16.0 [facility] Comment on above: Performed By: #### LISSETH FENTONRO #### [facility] [address] [place] [address] Dr. Nilo Gibbons IG # 0.03 10e3/ul Normal 0.00-0.03 [facility] Comment on above: Performed By: #### LISSETH FENTONRO #### [facility] [address] [place] [address] Dr. Nilo Gibbons IG % 0.4 % Normal 0.0-0.5 [facility] Comment on above: Performed By: #### LISSETH FENTONRO #### [facility] [address] [place] [address] Dr. Nilo Gibbons LYMPH # 2.1 103/ul Normal 1.2-3.8 [facility] Comment on above: Performed By: #### LISSETH FENTONRO #### [facility] [address] [place] [address] Dr. Nilo Gibbons Lymphocytes/100 WBC (Bld) 26.9 % Normal 20.5-60.0 [facility] Comment on above: Performed By: #### LISSETH FENTONRO #### [facility] [address] [place] [address] Dr. Nilo Gibbons MANUAL DIFF REQ NO Normal [facility] Comment on above: Performed By: #### LISSETH FENTONRO #### [facility] [address] [place] [address] Dr. Nilo Gibbons MCH (RBC) [Entitic mass] 26.5 pg Critically low 26.7-34.0 [facility] Comment on above: Performed By: #### LISSETH FENTONRO #### [facility] [address] [place] [address] Dr. Nilo Gibbons MCHC (RBC) [Mass/Vol] 32.4 g/dL Normal 29.9-35.2 [facility] Comment on above: Performed By: #### E RUR, UMICRO #### [facility] [address] [place] [address] Dr. Nilo Gibbons MCV (RBC) [Entitic vol] 81.8 fL Normal 81.0-99.0 [facility] Comment on above: Performed By: #### E VANITA, UMICRO #### [facility] [address] [place] [address] Dr. Nilo Gibbons MONO # 0.6 103/ul Normal 0.3-0.8 [facility] Comment on above: Performed By: #### Jose WALDRON, UMICRO #### [facility] [address] [place] [address] Dr. Nilo Gibbons Monocytes/100 WBC (Bld) 7.3 % Normal 1.7-12.0 [facility] Comment on above: Performed By: #### Jose WALDRON UMICRO #### [facility] [address] [place] [address] Dr. Nilo Gibbons NEUT # 4.9 103/ul Normal 1.4-6.5 [facility] Comment on above: Performed By: #### Jose WALDRON ICRO #### [facility] [address] [place] [address] Dr. Nilo Gibbons Neutrophils/100 WBC (Bld) 64.6 % Normal 43.0-75.0 [facility] Comment on above: Performed By: #### Jose WALDRON UMICRO #### [facility] [address] [place] [address] Dr. Nilo Gibbons Platelet mean volume (Bld) [Entitic vol] 12.0 fL Normal 9.5-13.5 [facility] Comment on above: Performed By: #### Jose WALDRON UMICRO #### [facility] [address] [place] [address] Dr. Nilo Gibbons PLT 180 103/ul Normal 150-450 [facility] Comment on above: Performed By: #### Jose WALDRON, UMICRO #### [facility] [address] [place] [address] Dr. Nilo Gibbons RBC 3.85 106/ul Critically low 4.20-5.40 [facility] Comment on above: Performed By: #### E RUR, UMICRO #### [facility] [address] [place] [address] Dr. Nilo Gibbons WBC 7.6 103/ul Normal 4.0-11.0 [facility] Comment on above: Performed By: #### E RUR, UMICRO #### [facility] [address] [place] [address] Dr. Nilo Gibbons DRUG SCREEN RAPID (URINE)on 11-23-2022 AMP Negative Normal NEGATIVE [facility] Comment on above: Performed By: #### U ACSIND, UMICRO #### [facility] [address] [place] [address] Dr. Nilo Gibbons BAR Negative Normal NEGATIVE [facility] Comment on above: Performed By: #### U ACSIND, UMICRO #### [facility] [address] [place] [address] Dr. Nilo Gibbons BUP Negative Normal NEGATIVE [facility] Comment on above: Performed By: #### U ACSIND, UMICRO #### [facility] [address] [place] [address] Dr. Nilo Gibbons BZO Negative Normal NEGATIVE [facility] Comment on above: Performed By: #### U ACSIND, UMICRO #### [facility] [address] [place] [address] Dr. Nilo Gibbons SARAH Negative Normal NEGATIVE [facility] Comment on above: Performed By: #### U ACSIND, UMICRO #### [facility] [address] [place] [address] Dr. Nilo Gibbons CUT-OFFS SEE BELOW Normal [facility] Comment on above: Result Comment: AMP [...] Performed By: #### U ACSIND, UMICRO #### [facility] [address] [place] [address] Dr. Nilo Gibbons DRUG CUT HEADER DRUG CLASS TEST SYSTEM CUT-OFF CONCENTRATIONS ARE FOLLOWS: Normal [facility] Comment on above: Performed By: #### U ACSIND, UMICRO #### [facility] [facility] [address] [address] [address] Nilo Gibbons mAMP Negative Normal NEGATIVE [facility] Comment on above: Performed By: #### U ACSIND, UMICRO #### [facility] [address] [place] [address] Dr. Nilo Gibbons MTD Negative Normal NEGATIVE [facility] Comment on above: Performed By: #### U ACSIND, UMICRO #### [facility] [address] [place] [address] Dr. Nilo Gibbons OPI Negative Normal NEGATIVE [facility] Comment on above: Performed By: #### U ACSIND, UMICRO #### [facility] [address] [place] [address] Dr. Nilo Gibbons OXY Negative Normal NEGATIVE [facility] Comment on above: Performed By: #### U ACSIND, UMICRO #### [facility] [address] [address] [address] Nilo Gibbons PCP Negative Normal NEGATIVE [facility] Comment on above: Performed By: #### U ACSIND, UMICRO #### [facility] [address] [address] [address] Nilo Gibbons PPX Negative Normal NEGATIVE [facility] Comment on above: Performed By: #### U ACSIND, UMICRO #### [facility] [address] [place] [address] Dr. Nilo Gibbons TCA Negative Normal NEGATIVE [facility] Comment on above: Performed By: #### U ACSIND, UMICRO #### [facility] [address] [place], [place] [address] Dr. Nilo Gibbons THC Negative Normal NEGATIVE [facility] Comment on above: Performed By: #### U [facility] #### [facility] [address] [place], [place] [address] Dr. Nilo Gibbons TYPE AND SCREENon 11-23-2022 TYPE AND SCREEN Negative Normal [facility] Comment on above: Performed By: #### E [facility]UR [facility] #### [facility] [address] [place], [place] [address] Dr. Nilo Gibbons Urinalysison 11-07-2022 Bilirubin Urine Negative NEGATIVE [facility] Color, UA Yellow Yellow [facility] Glucose Auto test strip (U) [Mass/Vol] Negative NEGATIVE [facility] Ketones (U) [Mass/Vol] Negative NEGATIVE [facility] Leukocyte esterase Auto test strip Ql (U) Negative NEGATIVE [facility] Nitrite Auto test strip Ql (U) Negative NEGATIVE [facility] Protein (U) [Mass/Vol] 7.0 mg/dL 5.0 - 9.0 [facility] Protein (U) [Mass/Vol] Negative NEGATIVE [facility] Specific [place], UA 1.020 1.010 - 1.020 B ON [facility] Turbidity UA Clear Clear [facility] Urine Hgb Negative NEGATIVE [facility] Urobilinogen, Urine Normal Normal [facility] Urinalysis, Routineon 2022 Bilirubin, SemiQt,Ur Negative Normal NEG [facility] Comment on above: Performed By: #### U A #### [facility] [address] [place] [address] Tube Former Operator: Phil Keller MD Blood, Urine Negative Normal NEG [facility] Comment on above: Performed By: #### U A #### [facility] [address] [place] [address] Tube Former Operator: Phil Keller MD Clarity (U) Clear Normal CLEAR [facility] Comment on above: Performed By: #### U A #### [facility] [address] [place] [address] Dr. [place], [facility]83 Tube Former Operator: Phil Keller MD Color (U) Yellow Normal YEL [facility] Comment on above: Performed By: #### U A #### [facility] [address] [place] [address] Dr. [place], [facility]83 Tube Former Operator: Phil Keller MD Glucose Ql (U) Negative Normal NEG [facility] Comment on above: Performed By: #### U A #### [address] [place] [id number] Tube Former Operator: Phil Keller MD Ketones Ql (U) Negative Normal NEG [facility] Comment on above: Performed By: #### U A #### [address] [place], [facility]83 Tube Former Operator: Phil Keller MD Leukocyte esterase Test strip Ql (U) Negative Normal NEG [facility] Comment on above: Performed By: #### U A #### [address] [place] [id number] Tube Former Operator: Phil Keller MD Nitrite,Ur Negative Normal NEG [facility] Comment on above: Performed By: #### U A #### [address] [place], [facility]83 Tube Former Operator: Phil Keller MD PH,Ur 7.0 Normal 5.0-9.0 [facility] Comment on above: Performed By: #### U A #### [address] [place] [address] Tube Former Operator: Phil Keller MD Protein Ql (U) Negative Normal NEG [facility] Comment on above: Performed By: #### U A #### [address] [place] [address] Tube Former Operator: Phil Keller MD Spec. [place],Ur 1.020 Normal 1.010-1.020 [facility] Comment on above: Performed By: #### U A #### [facility] [address] [place] [address] [place] [address] Tube Former Operator: Phil Keller MD Urobilinogen,Ur Normal Normal NORM [facility] Comment on above: Performed By: #### U A #### [facility] [address] [place] [address] Tube Former Operator: Phil Keller MD Cult,Urineon 11-05-2022 Cult,Urine Specimen Description .CLEAN CATCH URINE Culture NO SIGNIFICANT GROWTH Report Status FINAL 11/05/2022 Normal [facility] Comment on above: Performed By: #### U RC #### [facility] [address] [place] [address] Tube Former Operator: Axel Mahoney MD [facility] [address] [place] [address] [place] [address] Tube Former Operator: Phil Keller MD Microscopic Urinalysison Bacteria, UA 2+ Abnormal None [facility] Epithelial Cells UA 5 TO 10 [facility] Interpretation and review of laboratory results Abnormal [facility] Mucus, UA TRACE Abnormal None [facility] RBC clumps Auto (Urine sed) [#/Area] 5 TO 10 [facility] WBC, UA 2 TO 5 [facility] Urinalysison 11-04-2022 Bilirubin Urine Negative NEGATIVE [facility] Color, UA Yellow Yellow [facility] Glucose Auto test strip (U) [Mass/Vol] Negative NEGATIVE [facility] Interpretation and review of laboratory results Abnormal [facility] Ketones (U) [Mass/Vol] Negative NEGATIVE [facility] Leukocyte esterase Auto test strip Ql (U) TRACE Abnormal NEGATIVE [facility] Nitrite Auto test strip Ql (U) Negative NEGATIVE [facility] Protein (U) [Mass/Vol] 6.5 mg/dL 5.0 - 9.0 [facility] Protein (U) [Mass/Vol] Negative NEGATIVE [facility] Specific [place], UA 1.020 1.010 - 1.020 B ON [facility] Turbidity UA SLIGHTLY CLOUDY Abnormal Clear [facility] Urine Hgb TRACE Abnormal NEGATIVE [facility] Urobilinogen, Urine Normal Normal [facility] Urinalysis, Routineon 2022 Bilirubin, SemiQt,Ur Negative Normal NEG [facility] Comment on above: Performed By: #### U ESEQUIELO, UA #### [facility] [address] [place] [address] [place] [address] Tube Former Operator: Phil Keller MD Blood, Urine TRACE Abnormal NEG [facility] Comment on above: Performed By: #### U MICAO, UA #### [facility] [address] [place] [address] Dr. [place], [facility]83 Tube Former Operator: Phil Keller MD Clarity (U) SLIGHTLY CLOUDY Abnormal CLEAR [facility] Comment on above: Performed By: #### U MICAO, UA #### [address] [place] [address] Tube Former Operator: Phil Keller MD Color (U) Yellow Normal YEL [facility] Comment on above: Performed By: #### U MICAO, UA #### [facility] [address] [place] [address] Dr. [place], [place] [id number] Tube Former Operator: Phil Keller MD Glucose Ql (U) Negative Normal NEG [facility] Comment on above: Performed By: #### U MICAO, UA #### [facility] [address] [place] [address] [place] [address] Tube Former Operator: Phil Keller MD Ketones Ql (U) Negative Normal NEG [facility] Comment on above: Performed By: #### U MICAO, UA #### [facility] [address] [place] [address] Tube Former Operator: Phil Keller MD Leukocyte esterase Test strip Ql (U) TRACE Abnormal NEG [facility] Comment on above: Performed By: #### U MICAO, UA #### [facility] [address] [place], [place] [id number] Tube Former Operator: Phil Keller MD Nitrite,Ur Negative Normal NEG [facility] Comment on above: Performed By: #### U MICAO, UA #### [facility] [address] [place], [place] [id number] Tube Former Operator: Phil Keller MD PH,Ur 6.5 Normal 5.0-9.0 [facility] Comment on above: Performed By: #### U MICAO, UA #### [facility] [address] [place] [address] Dr. [place], [place] [id number] Tube Former Operator: Phil Keller MD Protein Ql (U) Negative Normal NEG [facility] Comment on above: Performed By: #### U MICAO, UA #### [address] [place], [place] [id number] Tube Former Operator: Phil Keller MD Spec. [place],Ur 1.020 Normal 1.010-1.020 [facility] Comment on above: Performed By: #### U MICAO, UA #### [facility] [address] [place], [place] [id number] Tube Former Operator: Phil Keller MD Urobilinogen,Ur Normal Normal NORM [facility] Comment on above: Performed By: #### U MICAO, UA #### [facility] [address] [place], [place] [id number] Tube Former Operator: Phil Keller MD Urinalysis,Microon 3 Bacteria 2+ Abnormal NONE [facility] Comment on above: Performed By: #### U MICAO, UA #### [facility] [address] [place], [place] [id number] Tube Former Operator: Phil Keller MD Epithelial cells LM Ql (Urine sed) 5 TO 10 Normal 0-25 [facility] Comment on above: Performed By: #### U MICAO, UA #### [facility] [address] [place], [facility]83 Tube Former Operator: Phil Keller MD Mucus Strands TRACE Abnormal NONE [facility] Comment on above: Performed By: #### U ESEQUIELO, UA #### [facility] [address] [place], [facility]83 Tube Former Operator: Phil Keller MD Urine RBC's 5 TO 10 Normal 0-2 [facility] Comment on above: Performed By: #### U TUSHAR, UA #### [facility] [address] [place], [facility]83 Tube Former Operator: Phil Keller MD Urine WBC's 2 TO 5 Normal 0-5 [facility] Comment on above: Performed By: #### U TUSHAR, UA #### [facility] [address] [place] [id number] Tube Former Operator: Phil Keller MD UA (CLEAN/CATCH) AMPOULE EXAMINER/MICRO I F IND.on 10-29-2022 Bilirubin Ql (U) Negative Normal NEGATIVE [facility] Comment on above: Performed By: #### U ACSNAOMI UMICRO #### [facility] [address] [address] [address] Nilo Gibbons Clarity (U) CLEAR Normal CLEAR [facility] Comment on above: Performed By: #### U ACSNAOMI UMICRO #### [facility] [address] [address] [address] Nilo Gibbons Color (U) LT. YELLOW Normal YELLOW [facility] Comment on above: Performed By: #### U ACSNAOMI UMICRO #### [facility] [address] [address] [address] Nilo Gibbons Glucose Ql (U) Negative Normal NEGATIVE [facility] Comment on above: Performed By: #### U ACSIND, UMICRO #### [facility] [address] [address] [address] Nilo Gibbons Hemoglobin Ql (U) TRACE-INTACT Abnormal NEGATIVE [facility] Comment on above: Performed By: #### U ACSIND, UMICRO #### [facility] [address] [address] [address] Nilo Gibbons Ketones Ql (U) Negative Normal NEGATIVE [facility] Comment on above: Performed By: #### U ACSIND, UMICRO #### [facility] [address] [place] [address] Dr. Nilo Gibbons LEUKOCYTES Negative Normal NEGATIVE [facility] Comment on above: Performed By: #### U ACSIND, UMICRO #### [facility] [address] [place] [address] Dr. Nilo Gibbons Nitrite Ql (U) Negative Normal NEGATIVE [facility] Comment on above: Performed By: #### U ACSIND, UMICRO #### [facility] [address] [place] [address] Dr. Nilo Gibbons pH (U) 6.5 [pH] Normal 5-9 [facility] Comment on above: Performed By: #### U ACSIND, UMICRO #### [facility] [address] [place] [address] Dr. Nilo Gibbons SPEC GRAVITY 1.015 Normal 1.005-<=1.025 [facility] Comment on above: Performed By: #### U ACSIND, UMICRO #### [facility] [address] [address] [address] Nilo Gibbons UA PROTEIN Negative Normal NEGATIVE/ TRACE [facility] Comment on above: Performed By: #### U ACSIND, UMICRO #### [facility] [address] [place] [address] Dr. Nilo Gibbons UR MICRO IND INDICATED Normal [facility] Comment on above: Performed By: #### U ACSIND, UMICRO #### [facility] [address] [address] [address] Nilo Gibbons Urobilinogen Qn (U) 0.2 {You'U}/dL Normal 0.2 - 1. 0 [facility] Comment on above: Performed By: #### U ACSIND, UMICRO #### [facility] [address] [address] [address] Nilo Gibbons URINE MICROSCOPIC ONLYon BACTERIA TRACE Abnormal NONE SEEN [facility] Comment on above: Performed By: #### U ACSIND, UMICRO #### [facility] [address] [address] [address] Nilo Gibbons Bacteria identified Cx Nom (U) NOT INDICATED Normal [facility] Comment on above: Performed By: #### U ACSIND, UMICRO #### [facility] [address] [place] [address] Dr. Nilo Gibbons CAST NONE SEEN Normal NONE SEEN [facility] Comment on above: Performed By: #### U ACSIND, UMICRO #### [facility] [address] [address] [address] Nilo Gibbons Crystals LM Nom (Urine sed) NONE SEEN Normal NONE SEEN [facility] Comment on above: Performed By: #### U ACSIND, UMICRO #### [facility] [address] [address] [address] Nilo Gibbons Epithelial cells LM Ql (Urine sed) FEW Abnormal NONE SEEN /RARE [facility] Comment on above: Performed By: #### U ACSIND, UMICRO #### [facility] [address] [address] [address] Nilo Gibbons MUCOUS NONE SEEN Normal NONE SEEN [facility] Comment on above: Performed By: #### U ACSIND, UMICRO #### [facility] [address] [address] [address] Nilo Gibbons RBC 0-2 Normal 0-2 [facility] Comment on above: Performed By: #### U ACSIND, UMICRO #### [facility] [address] [place] [address] Dr. Nilo Gibbons WBC 0-2 Abnormal NONE SEEN [facility] Comment on above: Performed By: #### U BRENDA CHÁVEZICRO #### [facility] [address] [place] [address] Dr. Nilo Gibbons GBS, External Resulton 10-27 GBS, External Result Negative [employer] Work Phone: [employer] [facility] [employer] Work Phone: AMYLASEon 10-17-2022 Amylase [Catalytic activity/Vol] 32 U/L Normal 25-115 [facility] Comment on above: Performed By: #### U BRENDA CHÁVEZICRO #### [facility] [address] [place] [address] Dr. Nilo Gibbons BUNon 10-17-2022 Urea nitrogen [Mass/Vol] 4.0 mg/dL Critically low 7.0-18.0 [facility] Comment on above: Performed By: #### U BRENDA CHÁVEZICRO #### [facility] [address] [place] [address] Dr. Nilo Gibbons CBC AUTO DIFFon 10-17-2022 BASO # 0.0 103/ul Normal 0.0-0.1 [facility] Comment on above: Performed By: #### U SAIRA UMICRO #### [facility] [address] [place] [address] Dr. Nilo Gibbons Basophils/100 WBC (Bld) 0.3 % Normal 0.2-2.0 [facility] Comment on above: Performed By: #### U ACSNAOMI UMICRO #### [facility] [address] [place] [address] Dr. Nilo Gibbons EO # 0.0 103/ul Normal 0.0-0.7 [facility] Comment on above: Performed By: #### U SAIRA UMICRO #### [facility] [address] [place] [address] Dr. Nilo Gibbons Eosinophils/100 WBC (Bld) 0.3 % Critically low 0.9-7.0 [facility] Comment on above: Performed By: #### LISSETH CARROLLRO #### [facility] [address] [place] [address] Dr. Nilo Gibbons Erythrocyte distribution width (RBC) [Ratio] 13.6 % Normal 11.0-15.0 [facility] Comment on above: Performed By: #### CELY CARROLL #### [facility] [address] [place] [address] Dr. Nilo Gibbons Hematocrit (Bld) [Volume fraction] 30.7 % Critically low 36.0-48.0 [facility] Comment on above: Performed By: #### LISSETH CARROLLRO #### [facility] [address] [place] [address] Dr. Nilo Gibbons Hemoglobin (Bld) [Mass/Vol] 10.1 g/dL Critically low 12.0-16.0 [facility] Comment on above: Performed By: #### LISSETH CARROLLRO #### [facility] [address] [place] [address] Dr. Nilo Gibbons IG # 0.04 10e3/ul Critically high 0.00-0.03 [facility] Comment on above: Performed By: #### LISSETH CARROLLRO #### [facility] [address] [place] [address] Dr. Nilo Gibbons IG % 0.4 % Normal 0.0-0.5 [facility] Comment on above: Performed By: #### LISSETH CARROLLRO #### [facility] [address] [place] [address] Dr. Nilo Gibbons LYMPH # 2.4 103/ul Normal 1.2-3.8 [facility] Comment on above: Performed By: #### LISSETH CARROLLRO #### [facility] [address] [place] [address] Dr. Nilo Gibbons Lymphocytes/100 WBC (Bld) 25.3 % Normal 20.5-60.0 [facility] Comment on above: Performed By: #### LISSETH CARROLLRO #### [facility] [address] [address] [address] Nilo Gibbons MANUAL DIFF REQ NO Normal [facility] Comment on above: Performed By: #### U ACSNAOMI, UMICRO #### [facility] [address] [address] [address] Nilo Gibbons MCH (RBC) [Entitic mass] 27.3 pg Normal 26.7-34.0 [facility] Comment on above: Performed By: #### U ACSNAOMI, UMICRO #### [facility] [address] [address] [address] Nilo Gibbons MCHC (RBC) [Mass/Vol] 32.9 g/dL Normal 29.9-35.2 [facility] Comment on above: Performed By: #### U ACSNAOMI ICRO #### [facility] [address] [place] [address] Dr. Nilo Gibbons MCV (RBC) [Entitic vol] 83.0 fL Normal 81.0-99.0 [facility] Comment on above: Performed By: #### U ACSNAOMI ICRO #### [facility] [address] [address] [address] Nilo Gibbons MONO # 0.7 103/ul Normal 0.3-0.8 [facility] Comment on above: Performed By: #### U ACSNAOMI, ICRO #### [facility] [address] [address] [address] Nilo Gibbons Monocytes/100 WBC (Bld) 7.3 % Normal 1.7-12.0 [facility] Comment on above: Performed By: #### U ACSNAOMI, ICRO #### [facility] [address] [address] [address] Nilo Gibbons NEUT # 6.3 103/ul Normal 1.4-6.5 [facility] Comment on above: Performed By: #### U ACSNAOMI, UMICRO #### [facility] [address] [address] [address] Nilo Gibbons Neutrophils/100 WBC (Bld) 66.4 % Normal 43.0-75.0 [facility] Comment on above: Performed By: #### U LISSETH CHÁVEZRO #### [facility] [address] [place] [address] Dr. Nilo Gibbons Platelet mean volume (Bld) [Entitic vol] 11.5 fL Normal 9.5-13.5 [facility] Comment on above: Performed By: #### LISSETH CARROLLRO #### [facility] [address] [place] [address] Dr. Nilo Gibbons PLT 174 103/ul Normal 150-450 [facility] Comment on above: Performed By: #### LISSETH CARROLLRO #### [facility] [address] [place] [address] Dr. Nilo Gibbons RBC 3.70 106/ul Critically low 4.20-5.40 [facility] Comment on above: Performed By: #### LISSETH CARROLLRO #### [facility] [address] [place] [address] Dr. Nilo Gibbons WBC 9.4 103/ul Normal 4.0-11.0 [facility] Comment on above: Performed By: #### LISSETH CARROLLRO #### [facility] [address] [place] [address] Dr. Nilo Gibbons CREATININEon 10-17-2022 Creatinine [Mass/Vol] 0.45 mg/dL Critically low 0.55-1.02 [facility] Comment on above: Performed By: #### CELY FENTON #### [facility] [address] [place] [address] Dr. Nilo Gibbons EGFR-AF GERMAN >60 Normal >=60 [facility] Comment on above: Result Comment: Prev iously reported as: (blank) On 10/17/2022 03:10 By JAW Performed By: #### LISSETH FENTONRO #### [facility] [address] [place] [address] Dr. Nilo Gibbons EGFR-NON AF GERMAN >60 Normal >=60 [facility] Comment on above: Result Comment: Prev iously reported as: (blank) On 10/17/2022 03:10 By JAW Performed By: #### Jose WALDRON UMICRO #### [facility] [address] [place] [address] Dr. Nilo Gibbons CULTURE URINEon 10-17-2022 CULTURE URINE Culture Observations: HEAVY GROWTH OF MIXED GENITAL LESLIE. NO POTENTIAL PATHOGENS SEEN. Normal [facility] Comment on above: Performed By: #### U RCX #### [facility] [address] [place] [address] Dr. Nilo Gibbons LIPASEon 10-17-2022 Lipase [Catalytic activity/Vol] 66.0 U/L Critically low 73.0-393.0 [facility] Comment on above: Performed By: #### Jose WALDRON UMICRO #### [facility] [address] [place] [address] Dr. Nilo Gibbons SGOTon 10-17-2022 AST [Catalytic activity/Vol] 24 U/L Normal 15-37 [facility] Comment on above: Performed By: #### Jose WALDRON UMICRO #### [facility] [address] [place] [address] Dr. Nilo Gibbons SGPTon 10-17-2022 ALT [Catalytic activity/Vol] 15 U/L Normal 14-59 [facility] Comment on above: Performed By: #### Jose WALDRON UMICRO #### [facility] [address] [place] [address] Dr. Nilo Gibbons UA (CLEAN/CATCH) AMPOULE EXAMINER/MICRO I F IND.on 10-17-2022 Bilirubin Ql (U) Negative Normal NEGATIVE [facility] Comment on above: Performed By: #### Jose WALDRON UMICRO #### [facility] [address] [place] [address] Dr. Niol Gibbons Clarity (U) CLEAR Normal CLEAR [facility] Comment on above: Performed By: #### Jose WALDRON UMICRO #### [facility] [address] [place] [address] Dr. Nilo Gibbons Color (U) LT. YELLOW Normal YELLOW [facility] Comment on above: Performed By: #### E DIONTER, UMICRO #### [facility] [address] [place] [address] Dr. Nilo Gibbons Glucose Ql (U) Negative Normal NEGATIVE [facility] Comment on above: Performed By: #### Jose WALDRON UMICRO #### [facility] [address] [place] [address] Dr. Nilo Gibbons Hemoglobin Ql (U) TRACE-INTACT Abnormal NEGATIVE [facility] Comment on above: Performed By: #### Jose WALDRON UMICRO #### [facility] [address] [place] [address] Dr. Nilo Gibbons Ketones Ql (U) Negative Normal NEGATIVE [facility] Comment on above: Performed By: #### Jose WALDRON UMICRO #### [facility] [address] [place] [address] Dr. Nilo Gibbons LEUKOCYTES LARGE Abnormal NEGATIVE [facility] Comment on above: Performed By: #### BRENDA FENTONICRO #### [facility] [address] [place] [address] Dr. Nilo Gibbons Nitrite Ql (U) Negative Normal NEGATIVE [facility] Comment on above: Performed By: #### BRENDA FENTONICRO #### [facility] [address] [place] [address] Dr. Nilo Gibbons pH (U) 6.5 [pH] Normal 5-9 [facility] Comment on above: Performed By: #### BRENDA FENTONICRO #### [facility] [address] [place] [address] Dr. Nilo Gibbons SPEC GRAVITY 1.015 Normal 1.005-<=1.025 [facility] Comment on above: Performed By: #### Jose WALDRON UMICRO #### [facility] [address] [place] [address] Dr. Nilo Gibbons UA PROTEIN Negative Normal NEGATIVE/ TRACE [facility] Comment on above: Performed By: #### Jose WALDRON UMICRO #### [facility] [address] [place] [address] Dr. Nilo Gibbons UR MICRO IND INDICATED Normal [facility] Comment on above: Performed By: #### E RUR, UMICRO #### [facility] [address] [place] [address] Dr. Nilo Gibbons Urobilinogen Qn (U) 0.2 {You'U}/dL Normal 0.2 - 1. 0 [facility] Comment on above: Performed By: #### E RUR, UMICRO #### [facility] [address] [place] [address] Dr. Nilo Gibbons URINE MICROSCOPIC ONLYon BACTERIA SMALL Abnormal NONE SEEN [facility] Comment on above: Performed By: #### E RUR, UMICRO #### [facility] [address] [place] [address] Dr. Nilo Gibbons Bacteria identified Cx Nom (U) INDICATED Normal [facility] Comment on above: Performed By: #### E RUR, UMICRO #### [facility] [address] [place] [address] Dr. Nilo Gibbons CAST NONE SEEN Normal NONE SEEN [facility] Comment on above: Performed By: #### E RUR, UMICRO #### [facility] [address] [place] [address] Dr. Nilo Gibbons Crystals LM Nom (Urine sed) NONE SEEN Normal NONE SEEN [facility] Comment on above: Performed By: #### E RUR, UMICRO #### [facility] [address] [place] [address] Dr. Nilo Gibbons Epithelial cells LM Ql (Urine sed) MANY Abnormal NONE SEEN /RARE [facility] Comment on above: Performed By: #### E RUR, UMICRO #### [facility] [address] [place] [address] Dr. Nilo Gibbons MUCOUS NONE SEEN Normal NONE SEEN [facility] Comment on above: Performed By: #### E RUR, UMICRO #### [facility] [address] [place] [address] Dr. Nilo Gibbons RBC 5-10 Abnormal 0-2 [facility] Comment on above: Performed By: #### E RUR, UMICRO #### [facility] [address] [place], [place] [address] Dr. Nilo Gibbons WBC 50-75 Abnormal NONE SEEN [facility] Comment on above: Performed By: #### CELY FENTON #### [facility] [address] [id number] Nilo Gibbons US APPENDIXon 10-17-2022 US APPENDIX EXAM: US APPENDIX HISTORY: Right flank pain COMPARISON: None. TECHNIQUE: Transabdominal ultrasound of right lower quadrant FINDINGS: No identifiable appendix. No free fluid or enlarged lymph nodes. IMPRESSION: 1. The appendix could not be identified. No secondary findings to suggest appendicitis. Electronically authenticated by: SHIN MEYER Date: 2022-10-17 08:05 Normal [facility] US KIDNEYSon 10-17-2022 US KIDNEYS EXAMINATION: US [...] by: SHIN MEYER Date: 2022-10-17 08:12 Normal [facility] US PREG PLACENTAon US PREG PLACENTA EXAMINATION: [...] SHIN MEYER Date: 2022-10-17 10:37 Normal [facility] OB Limitedon 07-26-2022 US OB [...] by Jono Wiggins on 07/26/2022 1051 Normal [facility] [employer] [address] Forms CBC AUTO DIFFon 07-19-2022 BASO # 0.0 103/ul Normal 0.0-0.1 [facility] Comment on above: Performed By: #### C BC #### [facility] [address] [place] [address] Dr. Nilo Gibbons Basophils/100 WBC (Bld) 0.4 % Normal 0.2-2.0 [facility] Comment on above: Performed By: #### C BC #### [facility] [address] [place] [address] Dr. Nilo Gibbons EO # 0.0 103/ul Normal 0.0-0.7 [facility] Comment on above: Performed By: #### C BC #### [facility] [address] [place] [address] Dr. Nilo Gibbons Eosinophils/100 WBC (Bld) 0.5 % Critically low 0.9-7.0 [facility] Comment on above: Performed By: #### C BC #### [facility] [address] [place] [address] Dr. Nilo Gibbons Erythrocyte distribution width (RBC) [Ratio] 13.7 % Normal 11.0-15.0 [facility] Comment on above: Performed By: #### C BC #### [facility] [address] [place] [address] Dr. Nilo Gibbons Hematocrit (Bld) [Volume fraction] 34.0 % Critically low 36.0-48.0 [facility] Comment on above: Performed By: #### C BC #### [facility] [address] [place] [address] Dr. Nilo Gibbons Hemoglobin (Bld) [Mass/Vol] 11.5 g/dL Critically low 12.0-16.0 [facility] Comment on above: Performed By: #### C BC #### [facility] [address] [place] [address] Dr. Nilo Gibbons IG # 0.03 10e3/ul Normal 0.00-0.03 [facility] Comment on above: Performed By: #### C BC #### [facility] [address] [place] [address] Dr. Nilo Gibbons IG % 0.4 % Normal 0.0-0.5 [facility] Comment on above: Performed By: #### C BC #### [facility] [address] [place] [address] Dr. Nilo Gibbons LYMPH # 1.7 103/ul Normal 1.2-3.8 [facility] Comment on above: Performed By: #### C BC #### [facility] [address] [place] [address] Dr. Nilo Gibbons Lymphocytes/100 WBC (Bld) 20.6 % Normal 20.5-60.0 [facility] Comment on above: Performed By: #### C BC #### [facility] [address] [place] [address] Dr. Nilo Gibbons MANUAL DIFF REQ NO Normal [facility] Comment on above: Performed By: #### C BC #### [facility] [address] [place] [address] Dr. Nilo Gibbons MCH (RBC) [Entitic mass] 29.3 pg Normal 26.7-34.0 [facility] Comment on above: Performed By: #### C BC #### [facility] [address] [place] [address] Dr. Nilo Gibbons MCHC (RBC) [Mass/Vol] 33.8 g/dL Normal 29.9-35.2 [facility] Comment on above: Performed By: #### C BC #### [facility] [address] [place] [address] Dr. Nilo Gibbons MCV (RBC) [Entitic vol] 86.5 fL Normal 81.0-99.0 [facility] Comment on above: Performed By: #### C BC #### [facility] [address] [place] [address] Dr. Nilo Gibbons MONO # 0.5 103/ul Normal 0.3-0.8 [facility] Comment on above: Performed By: #### C BC #### [facility] [address] [place] [address] Dr. Nilo Gibbons Monocytes/100 WBC (Bld) 6.0 % Normal 1.7-12.0 [facility] Comment on above: Performed By: #### C BC #### [facility] [address] [place] [address] Dr. Nilo Gibbons NEUT # 6.0 103/ul Normal 1.4-6.5 [facility] Comment on above: Performed By: #### C BC #### [facility] [address] [place] [address] Dr. Nilo Gibbons Neutrophils/100 WBC (Bld) 72.1 % Normal 43.0-75.0 [facility] Comment on above: Performed By: #### C BC #### [facility] [address] [place] [address] Dr. Nilo Gibbons Platelet mean volume (Bld) [Entitic vol] 11.2 fL Normal 9.5-13.5 [facility] Comment on above: Performed By: #### C BC #### [facility] [address] [place] [address] Dr. Nilo Gibbons PLT 215 103/ul Normal 150-450 [facility] Comment on above: Performed By: #### C BC #### [facility] [address] [place] [address] Dr. Nilo Gibbons RBC 3.93 106/ul Critically low 4.20-5.40 [facility] Comment on above: Performed By: #### C BC #### [facility] [address] [place] [address] Dr. Nilo Gibbons WBC 8.3 103/ul Normal 4.0-11.0 [facility] Comment on above: Performed By: #### C BC #### [facility] [address] [place] [address] Dr. Nilo Gibbons CULTURE URINEon 07-19-2022 CULTURE URINE Culture Observations: LIGHT GROWTH OF MIXED GENITAL LESLIE. NO POTENTIAL PATHOGENS SEEN. Normal [facility] Comment on above: Performed By: #### E VANITA UMICRO #### [facility] [address] [place] [address] Dr. Nilo Gibbons TYPE AND SCREENon 07-19-2022 TYPE AND SCREEN Negative Normal [facility] Comment on above: Performed By: #### E VANITA UMICRO #### [facility] [address] [place] [address] Dr. Nilo Gibbons UA (CLEAN/CATCH) AMPOULE EXAMINER/MICRO I F IND.on 07-19-2022 Bilirubin Ql (U) Negative Normal NEGATIVE [facility] Comment on above: Performed By: #### U SAIRA UMICRO #### [facility] [address] [place] [address] Dr. Nilo Gibbons Clarity (U) SL CLOUDY Abnormal CLEAR [facility] Comment on above: Performed By: #### U SAIRA UMICRO #### [facility] [address] [place] [address] Dr. Nilo Gibbons Color (U) LT. YELLOW Normal YELLOW [facility] Comment on above: Performed By: #### U SAIRA UMICRO #### [facility] [address] [place] [address] Dr. Nilo Gibbons Glucose Ql (U) Negative Normal NEGATIVE [facility] Comment on above: Performed By: #### U ACSIND, UMICRO #### [facility] [address] [place] [address] [address] Nilo Gibbons Hemoglobin Ql (U) Negative Normal NEGATIVE [facility] Comment on above: Performed By: #### U ACSIND, UMICRO #### [facility] [address] [address] [address] Nilo Gibbons Ketones Ql (U) Negative Normal NEGATIVE [facility] Comment on above: Performed By: #### U ACSIND, UMICRO #### [facility] [address] [place] [address] [address] Nilo Gibbons LEUKOCYTES TRACE Abnormal NEGATIVE [facility] Comment on above: Performed By: #### U ACSIND, UMICRO #### [facility] [address] [place] [address] [address] Nilo Gibbons Nitrite Ql (U) Negative Normal NEGATIVE [facility] Comment on above: Performed By: #### U ACSIND, ICRO #### [facility] [address] [address] [address] Nilo Gibbons pH (U) 8.0 [pH] Normal 5-9 [facility] Comment on above: Performed By: #### U ACSIND, UMICRO #### [facility] [address] [address] [address] Nilo Gibbons SPEC GRAVITY 1.015 Normal 1.005-<=1.025 [facility] Comment on above: Performed By: #### U ACSIND, UMICRO #### [facility] [address] [place] [address] [address] iNlo Gibbons UA PROTEIN Negative Normal NEGATIVE/ TRACE [facility] Comment on above: Performed By: #### U ACSIND, UMICRO #### [facility] [address] [place] [address] [address] Nilo Gibbons UR MICRO IND INDICATED Normal [facility] Comment on above: Performed By: #### U ACSIND, UMICRO #### [facility] [address] [address] [address] Nilo Gibbons Urobilinogen Qn (U) 1.0 {You'U}/dL Normal 0.2 - 1. 0 [facility] Comment on above: Performed By: #### U ACSIND, UMICRO #### [facility] [address] [address] [address] Nilo Gibbons URINE MICROSCOPIC ONLYon AMORPHOUS CRYSTALS MODERATE Normal [facility] Comment on above: Performed By: #### U ACSIND, UMICRO #### [facility] [address] [place] [address] Dr. Nilo Gibbons BACTERIA SMALL Abnormal NONE SEEN [facility] Comment on above: Performed By: #### U ACSIND, UMICRO #### [facility] [address] [place] [address] Dr. Nilo Gibbons Bacteria identified Cx Nom (U) INDICATED Normal [facility] Comment on above: Performed By: #### U ACSIND, UMICRO #### [facility] [address] [place] [address] Dr. Nilo Gibbons CAST NONE SEEN Normal NONE SEEN [facility] Comment on above: Performed By: #### U ACSIND, UMICRO #### [facility] [address] [place] [address] Dr. Nilo Gibbons Crystals LM Nom (Urine sed) SEEN Abnormal NONE SEEN [facility] Comment on above: Performed By: #### U ACSIND, UMICRO #### [facility] [address] [place] [address] Dr. Nilo Gibbons Epithelial cells LM Ql (Urine sed) FEW Abnormal NONE SEEN /RARE [facility] Comment on above: Performed By: #### U ACSIND, UMICRO #### [facility] [address] [place] [address] Dr. Nilo Gibbons MUCOUS NONE SEEN Normal NONE SEEN [facility] Comment on above: Performed By: #### U ACSIND, UMICRO #### [facility] [address] [place] [address] Dr. Nilo Gibbons RBC NONE SEEN Abnormal 0-2 [facility] Comment on above: Performed By: #### U ACSNAOMI UMICRO #### [facility] [address] [place], [place] [address] Dr. Nilo Gibbons WBC 2-5 Abnormal NONE SEEN [facility] Comment on above: Performed By: #### U ACSNAOMI, UMICRO #### [facility] [address] [place], [place] [address] Dr. Nilo Gibbons US PREG CERVICAL LENGTHon [...] SHIN MEYER Date: 2022-07-19 13:55 Normal [facility] US PREG PLACENTAon US PREG PLACENTA [...] SHIN MEYER Date: 2022-07-19 12:41 Normal [facility] US OB Limitedon 07-18-2022 US OB [...] by Jono Wiggins on 07/18/2022 1248 Normal [facility] US Renal/Bladderon US Renal/Bladder HISTORY: Back pain FINDINGS: Right Gqalia13.8 x 5.0 x 6.2 cm Left Qhrkmn72.0 x 4.7 x 4.9 cm Normal renal size, cortical volume and echotexture is present for this age. No collecting system dilatation or echogenic foci with posterior shadowing are noted. No bladder stones. Both ureteral jets visualized. IMPRESSION: Normal renal and bladder ultrasound evaluation. Report reported and signed by Jono Wiggins on 07/18/2022 1248 Normal [facility] OB 2nd/3rd Trimesteron US OB 2nd/3rd Trimester [...] 2022. Report reported and signed by Jono Wgigins on 07/11/2022 1249 Normal [facility] [employer] Forms CBC AUTO DIFFon 05-28-2022 BASO # 0.0 103/ul Normal 0.0-0.1 [facility] Comment on above: Performed By: #### C BC #### [facility] [address] [place] [address] Dr. Nilo Gibbons Basophils/100 WBC (Bld) 0.2 % Normal 0.2-2.0 [facility] Comment on above: Performed By: #### C BC #### [facility] [address] [place] [address] Dr. Nilo Gibbons EO # 0.0 103/ul Normal 0.0-0.7 [facility] Comment on above: Performed By: #### C BC #### [facility] [address] [place] [address] Dr. Nilo Gibbons Eosinophils/100 WBC (Bld) 0.4 % Critically low 0.9-7.0 [facility] Comment on above: Performed By: #### C BC #### [facility] [address] [place] [address] Dr. Nilo Gibbons Erythrocyte distribution width (RBC) [Ratio] 12.7 % Normal 11.0-15.0 [facility] Comment on above: Performed By: #### C BC #### [facility] [address] [place] [address] Dr. Nilo Gibbons Hematocrit (Bld) [Volume fraction] 34.6 % Critically low 36.0-48.0 [facility] Comment on above: Performed By: #### C BC #### [facility] [address] [place] [address] Dr. Nilo Gibbons Hemoglobin (Bld) [Mass/Vol] 11.8 g/dL Critically low 12.0-16.0 [facility] Comment on above: Performed By: #### C BC #### [facility] [address] [place] [address] Dr. Nilo Gibbons IG # 0.02 10e3/ul Normal 0.00-0.03 [facility] Comment on above: Performed By: #### C BC #### [facility] [address] [place] [address] Dr. Nilo Gibbons IG % 0.2 % Normal 0.0-0.5 [facility] Comment on above: Performed By: #### C BC #### [facility] [address] [place] [address] Dr. Nilo Gibbons LYMPH # 2.0 103/ul Normal 1.2-3.8 [facility] Comment on above: Performed By: #### C BC #### [facility] [address] [place] [address] Dr. Nilo Gibbons Lymphocytes/100 WBC (Bld) 24.1 % Normal 20.5-60.0 [facility] Comment on above: Performed By: #### C BC #### [facility] [address] [place] [address] Dr. Nilo Gibbons MANUAL DIFF REQ NO Normal [facility] Comment on above: Performed By: #### C BC #### [facility] [address] [place] [address] Dr. Nilo Gibbons MCH (RBC) [Entitic mass] 29.7 pg Normal 26.7-34.0 [facility] Comment on above: Performed By: #### C BC #### [facility] [address] [place] [address] Dr. Nilo Gibbons MCHC (RBC) [Mass/Vol] 34.1 g/dL Normal 29.9-35.2 [facility] Comment on above: Performed By: #### C BC #### [facility] [address] [place] [address] Dr. Nilo Gibbons MCV (RBC) [Entitic vol] 87.2 fL Normal 81.0-99.0 [facility] Comment on above: Performed By: #### C BC #### [facility] [address] [address] [address] Nilo Gibbons MONO # 0.5 103/ul Normal 0.3-0.8 [facility] Comment on above: Performed By: #### C BC #### [facility] [address] [address] [address] Nilo Gibbons Monocytes/100 WBC (Bld) 6.4 % Normal 1.7-12.0 [facility] Comment on above: Performed By: #### C BC #### [facility] [address] [address] [address] Nilo Gibbons NEUT # 5.7 103/ul Normal 1.4-6.5 [facility] Comment on above: Performed By: #### C BC #### [facility] [address] [place] [address] Dr. Nilo Gibbons Neutrophils/100 WBC (Bld) 68.7 % Normal 43.0-75.0 [facility] Comment on above: Performed By: #### C BC #### [facility] [address] [place] [address] Dr. Nilo Gibbons Platelet mean volume (Bld) [Entitic vol] 11.4 fL Normal 9.5-13.5 [facility] Comment on above: Performed By: #### C BC #### [facility] [address] [place] [address] Dr. Nilo Gibbons PLT 193 103/ul Normal 150-450 [facility] Comment on above: Performed By: #### C BC #### [facility] [address] [place] [address] Dr. Nilo Gibbons RBC 3.97 106/ul Critically low 4.20-5.40 [facility] Comment on above: Performed By: #### C BC #### [facility] [address] [address] [address] Nilo Gibbons WBC 8.3 103/ul Normal 4.0-11.0 [facility] Comment on above: Performed By: #### C BC #### [facility] [address] [address] [address] Nilo Gibbons ER URINE PROFILEon 2 Bilirubin Ql (U) Negative Normal NEGATIVE [facility] Comment on above: Performed By: #### Jose WALDRON UMICRO #### [facility] [address] [place] [address] Dr. Nilo Gibbons Clarity (U) CLEAR Normal CLEAR [facility] Comment on above: Performed By: #### Jose WALDRON UMICRO #### [facility] [address] [place] [address] Dr. Nilo Gibbons Color (U) LT. YELLOW Normal YELLOW [facility] Comment on above: Performed By: #### BRENDA FENTONICRO #### [facility] [address] [place] [address] Dr. Nilo KUMARI A micrscopic examination will be performed if indicated. Normal [facility] Comment on above: Performed By: #### Jose WALDRON UMICRO #### [facility] [address] [place] [address] Dr. Nilo Gibbons Glucose Ql (U) Negative Normal NEGATIVE [facility] Comment on above: Performed By: #### BRENDA FENTONICRO #### [facility] [address] [place] [address] Dr. Nilo Gibbons Hemoglobin Ql (U) Negative Normal NEGATIVE [facility] Comment on above: Performed By: #### Jose WALDRON UMICRO #### [facility] [address] [place] [address] Dr. Nilo Gibbons Ketones Ql (U) Negative Normal NEGATIVE [facility] Comment on above: Performed By: #### BRENDA FENTONICRO #### [facility] [address] [place] [address] Dr. Nilo Gibbons LEUKOCYTES TRACE Abnormal NEGATIVE [facility] Comment on above: Performed By: #### Jose WALDRON UMICRO #### [facility] [address] [place] [address] Dr. Nilo Gibbons Nitrite Ql (U) Negative Normal NEGATIVE [facility] Comment on above: Performed By: #### Jose WALDRON, UMICRO #### [facility] [address] [address] [address] Nilo Gibbons pH (U) 6.0 [pH] Normal 5-9 [facility] Comment on above: Performed By: #### Jose WALDRON, UMICRO #### [facility] [address] [address] [address] Nilo Gibbons SPEC GRAVITY 1.015 Normal 1.005-<=1.025 [facility] Comment on above: Performed By: #### Jose WALDRON, UMICRO #### [facility] [address] [place] [address] Dr. Nilo Gibbons UA PROTEIN Negative Normal NEGATIVE/ TRACE [facility] Comment on above: Performed By: #### Jose WALDRON UMICRO #### [facility] [address] [place] [address] Dr. Nilo Gibbons UR MICRO IND INDICATED Normal [facility] Comment on above: Performed By: #### Jose WALDRON UMICRO #### [facility] [address] [place] [address] Dr. Nilo Gibbons Urobilinogen Qn (U) 0.2 {You'U}/dL Normal 0.2 - 1. 0 [facility] Comment on above: Performed By: #### Jose WALDRON, UMICRO #### [facility] [address] [place] [address] Dr. Nilo Gibbons PREG QUANT HCGon 05-28-2022 HCG QUANT 82783 mIU/mL Normal [facility] Comment on above: Performed By: #### P REGQNT #### [facility] [address] [place] [address] Dr. Nilo Gibbons HCG RANGE SEE BELOW Normal [facility] Comment on above: Result Comment: 5-50 0.2-1 WEEK 50-500 1-2 WEEKS 100-5,000 2-3 WEEKS 500-10,000 3-4 WEEKS 1,000-50,000 4-5 WEEKS 10,000-100,000 5-6 WEEKS 15,000-200,000 6-8 WEEKS 10,000-100,000 2-3 MONTHS Performed By: #### P REGQNT #### [facility] [address] [place] [address] Dr. Nilo Gibbons PROF CHEM 8 (BAS METB)on Anion gap [Moles/Vol] 10.6 mmol/L Normal [facility] Comment on above: Performed By: #### CELY FENTON #### [facility] [address] [place] [address] Dr. Nilo Gibbons Calcium [Mass/Vol] 8.8 mg/dL Normal 8.5-10.1 [facility] Comment on above: Performed By: #### CELY FENTON #### [facility] [address] [place] [address] Dr. Nilo Gibbons Chloride [Moles/Vol] 102 mmol/L Normal 98-107 [facility] Comment on above: Performed By: #### CELY FENTON #### [facility] [address] [place] [address] Dr. Nilo Gibbons CO2 [Moles/Vol] 24.2 mmol/L Normal 21.0-32.0 [facility] Comment on above: Performed By: #### CELY FENTON #### [facility] [address] [place] [address] Dr. Nilo Gibbons Creatinine [Mass/Vol] 0.55 mg/dL Normal 0.55-1.02 [facility] Comment on above: Performed By: #### LISSETH FENTONRO #### [facility] [address] [place] [address] Dr. Nilo Gibbons EGFR-AF GERMAN >60 Normal >=60 [facility] Comment on above: Performed By: #### CELY FENTON #### [facility] [address] [place] [address] Dr. Nilo Gibbons EGFR-NON AF GERMAN >60 Normal >=60 [facility] Comment on above: Performed By: #### CELY FENTON #### [facility] [address] [address] [address] Nilo Gibbons Glucose [Mass/Vol] 101 mg/dL Normal 74-106 [facility] Comment on above: Performed By: #### LISSETH FENTONRO #### [facility] [address] [address] [address] Nilo Gibbons Potassium [Moles/Vol] 3.8 mmol/L Normal 3.5-5.1 [facility] Comment on above: Performed By: #### Jose WALDRON UMICRO #### [facility] [address] [place] [address] Dr. Nilo Gibbons Sodium [Moles/Vol] 133 mmol/L Critically low 136-145 [facility] Comment on above: Performed By: #### Jose WALDRON UMICRO #### [facility] [address] [place] [address] Dr. Nilo Gibbons Urea nitrogen [Mass/Vol] 10.0 mg/dL Normal 7.0-18.0 [facility] Comment on above: Performed By: #### BRENDA FENTONICRO #### [facility] [address] [place] [address] Dr. Nilo Gibbons Urea nitrogen/Creatinine [Mass ratio] 18.2 mg/mg Normal [facility] Comment on above: Performed By: #### Jose WALDRON UMICRO #### [facility] [address] [place] [address] Dr. Nilo Gibbons URINE MICROSCOPIC ONLYon BACTERIA TRACE Abnormal NONE SEEN [facility] Comment on above: Performed By: #### Jose WALDRON UMICRO #### [facility] [address] [place] [address] Dr. Nilo Gibbons Bacteria identified Cx Nom (U) NOT INDICATED Normal [facility] Comment on above: Performed By: #### Jose WALDRON UMICRO #### [facility] [address] [place] [address] Dr. Nilo Gibbons CAST NONE SEEN Normal NONE SEEN [facility] Comment on above: Performed By: #### LISSETH FENTONRO #### [facility] [address] [address] [address] Nilo Gibbons Crystals LM Nom (Urine sed) NONE SEEN Normal NONE SEEN [facility] Comment on above: Performed By: #### E RUR, UMICRO #### [facility] [address] [address] [address] Nilo Gibbons Epithelial cells LM Ql (Urine sed) FEW Abnormal NONE SEEN /RARE [facility] Comment on above: Performed By: #### E RUR, UMICRO #### [facility] [address] [address] [address] Nilo Gibbons MUCOUS NONE SEEN Normal NONE SEEN [facility] Comment on above: Performed By: #### E RUR, UMICRO #### [facility] [address] [place] [address] Dr. Nilo Gibbons RBC NONE SEEN Abnormal 0-2 [facility] Comment on above: Performed By: #### E DIONTER, UMICRO #### [facility] [address] [address] [address] Nilo Gibbons WBC 0-2 Abnormal NONE SEEN [facility] Comment on above: Performed By: #### E RUR, UMICRO #### [facility] [address] [place] [address] Dr. Nilo Gibbons ABO, External Resulton 05-16 ABO, External Result O [employer] Work Phone: C. Trachomatis, External Res [facility] 05-16-2022 C. Trachomatis, External Result Negative [employer] Work Phone: HIV, External Resulton 05-16 HIV, External Result Non-Reactive JAQUI N [employer] Work Phone: Hepatitis B, External Result on 05-16-2022 Hep B, External Result Non-Reactive BON [employer] Work Phone: N. Gonorrhoeae, External Res [facility] 05-16-2022 N. Gonorrhoeae, External Result Negative [employer] Work Phone: No Panel Informationon 05-16 DARLYN [email or web address] Phone: DARLYN [email or web address] Phone: RPR, External Labon 05-16-20 22 RPR, External Result Non-Reactive JAQUI N [email or web address] Phone: Rh Factor, External Resulton 05-16-2022 Rh Factor, External Result Positive BON [email or web address] Phone: Rubella Titer, External Resu lton 05-16-2022 Rubella Titer, External Result IMMUNE DARLYN [email or web address] Phone: US OB 1ST Trimesteron 2021 US [...] by Jono Wiggins on 04/19/2022 1009 Normal [facility] [employer] XR Abdomen 2 Viewson 022 XR Abdomen [...] by Shin Hopson on 01/17/2022 0856 Normal [facility] [employer] Q - CULTURE,URINE,ROUTINEon 01-10-2022 CULTURE, URINE, ROUTINE SEE NOTE Normal [facility] [employer] Comment on above: Order Comment: [facility] Testing performed at: SeeOn, swabr [facility], [address], [address] [place] [address], [phone], Retail Management Trainee: Diaz Florian MD [facility] Collection Date/Time: [id number] [facility] Results Received Date/Time: [id number] [facility] Reported Date/Time: [id number] Result Comment: CULT URE, URINE, ROUTINE Micro Number: [id number] Test Status: Final Specimen Source: Urine Specimen Quality: Adequate Result: Mixed genital leslie isolated. These superficial bacteria are not indicative of a urinary tract infection. No further organism identification is warranted on this specimen. If clinically indicated, recollect clean-catch, mid-stream urine and transfer immediately to Urine Culture Transport Tube. Performed By: #### 6 [id number] #### [facility] [address] [place] [address] Q - HCG TOTAL QNon 2 HCG, TOTAL, QN <3 Normal [facility] [employer] Comment on above: Order Comment: [facility] Testing performed at: [employer] [facility], [address], [address] [place] [address], [phone], Retail Management Trainee: Diaz Florian MD [facility] Collection Date/Time: [facility] Results Received Date/Time: [facility] Reported Date/Time: FASTING: NO Result Comment: Refe rence Range Non or premenopausal <5 Postmenopausal <10 Values from different assay methods may vary. The use of this assay to monitor or to diagnose patients with cancer or any condition unrelated to has not been cleared or approved by the FDA or the numerical control tool programmer of the assay. Performed By: #### 2 [id number] #### [facility] [address] [place] [address] TSHon 10-12-2021 TSH 4.300 uIU/mL Normal 0.400-4.500 [facility] [employer] Comment on above: Performed By: #### T SH #### [facility] [address] [place], [place] [id number] Dipstick and Microscopicon 0 02-15-2021 Appearance (U) Clear Normal Clear [facility] Comment on above: Order Comment: Name Collection Type:: Clean-Voided Midstream Performed By: #### A DDONUAPLUS, CUU, UHCG #### [facility] [address] [place] [address] [place] Bacteria,Urine 1+ High None Seen [facility] Comment on above: Order Comment: Name Collection Type:: Clean-Voided Midstream Performed By: #### A DDONUAPLUS, CUU, UHCG #### [facility] [address] [place] [address] [place] Bilirubin,Urine Negative Normal Negative [facility] Comment on above: Order Comment: Name Collection Type:: Clean-Voided Midstream Performed By: #### A DDONUAPLUS, CUU, UHCG #### [facility] [address] [place] [address] Color (U) Yellow Normal Yellow [facility] Comment on above: Order Comment: Name Collection Type:: Clean-Voided Midstream Performed By: #### A DDONUAPLUS, CUU, UHCG #### [facility] [address] [place] [address] Glucose Ql (U) Normal Normal Normal [facility] Comment on above: Order Comment: Name Collection Type:: Clean-Voided Midstream Performed By: #### A DDONUAPLUS, CUU, UHCG #### [facility] [address] [place] [address] [place] Hyaline Casts,Urine 0-8 Normal 0-8 [facility] Comment on above: Order Comment: Name Collection Type:: Clean-Voided Midstream Performed By: #### A DDONUAPLUS, CUU, UHCG #### [facility] [address] [place] [address] [place] Ketones Ql (U) Negative Normal Negative [facility] Comment on above: Order Comment: Name Collection Type:: Clean-Voided Midstream Performed By: #### A DDONUAPLUS, CUU, UHCG #### [facility] [address] [place] [address] [place] Leukocyte esterase Test strip Ql (U) 2+ High Negative [facility] Comment on above: Order Comment: Name Collection Type:: Clean-Voided Midstream Performed By: #### A DDONUAPLUS, CUU, UHCG #### [facility] [address] [place] [address] [place] Nitrite,Urine Negative Normal Negative [facility] Comment on above: Order Comment: Name Collection Type:: Clean-Voided Midstream Performed By: #### A DDONUAPLUS, CUU, UHCG #### [place] [address] [place] Occult Blood,Urine Negative Normal Negative [facility] Comment on above: Order Comment: Name Collection Type:: Clean-Voided Midstream Performed By: #### A DDONUAPLUS, CUU, UHCG #### [address] pH (U) 6.5 [pH] Normal 5.0-9.0 [facility] Comment on above: Order Comment: Name Collection Type:: Clean-Voided Midstream Performed By: #### A DDONUAPLUS, CUU, UHCG #### [address] Protein,Urine Negative Normal Negative [facility] Comment on above: Order Comment: Name Collection Type:: Clean-Voided Midstream Performed By: #### A DDONUAPLUS, CUU, UHCG #### [facility] [address] [place] [address] [place] RBC,Urine 1-2 Normal 0-4 [facility] Comment on above: Order Comment: Name Collection Type:: Clean-Voided Midstream Performed By: #### A DDONUAPLUS, CUU, UHCG #### [place] [address] [place] Specificy [place],Urine 1.026 Normal 1.001-1.030 [facility] Comment on above: Order Comment: Name Collection Type:: Clean-Voided Midstream Performed By: #### A DDONUAPLUS, CUU, UHCG #### [place] [address] [place] Squamous Epithelial Cell,Urine 5-9 High 0-2 [facility] Comment on above: Order Comment: Name Collection Type:: Clean-Voided Midstream Performed By: #### A DDONUAPLUS, CUU, UHCG #### [address] Urobilinogen,Urine Normal Normal Normal [facility] Comment on above: Order Comment: Name Collection Type:: Clean-Voided Midstream Performed By: #### A DDONUAPLUS, CUU, UHCG #### [facility] [address] [place], [place] [id number] [facility] WBC,Urine 5-9 High 0-4 [facility] Comment on above: Order Comment: Name Collection Type:: Clean-Voided Midstream Performed By: #### A DDONUAPLUS, CUU, UHCG #### [address] HCG,Urineon 02-15-2021 Beta HCG ( test) Ql (U) Negative Normal [facility] Comment on above: Order Comment: Name Collection Type:: Clean-Voided Midstream Result Comment: PERF ORMED BY: [place] [address] PATHOLOGIST [employer] MENDER ANA PAULA GILMORE M.D. Performed By: #### A DDONUAPLUS, CUU, UHCG #### [address] US transvaginalon 02-15-2021 US transvaginal [facility] [place] [place] [address] Ultrasound Report Signed Patient: Tho Molina MR#: [id number] 83 : 2000 Acct:[id number] Age/Sex: 20 / F ADM Date: 02/15/21 Loc: ER Room: Type: [facility] ER Attending Dr: Ordering Provider: ROSALIA Hunter Date of Service: 02/15/21 US/US pelvic complete: r/o ovarian cyst, check IUD ([id number]) US/US transvaginal: CHECK IUD Copies to: ROSALIA [...] Hetal Chris M.D.02/15/2021 3:45 PM Dictation Location: [address] [address] Tech: Tova Fisher Transcribed By: [facility] 02/15/21 1545 Dictated By: Hetal Chris MD 02/15/21 1539 Signed By: 02/15/21 1545 [facility] Urine Cultureon 02-15-2021 Bacteria identified Cx Nom (U) >100,000 colonies/ml mixed bacterial skin contaminants 2 Days PERFORMED BY: [facility] [place] [address] PATHOLOGIST [employer] MENDER ANA PAULA GILMORE M.D. [facility] Comment on above: Performed By: #### A DDONUAPLUS, SEJAL, [facility] #### [facility] [address] [id number] [facility] C Strep Screenon 07-22-2020 Strep Screen Microbiology PROCEDURE: Strep Screen Culture [R1] SOURCE: Swab BODY SITE: COLLECTED DATE/TIME: 07/20/2020 08:43 EST RECEIVED DATE/TIME: 07/20/2020 11:21 EST START DATE/TIME: 07/20/2020 11:21 EST FREE TEXT SOURCE: Caleb Jensen PA-C, PA-C, Caleb FINAL REPORTS Final Report [] Verified Date/Time: 07/22/2020 12:08 EST No Pathogenic Streptococcus Isolated Performing Locations R1: This test was performed at: [facility], [address] [place] [address], [facility]- , , [facility] Comment on above: Performed By: #### 2 [id number], [id number], [id number] #### [facility] [address] [place] [address] Coding Summary.on 07-21-2020 Coding Summary. CODING DATE: 07/21/2020 FINAL [facility] STATUS: Home (Routine DC) PAYOR: Government ADMIT [...] Asha Ceron Date Saved: 07/21/2020 08:15 am [facility] Consent for Treatmenton 06-23 Consent for Treatment [id number] #1.00CD:127 Normal [facility] Discharge Instructionson Discharge Instructions [id number] 3#1.00CD:127 Normal [facility] ED Clinical Summaryon 2019 ED Clinical Summary [address] [place] [id number] ED Clinical Summary Person Information Name: THO MOLINA/NewCara Age: 20 Years : 2000 Sex: Female Language: Israeli PCP: MABLE JOE MD Marital Status: Single Phone: [phone] Visit Id: Visit Reason: Ear pain; Throat [...] 07/20/2020 10:30:10 07/20/2020 10:30:10 07/20/2020 10:30:10 ADDRESS: [address] [place] [id number] [facility] DOC NOTES: MEDICAL INFORMATION: Prescriptions Given: New [...] Follow up: With: Address: When: MABLE JOE [address] [place], [place] [id number] Business (1) In 3 days 07/23/2020 DIAGNOSIS: Pharyngitis Normal [facility] ED Note-Physicianon 07-20-20 ED Note-Physician Basic [...] 20 tab(s), Refills(s) 0 Rapid COVID Antigen [place] Rapid Strep w/rfx Strep Screen Culture Medications [...] Information MABLE JOE In 3 days 07/23/[address] [address] Business (1) Additional Instructions: Patient Education Pharyngitis Attestation Patient seen and evaluated by the physician physician assistant certified. Attending physician was present in the emergency department and supervised care. This report was transcribed using voice recognition software. Every effort was made to ensure accuracy, however, inadvertently computerized systems analyst developer mistakes may be present. 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 Activity level: Occasional physical work., 05/04/2019 [...] 08:43:00) Diagnostic Results No qualifying data available. [facility] Comment on above: Result Comment: Elec [...] or pale yellow. ? ? Only take bclm-tww-ptidqlf or prescription medicines as directed by your [...] Document Reviewed: 04/14/2014 ExitCare? Patient Information ?2015 [employer]. This information is not intended to replace advice given to you by your health care provider. Make sure you discuss any questions you have with your health care provider. Normal [facility] ED Patient Summaryon 020 ED Patient Summary [address] [place] [id number] Patient Discharge Instructions Person Information Name: THO MOLINA Age: 20 Years Arrival Date: 07/20/2020 08:25:28 Discharge Diagnosis: Pharyngitis Primary Care Physician: MABLE JOE MD Provider Information Primary Provider: Alec Roman DO Advanced Supervisor Sewer System:Caleb Jensen PA-C The exam and treatment you received in the Emergency Department were for an urgent problem and are not intended as complete care. It is important that you follow up with a doctor, nurse practitioner, or physician?s physician assistant certified for ongoing care. If your symptoms become worse or you do not improve as expected and you are unable to reach your usual health care provider, you should return to the Emergency Department. We are available 24 hours a day. THO MOLINA has been given the following list of patient education materials, prescriptions and follow-up instructions: Follow-up Instructions: With: Address: When: MABLE JOE [address] [place] [place], [place] [phone] Business (1) In 3 days 07/23/2020 In the event that this physician does not participate in your insurance network, please consult with your insurance company to find a nearby participating provider. Patient Education Materials: Pharyngitis A MESSAGE TO ALL PATIENTS REGARDING OPIOIDS PRESCRIPTION OPIOIDS: WHAT YOU NEED TO KNOW Prescription opioids can be used to help relieve puanvxsn-cx-mnijct pain and are often prescribed following a [...] be struggling with addiction, tell your health healthcare facility administrator and ask for guidance or call [facility]?S National Helpline at 3-802-951-YJQT. x Source: [place] Department of Health and Human Services/Center for Disease Control & Prevention [facility] Medications Given: Medication Dose Route [...] Comment: Pharmacy Information: Thank you for choosing [facility] Patient Education Materials: Pharyngitis Pharyngitis is redness, [...] or pale yellow. ? ? Only take jgur-hoi-pngqnjo or prescription medicines as directed by your [...] Document Reviewed: 04/14/2014 ExitCare? Patient Information ?2015 [employer]. This information is not intended to replace advice given to you by your health care provider. Make sure you discuss any questions you have with your health care provider. JESSE Urbina JESSE , have received the following patient education materials/instructio ns and have verbalized understanding: Patient Education Materials: Pharyngitis Follow-up Instructions: With: Address: When: MABLE ARROYOHMAN [address] [place] [phone] Business (1) In 3 days 07/23/2020 Patient Signature Date Clinician/Nurse Signature Date 07/20/2020 10:30:13 [facility] Prescriptions/Work Noteson 1 09-19-2019 Prescriptions/Work Notes [id number] 6#1.00CD:127 Normal [facility] Rapid COVID Antigen ([facility])on 07-20-2020 Rapid COV Int NEG Ctl Pass Normal [facility] Comment on above: Performed By: #### 2 [id number], [id number], [id number] #### [facility] [address] [place] [address] Rapid COV Int POS Ctl Pass Normal [facility] Comment on above: Performed By: #### 2 [id number], [id number], [id number] #### [facility] [address] [place] [address] Rapid COVID Ag Not Detected Normal Not Detected [facility] Comment on above: Result Comment: The [employer] System for Rapid Detection of SARS-CoV-2 is [...] or revoked sooner. Performed By: #### 2 [id number], [id number], [id number] #### [facility] [address] [place], [place] [id number] Employed in Healthcare NO Normal [facility] Comment on above: Performed By: #### 2 [id number], [id number], [id number] #### [facility] [address] [place] [address] First Test Unknown Normal [facility] Comment on above: Performed By: #### 2 [id number], [id number], [id number] #### [facility] [address] [place] [address] Hospitalized? NO Normal [facility] Comment on above: Performed By: #### 2 [id number], [id number], [id number] #### [facility] [address] [place] [address] ICU NO Normal [facility] Comment on above: Performed By: #### 2 [id number], [id number], [id number] #### [facility] [address] [place] [address] ? NO Normal [facility] Comment on above: Performed By: #### 2 [id number], [id number], [id number] #### [facility] [address] [place] [address] Resides in a Congregate Care Setting NO Normal [facility] Comment on above: Performed By: #### 2 [id number], [id number], [id number] #### [facility] [address] [place] [address] Symptomatic as defined by CDC YES Normal [facility] Comment on above: Performed By: #### 2 [id number], [id number], [id number] #### [facility] [address] [place] [address] Rapid Strep w/rfxon 07-20-20 20 S. pyogenes Ag IA Ql (Unsp spec) Negative Normal Negative [facility] Comment on above: Performed By: #### 2 [id number], [id number], [id number] #### [facility] [address] [place] [address] Consenton 04-17-2020 Consent [id number] 3#1.00CD:127 Normal [facility] Registrationon 04-17-2020 Registration [id number] 0#1.00CD:127 Normal [facility] Basic Metabolic Panel w/ Ref shawn to MGon 01-08-2020 Anion gap [Moles/Vol] 14 mmol/L 9 - 17 mmol/L [place], [place] Bun/Cre Ratio 16 [place], [place] Calcium [Mass/Vol] 9.0 mg/dL 8.6 - 10. 4 mg/dL [place], [place] Chloride [Moles/Vol] 100 mmol/L 98 - 10 7 mmol/L [place] CO2 [Moles/Vol] 24 mmol/L 20 - 31 mmol/L [place] Creatinine [Mass/Vol] 0.62 mg/dL 0.5 - 0.9 mg/dL [place] GFR NOT REPORTED >60 mL/min [place] GFR Non- Pediatric GFR requires additional information. Refer to [facility] website for calculator. >60 mL/min [place] Glucose [Mass/Vol] 112 mg/dL High 70 - 99 mg/dL [place] Interpretation and review of laboratory results Abnormal [place] Potassium [Moles/Vol] 3.5 mmol/L Low 3.7 - 5.3 mmol/L [place] Sodium [Moles/Vol] 138 mmol/L 135 - 144 mmol/L [place] Urea nitrogen [Mass/Vol] 10 mg/dL 6 - 20 mg/dL [place] CBC Auto Differentialon 05-2 0-2020 Basophils (Bld) [#/Vol] 0.03 10*3/uL [place] Basophils/100 WBC (Bld) 0 % 0 - 2 % [place] Differential Type NOT REPORTED [place] Eosinophils (Bld) [#/Vol] 10*3/uL [place] Eosinophils/100 WBC (Bld) 0 % Low 1 - 4 % [place] Erythrocyte distribution width (RBC) [Ratio] 12.7 % 11.8 - 14.4 % [place] Hematocrit (Bld) [Volume fraction] 41.9 % 36.3 - 47.1 % [place] Hemoglobin (Bld) [Mass/Vol] 13.5 g/dL 11.9 - 15.1 g/dL [place] Immature granulocytes (Bld) [#/Vol] 0 % 0 [place] Immature granulocytes (Bld) [#/Vol] 0.04 10*3/uL [place] Interpretation and review of laboratory results Abnormal [place] Lymphocytes (Bld) [#/Vol] 0.85 10*3/uL [place] Lymphocytes/100 WBC (Bld) 7 % Low 25 - 45 % [place] MCH (RBC) [Entitic mass] 28.0 pg 25.2 - 33.5 pg [place] MCHC (RBC) [Mass/Vol] 32.2 g/dL 28.4 - 34.8 g/dL [place] MCV (RBC) [Entitic vol] 86.9 fL 82.6 - 102.9 fL [place] Monocytes (Bld) [#/Vol] 1.15 10*3/uL [place] Monocytes/100 WBC (Bld) 9 % High 2 - 8 % [place] Platelet mean volume (Bld) [Entitic vol] 11.9 fL 8.1 - 13.5 fL [place] Platelets (Bld) [#/Vol] NOT REPORTED [place] Platelets (Bld) [#/Vol] 164 10*3/uL [place] RBC (Bld) [#/Vol] 4.82 10*6/uL 3.95 - 5.1 1 m/uL [place] RBC morphology finding Nom (Bld) NOT REPORTED [place] Segmented neutrophils/100 WBC (Bld) 84 % High 34 - 64 % [place] Segs Absolute 10.62 High [place] WBC (Bld) [#/Vol] 12.7 10*3/uL [place] WBC (Bld) [#/Vol] 0.0 10*3/uL 0.0 per 10 0 WBC [place] WBC Morphology NOT REPORTED [place] D-Dimer, Quantitativeon 12-20 0-2019 D-Dimer, Quant <0.27 [place], [place] Comment on above: When combined with [...] HCG Qualitative, Serumon hCG Qual Negative NEGATIVE [place] Comment on above: Specimens with hCG l evels near the threshold of the test (25 mIU/mL) may give a negative or indeterminate result. In such cases, another test should be performed with a new specimen in 48-72 hours. If early is suspected clinically in this setting, correlation with quantitative serum b-hCG level is suggested. Zoe Majeste has confirmed the use of plasma for this test. This has not been cleared or approved by the U.S. Food and Drug Administration. The FDA has determined that such clearance is not necessary. Magnesiumon 01-08-2020 Magnesium [Mass/Vol] 2.0 mg/dL 1.7 - 2 .2 mg/dL [place] Metabolic Panelon 01-08-2020 GFR/1.73 sq M predicted among non-blacks MDRD (S/P/Bld) [Vol rate/Area] [place] Comment on above: Stage 1: Some [...] body mass. Additional eGFR calculator available at: http://www.[address]ibbit/multiple_crcl_2012.htm Mononucleosis Screenon 01-07 Mononucleosis Screen Negative NEGATIVE [place] XR CHEST STANDARD (2 VW)on 0 01-08-2020 EXAMINATION: TWO XRAY VIEWS OF THE CHEST 01/08/2020 1:21 pm COMPARISON: 04/29/2013. HISTORY: ORDERING SYSTEM PROVIDED HISTORY: chest pain TECHNOLOGIST PROVIDED HISTORY: chest pain FINDINGS: Lungs are clear. Cardiac and mediastinal silhouettes are within normal limits. No pneumothoraces. Bony structures appear intact. Mr. NumberESPERANZA Jose Angel, Mhpn Incoming Radiant Results From [employer] - 01/08/2020 2:01 PM EDT EXAMINATION: TWO XRAY VIEWS OF THE CHEST 01/08/2020 1:21 pm COMPARISON: 04/29/2013. HISTORY: ORDERING SYSTEM PROVIDED HISTORY: chest pain TECHNOLOGIST PROVIDED HISTORY: chest pain FINDINGS: Lungs are clear. Cardiac and mediastinal silhouettes are within normal limits. No pneumothoraces. Bony structures appear intact. IMPRESSION: No evidence for acute cardiopulmonary process. [employer] WYESPERANZA No evidence for acute cardiopulmonary process. [employer] WYESPERANZA CBC auto differentialon 02-0 Basophils (Bld) [#/Vol] 10*3/uL [employer] Phone: Basophils/100 WBC (Bld) 0 % 0 - 2 % [employer] Phone: Differential Type NOT REPORTED [employer] Phone: Eosinophils (Bld) [#/Vol] 0.06 10*3/uL [employer] Phone: Eosinophils/100 WBC (Bld) 1 % 1 - 4 % [employer] Phone: Erythrocyte distribution width (RBC) [Ratio] 14.2 % 11.8 - 14.4 % [employer] Phone: Hematocrit (Bld) [Volume fraction] 35.4 % Low 36.3 - 47.1 % [employer] Phone: Hemoglobin (Bld) [Mass/Vol] 11.4 g/dL Low 11.9 - 15.1 g/dL [employer] Phone: Immature granulocytes (Bld) [#/Vol] 0.06 10*3/uL [employer] Phone: Immature granulocytes (Bld) [#/Vol] 1 % High 0 [employer] Phone: Interpretation and review of laboratory results Abnormal [employer] Phone: Lymphocytes (Bld) [#/Vol] 1.69 10*3/uL [employer] Work Phone: Lymphocytes/100 WBC (Bld) 16 % Low 25 - 45 % [employer] Work Phone: MCH (RBC) [Entitic mass] 30.2 pg 25.2 - 33.5 pg [employer] Phone: MCHC (RBC) [Mass/Vol] 32.2 g/dL 28.4 - 34.8 g/dL [employer] Work Phone: MCV (RBC) [Entitic vol] 93.9 fL 82.6 - 102.9 fL [employer] Phone: Monocytes (Bld) [#/Vol] 0.86 10*3/uL [employer] Phone: Monocytes/100 WBC (Bld) 8 % 2 - 8 % [employer] Work Phone: Platelet mean volume (Bld) [Entitic vol] 11.6 fL 8.1 - 13.5 fL [employer] Phone: Platelets (Bld) [#/Vol] NOT REPORTED [employer] Phone: Platelets (Bld) [#/Vol] 151 10*3/uL [employer] Work Phone: RBC (Bld) [#/Vol] 3.77 10*6/uL Low 3.95 - 5.1 1 m/uL [employer] Work Phone: RBC morphology finding Nom (Bld) NOT REPORTED [employer] Phone: Segmented neutrophils/100 WBC (Bld) 74 % High 34 - 64 % [employer] Work Phone: Segs Absolute 8.05 High [employer] Work Phone: WBC (Bld) [#/Vol] 10.7 10*3/uL [facility] Work Phone: WBC (Bld) [#/Vol] 0.0 10*3/uL 0.0 per 10 0 WBC [facility] Work Phone: WBC Morphology NOT REPORTED [facility] Work Phone: DRUG SCREEN MULTI URINEon Amphetamine [...] Work Phone: MDMA, Urine NOT REPORTED NEGATIVE [facility] Work Phone: Methadone Screen, Urine Negative NEGATIVE [facility] Work Phone: Methamphetamine, Urine Negative NEGATIVE [facility] Work Phone: Opiates, Urine Negative NEGATIVE [facility] Work Phone: Oxycodone Screen, Ur Negative [...] External Resulton 02-18 ABO, External Result O [employer] Work Phone: Comment on above: bs/ es C. Trachomatis, External Res ulton 02-18-2019 C. Trachomatis, External Result Negative [facility]: Comment on above: bs/es HIV, External Resulton 02-18 HIV, External Result non reactive [facility] [employer] Work Phone: Comment on above: bs/es Hepatitis B, External Result on 02-18-2019 Hep B, External Result non reactive [employer] Work Phone: Comment on above: bs/ es N. Gonorrhoeae, External Res ulton 02-18-2019 N. Gonorrhoeae, External Result Negative [facility]: Comment on above: bs/ es RPR, External Labon 02-19-20 19 RPR, External Result non reactive [employer] Work Phone: Comment on above: bs/es Rh Factor, External Resulton 02-18-2019 Rh Factor, External Result Positive [employer] Work Phone: Comment on above: bs/ es Rubella Titer, External Resu lton 02-18-2019 Rubella Titer, External Result immune [employer] Phone: Comment on above: bs/es Vital Signs Date Time Vital Sign Value Performing Clinician Alycei litana maría 11-07-2022 02:25-0400 Body temperature 98.01 [degF] Latanya Max [employer] [facility] Work Phone: [facility] SADAR 3D 11-07-2022 02:25-0400 Diastolic blood pressure 69 mm[Hg] Latanya Max [employer] [facility] Work Phone: [facility] 3D 11-07-2022 02:25-0400 Heart rate 105 /min Latanya Max [employer] [facility] Work Phone: [facility] 3D 11-07-2022 02:25-0400 Respiratory rate 16 /min Latanya Max [employer] - CNM Work Phone: [employer] 11-07-2022 02:25-0400 Systolic blood pressure 113 mm[Hg] Latanya Max [employer] - CNM Work Phone: [employer] 11-04-2022 11:10-0400 Body temperature 98.1 [degF] Og Larios APRN - CNM Work Phone: [employer] 11-04-2022 11:10-0400 Diastolic blood pressure 59 mm[Hg] Og Larios [employer] - CNM Work Phone: [employer] 11-04-2022 11:10-0400 Heart rate 134 /min Og Larios [employer] - CNM Work Phone: [employer] 11-04-2022 11:10-0400 Respiratory rate 16 /min Og Larios APRN - CNM Work Phone: [employer] 11-04-2022 11:10-0400 Systolic blood pressure 104 mm[Hg] Og Larios APRN - CNM Work Phone: [employer] 05-23-2021 07:22-0400 Body height 160 cm Claudy AndBuyou DO Work Phone: [employer] Work Phone: 05-23-2021 07:22-0400 Body mass index (BMI) [Ratio] 27.46 kg/m2 Claudy Andes DO Work Phone: [employer] Work Phone: 05-23-2021 07:22-0400 Body temperature 98.1 [degF] Claudy Andes DO Work Phone: [employer] Work Phone: 05-23-2021 07:22-0400 Body weight 70.31 kg Claudy Andes DO Work Phone: [employer] Work Phone: 05-23-2021 07:22-0400 Diastolic blood pressure 76 mm[Hg] Claudy Andes DO Work Phone: [employer] Work Phone: 05-23-2021 07:22-0400 Heart rate 77 /min Claudy Andes DO Work Phone: [employer] Work Phone: 05-23-2021 07:22-0400 Respiratory rate 14 /min Claudy Andes DO Work Phone: [employer] Work Phone: 05-23-2021 07:22-0400 SaO2% (BldA) [Mass fraction] 96 % Claudy Andes DO Work Phone: [employer] Work Phone: 05-23-2021 07:22-0400 Systolic blood pressure 129 mm[Hg] Claudy Andes DO Work Phone: [employer] Work Phone: 01-13-2020 20:47-0400 Body Temperature 98.2 [degF] [place] 01-13-2020 20:47-0400 BP Diastolic 76 mm[Hg] [facility] [place] 01-13-2020 20:47-0400 BP Systolic 102 mm[Hg] [place] 01-13-2020 20:47-0400 Pulse (Heart Rate) 66 /min [place] 01-13-2020 20:47-0400 Respiratory Rate 16 /min [place] [employer], [place] 01-08-2020 15:03-0400 Body Temperature 98.49 [degF] Jared [facility]uel [facility] [place] [facility] [place] 01-08-2020 14:47-0400 BP Diastolic 70 mm[Hg] Jared [facility] [place] 01-08-2020 14:47-0400 BP Systolic 114 mm[Hg] Jared [facility] [place] 01-08-2020 14:47-0400 Pulse (Heart Rate) 91 /min Jared [facility], [place] 01-08-2020 14:47-0400 Pulse Oximetry 97 % Jared [facility] , [place] 01-08-2020 14:47-0400 Respiratory Rate 18 /min Jared [facility] [place], [place] 01-08-2020 12:40-0400 BMI (Body Mass Index) 25.69 kg/m2 Jared Lipscomb [facility], [place] 01-08-2020 12:40-0400 Body weight 65.77 kg Jared [facility] , [place] 01-08-2020 12:40-0400 Height 160 cm [facility] , [place] 09-26-2019 07:50-0500 Body Temperature 97.5 [degF] [facility] [employer] Phone: 09-26-2019 07:50-0500 BP Diastolic 61 mm[Hg] [facility] [employer] Phone: 09-26-2019 07:50-0500 BP Systolic 104 mm[Hg] [facility] [employer] Phone: 09-26-2019 07:50-0500 Pulse (Heart Rate) 108 /min [facility] [employer] Phone: 09-26-2019 07:50-0500 Respiratory Rate 16 /min [facility] [employer] Phone: Encounters Encounter Date Encounter Type Care Provider Facility Start: 02-09-2024 End: 02-09-2024 ambulatory NETTE PHELPS Not Available Start: 12-22-2023 End: 12-22-2023 ambulatory MABLE JOE Not Available Start: 12-13-2023 End: 12-13-2023 ambulatory LATANYA MAX Not Available Start: 11-23-2023 End: 11-23-2023 ambulatory COY BILLS Not Available Start: 07-27-2023 End: 07-27-2023 Emergency department patient visit MABLE PEARLTATYANA [facility] Start: 07-03-2023 End: 07-03-2023 Emergency department patient visit MABLE Bianchi [facility] Start: 11-23-2022 End: 11-25-2022 Evaluation and management of inpatient JACOBO MAX . Facility:[facility]1 Start: 11-07-2022 End: 11-07-2022 ambulatory [facility]ANYA MAX [facility] Start: 11-07-2022 End: 11-07-2022 Subsequent hospital visit by physician Latanya Mxa [employer] - CNM Work Phone: [facility] Labor [facility] Delivery Start: 11-04-2022 End: 11-04-2022 ambulatory MABLE Bianchi [facility] Start: 11-04-2022 End: 11-04-2022 Subsequent hospital visit by physician Og Larios [employer] - CNM Work Phone: [facility] Labor and Delivery Start: 10-29-2022 End: 10-29-[address] EMILY MCNEIL . Facility:[facility] Start: 10-17-2022 End: 10-17-[address] JARAD RAMON . Facility:[facility] Start: 07-19-2022 End: 07-20-[address] EMILY MCNEIL . Facility:[facility] Start: 05-28-2022 End: 05-28-2022 ambulatory KARINE SAVAGE Facility:[facility] Start: 05-23-2021 End: 05-23-2021 Emergency department patient visit Claudy Zavala DO Work Phone: [facility] ED Comment on above: Viral illness (Prima ry Dx) Start: 01-13-2020 End: 01-13-2020 Emergency department patient visit Paco Olivares Work Phone: [facility] ED Comment on above: Acute pharyngitis, u nspecified etiology (Primary Dx) Start: 01-08-2020 End: 01-08-2020 Emergency department patient visit Jared Lipscomb Work Phone: [facility] ED Comment on above: Left otitis media, u nspecified otitis media type (Primary Dx); Acute pharyngitis, unspecified etiology Start: 09-25-2019 End: 09-26-2019 Evaluation and management of inpatient Latanya Max Work Phone: [facility] Labor and Delivery Procedures Date Procedure Procedure Detail Performing Clinician Start: 11-07-2022 Urnls dip stick/tabl et rgnt auto w/o microscopy Latanya Max [employer] - CNM Work Phone: Start: 11-04-2022 Urinalysis microscop ic only Og Christa Larios [employer] - CNM Work Phone: Start: 11-04-2022 Urnls dip stick/tabl et rgnt auto w/o microscopy Og Goodwin Ric [employer] - CNM Work Phone: Start: 10-27-2022 GBS, [...] Historical Provider Start: 05-16-2022 RPR, EXTERNAL RESULT Sc storical Provider Start: 05-16-2022 RUBELLA TITER, EXTER [...] Work Phone: Start: 09-12-2019 GBS, EXTERNAL RESULT [facility] Provider Start: 02-18-2019 ABO, EXTERNAL RESULT [facility] Provider Start: 02-18-2019 C. TRACHOMATIS, EXTE RNAL RESULT Historical Provider Start: 02-18-2019 HEPATITIS B, EXTERNA L RESULT Historical Provider Start: 02-18-2019 [facility] Start: 02-18-2019 N. GONORRHOEAE, EXTE RNAL RESULT Historical Provider Start: 02-18-2019 RH FACTOR, EXTERNAL RESULT Historical Provider Start: 02-18-2019 RPR, EXTERNAL RESULT [facility] Provider Start: 02-18-2019 RUBELLA TITER, EXTER NAL RESULT Historical Provider Plan of Treatment Date Care Activity Detail Author Start: 08-29-2029 DTaP/Tdap/Td vaccine (8 - Td or Tdap) DTaP/Tdap/Td vaccine (8 - Td or Tdap) [facility] Start: 08-29-2029 DTaP/Tdap/Td vaccine (8 - Td) DTaP/Tdap/Td vaccine (8 - Td) [place] Start: 05-16-2023 Screening for Chlamy collette trachomatis Chlamydia/GC screen [facility] [employer] [facility] Start: 03-21-2022 Influenza vaccination Flu vaccine (# 1) [facility] Start: 04-21-2021 Influenza vaccination Flu vaccine (# 1) [facility] Work Phone: Start: 2021 Screening for malign ant neoplasm of cervix Pap smear [email or web address] Start: 04-21-2019 Influenza vaccination Flu vaccine (# 1) [facility] [employer] Phone: Start: 2018 Hepatitis C screening Hepatitis C sc reen [id number] [employer] Start: 2016 Chlamydia screen Chlamydia screen [facility] [employer] Phone: Start: 2016 Screening for Chlamy collette trachomatis Chlamydia screen [place] Start: 2015 HIV screen HIV screen [facility] [employer] Phone: Start: 2015 HIV screening HIV screen [place], [place] Start: 2012 COVID-19 Vaccine (1) COVID-19 Vaccin e (1) [facility] [employer] Phone: Start: 2012 Depression Screen Depression Screen [facility] Start: 2011 DTaP/Tdap/Td vaccine (1 - Tdap) DTaP/Tdap/Td vaccine (1 - Tdap) [facility] Phone: Start: 2011 HPV vaccine (1 - Fem jeremy 2-dose series) HPV vaccine (1 - Female 2-dose series) [facility] [employer] Phone: Start: 2001 Varicella vaccine (1 of 2 - 2-dose childhood series) Varicella vaccine (1 of 2 - 2-dose childhood series) [facility] Phone: Start: 2000 COVID-19 Vaccine (#1) COVID-19 Vacci ne (#1) [id number] [employer] Start: 2000 [facility] [employer] Phone: End: 11-04-2022 Bacteria identified in Urine by Culture [id number] Phone: Comment on above: One Time for 1 Occur rences starting 11/04/2022 until 11/04/2022 End: 11-07-2022 Bacteria identified in Urine by Culture Urine culture Microbiology Routine One Time for 1 Occurrences starting 11/07/2022 until 11/07/2022 [employer] Phone: Comment on above: One Time for 1 Occur rences starting 11/07/2022 until 11/07/2022 EKG 12 Lead [employer] [place] nonstress test nonst ress test OB Routine Daily until discontinued starting 11/05/2022 [employer] Phone: Comment on above: Daily until disconti nued starting 11/05/2022 nonstress test nonst ress test OB Routine Daily until discontinued starting 11/07/2022 [employer] Phone: Comment on above: Daily until disconti nued starting 11/07/2022 Nonrebreather mask oxygen Nonreb reather mask oxygen Respiratory Care Routine As directed - RT (PRN) until discontinued starting 11/04/2022 [employer] Phone: Comment on above: As directed - RT (TX N) until discontinued starting 11/04/2022 Nonrebreather mask oxygen Nonreb reather mask oxygen Respiratory Care Routine As directed - RT (PRN) until discontinued starting 11/07/2022 [employer] Phone: Comment on above: As directed - RT (TX N) until discontinued starting 11/07/2022 End: 09-25-2019 Sample possible blood bank testing Sample possible blood bank testing Lab STAT One Time for 1 Occurrences starting 09/25/2019 until 09/25/2019 [employer] Phone: Comment on above: One Time for 1 Occur rences starting 09/25/2019 until 09/25/2019 End: 11-04-2022 SVE SVE Point of Care Testing Routine One Time for 1 Occurrences starting 11/04/2022 until 11/04/2022 [employer] Phone: Comment on above: One Time for 1 Occur rences starting 11/04/2022 until 11/04/2022 End: 11-07-2022 SVE SVE Point of Care Testing Routine One Time for 1 Occurrences starting 11/07/2022 until 11/07/2022 DARLYN RGIFFINMAGGIE [employer] Phone: Comment on above: One Time for 1 Occur rences starting 11/07/2022 until 11/07/2022 End: 05-23-2021 XR CHEST PORTABLE XR CHEST PORTABLE Imaging STAT Once for 1 Occurrences starting 05/23/2021 until 05/23/2021 [employer] Phone: Comment on above: Once for 1 Occurrenc es starting 05/23/2021 until 05/23/2021 XR CHEST PORTABLE XR CHEST JOSH BLE Imaging STAT 05/23/2021 7:35 AM EDT [employer] Phone: Payers Date Payer Category Payer Unknown [facility] xxxxxxxxxxxx 2019-Present [phone] [address] [place] [address] xxxxxxxxxxxx [id number] 2000 Unknown [id number] 2000 Unknown [id number] 2000 Unknown [id number] 2000 Unknown [id number] 2000 Unknown [id number] 2000 Unknown [id number] 2000 Unknown [id number] 2000 Unknown [id number] 2000 Unknown [id number] 2000 Unknown [id number] 9 2000 Unknown [id number] 9 2000 Unknown [id number] 9 2000 Unknown [id number] 9 1959 Unknown [id number] Social History Date Type Detail Facility Start: 01-08-2020 End: 11-04-2022 Tobacco smoking status [facility] Never smoker [facility] [employer] Start: 01-08-2020 End: 11-07-2022 Alcohol intake Current non-drinker of alcohol (finding) [employer] Work Phone: Start: 2000 Sex Assigned At Not on file [facility] [employer] Work Phone: Exposure to SARS-CoV -2 (event) Unable to assess [employer] Start: 01-06-2019 [facility] Work Phone: Start: 05-23-2021 End: 11-04-2022 Tobacco use and exposure Never used [employer] Exposure to SARS-CoV -2 (event) Not sure [employer] Clinical Note 11-23-2022 Note Date & Type Note Facility 11-23-2022 Note OPERATIVE NOTE PROCEDURE: Exploratory exam status post vaginal delivery. PREOPERATIVE DIAGNOSIS: hemorrhage. POSTOPERATIVE DIAGNOSIS: hemorrhage. ANESTHESIA: Epidural. SURGEON: Jarad Ramon D.O. MANGLE CATCHER: Jacobo Floro, CNM (certified nurse machine sweeper brush maker) BLOOD LOSS IN THE VAC: 20 mL. [...] to the unit. At that time, Jacobo Chandracarmenza appeared to have the bleeding under [...] was given Versed per the certified nurse agile scrum coach. The cervix was explored in great detail. No cervical laceration could be seen. The patient's uterus was gently explored. Any additional blood clots were removed and possibly a small portion of retained placenta. Once excellent hemostasis was assured, patient was taken out of dorsolithotomy position and taken back to Labor and Delivery for recovery. [facility] Discharge instructions 11-07-2022 Discharge Instructions Note Date & Type Note Facility 11-07-2022 Hospital Discharg e instructions Brittany So RN - 11/07/2022 7:52 AM EDT OUTPATIENT DISCHARGE Dr. Carola Larios [facility] [address] [facility] [address] [place] Jacobo Max, MSN, [employer], CNM [address] [address] ACTIVITY LIMITATIONS: ( X )Up [...] DELIVERY . documented in this encounter [email or web address] Phone: Hospital Discharge instructions 11-04-2022 Discharge Instructions Note Date & Type Note Facility 11-04-2022 Hospital Discharg e instructions Diamond Bronson RN - 11/04/2022 1:02 PM EDT OUTPATIENT DISCHARGE Jacobo Max, MSN, MERCHANT M[employer]ER, CNM [address] [id number] ACTIVITY LIMITATIONS: ( x )Up and about [...] DELIVERY . documented in this encounter [email or web address] Phone: Clinical Note 08-10-2022 Note Date & [...] signed by Jono Wiggins on 08/11/2022 0731 [facility] [employer] Clinical Note 07-20-2022 Note Date & Type [...] by: SHIN MEYER Date: 2022-07-20 10:58 [facility] Evaluation note Note Date & Type Note Facility Evaluation note Diagnosis Viral illness- Primary Unspecified viral infection, in conditions classified elsewhere and of unspecified site documented in this encounter [employer] Phone: Evaluation note Note Date & Type Note Facility Evaluation note Diagnosis Uterine contractions- Primary documented in this encounter DARLYN GRIFFINMAGGIE [employer] Phone: Hospital Discharge instructions Attachments Note Date & Type Note Facility Hospital Discharge instructions The following attachments cannot be sent through Care Everywhere.URI (Upper Respiratory Infection): Viral (Israeli)documented in this encounter [facility] Phone: Discharge Instructions * Instructions* Jared Lipscomb Jr., MD - 01/08/2020 Off work and quarantine yourself until the results of your COVID testing returns. Use Tylenol or Advil for pain and fever. Return if you get short of breath, develop a high fever, or get worse in other ways. * Attachments The following attachments cannot be sent through Care Everywhere. * Otitis Media (Israeli) * Sore Throat (Israeli) documented in this encounter* Attachments The following attachments cannot be sent through Care Everywhere. 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 Advance Directives and Living Will Power of [employer] Latest Code Status on File Code Status Date Activated Date Inactivated Comments Full Code 09/25/2019 7:30 PM 09/26/2019 12:09 PM Full Code 09/25/2019 5:37 PM 09/25/2019 5:53 PM Full Code 04/30/2013 2:46 AM 04/30/2013 4:44 PM Latest Code Status on File Code Status Date Activated Date Inactivated Comments Full Code 09/25/2019 7:30 PM Documents on File Type Date Recorded 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 Pt tearful during triage Reason Comments Otalgia Bilateral ear pain x 1 month Pharyngitis x 1 week Reason Comments Scheduled Induction Reason Comments Pharyngitis Onset today Chest Pain Mid, near neck, onse t this AM Nausea Cough Onset today, non-pro ductive Reason Comments Contractions Reason Comments Abdominal Pain INFORMATION SOURCE (unrecogn ized section and content) DATE CREATED AUTHOR 09/03/2020 Wali Evans [facility] DATE CREATED AUTHOR AUTHOR'S ORGANIZ ATION 09/12/2021 [facility] DATE CREATED AUTHOR AUTHOR'S ORGANIZ ATION 08/13/2022 [facility] DATE CREATED AUTHOR AUTHOR'S ORGANIZ ATION 11/26/2022 [facility] DATE CREATED AUTHOR AUTHOR'S ORGANIZ ATION 08/01/2023 [facility] DATE CREATED AUTHOR AUTHOR'S ORGANIZ ATION 02/11/2024 [facility] d[facility] Specialists EPIC Ordered Prescriptions [...] Care Teams (unrecognized sec tion and content) [employer] Relationship Specialty Start Date End Date Mable García MD [address] [place] [address] PCP - General Family Medicine 09/25/19 [employer] Relationship Specialty Start Date End Date Mable García MD [address] [place] [id number] PCP - General Family Medicine 09/25/19 [...] BE BASED ON THE PRIMARY CLINICAL RECORDS. [employer] provides no warranty or guarantee of the accuracy or completeness of information in this document.
[2024-05-06 19:02] VITALS: BP 135/83; PULSE 72; TEMP 36.8; O2SAT 98; BMI 27.5
--- NOTE | 2024-05-06 20:46 | ED_ITS ---
HPI HPI - General Adult General Chief complaint: Ear Stated complaint: EARACHE Time Seen by Provider: 05/06/24 20:38 Source: patient Mode of arrival: walk-in Limitations: no limitations History of Present Illness HPI narrative: 24-year-old female presents for pain in her left ear and the left side of her throat. She is also states that she lost taste and she is worried about having COVID. No cough or congestion in her chest. No vomiting or diarrhea and she has had this for about 9 days. Related Data Previous Rx's ?Medication ?Instructions ?Recorded loratadine 5 mg-pseudoephedrine ER 1 tab PO Q12H PRN nasal congestion 05/06/24 120 mg tablet,extended #20 tabs release,12hr (Claritin-D 12 Hour) Allergies Allergy/AdvReac Type Severity Reaction Status Date / Time No Known Drug Allergies Allergy Verified 02/25/24 21:22 Opioid HPI Opioid Management Most Recent Opioid Data: Last Pain Scale 6 02/18/23 09:46 Ur Phencyclidine Scrn Negative (NEGATIVE) 07/14/23 17:21 Review of Systems ROS Narrative A ten point review of systems is negative except as noted above. PFSH PFSH Social History Little interest or pleasure in doing things: not at all Feeling down, depressed, or hopeless: not at all Exam Narrative Exam Narrative: Nurses note and vital signs reviewed and patient is not hypoxic. General: The patient appears well and in no apparent distress. Patient is resting comfortably on cart. Skin: Warm, dry, no pallor noted. There is no rash noted. Head: Normocephalic, atraumatic Eye: Normal conjunctiva, no drainage Ears, Nose, Mouth, and Throat: oral mucosa is moist. Nares patent. Both TMs and both external canals are normal in appearance. No pharyngeal erythema or exudate. Uvula midline. No swelling present. Cardiovascular: Regular Rate and Rhythm Respiratory: Patient is in no distress, no accessory muscle use, lungs are clear to auscultation, no wheezing, rales or rhonchi Back: non-tender GI: Soft and nontender Musculoskeletal: The patient has no evidence of calf tenderness, no pitting edema, symmetrical pulses noted bilaterally Neurological: Awake and alert Psychiatric: Cooperative Constitutional Vital Signs, click to edit/add: Last Vital Signs Temp 98.3 F 05/06/24 19:02 Pulse 72 05/06/24 19:02 Resp 16 05/06/24 19:02 BP 135/83 05/06/24 19:02 Pulse Ox 98 05/06/24 19:02 O2 Del Method Room Air 05/06/24 19:02 Course Vital Signs Vital signs: Vital Signs Temperature 98.3 F 05/06/24 19:02 Pulse Rate 72 05/06/24 19:02 Respiratory Rate 16 05/06/24 19:02 Blood Pressure 135/83 05/06/24 19:02 Pulse Oximetry 98 05/06/24 19:02 Oxygen Delivery Method Room Air 05/06/24 19:02 Temperature 98.3 F 05/06/24 19:02 Pulse Rate 72 05/06/24 19:02 Respiratory Rate 16 05/06/24 19:02 Blood Pressure 135/83 05/06/24 19:02 Pulse Oximetry 98 05/06/24 19:02 Oxygen Delivery Method Room Air 05/06/24 19:02 Medical Decision Making MDM Narrative Medical decision making narrative: Strep and COVID test are negative. My clinical impression is that she has a viral URI and should be treated symptomatically. Treatment diagnosis and follow-up were discussed with the patient. Differential Diagnosis Differential Diagnosis: Strep throat, COVID, viral URI, otitis media, otitis externa Lab Data Lab results reviewed: Yes I reviewed the patient's lab results Labs: Lab Results 05/06/24 Range/Units 20:48 SARS-CoV-2 Ag (CV2AG) Negative (NEGATIVE) Streptococcus Screen Negative Discharge Plan Discharge Chief Complaint: Ear Clinical Impression: Otalgia Patient Disposition: Home, Self-Care Time of Disposition Decision: 21:07 Condition: Good Mode of Transportation: Private Vehicle Prescriptions / Home Meds: New Claritin-D 12 Hour 5-120 mg tablet extended release 12 hr 1 tab PO Q12H PRN (Reason: nasal congestion) Qty: 20 0RF Print Language: Mongolian Instructions: Earache (ED) Referrals: KAREN JOE [Primary Care Provider] - 1 week
[2024-05-06 21:00] LABS: Internal Control Within Normal Limits; Strep A Antigen Screen Negative
[2024-05-06 21:05] LABS: Internal Control Within Normal Limits; SARS-CoV-2 Ag NEGATIVE (NEGATIVE)
[2024-05-06] MEDS: CETIRIZINE HCL 10 MG TABLET PO (21:14)
== END 2024-05-06 21:17 | disposition home or self-care (01) ==
PROVIDERS: Emergency Provider Emergency Medicine; PCP Family Medicine
DX: H92.02 Otalgia, left ear (principal); Z20.822 Contact with and (suspected) exposure to COVID-19
CPT/HCPCS: 87070; 87811; 87880; 99284